=== PATIENT | female | born 1960 | race African-American/Black ===

== ENCOUNTER 2019-09-05 10:31 | Inpatient (IN) | payer BC ==
[2019-09-05] VITALS (11 sets, daily range): BP systolic 89–124; BP diastolic 46–70
[~2019-09-05] VITALS: Ht 157.5 cm; Wt 90.3 kg
--- NOTE | 2019-09-05 11:14 | PHYS DOC ---
Past Medical History Date and Time of Reassessment Date: Sep 05, 2019 Time: 13:00 Fluid Challenge Is the fluid challenge complet: No IBW Target Volume Used: Yes BMI > 30: Yes Vital Signs Vital Signs: Vital Signs Date Time Temp Pulse Resp B/P (MAP) Pulse Ox O2 Delivery O2 Flow Rate FiO2 09/05/19 12:52 108 18 100/67 (78) 98 Nasal Cannula 2.0 09/05/19 11:24 97.8 97.8 Temperature Source: Oral Respirations Respiratory Effort: Normal Respiratory Pattern: Normal Cardiovascular Pulse Rhythm: Irregular Heart: No JVD Lung Sounds Breath Sounds: Clear Capillary Refil Capillary Refill: Rt Hand < 3 seconds Peripheral Pulse Pulse Location: Monitor Pulse Strength: Weak (1+) Pulse Assessment Method: NIBP Critical Care Time Critical care time was 60 minutes exclusive of procedures. Adult General Chief Complaint Chief Complaint: RECTAL BLEED HPI HPI 59-year-old female presents to the emergency department with complaints of weakness, bright red blood per rectum. Patient states she has a history of reflux as well as anemia. She states over the last 10 days she's had bleeding off and on persistent over the last 3-4 days with increasing weakness. She does describe shortness of breath. She denies any nausea, vomiting diarrhea, chest pain, headache or visual change. She denies any dizziness. Review of Systems Review of Systems Constitutional: Denies fever or chills [] Respiratory: Denies cough or shortness of breath [] Cardiovascular: No additional information not addressed in HPI [] GI: Denies abdominal pain, nausea, vomiting, diarrhea, + BRBPR [] : Denies dysuria or hematuria [] Musculoskeletal: Denies back pain or joint pain [] Integument: Denies rash or skin lesions [] Neurologic: Denies headache, focal weakness or sensory changes [] All other systems were reviewed and found to be within normal limits, except as documented in this note. Current Medications Current Medications Current Medications Medications (Trade) Dose Ordered Sig/Florecita Start Time Stop Time Status Last Admin Dose Admin Adenosine (Adenocard) 6 mg STK-MED ONCE 09/05/19 12:33 09/05/19 12:33 DC Potassium Chloride/Water 100 ml @ 100 mls/hr Q1H 09/05/19 12:00 09/05/19 13:59 DC 09/05/19 14:55 100 MLS/HR Sodium Chloride 1,000 ml @ 1,500 mls/hr Q40M 09/05/19 12:50 09/05/19 13:49 DC 09/05/19 12:38 1,500 MLS/HR Allergies Allergies Allergies Coded Allergies Type Severity Reaction Last Updated Verified No Known Drug Allergies 09/05/19 No Physical Exam Physical Exam Constitutional: Well developed, well nourished, ill - appearing [] HENT: Normocephalic, atraumatic, bilateral external ears normal, oropharynx moist, no oral exudates, nose normal. [] Eyes: PERRLA, EOMI, conjunctiva normal, no discharge. [] Cardiovascular:Heart rate regular rhythm, no murmur [] Lungs & Thorax: Bilateral breath sounds clear to auscultation [] Abdomen: Bowel sounds normal, soft, no tenderness, no masses, no pulsatile masses. [] Skin: Warm, dry, no erythema, no rash. [] Back: No tenderness, no CVA tenderness. [] Extremities: No tenderness, no edema. [] Neurologic: Alert and oriented X 3, no focal deficits noted. [] Psychologic: Affect normal, judgement normal, mood normal. [] Current Patient Data Vital Signs Vital Signs Date Time Temp Pulse Resp B/P (MAP) Pulse Ox O2 Delivery O2 Flow Rate FiO2 09/05/19 12:52 108 18 100/67 (78) 98 Nasal Cannula 2.0 09/05/19 11:24 97.8 97.8 Lab Values Laboratory Tests Test 09/05/19 11:14 09/05/19 11:29 09/05/19 12:00 White Blood Count 29.3 x10^3/uL (4.0-11.0) H Red Blood Count 3.78 x10^6/uL (3.50-5.40) Hemoglobin 9.9 g/dL (12.0-15.5) L Hematocrit 32.5 % (36.0-47.0) L Mean Corpuscular Volume 86 fL (79-100) Mean Corpuscular Hemoglobin 26 pg (25-35) Mean Corpuscular Hemoglobin Concent 31 g/dL (31-37) Red Cell Distribution Width 16.5 % (11.5-14.5) H Platelet Count 539 x10^3/uL (140-400) H Neutrophils (%) (Auto) 84 % (31-73) H Lymphocytes (%) (Auto) 9 % (24-48) L Monocytes (%) (Auto) 6 % (0-9) Eosinophils (%) (Auto) 0 % (0-3) Basophils (%) (Auto) 0 % (0-3) Neutrophils # (Auto) 24.7 x10^3/uL (1.8-7.7) H Lymphocytes # (Auto) 2.7 x10^3/uL (1.0-4.8) Monocytes # (Auto) 1.8 x10^3/uL (0.0-1.1) H Eosinophils # (Auto) 0.1 x10^3/uL (0.0-0.7) Basophils # (Auto) 0.1 x10^3/uL (0.0-0.2) Segmented Neutrophils % 78 % (35-66) H Band Neutrophils % 3 % (0-9) Lymphocytes % 10 % (24-48) L Monocytes % 8 % (0-10) Eosinophils % 1 % (0-5) Toxic Granulation Present Platelet Estimate Increased (ADEQUATE) Large Platelets Present Giant Platelets Occ Anisocytosis Present Prothrombin Time 16.4 SEC (11.7-14.0) H Prothrombin Time INR 1.4 (0.8-1.1) H Sodium Level 139 mmol/L (136-145) Potassium Level 2.7 mmol/L (3.5-5.1) *L Chloride Level 100 mmol/L (98-107) Carbon Dioxide Level 14 mmol/L (21-32) L Anion Gap 25 (6-14) H Blood Urea Nitrogen 39 mg/dL (7-20) H Creatinine 4.0 mg/dL (0.6-1.0) H Estimated GFR (Cockcroft-Gault) 13.8 BUN/Creatinine Ratio 10 (6-20) Glucose Level 341 mg/dL (70-99) H Lactic Acid Level 13.1 mmol/L (0.4-2.0) *H Calcium Level 9.4 mg/dL (8.5-10.1) Magnesium Level 2.8 mg/dL (1.8-2.4) H Iron Level 55 ug/dL (50-170) Total Iron Binding Capacity 155 ug/dL (250-450) L Iron Saturation 35 % (15-34) H Total Bilirubin 0.3 mg/dL (0.2-1.0) Aspartate Amino Transferase (AST) 23 U/L (15-37) Alanine Aminotransferase (ALT) 36 U/L (14-59) Alkaline Phosphatase 194 U/L (46-116) H Total Protein 7.9 g/dL (6.4-8.2) Albumin 2.1 g/dL (3.4-5.0) L Albumin/Globulin Ratio 0.4 (1.0-1.7) L Vitamin B12 Level > 2000 pg/mL (247-911) H Thyroid Stimulating Hormone (TSH) 1.781 uIU/mL (0.358-3.74) Stool Occult Blood Positive (NEG) Procalcitonin 0.57 ng/mL (0.00-0.10) H Laboratory Tests 09/05/19 11:14 Laboratory Tests 09/05/19 11:14 EKG EKG EKG reviewed 1148, sinus tachycardia normal axis nonurgent EKG EKG reviewed 1231, SVT, heart rate 181, urgent EKG[] Radiology/Procedures Radiology/Procedures [address] [address] IMAGING REPORT Signed PATIENT: PATRICIA BEE ACCOUNT: [id number] : 1960 LOCATION: ER AGE: 59 SEX: F EXAM STATUS: REG ER ORD. PHYSICIAN: CAROL SENA MD REASON: svt PROCEDURE: CHEST AP ONLY Single portable chest radiograph without comparison for SVT. FINDINGS: Lungs are clear. Cardiomediastinum is grossly unremarkable. No significant soft tissue or osseous abnormality. Impression: 1. No acute cardiopulmonary abnormality. Electronically signed by: Hu Rodriguez MD (09/05/2019 2:03 PM) [facility] DICTATED and SIGNED BY: HU RODRIGUEZ MD DATE: 09/05/19 1403 [] [address] [id number] IMAGING REPORT Signed PATIENT: PATRICIA BEE ACCOUNT: [id number] : 1960 LOCATION: ER AGE: 59 SEX: F EXAM STATUS: REG ER ORD. PHYSICIAN: BRYCE ABEBE MD REASON: abdominal pain, brbpr PROCEDURE: CT ABDOMEN PELVIS WO CONTRAST CT ABDOMEN PELVIS WO CONTRAST Indication: Abdominal pain. Exposure: One or more of the following individualized dose reduction techniques were utilized for this examination: 1. Automated exposure control 2. Adjustment of the mA and/or kV according to patient size 3. Use of iterative reconstruction technique. Comparison: October 22, 2011 Technique: No intravenous contrast given. No oral contrast per request. Findings: Evaluation of solid viscera, bowel and vasculature is compromised by the noncontrast technique. Lung bases are clear. Liver is enlarged, measuring about 20 cm cephalocaudal. This has increased since prior study. Spleen unremarkable. Pancreas unremarkable. Small hypodense mass of the right adrenal gland measuring 13 mm diameter, is unchanged and most likely an adenoma. Multiple low-density lesions in both kidneys, more so on the right, are identified and have progressed in size and number since the previous exam. The measurable of these lesions all measure less than 20 Hounsfield units, and are most likely cysts, within the constraints of a noncontrast exam. 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 No evidence of hydronephrosis. Small density within the gallbladder compatible most likely with a small gallstone. Mild aortic calcification without evidence of aneurysm. Small mesenteric lymph nodes in the right lower quadrant, largest measures 7 mm in short axis. No pathologically enlarged lymph nodes are seen. Wall thickening of the distal esophagus, circumferential. Small hiatal hernia. No significant small bowel distention. No evidence of acute colitis. The appendix appears within normal limits. No evidence of pneumoperitoneum or significant ascites. Urinary bladder is incompletely distended. The uterus is enlarged with a lobulated morphology and internal calcifications, similar to the prior study. This may represent fibroid uterus. This appears similar to previous exam. Low-density lesion in the left adnexal area measures 13 Hounsfield units compatible with cystic nature, and measures 3 cm diameter. Prior study does not include sagittal reconstructions limiting evaluation of the spine. There is mild superior and inferior endplate compression of the L3 vertebral body compatible with mild compression fracture, not definitely seen on the previous exam. Degenerative spondylosis particularly at L4-L5 and L5-S1. No evidence of destructive bone lesion. IMPRESSION: 1. Development of a small 3 cm cystic lesion of the left adnexa. Recommend nonemergent pelvic ultrasound for further evaluation. 2. Hepatomegaly. 3. Stable right adrenal nodule, most likely an adenoma. 4. Multiple renal lesions, most likely cysts within the constraints of a noncontrast exam. These have increased in size and number since the prior study, and further outpatient examination with multiphase contrast-enhanced CT or MRI of the kidneys could be of benefit. 5. Mild endplate depression at L3, as can be seen with osteoporotic fracture. Probably not seen on the prior study although comparison is limited without sagittal reconstructions on that exam. 6. Mild distal esophageal wall thickening, could be of acute or chronic etiology. 7. Calcific density within the gallbladder, likely a gallstone. Electronically signed by: Vern Baldwin MD (09/05/2019 12:57 PM) [facility] DICTATED and SIGNED BY: VERN BALDWIN MD DATE: 09/05/19 1257 Course & Med Decision Making Course & Med Decision Making Pertinent Labs and Imaging studies reviewed. (See chart for details) []59-year-old female presents to the emergency department with complaints of weakness, bright red blood per rectum. Patient states she has a history of reflux as well as anemia. She states over the last 10 days she's had bleeding off and on persistent over the last 3-4 days with increasing weakness. She does describe shortness of breath. She denies any nausea, vomiting diarrhea, chest pain, headache or visual change. She denies any dizziness. Labs reviewed - patient with elevated lactic acid 13.1, creat 4.0, WBC 29.3 Sepsis protocol initiated, cultures obtained, abx initiated - see sepsis worksheet Discussed with patient regarding central line access and she declines Patient received IVF 1500ml based on ideal body weight During her evaluation patient with SVT - HR 180's, SBP 60-70's Initially patient converted on her own however relapsed with HR 170-180s - received Adenosine 6mg IV with improvement however again converted back to SVT - patient requiring total of 12mg adenosine (Please see nursing notes) Cardiology consult placed from ER - talked with DR Zimmerman, discussed use of amio vs not - recommended holding off and he will see patient in ICU Discussed admit with DR. SENA Discussed admit with patient and family at bedside Dragon Disclaimer Ruthon Disclaimer This electronic medical record was generated, in whole or in part, using a voice recognition dictation system. Critical Care Time Critical care time was 60 minutes exclusive of procedures. Date and Time of Reassessment Date: Sep 05, 2019 Time: 13:26 Fluid Challenge Is the fluid challenge complet: No IBW Target Volume Used: Yes BMI > 30: Yes Vital Signs Vital Signs: Vital Signs Date Time Temp Pulse Resp B/P (MAP) Pulse Ox O2 Delivery O2 Flow Rate FiO2 09/05/19 12:52 108 18 100/67 (78) 98 Nasal Cannula 2.0 09/05/19 11:24 97.8 97.8 Temperature Source: Oral Respirations Respiratory Effort: Normal Respiratory Pattern: Irregular Cardiovascular Pulse Rhythm: Irregular Heart: No murmurs noted Lung Sounds Breath Sounds: Clear Capillary Refil Capillary Refill: Rt Hand < 3 seconds Peripheral Pulse Pulse Location: Monitor Pulse Strength: Weak (1+) Pulse Assessment Method: NIBP Integumentary Skin: Warm Departure Departure Impression: Primary Impression: Septic shock Additional Impressions: SVT (supraventricular tachycardia) Rectal bleed BONITA (acute kidney injury) Disposition: 09 ADMITTED INPATIENT Admitting Physician: LAYLA Condition: GUARDED Referrals: UNKNOWN PCP NAME (PCP) Problem Qualifiers BRYCE ABEBE MD Sep 05, 2019 11:14
[2019-09-05] MEDS ORDERED: IV NORMAL SALINE 1000ML BAG 1,000 ML IV ONE (11:30)
[2019-09-05 11:41] LABS: BASO # 0.1 x10^3/uL (0.0-0.2); BASO % 0 % (0-3); EOS # 0.1 x10^3/uL (0.0-0.7); EOS % 0 % (0-3); HEMATOCRIT 32.5 % (36.0-47.0); HEMOGLOBIN 9.9 g/dL (12.0-15.5); LYMPH # 2.7 x10^3/uL (1.0-4.8); LYMPH % 9 % (24-48); MEAN CORPUSCULAR HEMOGLOBIN 26 pg (25-35); MEAN CORPUSCULAR HGB CONC 31 g/dL (31-37); MEAN CORPUSCULAR VOLUME 86 fL (79-100); MONO # 1.8 x10^3/uL (0.0-1.1); MONO % 6 % (0-9); NEUT # 24.7 x10^3/uL (1.8-7.7); NEUT % 84 % (31-73); PLATELET COUNT 539 x10^3/uL (140-400); RED BLOOD COUNT 3.78 x10^6/uL (3.50-5.40); RED CELL DISTRIBUTION WIDTH 16.5 % (11.5-14.5); WHITE BLOOD COUNT 29.3 x10^3/uL (4.0-11.0)
[2019-09-05 11:41] LABS: FECAL OB PT POSITIVE (NEG)
[2019-09-05 11:48] LABS: ALBUMIN 2.1 g/dL (3.4-5.0); ALBUMIN/GLOBULIN RATIO 0.4 (1.0-1.7); CALCIUM 9.4 mg/dL (8.5-10.1); GFR 13.8; TOTAL BILIRUBIN 0.3 mg/dL (0.2-1.0); TOTAL PROTEIN 7.9 g/dL (6.4-8.2)
[2019-09-05 11:52] LABS: POTASSIUM 2.7 mmol/L (3.5-5.1)
[2019-09-05 11:56] LABS: PROTHROMBIN TIME PATIENT 16.4 SEC (11.7-14.0)
[2019-09-05] MEDS ORDERED: ADENOSINE 6 MG/2 ML VIAL. IV ONE ×5 (12:20→13:29)
[2019-09-05] MEDS: IV NORMAL SALINE 1000ML BAG 1,000 ML IV SCH ×4 (12:38→19:46)
[2019-09-05] MEDS: POTASSIUM CHLORIDE 10MEQ 100 ML IV SCH ×4 (12:43→17:00)
[2019-09-05 12:47] LABS: % BANDS 3 % (0-9); % EOS 1 % (0-5); % LYMPHS 10 % (24-48); % MONOS 8 % (0-10); % SEGS 78 % (35-66)
[2019-09-05 12:48] LABS: PLT ESTIMATE INCREASED (ADEQUATE)
[2019-09-05 12:49] LABS: ANISOCYTOSIS PRESENT; TOXIC GRANULATION PRESENT
[2019-09-05] MEDS ORDERED: NOREPINEPHRIN 8MG/250ML PREMIX 250 ML IV PRN (13:00)
[2019-09-05] MEDS ORDERED: 0.9 % SODIUM CHLORIDE 10 ML DISP.SYRIN. IV PRN (13:00)
[2019-09-05] MEDS ORDERED: VANCOMYCIN PER PHARMACY MC ONE (13:00)
[2019-09-05] MEDS ORDERED: PIPERACILLIN/TAZOBACTAM 4.5 GM in IV NORMAL SALINE 100ML 100 ML IV ONE (13:00)
--- NOTE | 2019-09-05 13:00 | RAD ---
CT ABDOMEN PELVIS WO CONTRAST Indication: Abdominal pain. Exposure: One or more of the following individualized dose reduction techniques were utilized for this examination: 1. Automated exposure control 2. Adjustment of the mA and/or kV according to patient size 3. Use of iterative reconstruction technique. Comparison: October 22, 2011 Technique: No intravenous contrast given. No oral contrast per request. Findings: Evaluation of solid viscera, bowel and vasculature is compromised by the noncontrast technique. Lung bases are clear. Liver is enlarged, measuring about 20 cm cephalocaudal. This has increased since prior study. Spleen unremarkable. Pancreas unremarkable. Small hypodense mass of the right adrenal gland measuring 13 mm diameter, is unchanged and most likely an adenoma. Multiple low-density lesions in both kidneys, more so on the right, are identified and have progressed in size and number since the previous exam. The measurable of these lesions all measure less than 20 Hounsfield units, and are most likely cysts, within the constraints of a noncontrast exam. 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 No evidence of hydronephrosis. Small density within the gallbladder compatible most likely with a small gallstone. Mild aortic calcification without evidence of aneurysm. Small mesenteric lymph nodes in the right lower quadrant, largest measures 7 mm in short axis. No pathologically enlarged lymph nodes are seen. Wall thickening of the distal esophagus, circumferential. Small hiatal hernia. No significant small bowel distention. No evidence of acute colitis. The appendix appears within normal limits. No evidence of pneumoperitoneum or significant ascites. Urinary bladder is incompletely distended. The uterus is enlarged with a lobulated morphology and internal calcifications, similar to the prior study. This may represent fibroid uterus. This appears similar to previous exam. Low-density lesion in the left adnexal area measures 13 Hounsfield units compatible with cystic nature, and measures 3 cm diameter. Prior study does not include sagittal reconstructions limiting evaluation of the spine. There is mild superior and inferior endplate compression of the L3 vertebral body compatible with mild compression fracture, not definitely seen on the previous exam. Degenerative spondylosis particularly at L4-L5 and L5-S1. No evidence of destructive bone lesion. IMPRESSION: 1. Development of a small 3 cm cystic lesion of the left adnexa. Recommend nonemergent pelvic ultrasound for further evaluation. 2. Hepatomegaly. 3. Stable right adrenal nodule, most likely an adenoma. 4. Multiple renal lesions, most likely cysts within the constraints of a noncontrast exam. These have increased in size and number since the prior study, and further outpatient examination with multiphase contrast-enhanced CT or MRI of the kidneys could be of benefit. 5. Mild endplate depression at L3, as can be seen with osteoporotic fracture. Probably not seen on the prior study although comparison is limited without sagittal reconstructions on that exam. 6. Mild distal esophageal wall thickening, could be of acute or chronic etiology. 7. Calcific density within the gallbladder, likely a gallstone. Electronically signed by: Vern Baldwin MD (09/05/2019 12:57 PM) [facility]
[2019-09-05] MEDS ORDERED: PIPERACILLIN/TAZOBACTAM 2.25 GM in IV NORMAL SALINE 50ML 50 ML IV ONE (13:15)
[2019-09-05] MEDS ORDERED: VANCOMYCIN 1.5 GM in IV NORMAL SALINE 500ML BAG 500 ML IV ONE (13:15)
[2019-09-05] MEDS ORDERED: AMIODARONE 900 MG in IV DEXTROSE 5% 500 ML IV PRN (13:30)
[2019-09-05] MEDS ORDERED: ACETAMINOPHEN/CODEINE 300/30MG TABLET. PO PRN (13:30)
[2019-09-05] MEDS ORDERED: ONDANSETRON PF 4 MG/2 ML VIAL. IVP PRN (13:30)
--- NOTE | 2019-09-05 13:35 | PDOC1 ---
History and Physical Date of Admission Date of Admission DATE: 09/05/19 TIME: :22 Identification/Chief Complaint Chief Complaint BRBPR few days Source Source: Caregiver, Chart review, Patient History of Present Illness History of Present Illness Very pleasant 59 AA female, takes only 2 meds at home, losartan 50 po qdaily and ferrous sulfate, BRBPR few days, mild, with BM and when she wipes, NOt on OAC< asa or nsaids, Similar episode yrs ago with EGD and c scope unrevealing, BUt new today is lactate 13.1, no source with SVT 170s, no sxs, RESolved initially after IVF, then came back, then resolved with adenosine 6 mgs then came back and now for second dose adenosine, K 2.7, creat 4.,0 - news to her. AGAP elevated 25, INR 1,4., SBP 70s- thru 80s. WIll admit to icu, with renal , cards and stabilize arrhythmia first, She does not appear in distress during the whole SVT episodes, denies CP CT : 1. Development of a small 3 cm cystic lesion of the left adnexa. Recommend nonemergent pelvic ultrasound for further evaluation. 2. Hepatomegaly. 3. Stable right adrenal nodule, most likely an adenoma. 4. Multiple renal lesions, most likely cysts within the constraints of a noncontrast exam. These have increased in size and number since the prior study, and further outpatient examination with multiphase contrast-enhanced CT or MRI of the kidneys could be of benefit. 5. Mild endplate depression at L3, as can be seen with osteoporotic fracture. Probably not seen on the prior study although comparison is limited without sagittal reconstructions on that exam. 6. Mild distal esophageal wall thickening, could be of acute or chronic etiology. 7. Calcific density within the gallbladder, likely a gallstone. Past Medical History Cardiovascular: HTN Heme/Onc: Anemia NOS, Iron deficiency Anemia Past Surgical History Past Surgical History: No pertinent history Family History Family History: Hypertension Social History Smoke: No ALCOHOL: none Drugs: None Current Problem List Problem List Problems Medical Problems: (1) Rectal bleed Status: Acute (2) Septic shock Status: Acute Current Medications Current Medications Current Medications Sodium Chloride 1,000 ml @ 1,000 mls/hr 1X ONCE IV Last administered on 09/05/19at 11:30; Start 09/05/19 at 11:30; Stop 09/05/19 at 12:29; Status DC Potassium Chloride/Water 100 ml @ 100 mls/hr Q1H IV Last administered on 09/05/19at 12:43; Start 09/05/19 at 12:00; Stop 09/05/19 at 13:59 Adenosine (Adenocard) 6 mg STK-MED ONCE IV ; Start 09/05/19 at 12:20; Stop 09/05/19 at 12:21; Status DC Adenosine (Adenocard) 6 mg STK-MED ONCE IV ; Start 09/05/19 at 12:33; Stop 09/05/19 at 12:33; Status DC Sodium Chloride (Normal Saline Flush) 10 ml QSHIFT PRN IV AFTER MEDS AND BLOOD DRAWS; Start 09/05/19 at 13:00 Sodium Chloride 1,000 ml @ 1,500 mls/hr Q40M IV Last administered on 09/05/19at 12:38; Start 09/05/19 at 12:50; Stop 09/05/19 at 13:49 Piperacillin Sod/ Tazobactam Sod 4.5 gm/Sodium Chloride 100 ml @ 200 mls/hr 1X ONCE IV ; Start 09/05/19 at 13:00; Stop 09/05/19 at 13:07; Status DC Vancomycin HCl (Vanco Per Pharmacy) 1 each 1X ONCE MC ; Start 09/05/19 at 13:00; Stop 09/05/19 at 13:08; Status DC Norepinephrine Bitartrate 250 ml @ 0 mls/hr CONT PRN IV PER PROTOCOL; Start 09/05/19 at 13:00 Adenosine (Adenocard) 6 mg 1X ONCE IV Last administered on 09/05/19at 12:37; Start 09/05/19 at 13:15; Stop 09/05/19 at 13:16; Status DC Piperacillin Sod/ Tazobactam Sod 2.25 gm/Sodium Chloride 50 ml @ 100 mls/hr 1X ONCE IV ; Start 09/05/19 at 13:15; Stop 09/05/19 at 13:44 Vancomycin HCl 1.5 gm/Sodium Chloride 500 ml @ 250 mls/hr 1X ONCE IV ; Start 09/05/19 at 13:15; Stop 09/05/19 at 15:14 Allergies Allergies: Coded Allergies: No Known Drug Allergies (Unverified , 09/05/19) ROS Review of System as per HPI, all else 14 pt reviewed with her is neg Physical Exam General: Alert, Oriented X3, Cooperative, No acute distress HEENT: Atraumatic, PERRLA, EOMI Lungs: Clear to auscultation, Normal air movement Heart: S1S2, no thrills, no rubs, no gallops, no murmurs, other (svt) Abdomen: Normal bowel sounds, Soft, No tenderness, No hepatosplenomegaly, No masses PELVIC: Nml ext genitalia Extremities: No clubbing, No cyanosis, No edema, Normal pulses, No tenderness/swelling Skin: No rashes, No breakdown, No significant lesion Neuro: Normal gait, Normal speech, Strength at 5/5 X4 ext, Normal tone, Sensation intact, Cranial nerves 3-12 NL, Reflexes 2+ Psych/Mental Status: Mental status NL, Mood NL Vitals Vitals Vital Signs Date Time Temp Pulse Resp B/P (MAP) Pulse Ox O2 Delivery O2 Flow Rate FiO2 09/05/19 12:06 91/55 (67) 09/05/19 11:24 97.8 118 24 100 Room Air 97.8 Labs Labs Laboratory Tests Test 09/05/19 11:14 09/05/19 11:29 White Blood Count 29.3 x10^3/uL (4.0-11.0) Red Blood Count 3.78 x10^6/uL (3.50-5.40) Hemoglobin 9.9 g/dL (12.0-15.5) Hematocrit 32.5 % (36.0-47.0) Mean Corpuscular Volume 86 fL (79-100) Mean Corpuscular Hemoglobin 26 pg (25-35) Mean Corpuscular Hemoglobin Concent 31 g/dL (31-37) Red Cell Distribution Width 16.5 % (11.5-14.5) Platelet Count 539 x10^3/uL (140-400) Neutrophils (%) (Auto) 84 % (31-73) Lymphocytes (%) (Auto) 9 % (24-48) Monocytes (%) (Auto) 6 % (0-9) Eosinophils (%) (Auto) 0 % (0-3) Basophils (%) (Auto) 0 % (0-3) Neutrophils # (Auto) 24.7 x10^3/uL (1.8-7.7) Lymphocytes # (Auto) 2.7 x10^3/uL (1.0-4.8) Monocytes # (Auto) 1.8 x10^3/uL (0.0-1.1) Eosinophils # (Auto) 0.1 x10^3/uL (0.0-0.7) Basophils # (Auto) 0.1 x10^3/uL (0.0-0.2) Segmented Neutrophils % 78 % (35-66) Band Neutrophils % 3 % (0-9) Lymphocytes % 10 % (24-48) Monocytes % 8 % (0-10) Eosinophils % 1 % (0-5) Toxic Granulation Present Platelet Estimate Increased (ADEQUATE) Large Platelets Present Giant Platelets Occ Anisocytosis Present Prothrombin Time 16.4 SEC (11.7-14.0) Prothromb Time International Ratio 1.4 (0.8-1.1) Sodium Level 139 mmol/L (136-145) Potassium Level 2.7 mmol/L (3.5-5.1) Chloride Level 100 mmol/L (98-107) Carbon Dioxide Level 14 mmol/L (21-32) Anion Gap 25 (6-14) Blood Urea Nitrogen 39 mg/dL (7-20) Creatinine 4.0 mg/dL (0.6-1.0) Estimated GFR (Cockcroft-Gault) 13.8 BUN/Creatinine Ratio 10 (6-20) Glucose Level 341 mg/dL (70-99) Lactic Acid Level 13.1 mmol/L (0.4-2.0) Calcium Level 9.4 mg/dL (8.5-10.1) Magnesium Level 2.8 mg/dL (1.8-2.4) Total Bilirubin 0.3 mg/dL (0.2-1.0) Aspartate Amino Transf (AST/SGOT) 23 U/L (15-37) Alanine Aminotransferase (ALT/SGPT) 36 U/L (14-59) Alkaline Phosphatase 194 U/L (46-116) Total Protein 7.9 g/dL (6.4-8.2) Albumin 2.1 g/dL (3.4-5.0) Albumin/Globulin Ratio 0.4 (1.0-1.7) Stool Occult Blood Positive (NEG) Laboratory Tests Test 09/05/19 11:14 09/05/19 11:29 White Blood Count 29.3 x10^3/uL (4.0-11.0) Red Blood Count 3.78 x10^6/uL (3.50-5.40) Hemoglobin 9.9 g/dL (12.0-15.5) Hematocrit 32.5 % (36.0-47.0) Mean Corpuscular Volume 86 fL (79-100) Mean Corpuscular Hemoglobin 26 pg (25-35) Mean Corpuscular Hemoglobin Concent 31 g/dL (31-37) Red Cell Distribution Width 16.5 % (11.5-14.5) Platelet Count 539 x10^3/uL (140-400) Neutrophils (%) (Auto) 84 % (31-73) Lymphocytes (%) (Auto) 9 % (24-48) Monocytes (%) (Auto) 6 % (0-9) Eosinophils (%) (Auto) 0 % (0-3) Basophils (%) (Auto) 0 % (0-3) Neutrophils # (Auto) 24.7 x10^3/uL (1.8-7.7) Lymphocytes # (Auto) 2.7 x10^3/uL (1.0-4.8) Monocytes # (Auto) 1.8 x10^3/uL (0.0-1.1) Eosinophils # (Auto) 0.1 x10^3/uL (0.0-0.7) Basophils # (Auto) 0.1 x10^3/uL (0.0-0.2) Segmented Neutrophils % 78 % (35-66) Band Neutrophils % 3 % (0-9) Lymphocytes % 10 % (24-48) Monocytes % 8 % (0-10) Eosinophils % 1 % (0-5) Toxic Granulation Present Platelet Estimate Increased (ADEQUATE) Large Platelets Present Giant Platelets Occ Anisocytosis Present Prothrombin Time 16.4 SEC (11.7-14.0) Prothromb Time International Ratio 1.4 (0.8-1.1) Sodium Level 139 mmol/L (136-145) Potassium Level 2.7 mmol/L (3.5-5.1) Chloride Level 100 mmol/L (98-107) Carbon Dioxide Level 14 mmol/L (21-32) Anion Gap 25 (6-14) Blood Urea Nitrogen 39 mg/dL (7-20) Creatinine 4.0 mg/dL (0.6-1.0) Estimated GFR (Cockcroft-Gault) 13.8 BUN/Creatinine Ratio 10 (6-20) Glucose Level 341 mg/dL (70-99) Lactic Acid Level 13.1 mmol/L (0.4-2.0) Calcium Level 9.4 mg/dL (8.5-10.1) Magnesium Level 2.8 mg/dL (1.8-2.4) Total Bilirubin 0.3 mg/dL (0.2-1.0) Aspartate Amino Transf (AST/SGOT) 23 U/L (15-37) Alanine Aminotransferase (ALT/SGPT) 36 U/L (14-59) Alkaline Phosphatase 194 U/L (46-116) Total Protein 7.9 g/dL (6.4-8.2) Albumin 2.1 g/dL (3.4-5.0) Albumin/Globulin Ratio 0.4 (1.0-1.7) Stool Occult Blood Positive (NEG) VTE Prophylaxis Ordered VTE Prophylaxis Devices: Contraindicated VTE Pharmacological Prophylaxi: Contraindicated Assessment/Plan Assessment/Plan NEw SVT with hypotension BRBPR - FOBT positive HYpokalemia, critical - check mag, replace BOINTA -creat 4.0- VMN, likely sec to GI losses - IVF, renal consult AGAp acidosis, contraction alkalosis - AGAP 25 with high bicarb SIRS - no source - elev lactate 13.,1 Septic shock (hypotensive) LEukocytosis - WBC 23 - kovacs cx, ID Incidental kidney cysts - per CT Old Thoracic fx - she denies knwoledge and back pain Incidental adrenal adenoma PLAn: ICU bed, rate control AMio gtt levophed stand by NS IVF for AGAP Check mag, tsh, calcium Replace k orally EMpiric abx - ID consult., sepsis avoid nephrotoxins COnsult ID, renal and cards HOld losartan (creat 4) MAy resume ferrous sulfate COnsult GI re BRBPR and positive - recheck lactate etc REcheck K later after replacement FUll code Emiliano GRIDER MD and cc 34 CAROL SENA MD Sep 05, 2019 13:35
[2019-09-05] MEDS ORDERED: diphenhydrAMINE HCL 25 MG CAPSULE PO PRN (13:45)
[2019-09-05] MEDS ORDERED: HYDROcodone/APAP 5/325MG 1 TAB TABLET PO PRN (14:00)
--- NOTE | 2019-09-05 14:04 | EKG ---
[facility] [address] [place] [address] Test Date: 2019-09-05 Test Time: 11:33:42 Pat Name: PATRICIA BEE Department: Room: Gender: F [employer]: : 1960 Requested By: BRYCE ABEBE Order Number: [id number] Reading MD: Nick Gallegos MD Measurements Intervals [place] Rate: 116 P: 171 NC: 156 QRS: 41 QRSD: 80 T: 34 QT: 350 QTc: 492 Interpretive Statements SINUS TACHYCARDIA VENTRICULAR PREMATURE COMPLEX(ES) Electronically Signed On 09-13-2019 8:10:17 CDT by Nick Gallegos MD
--- NOTE | 2019-09-05 14:06 | RAD ---
Single portable chest radiograph without comparison for SVT. FINDINGS: Lungs are clear. Cardiomediastinum is grossly unremarkable. No significant soft tissue or osseous abnormality. Impression: 1. No acute cardiopulmonary abnormality. Electronically signed by: Hu Zavala MD (09/05/2019 2:03 PM) [facility]
--- NOTE | 2019-09-05 14:31 | PDOC2 ---
GI CONSULT Reason For Consult: BRBPR - Hemoccult positive HPI: HPI: 59 y/o female seen in ER. helps provide some history - she seems forgetful. Hypotension, SVT in ER s/p adenosine. Labs note WBC 29.1, Hgb 9.9, MCV 86, RDW 16.4, plt 539, INR 1.4, K 2.7, BUN 39, Cr 4, lactic acid 13.1, Alk phos 194, positive Hemoccult. CT A/P w/ distal esophageal wall thickening, small hiatal hernia, probable gallstone, and hepatomegaly. 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 GI-lopez, reports rectal bleeding w/ stool x 10 days - gradually worsening. Associated w/ periumbilical pain that comes in waves, decreased appetite, and possible 5 lb weight loss. Has chronic knee pain controlled w/ steroid injections. Has been unable to get out of bed for the past couple days and has worn Depends. H/o heartburn on Rolaids. No dysphagia, n/v, diarrhea, constipation, or melena. Thinks had EGD and colonoscopy here at [facility] a little over 5 years ago for similar symptoms - says she had "in infection in the intestines and colon," and was given antibiotics. Denies GB, liver, pancreas, or PUD history. Denies NSAIDs. H/o anemia related to fibroids - usually takes iron QD (but not for the last week). Says the fibroids went away, denies vaginal bleeding. PMH: PMH: HTN, uterine fibroids, GERD, SOBEIDA, chronic knee pain FH: Family History: Other (father - "jaundice") Social History: Smoke: No ALCOHOL: occassional Drugs: None ROS: GEN: Denies fevers, chills, sweats HEENT: Denies blurred vision, sore throat CV: Denies chest pain RESP: Denies shortness of air, cough GI: Per HPI : Denies hematuria, dysuria ENDO: +weight loss NEURO: Denies confusion, dizziness MSK: +knee pain SKIN: Denies jaundice, pruritus Vitals: Vitals: Vital Signs Date Time Temp Pulse Resp B/P (MAP) Pulse Ox O2 Delivery O2 Flow Rate FiO2 09/05/19 13:31 90 22 90/73 (79) 95 Nasal Cannula 2.0 09/05/19 11:24 97.8 97.8 Labs: Labs: Laboratory Tests Test 09/05/19 11:14 09/05/19 11:29 White Blood Count 29.3 x10^3/uL (4.0-11.0) Red Blood Count 3.78 x10^6/uL (3.50-5.40) Hemoglobin 9.9 g/dL (12.0-15.5) Hematocrit 32.5 % (36.0-47.0) Mean Corpuscular Volume 86 fL (79-100) Mean Corpuscular Hemoglobin 26 pg (25-35) Mean Corpuscular Hemoglobin Concent 31 g/dL (31-37) Red Cell Distribution Width 16.5 % (11.5-14.5) Platelet Count 539 x10^3/uL (140-400) Neutrophils (%) (Auto) 84 % (31-73) Lymphocytes (%) (Auto) 9 % (24-48) Monocytes (%) (Auto) 6 % (0-9) Eosinophils (%) (Auto) 0 % (0-3) Basophils (%) (Auto) 0 % (0-3) Neutrophils # (Auto) 24.7 x10^3/uL (1.8-7.7) Lymphocytes # (Auto) 2.7 x10^3/uL (1.0-4.8) Monocytes # (Auto) 1.8 x10^3/uL (0.0-1.1) Eosinophils # (Auto) 0.1 x10^3/uL (0.0-0.7) Basophils # (Auto) 0.1 x10^3/uL (0.0-0.2) Segmented Neutrophils % 78 % (35-66) Band Neutrophils % 3 % (0-9) Lymphocytes % 10 % (24-48) Monocytes % 8 % (0-10) Eosinophils % 1 % (0-5) Toxic Granulation Present Platelet Estimate Increased (ADEQUATE) Large Platelets Present Giant Platelets Occ Anisocytosis Present Prothrombin Time 16.4 SEC (11.7-14.0) Prothromb Time International Ratio 1.4 (0.8-1.1) Sodium Level 139 mmol/L (136-145) Potassium Level 2.7 mmol/L (3.5-5.1) Chloride Level 100 mmol/L (98-107) Carbon Dioxide Level 14 mmol/L (21-32) Anion Gap 25 (6-14) Blood Urea Nitrogen 39 mg/dL (7-20) Creatinine 4.0 mg/dL (0.6-1.0) Estimated GFR (Cockcroft-Gault) 13.8 BUN/Creatinine Ratio 10 (6-20) Glucose Level 341 mg/dL (70-99) Lactic Acid Level 13.1 mmol/L (0.4-2.0) Calcium Level 9.4 mg/dL (8.5-10.1) Magnesium Level 2.8 mg/dL (1.8-2.4) Total Bilirubin 0.3 mg/dL (0.2-1.0) Aspartate Amino Transf (AST/SGOT) 23 U/L (15-37) Alanine Aminotransferase (ALT/SGPT) 36 U/L (14-59) Alkaline Phosphatase 194 U/L (46-116) Total Protein 7.9 g/dL (6.4-8.2) Albumin 2.1 g/dL (3.4-5.0) Albumin/Globulin Ratio 0.4 (1.0-1.7) Stool Occult Blood Positive (NEG) Allergies: Coded Allergies: No Known Drug Allergies (Unverified , 09/05/19) Medications: Current Medications Medications (Trade) Dose Ordered Sig/Florecita Route PRN Reason Start Time Stop Time Status Last Admin Dose Admin Sodium Chloride 1,000 ml @ 1,000 mls/hr 1X ONCE IV 09/05/19 11:30 09/05/19 12:29 DC 09/05/19 11:30 Potassium Chloride/Water 100 ml @ 100 mls/hr Q1H IV 09/05/19 12:00 09/05/19 13:59 DC 09/05/19 12:43 Sodium Chloride 1,000 ml @ 1,500 mls/hr Q40M IV 09/05/19 12:50 09/05/19 13:49 DC 09/05/19 12:38 Adenosine (Adenocard) 6 mg 1X ONCE IV 09/05/19 13:15 09/05/19 13:16 DC 09/05/19 12:37 Piperacillin Sod/ Tazobactam Sod 2.25 gm/Sodium Chloride 50 ml @ 100 mls/hr 1X ONCE IV 09/05/19 13:15 09/05/19 13:44 DC 09/05/19 13:29 Adenosine (Adenocard) 6 mg 1X ONCE IV 09/05/19 13:19 09/05/19 13:49 DC 09/05/19 13:19 Adenosine (Adenocard) 12 mg 1X ONCE IV 09/05/19 13:29 09/05/19 13:49 DC 09/05/19 13:29 Imaging: Imaging: CXR Impression: 1. No acute cardiopulmonary abnormality. CT A/P w/o contrast Lung bases are clear. Liver is enlarged, measuring about 20 cm cephalocaudal. This has increased since prior study. Spleen unremarkable. Pancreas unremarkable. Small hypodense mass of the right adrenal gland measuring 13 mm diameter, is unchanged and most likely an adenoma. Multiple low-density lesions in both kidneys, more so on the right, are identified and have progressed in size and number since the previous exam. The measurable of these lesions all measure less than 20 Hounsfield units, and are most likely cysts, within the constraints of a noncontrast exam. 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 No evidence of hydronephrosis. Small density within the gallbladder compatible most likely with a small gallstone. Mild aortic calcification without evidence of aneurysm. Small mesenteric lymph nodes in the right lower quadrant, largest measures 7 mm in short axis. No pathologically enlarged lymph nodes are seen. Wall thickening of the distal esophagus, circumferential. Small hiatal hernia. No significant small bowel distention. No evidence of acute colitis. The appendix appears within normal limits. No evidence of pneumoperitoneum or significant ascites. Urinary bladder is incompletely distended. The uterus is enlarged with a lobulated morphology and internal calcifications, similar to the prior study. This may represent fibroid uterus. This appears similar to previous exam. Low-density lesion in the left adnexal area measures 13 Hounsfield units compatible with cystic nature, and measures 3 cm diameter. Prior study does not include sagittal reconstructions limiting evaluation of the spine. There is mild superior and inferior endplate compression of the L3 vertebral body compatible with mild compression fracture, not definitely seen on the previous exam. Degenerative spondylosis particularly at L4-L5 and L5-S1. No evidence of destructive bone lesion. IMPRESSION: 1. Development of a small 3 cm cystic lesion of the left adnexa. Recommend nonemergent pelvic ultrasound for further evaluation. 2. Hepatomegaly. 3. Stable right adrenal nodule, most likely an adenoma. 4. Multiple renal lesions, most likely cysts within the constraints of a noncontrast exam. These have increased in size and number since the prior study, and further outpatient examination with multiphase contrast-enhanced CT or MRI of the kidneys could be of benefit. 5. Mild endplate depression at L3, as can be seen with osteoporotic fracture. Probably not seen on the prior study although comparison is limited without sagittal reconstructions on that exam. 6. Mild distal esophageal wall thickening, could be of acute or chronic etiology. 7. Calcific density within the gallbladder, likely a gallstone. PE: GEN: NAD HEENT: Atraumatic, PERRL LUNGS: NC 2L HEART: tachycardic ABD: quiet BS, soft, not particularly tender currently EXTREMITY: No edema SKIN: No rashes, no jaundice NEURO/PSYCH: A & O 3 A/P: A/P: Rectal bleeding, abd pain, decreased appetite Hypotension, SVT, leukocytosis, lactic acidosis, hypokalemia, BONITA, hyperglycemia Heartburn, distal esophageal wall thickening on CT - had an EGD >5 years ago CRC screen - reports normal colonoscopy >5 years ago Hepatomegaly Probable gallstone Chronic knee pain H/o SOBEIDA and uterine fibroids - unclear baseline Hgb, usually takes PO iron at home -- Cardiology, ID, and renal consults pending. Agree w/ NPO, PPI (change to IV for now). Observe for bleeding, monitor Hgb, check anemia parameters. Other per Dr. Goddard. ERIKA CARDENAS Sep 05, 2019 14:31
--- NOTE | 2019-09-05 14:36 | PDOC2 ---
CARDIAC CONSULT DATE OF CONSULT Date of Consult DATE: 09/05/19 TIME: 14:26 REASON FOR CONSULT Reason for Consult: Recurrent SVT REFERRING PHYSICIAN Referring Physician: Elsa SOURCE Source: Chart review, Patient HISTORY OF PRESENT ILLNESS HISTORY OF PRESENT ILLNESS This is a pleasant 59 yo female admitted for complains of rectal bleed. She has been having diffuse abd tenderness, Her abd pain is now absent. She has not been drinking well mostly 8 oz avg in the last 7-10 days, no appetite. Her BM is mixed with bright red blood. She also had another episode while in ED. Upon admission she was noted with sepsis, severe hypokalemia, BONITA with severe dehydration and had SVT which was corrected by adenosine. No fever or chills, but has been feeling weak and today she felt a little SOA. She did have the same issue 10 yrs ago and end up with colonoscopy and EGD but was noted any bleed source. No hx of arrhythmias, CAD, VTE or any bleeding or clotting disorders. PAST MEDICAL HISTORY Cardiovascular: HTN Pulmonary: No pertinent hx CENTRAL NERVOUS SYSTEM: Other (No pertinent history) GI: GERD, GI bleed Heme/Onc: Anemia NOS Musculoskeletal: low back pain, Osteoarthritis Rheumatologic: No pertinent hx Infectious disease: No pertinent hx ENT: No pertinent hx Endocrine: Other (uterine fibroids and ectopic ) PAST SURGICAL HISTORY Past Surgical History: Tubal Ligation FAMILY HISTORY Family History: Heart Disease (brother) SOCIAL HISTORY Smoke: No ALCOHOL: none Drugs: None Lives: with Family CURRENT MEDICATIONS CURRENT MEDICATIONS Current Medications Medications (Trade) Dose Ordered Sig/Florecita Route PRN Reason Start Time Stop Time Status Last Admin Dose Admin Sodium Chloride 1,000 ml @ 1,000 mls/hr 1X ONCE IV 09/05/19 11:30 09/05/19 12:29 DC 09/05/19 11:30 Potassium Chloride/Water 100 ml @ 100 mls/hr Q1H IV 09/05/19 12:00 09/05/19 13:59 DC 09/05/19 12:43 Sodium Chloride 1,000 ml @ 1,500 mls/hr Q40M IV 09/05/19 12:50 09/05/19 13:49 DC 09/05/19 12:38 Adenosine (Adenocard) 6 mg 1X ONCE IV 09/05/19 13:15 09/05/19 13:16 DC 09/05/19 12:37 Piperacillin Sod/ Tazobactam Sod 2.25 gm/Sodium Chloride 50 ml @ 100 mls/hr 1X ONCE IV 09/05/19 13:15 09/05/19 13:44 DC 09/05/19 13:29 Adenosine (Adenocard) 6 mg 1X ONCE IV 09/05/19 13:19 09/05/19 13:49 DC 09/05/19 13:19 Adenosine (Adenocard) 12 mg 1X ONCE IV 09/05/19 13:29 09/05/19 13:49 DC 09/05/19 13:29 ALLERGIES ALLERGIES: Coded Allergies: No Known Drug Allergies (Unverified , 09/05/19) ROS Review of System 14 point ROS evaluated with pertinent positives noted per HPI PHYSICAL EXAM General: Alert, Oriented X3, Cooperative, No acute distress HEENT: Atraumatic, Mucous membr. moist/pink Lungs: Clear to auscultation, Normal air movement Heart: Regular rate (SR/ST), Normal S1, Normal S2, No murmurs Abdomen: Soft, No tenderness Extremities: No cyanosis, No edema Skin: No breakdown, No significant lesion, Other (pale) Neuro: Normal speech, Sensation intact Psych/Mental Status: Mental status NL, Mood NL MUSCULOSKELETAL: Osteoarthritic changes both hands VITALS/I&O VITALS/I&O: Vital Signs Date Time Temp Pulse Resp B/P (MAP) Pulse Ox O2 Delivery O2 Flow Rate FiO2 09/05/19 13:31 90 22 90/73 (79) 95 Nasal Cannula 2.0 09/05/19 11:24 97.8 97.8 LABS Lab: Laboratory Tests Test 09/05/19 11:14 09/05/19 11:29 White Blood Count 29.3 x10^3/uL (4.0-11.0) H Red Blood Count 3.78 x10^6/uL (3.50-5.40) Hemoglobin 9.9 g/dL (12.0-15.5) L Hematocrit 32.5 % (36.0-47.0) L Mean Corpuscular Volume 86 fL (79-100) Mean Corpuscular Hemoglobin 26 pg (25-35) Mean Corpuscular Hemoglobin Concent 31 g/dL (31-37) Red Cell Distribution Width 16.5 % (11.5-14.5) H Platelet Count 539 x10^3/uL (140-400) H Neutrophils (%) (Auto) 84 % (31-73) H Lymphocytes (%) (Auto) 9 % (24-48) L Monocytes (%) (Auto) 6 % (0-9) Eosinophils (%) (Auto) 0 % (0-3) Basophils (%) (Auto) 0 % (0-3) Neutrophils # (Auto) 24.7 x10^3/uL (1.8-7.7) H Lymphocytes # (Auto) 2.7 x10^3/uL (1.0-4.8) Monocytes # (Auto) 1.8 x10^3/uL (0.0-1.1) H Eosinophils # (Auto) 0.1 x10^3/uL (0.0-0.7) Basophils # (Auto) 0.1 x10^3/uL (0.0-0.2) Segmented Neutrophils % 78 % (35-66) H Band Neutrophils % 3 % (0-9) Lymphocytes % 10 % (24-48) L Monocytes % 8 % (0-10) Eosinophils % 1 % (0-5) Toxic Granulation Present Platelet Estimate Increased (ADEQUATE) Large Platelets Present Giant Platelets Occ Anisocytosis Present Prothrombin Time 16.4 SEC (11.7-14.0) H Prothrombin Time INR 1.4 (0.8-1.1) H Sodium Level 139 mmol/L (136-145) Potassium Level 2.7 mmol/L (3.5-5.1) *L Chloride Level 100 mmol/L (98-107) Carbon Dioxide Level 14 mmol/L (21-32) L Anion Gap 25 (6-14) H Blood Urea Nitrogen 39 mg/dL (7-20) H Creatinine 4.0 mg/dL (0.6-1.0) H Estimated GFR (Cockcroft-Gault) 13.8 BUN/Creatinine Ratio 10 (6-20) Glucose Level 341 mg/dL (70-99) H Lactic Acid Level 13.1 mmol/L (0.4-2.0) *H Calcium Level 9.4 mg/dL (8.5-10.1) Magnesium Level 2.8 mg/dL (1.8-2.4) H Total Bilirubin 0.3 mg/dL (0.2-1.0) Aspartate Amino Transferase (AST) 23 U/L (15-37) Alanine Aminotransferase (ALT) 36 U/L (14-59) Alkaline Phosphatase 194 U/L (46-116) H Total Protein 7.9 g/dL (6.4-8.2) Albumin 2.1 g/dL (3.4-5.0) L Albumin/Globulin Ratio 0.4 (1.0-1.7) L Thyroid Stimulating Hormone (TSH) 1.781 uIU/mL (0.358-3.74) Stool Occult Blood Positive (NEG) Laboratory Tests 09/05/19 11:14 Laboratory Tests 09/05/19 11:14 ASSESSMENT/PLAN ASSESSMENT/PLAN 1. Sepsis with shock: unknown source 2. Hematochezia with abd pain/anorexia and rectal bleed: Hgb 9.9 3. PSVT in the setting of hypokalemia and BONITA and sepsis Presently SR/ST. 4. BONITA: likely on CKD. Cr 4.0. notable for renal cyst per CT. Suspect ATN with significant dehydration. 5. Esophagitis: per CT 6. L3 compression fracture 7. Mild coagulopathy Recommendations 1. Received adenosine. GI w/u on going. trend H/H 2. IV hydrate. Stop home losartan. Replace K. 3. TTE and TSH. Repeat BMP and check hemogram now 4. Received adenosine x3 in ED. BB PRN. 5. Supportive care. PEARL DOMINGUEZ APRN Sep 05, 2019 14:36
[2019-09-05 14:55] LABS: BILIRUBIN,URINE NEGATIVE (NEG); CLARITY,URINE CLOUDY; COLOR,URINE YELLOW; NITRITE,URINE NEGATIVE (NEG); PH,URINE 5.5; PROTEIN,URINE 100 mg/dL (NEG-TRACE); UROBILINOGEN,URINE 0.2 mg/dL (0.2 mg/dL)
--- NOTE | 2019-09-05 14:59 | EKG ---
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
--- NOTE | 2019-09-05 14:59 | EKG ---
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
--- NOTE | 2019-09-05 14:59 | EKG ---
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
--- NOTE | 2019-09-05 14:59 | EKG ---
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
[2019-09-05 15:05] LABS: AMORPHOUS SEDIMENT,UR PRESENT /HPF; HYALINE CASTS, URINE MODERATE /HPF
[2019-09-05 15:07] LABS: RBC,URINE OCC /HPF (0-2)
[2019-09-05 15:08] LABS: BACTERIA,URINE FEW /HPF (0-FEW); SQUAMOUS EPITHELIAL CELL,UR FEW /LPF
[2019-09-05 15:10] LABS: GRANULAR CASTS,URINE FEW /HPF
[2019-09-05] MEDS ORDERED: POTASSIUM CHLORIDE 20 MEQ TABLET.ER. PO ONE (15:45)
[2019-09-05 15:50] LABS: CALCIUM 8.5 mg/dL (8.5-10.1); CREATININE 3.2 mg/dL (0.6-1.0); GFR 17.8
[2019-09-05 15:57] LABS: POTASSIUM 2.9 mmol/L (3.5-5.1)
[2019-09-05] MEDS ORDERED: METOPROLOL TARTRATE 5 MG/5 ML VIAL. IVP PRN (16:15)
[2019-09-05] MEDS ORDERED: LOSA1TAB19 PO (16:45)
[2019-09-05] MEDS ORDERED: PANTOPRAZOLE IV PUSH 40 MG VIAL. IVP ONE (16:45)
[2019-09-05] MEDS ORDERED: IRON1TAB2 PO (16:45)
[2019-09-05] MEDS ORDERED: CALCIUM CARBONATE 500 MG TAB.CHEW ONE (17:13)
--- NOTE | 2019-09-05 17:48 | NUR ---
Non administered Vanco and Fluids. Administered in ED.
[2019-09-05 19:14] LABS: HEMATOCRIT 24.8 % (36.0-47.0); HEMOGLOBIN 7.7 g/dL (12.0-15.5); RED BLOOD COUNT 2.98 x10^6/uL (3.50-5.40); RED CELL DISTRIBUTION WIDTH 15.6 % (11.5-14.5); WHITE BLOOD COUNT 29.8 x10^3/uL (4.0-11.0)
[2019-09-05] MEDS: PIPERACILLIN/TAZOBACTAM 2.25 GM in IV NORMAL SALINE 50ML 50 ML IV SCH (19:49)
[2019-09-06] VITALS (31 sets, daily range): BP systolic 91–143; BP diastolic 48–82
[2019-09-06] MEDS: PIPERACILLIN/TAZOBACTAM 2.25 GM in IV NORMAL SALINE 50ML 50 ML IV SCH ×4 (00:27→17:54)
[2019-09-06] MEDS: MORPHINE SULFATE 2 MG/ML VIAL. IV PRN ×3 (02:16→21:16)
[2019-09-06 05:19] LABS: BASO % 0 % (0-3); EOS % 0 % (0-3); LYMPH # 1.4 x10^3/uL (1.0-4.8); LYMPH % 6 % (24-48); MEAN CORPUSCULAR HEMOGLOBIN 27 pg (25-35); MEAN CORPUSCULAR HGB CONC 32 g/dL (31-37); MEAN CORPUSCULAR VOLUME 83 fL (79-100); MONO # 1.5 x10^3/uL (0.0-1.1); MONO % 6 % (0-9); NEUT # 22.2 x10^3/uL (1.8-7.7); NEUT % 88 % (31-73); PLATELET COUNT 281 x10^3/uL (140-400); RED BLOOD COUNT 2.49 x10^6/uL (3.50-5.40); RED CELL DISTRIBUTION WIDTH 15.6 % (11.5-14.5); WHITE BLOOD COUNT 25.3 x10^3/uL (4.0-11.0)
[2019-09-06 05:23] LABS: CALCIUM 7.8 mg/dL (8.5-10.1); CREATININE 2.3 mg/dL (0.6-1.0); GFR 26.1; MAGNESIUM 2.2 mg/dL (1.8-2.4); POTASSIUM 3.5 mmol/L (3.5-5.1)
[2019-09-06 05:36] LABS: HEMATOCRIT 20.6 % (36.0-47.0); HEMOGLOBIN 6.6 g/dL (12.0-15.5)
--- NOTE | 2019-09-06 05:46 | NUR ---
Received call with critical Hgb of 6.[address] Gomez paged at 0540. Received call back at 0543 with orders to transfuse 1 unit PRBC. Order entered into system. Educated pt on critical lab value and needed blood transfusion, pt agreed. Pt has had one loose, bloody stool on this shift. Will pass on and continue to monitor. Pt is currently resting with eyes closed and call light within reach.
[2019-09-06] MEDS: IV NORMAL SALINE 1000ML BAG 1,000 ML IV SCH ×2 (07:14→17:54)
[2019-09-06] MEDS ORDERED: PANTOPRAZOLE 40 MG TABLET.DR. PO SCH (07:30)
[2019-09-06] MEDS: PANTOPRAZOLE IV PUSH 40 MG VIAL. IVP SCH (07:30)
[2019-09-06] MEDS ORDERED: PANTOPRAZOLE IV PUSH 40 MG VIAL. IVP ONE (07:30)
[2019-09-06] MEDS: FERROUS SULFATE 325 MG TABLET. PO SCH (08:00)
--- NOTE | 2019-09-06 08:59 | PDOC ---
Infectious Disease Note Vital Signs: Vital Signs Vital Signs Date Time Temp Pulse Resp B/P (MAP) Pulse Ox O2 Delivery O2 Flow Rate FiO2 09/06/19 08:00 Room Air 09/06/19 08:00 96 22 115/69 (84) 98 09/06/19 07:47 98.7 98.7 09/05/19 14:57 2.0 Medications: Inpatient Meds: Current Medications Medications (Trade) Dose Ordered Sig/Florecita Start Time Stop Time Status Last Admin Dose Admin Acetaminophen/ Codeine Phosphate (Tylenol #3) 1 tab PRN Q6HRS PRN 09/05/19 13:30 Acetaminophen/ Hydrocodone Bitart (Lortab 5/325) 1 tab PRN Q4HRS PRN 09/05/19 14:00 Adenosine (Adenocard) 12 mg 1X ONCE 09/05/19 13:29 09/05/19 13:49 DC 09/05/19 13:29 12 MG Amiodarone HCl 900 mg/Dextrose 518 ml @ 0 mls/hr CONT PRN 09/05/19 13:30 Calcium Carbonate/ Glycine (Tums) 500 mg STK-MED ONCE 09/05/19 17:13 09/05/19 17:13 DC Diphenhydramine HCl (Benadryl) 25 mg PRN QHS PRN 09/05/19 13:45 Ferrous Sulfate (Feosol) 325 mg [id number] 09/06/19 08:00 Metoprolol Tartrate (Lopressor Vial) 5 mg PRN Q5MIN PRN 09/05/19 16:15 Morphine Sulfate (Morphine Sulfate) 1 mg PRN Q2HR PRN 09/05/19 13:45 09/06/19 05:32 1 MG Norepinephrine Bitartrate 250 ml @ 0 mls/hr CONT PRN 09/05/19 13:00 Ondansetron HCl (Zofran) 4 mg PRN Q6HRS PRN 09/05/19 13:30 Pantoprazole Sodium (PROTONIX VIAL for IV PUSH) 40 mg 1X ONCE 09/05/19 16:45 09/05/19 16:51 DC 09/05/19 17:00 40 MG Pantoprazole Sodium (Protonix) 40 mg DAILYAC 09/06/19 07:30 09/05/19 14:33 DC Piperacillin Sod/ Tazobactam Sod 2.25 gm/Sodium Chloride 50 ml @ 100 mls/hr Q6HRS 09/05/19 19:00 09/06/19 05:32 100 MLS/HR Piperacillin Sod/ Tazobactam Sod 4.5 gm/Sodium Chloride 100 ml @ 200 mls/hr 1X ONCE 09/05/19 13:00 09/05/19 13:07 DC Potassium Chloride/Water 100 ml @ 100 mls/hr Q1H 09/05/19 16:00 09/05/19 17:59 DC 09/05/19 17:00 100 MLS/HR Potassium Chloride (Klor-Con) 20 meq 1X ONCE 09/05/19 15:45 09/05/19 15:46 DC 09/05/19 17:01 20 MEQ Sodium Chloride 1,000 ml @ 100 mls/hr Q10H 09/05/19 13:30 09/06/19 07:14 100 MLS/HR Sodium Chloride (Normal Saline Flush) 10 ml QSHIFT PRN 09/05/19 13:00 Vancomycin HCl (Vanco Per Pharmacy) 1 each 1X ONCE 09/05/19 13:00 09/05/19 13:08 DC Vancomycin HCl 1.5 gm/Sodium Chloride 500 ml @ 250 mls/hr 1X ONCE 09/05/19 13:15 09/05/19 15:14 DC 09/05/19 14:55 250 MLS/HR Labs: Lab Laboratory Tests Test 09/05/19 11:14 09/05/19 11:29 09/05/19 12:00 09/05/19 14:25 White Blood Count 29.3 x10^3/uL (4.0-11.0) Red Blood Count 3.78 x10^6/uL (3.50-5.40) Hemoglobin 9.9 g/dL (12.0-15.5) Hematocrit 32.5 % (36.0-47.0) Mean Corpuscular Volume 86 fL (79-100) Mean Corpuscular Hemoglobin 26 pg (25-35) Mean Corpuscular Hemoglobin Concent 31 g/dL (31-37) Red Cell Distribution Width 16.5 % (11.5-14.5) Platelet Count 539 x10^3/uL (140-400) Neutrophils (%) (Auto) 84 % (31-73) Lymphocytes (%) (Auto) 9 % (24-48) Monocytes (%) (Auto) 6 % (0-9) Eosinophils (%) (Auto) 0 % (0-3) Basophils (%) (Auto) 0 % (0-3) Neutrophils # (Auto) 24.7 x10^3/uL (1.8-7.7) Lymphocytes # (Auto) 2.7 x10^3/uL (1.0-4.8) Monocytes # (Auto) 1.8 x10^3/uL (0.0-1.1) Eosinophils # (Auto) 0.1 x10^3/uL (0.0-0.7) Basophils # (Auto) 0.1 x10^3/uL (0.0-0.2) Segmented Neutrophils % 78 % (35-66) Band Neutrophils % 3 % (0-9) Lymphocytes % 10 % (24-48) Monocytes % 8 % (0-10) Eosinophils % 1 % (0-5) Toxic Granulation Present Platelet Estimate Increased (ADEQUATE) Large Platelets Present Giant Platelets Occ Anisocytosis Present Prothrombin Time 16.4 SEC (11.7-14.0) Prothromb Time International Ratio 1.4 (0.8-1.1) Sodium Level 139 mmol/L (136-145) 147 mmol/L (136-145) Potassium Level 2.7 mmol/L (3.5-5.1) 2.9 mmol/L (3.5-5.1) Chloride Level 100 mmol/L (98-107) 111 mmol/L (98-107) Carbon Dioxide Level 14 mmol/L (21-32) 20 mmol/L (21-32) Anion Gap 25 (6-14) 16 (6-14) Blood Urea Nitrogen 39 mg/dL (7-20) 38 mg/dL (7-20) Creatinine 4.0 mg/dL (0.6-1.0) 3.2 mg/dL (0.6-1.0) Estimated GFR (Cockcroft-Gault) 13.8 17.8 BUN/Creatinine Ratio 10 (6-20) Glucose Level 341 mg/dL (70-99) 105 mg/dL (70-99) Lactic Acid Level 13.1 mmol/L (0.4-2.0) 4.2 mmol/L (0.4-2.0) Calcium Level 9.4 mg/dL (8.5-10.1) 8.5 mg/dL (8.5-10.1) Magnesium Level 2.8 mg/dL (1.8-2.4) Iron Level 55 ug/dL (50-170) Total Iron Binding Capacity 155 ug/dL (250-450) Iron Saturation 35 % (15-34) Total Bilirubin 0.3 mg/dL (0.2-1.0) Aspartate Amino Transf (AST/SGOT) 23 U/L (15-37) Alanine Aminotransferase (ALT/SGPT) 36 U/L (14-59) Alkaline Phosphatase 194 U/L (46-116) Total Protein 7.9 g/dL (6.4-8.2) Albumin 2.1 g/dL (3.4-5.0) Albumin/Globulin Ratio 0.4 (1.0-1.7) Vitamin B12 Level > 2000 pg/mL (247-911) Thyroid Stimulating Hormone (TSH) 1.781 uIU/mL (0.358-3.74) Stool Occult Blood Positive (NEG) Procalcitonin 0.57 ng/mL (0.00-0.10) Test 09/05/19 14:50 09/05/19 19:00 09/06/19 04:35 Urine Collection Type U cath Urine Color Yellow Urine Clarity Cloudy Urine pH 5.5 Urine Specific [place] 1.015 Urine Protein 100 mg/dL (NEG-TRACE) Urine Glucose (UA) Negative mg/dL (NEG) Urine Ketones (Stick) Negative mg/dL (NEG) Urine Blood Moderate (NEG) Urine Nitrite Negative (NEG) Urine Bilirubin Negative (NEG) Urine Urobilinogen Dipstick 0.2 mg/dL (0.2 mg/dL) Urine Leukocyte Esterase Negative (NEG) Urine RBC Occ /HPF (0-2) Urine WBC 1-4 /HPF (0-4) Urine Squamous Epithelial Cells Few /LPF Urine Renal Epithelial Cells Occ /LPF Urine Amorphous Sediment Present /HPF Urine Bacteria Few /HPF (0-FEW) Urine Hyaline Casts Moderate /HPF Urine Granular Casts Few /HPF Urine Mucus Mod /LPF White Blood Count 29.8 x10^3/uL (4.0-11.0) 25.3 x10^3/uL (4.0-11.0) Red Blood Count 2.98 x10^6/uL (3.50-5.40) 2.49 x10^6/uL (3.50-5.40) Hemoglobin 7.7 g/dL (12.0-15.5) 6.6 g/dL (12.0-15.5) Hematocrit 24.8 % (36.0-47.0) 20.6 % (36.0-47.0) Mean Corpuscular Volume 83 fL (79-100) 83 fL (79-100) Mean Corpuscular Hemoglobin 26 pg (25-35) 27 pg (25-35) Mean Corpuscular Hemoglobin Concent 31 g/dL (31-37) 32 g/dL (31-37) Red Cell Distribution Width 15.6 % (11.5-14.5) 15.6 % (11.5-14.5) Platelet Count 350 x10^3/uL (140-400) 281 x10^3/uL (140-400) Potassium Level 3.4 mmol/L (3.5-5.1) 3.5 mmol/L (3.5-5.1) Neutrophils (%) (Auto) 88 % (31-73) Lymphocytes (%) (Auto) 6 % (24-48) Monocytes (%) (Auto) 6 % (0-9) Eosinophils (%) (Auto) 0 % (0-3) Basophils (%) (Auto) 0 % (0-3) Neutrophils # (Auto) 22.2 x10^3/uL (1.8-7.7) Lymphocytes # (Auto) 1.4 x10^3/uL (1.0-4.8) Monocytes # (Auto) 1.5 x10^3/uL (0.0-1.1) Eosinophils # (Auto) 0.0 x10^3/uL (0.0-0.7) Basophils # (Auto) 0.0 x10^3/uL (0.0-0.2) Sodium Level 147 mmol/L (136-145) Chloride Level 116 mmol/L (98-107) Carbon Dioxide Level 20 mmol/L (21-32) Anion Gap 11 (6-14) Blood Urea Nitrogen 35 mg/dL (7-20) Creatinine 2.3 mg/dL (0.6-1.0) Estimated GFR (Cockcroft-Gault) 26.1 Glucose Level 94 mg/dL (70-99) Calcium Level 7.8 mg/dL (8.5-10.1) Magnesium Level 2.2 mg/dL (1.8-2.4) Objective: Assessment: pt seen and examined IMP: SIRS BRBPR Leucocytosis and lactic acidosis source GI Anemia Plan: Plan of Care Cont zosyn renal dosing awaiting GI W/U cont supportive care Thank you [id number] ABBY URIAS MD Sep 06, 2019 08:59
--- NOTE | 2019-09-06 09:12 | PDOC ---
Subjective: Subjective: Feeling okay. No abd pain but has a "feeling" before stooling. Objective: Objective: Nurse says bloody stools overnight, not sure what color. Getting transfused, vitals okay. Vital Signs: Vital Signs Date Time Temp Pulse Resp B/P (MAP) Pulse Ox O2 Delivery O2 Flow Rate FiO2 09/06/19 08:00 Room Air 09/06/19 08:00 96 22 115/69 (84) 98 09/06/19 07:47 98.7 98.7 09/05/19 14:57 2.0 Labs: Laboratory Tests Test 09/05/19 11:14 09/05/19 11:29 09/05/19 12:00 09/05/19 14:25 White Blood Count 29.3 x10^3/uL Red Blood Count 3.78 x10^6/uL Hemoglobin 9.9 g/dL Hematocrit 32.5 % Mean Corpuscular Volume 86 fL Mean Corpuscular Hemoglobin 26 pg Mean Corpuscular Hemoglobin Concent 31 g/dL Red Cell Distribution Width 16.5 % Platelet Count 539 x10^3/uL Neutrophils (%) (Auto) 84 % Lymphocytes (%) (Auto) 9 % Monocytes (%) (Auto) 6 % Eosinophils (%) (Auto) 0 % Basophils (%) (Auto) 0 % Neutrophils # (Auto) 24.7 x10^3/uL Lymphocytes # (Auto) 2.7 x10^3/uL Monocytes # (Auto) 1.8 x10^3/uL Eosinophils # (Auto) 0.1 x10^3/uL Basophils # (Auto) 0.1 x10^3/uL Segmented Neutrophils % 78 % Band Neutrophils % 3 % Lymphocytes % 10 % Monocytes % 8 % Eosinophils % 1 % Toxic Granulation Present Platelet Estimate Increased Large Platelets Present Giant Platelets Occ Anisocytosis Present Prothrombin Time 16.4 SEC Prothromb Time International Ratio 1.4 Sodium Level 139 mmol/L 147 mmol/L Potassium Level 2.7 mmol/L 2.9 mmol/L Chloride Level 100 mmol/L 111 mmol/L Carbon Dioxide Level 14 mmol/L 20 mmol/L Anion Gap 25 16 Blood Urea Nitrogen 39 mg/dL 38 mg/dL Creatinine 4.0 mg/dL 3.2 mg/dL Estimated GFR (Cockcroft-Gault) 13.8 17.8 BUN/Creatinine Ratio 10 Glucose Level 341 mg/dL 105 mg/dL Lactic Acid Level 13.1 mmol/L 4.2 mmol/L Calcium Level 9.4 mg/dL 8.5 mg/dL Magnesium Level 2.8 mg/dL Iron Level 55 ug/dL Total Iron Binding Capacity 155 ug/dL Iron Saturation 35 % Total Bilirubin 0.3 mg/dL Aspartate Amino Transf (AST/SGOT) 23 U/L Alanine Aminotransferase (ALT/SGPT) 36 U/L Alkaline Phosphatase 194 U/L Total Protein 7.9 g/dL Albumin 2.1 g/dL Albumin/Globulin Ratio 0.4 Vitamin B12 Level > 2000 pg/mL Thyroid Stimulating Hormone (TSH) 1.781 uIU/mL Stool Occult Blood Positive Procalcitonin 0.57 ng/mL Test 09/05/19 14:50 09/05/19 19:00 09/06/19 04:35 Urine Collection Type U cath Urine Color Yellow Urine Clarity Cloudy Urine pH 5.5 Urine Specific [place] 1.015 Urine Protein 100 mg/dL Urine Glucose (UA) Negative mg/dL Urine Ketones (Stick) Negative mg/dL Urine Blood Moderate Urine Nitrite Negative Urine Bilirubin Negative Urine Urobilinogen Dipstick 0.2 mg/dL Urine Leukocyte Esterase Negative Urine RBC Occ /HPF Urine WBC 1-4 /HPF Urine Squamous Epithelial Cells Few /LPF Urine Renal Epithelial Cells Occ /LPF Urine Amorphous Sediment Present /HPF Urine Bacteria Few /HPF Urine Hyaline Casts Moderate /HPF Urine Granular Casts Few /HPF Urine Mucus Mod /LPF White Blood Count 29.8 x10^3/uL 25.3 x10^3/uL Red Blood Count 2.98 x10^6/uL 2.49 x10^6/uL Hemoglobin 7.7 g/dL 6.6 g/dL Hematocrit 24.8 % 20.6 % Mean Corpuscular Volume 83 fL 83 fL Mean Corpuscular Hemoglobin 26 pg 27 pg Mean Corpuscular Hemoglobin Concent 31 g/dL 32 g/dL Red Cell Distribution Width 15.6 % 15.6 % Platelet Count 350 x10^3/uL 281 x10^3/uL Potassium Level 3.4 mmol/L 3.5 mmol/L Neutrophils (%) (Auto) 88 % Lymphocytes (%) (Auto) 6 % Monocytes (%) (Auto) 6 % Eosinophils (%) (Auto) 0 % Basophils (%) (Auto) 0 % Neutrophils # (Auto) 22.2 x10^3/uL Lymphocytes # (Auto) 1.4 x10^3/uL Monocytes # (Auto) 1.5 x10^3/uL Eosinophils # (Auto) 0.0 x10^3/uL Basophils # (Auto) 0.0 x10^3/uL Sodium Level 147 mmol/L Chloride Level 116 mmol/L Carbon Dioxide Level 20 mmol/L Anion Gap 11 Blood Urea Nitrogen 35 mg/dL Creatinine 2.3 mg/dL Estimated GFR (Cockcroft-Gault) 26.1 Glucose Level 94 mg/dL Calcium Level 7.8 mg/dL Magnesium Level 2.2 mg/dL PE: GEN: NAD LUNGS: CTAB HEART: irregular ABD: NABS, S/ND/NT NEURO/PSYCH: A & O 3 A/P: Hematochezia, anemia SIRS, BONITA -- Agree w/ transfusion, continue PPI and NPO for now, will review w/ Dr. Goddard. ERIKA CARDENAS Sep 06, 2019 09:12
--- NOTE | 2019-09-06 09:18 | PDOC2 ---
JAYCEEGERONIMO L TISSUE COORDINATOR 09/06/19 0918: CONSULT Date of Consult Date of Consult DATE: 09/06/19 TIME: 09:12 Reason for Consult Reason for Consult: gi bleed Referring Physician Referring Physician: Dr Goddard Identification/Chief Complaint Chief Complaint rectal bleeding Source Source: Chart review, Patient History of Present Illness Reason for Visit: rectal bleeding x 10days, increasing and increased weakness present. To ER SVT--treated with adenosine Overnight 1 bloody stool No significant abdominal pain at this time, while at home intermittent periumbical cramping pain, no nausea or emesis Past Medical History Cardiovascular: HTN Pulmonary: No pertinent hx CENTRAL NERVOUS SYSTEM: Other (No pertinent history) GI: GERD, GI bleed Heme/Onc: Anemia NOS Musculoskeletal: low back pain, Osteoarthritis Rheumatologic: No pertinent hx Infectious disease: No pertinent hx ENT: No pertinent hx Endocrine: Other (uterine fibroids and ectopic ) Past Surgical History Past Surgical History: Tubal Ligation Family History Family History: Heart Disease (brother) Social History No ALCOHOL: none Drugs: None Lives: with Family Current Problem List Problem List Problems Medical Problems: (1) BONITA (acute kidney injury) Status: Acute (2) Rectal bleed Status: Acute (3) Septic shock Status: Acute Current Medications Current Medications Current Medications Sodium Chloride 1,000 ml @ 1,000 mls/hr 1X ONCE IV Last administered on 09/05/19at 11:30; Start 09/05/19 at 11:30; Stop 09/05/19 at 12:29; Status DC Potassium Chloride/Water 100 ml @ 100 mls/hr Q1H IV Last administered on 09/05/19at 14:55; Start 09/05/19 at 12:00; Stop 09/05/19 at 13:59; Status DC Adenosine (Adenocard) 6 mg STK-MED ONCE IV ; Start 09/05/19 at 12:20; Stop 09/05/19 at 12:21; Status DC Adenosine (Adenocard) 6 mg STK-MED ONCE IV ; Start 09/05/19 at 12:33; Stop 09/05/19 at 12:33; Status DC Sodium Chloride (Normal Saline Flush) 10 ml QSHIFT PRN IV AFTER MEDS AND BLOOD DRAWS; Start 09/05/19 at 13:00 Sodium Chloride 1,000 ml @ 1,500 mls/hr Q40M IV Last administered on 09/05/19at 12:38; Start 09/05/19 at 12:50; Stop 09/05/19 at 13:49; Status DC Piperacillin Sod/ Tazobactam Sod 4.5 gm/Sodium Chloride 100 ml @ 200 mls/hr 1X ONCE IV ; Start 09/05/19 at 13:00; Stop 09/05/19 at 13:07; Status DC Vancomycin HCl (Vanco Per Pharmacy) 1 each 1X ONCE MC ; Start 09/05/19 at 13:00; Stop 09/05/19 at 13:08; Status DC Norepinephrine Bitartrate 250 ml @ 0 mls/hr CONT PRN IV PER PROTOCOL; Start 09/05/19 at 13:00 Adenosine (Adenocard) 6 mg 1X ONCE IV Last administered on 09/05/19at 12:37; Start 09/05/19 at 13:15; Stop 09/05/19 at 13:16; Status DC Piperacillin Sod/ Tazobactam Sod 2.25 gm/Sodium Chloride 50 ml @ 100 mls/hr 1X ONCE IV Last administered on 09/05/19at 13:29; Start 09/05/19 at 13:15; Stop 09/05/19 at 13:44; Status DC Vancomycin HCl 1.5 gm/Sodium Chloride 500 ml @ 250 mls/hr 1X ONCE IV Last administered on 09/05/19at 14:55; Start 09/05/19 at 13:15; Stop 09/05/19 at 15:14; Status DC Amiodarone HCl 900 mg/Dextrose 518 ml @ 0 mls/hr CONT PRN IV SEE I/O RECORD; Start 09/05/19 at 13:30 Sodium Chloride 1,000 ml @ 100 mls/hr Q10H IV Last administered on 09/06/19at 07:14; Start 09/05/19 at 13:30 Acetaminophen/ Codeine Phosphate (Tylenol #3) 1 tab PRN Q6HRS PRN PO PAIN; Start 09/05/19 at 13:30 Ondansetron HCl (Zofran) 4 mg PRN Q6HRS PRN IVP NAUSEA/VOMITING; Start 09/05/19 at 13:30 Ferrous Sulfate (Feosol) 325 mg DAILYWBKFT PO ; Start 09/06/19 at 08:00 Diphenhydramine HCl (Benadryl) 25 mg PRN QHS PRN PO INSOMNIA; Start 09/05/19 at 13:45 Pantoprazole Sodium (Protonix) 40 mg DAILYAC PO ; Start 09/06/19 at 07:30; Stop 09/05/19 at 14:33; Status DC Morphine Sulfate (Morphine Sulfate) 1 mg PRN Q2HR PRN IV PAIN Last administered on 09/06/19at 05:32; Start 09/05/19 at 13:45 Adenosine (Adenocard) 6 mg 1X ONCE IV Last administered on 09/05/19at 13:19; Start 09/05/19 at 13:19; Stop 09/05/19 at 13:49; Status DC Adenosine (Adenocard) 12 mg 1X ONCE IV Last administered on 09/05/19at 13:29; Start 09/05/19 at 13:29; Stop 09/05/19 at 13:49; Status DC Acetaminophen/ Hydrocodone Bitart (Lortab 5/325) 1 tab PRN Q4HRS PRN PO PAIN; Start 09/05/19 at 14:00 Pantoprazole Sodium (PROTONIX VIAL for IV PUSH) 40 mg DAILY ONCE IVP Last administered on 09/06/19at 08:52; Start 09/06/19 at 07:30; Stop 09/06/19 at 07:31; Status DC Potassium Chloride (Klor-Con) 20 meq 1X ONCE PO Last administered on 09/05/19at 17:01; Start 09/05/19 at 15:45; Stop 09/05/19 at 15:46; Status DC Potassium Chloride/Water 100 ml @ 100 mls/hr Q1H IV Last administered on 09/05/19at 17:00; Start 09/05/19 at 16:00; Stop 09/05/19 at 17:59; Status DC Metoprolol Tartrate (Lopressor Vial) 5 mg PRN Q5MIN PRN IVP TACHYCARDIA; Start 09/05/19 at 16:15 Pantoprazole Sodium (PROTONIX VIAL for IV PUSH) 40 mg DAILYAC IVP ; Start 09/06/19 at 07:30 Pantoprazole Sodium (PROTONIX VIAL for IV PUSH) 40 mg 1X ONCE IVP Last administered on 09/05/19at 17:00; Start 09/05/19 at 16:45; Stop 09/05/19 at 16:51; Status DC Calcium Carbonate/ Glycine (Tums) 500 mg STK-MED ONCE .ROUTE ; Start 09/05/19 at 17:13; Stop 09/05/19 at 17:13; Status DC Piperacillin Sod/ Tazobactam Sod 2.25 gm/Sodium Chloride 50 ml @ 100 mls/hr Q6HRS IV Last administered on 09/06/19at 05:32; Start 09/05/19 at 19:00 Active Scripts Active Reported Ferralet 90 Dual-Iron Tablet (Iron, Carb & Gluc/Fa/B12/C/Dss) 1 Each Tablet 1 Tab PO DAILY Losartan-Hctz 50-12.5 Mg Tab (Losartan/Hydrochlorothiazide) 1 Each Tablet 1 Tab PO DAILY Allergies Allergies: Coded Allergies: No Known Drug Allergies (Unverified , 09/05/19) ROS General: YES: Fatigue, Appetite (loss); No: Chills PSYCHOLOGICAL ROS: No: Anxiety, Depression Eyes: No Blurry vision HEENT: No: Heacaches, Sore Throat Hematological and Lymphatic: YES: Bleeding Problems; No: Blood Clots Respiratory: No: Cough, Shortness of breath Cardiovascular: No Chest Pain, No Palpitations Gastrointestinal: Yes Other (see hpi) Genitourinary: No Dysuria Musculoskeletal: Yes Joint Pain (knee); No Muscle Pain Neurological: No Impaired Coord/balance, No Numbness/Tingling Skin: No Pruritus, No Rash Physical Exam General: Alert, Oriented X3, Cooperative, No acute distress HEENT: PERRLA, Mucous membr. moist/pink Lungs: Clear to auscultation, Normal air movement Heart: Regular rate, Normal S1, Normal S2, No murmurs Abdomen: Soft, No tenderness Extremities: No clubbing, No cyanosis Skin: No rashes, No breakdown Neuro: Normal speech, Sensation intact Psych/Mental Status: Mental status NL, Mood NL Vitals VITALS Vital Signs Date Time Temp Pulse Resp B/P (MAP) Pulse Ox O2 Delivery O2 Flow Rate FiO2 09/06/19 08:00 Room Air 09/06/19 08:00 96 22 115/69 (84) 98 09/06/19 07:47 98.7 98.7 09/05/19 14:57 2.0 Labs Labs Laboratory Tests Test 09/05/19 11:14 09/05/19 11:29 09/05/19 12:00 09/05/19 14:25 White Blood Count 29.3 x10^3/uL (4.0-11.0) Red Blood Count 3.78 x10^6/uL (3.50-5.40) Hemoglobin 9.9 g/dL (12.0-15.5) Hematocrit 32.5 % (36.0-47.0) Mean Corpuscular Volume 86 fL (79-100) Mean Corpuscular Hemoglobin 26 pg (25-35) Mean Corpuscular Hemoglobin Concent 31 g/dL (31-37) Red Cell Distribution Width 16.5 % (11.5-14.5) Platelet Count 539 x10^3/uL (140-400) Neutrophils (%) (Auto) 84 % (31-73) Lymphocytes (%) (Auto) 9 % (24-48) Monocytes (%) (Auto) 6 % (0-9) Eosinophils (%) (Auto) 0 % (0-3) Basophils (%) (Auto) 0 % (0-3) Neutrophils # (Auto) 24.7 x10^3/uL (1.8-7.7) Lymphocytes # (Auto) 2.7 x10^3/uL (1.0-4.8) Monocytes # (Auto) 1.8 x10^3/uL (0.0-1.1) Eosinophils # (Auto) 0.1 x10^3/uL (0.0-0.7) Basophils # (Auto) 0.1 x10^3/uL (0.0-0.2) Segmented Neutrophils % 78 % (35-66) Band Neutrophils % 3 % (0-9) Lymphocytes % 10 % (24-48) Monocytes % 8 % (0-10) Eosinophils % 1 % (0-5) Toxic Granulation Present Platelet Estimate Increased (ADEQUATE) Large Platelets Present Giant Platelets Occ Anisocytosis Present Prothrombin Time 16.4 SEC (11.7-14.0) Prothromb Time International Ratio 1.4 (0.8-1.1) Sodium Level 139 mmol/L (136-145) 147 mmol/L (136-145) Potassium Level 2.7 mmol/L (3.5-5.1) 2.9 mmol/L (3.5-5.1) Chloride Level 100 mmol/L (98-107) 111 mmol/L (98-107) Carbon Dioxide Level 14 mmol/L (21-32) 20 mmol/L (21-32) Anion Gap 25 (6-14) 16 (6-14) Blood Urea Nitrogen 39 mg/dL (7-20) 38 mg/dL (7-20) Creatinine 4.0 mg/dL (0.6-1.0) 3.2 mg/dL (0.6-1.0) Estimated GFR (Cockcroft-Gault) 13.8 17.8 BUN/Creatinine Ratio 10 (6-20) Glucose Level 341 mg/dL (70-99) 105 mg/dL (70-99) Lactic Acid Level 13.1 mmol/L (0.4-2.0) 4.2 mmol/L (0.4-2.0) Calcium Level 9.4 mg/dL (8.5-10.1) 8.5 mg/dL (8.5-10.1) Magnesium Level 2.8 mg/dL (1.8-2.4) Iron Level 55 ug/dL (50-170) Total Iron Binding Capacity 155 ug/dL (250-450) Iron Saturation 35 % (15-34) Total Bilirubin 0.3 mg/dL (0.2-1.0) Aspartate Amino Transf (AST/SGOT) 23 U/L (15-37) Alanine Aminotransferase (ALT/SGPT) 36 U/L (14-59) Alkaline Phosphatase 194 U/L (46-116) Total Protein 7.9 g/dL (6.4-8.2) Albumin 2.1 g/dL (3.4-5.0) Albumin/Globulin Ratio 0.4 (1.0-1.7) Vitamin B12 Level > 2000 pg/mL (247-911) Thyroid Stimulating Hormone (TSH) 1.781 uIU/mL (0.358-3.74) Stool Occult Blood Positive (NEG) Procalcitonin 0.57 ng/mL (0.00-0.10) Test 09/05/19 14:50 09/05/19 19:00 09/06/19 04:35 Urine Collection Type U cath Urine Color Yellow Urine Clarity Cloudy Urine pH 5.5 Urine Specific [place] 1.015 Urine Protein 100 mg/dL (NEG-TRACE) Urine Glucose (UA) Negative mg/dL (NEG) Urine Ketones (Stick) Negative mg/dL (NEG) Urine Blood Moderate (NEG) Urine Nitrite Negative (NEG) Urine Bilirubin Negative (NEG) Urine Urobilinogen Dipstick 0.2 mg/dL (0.2 mg/dL) Urine Leukocyte Esterase Negative (NEG) Urine RBC Occ /HPF (0-2) Urine WBC 1-4 /HPF (0-4) Urine Squamous Epithelial Cells Few /LPF Urine Renal Epithelial Cells Occ /LPF Urine Amorphous Sediment Present /HPF Urine Bacteria Few /HPF (0-FEW) Urine Hyaline Casts Moderate /HPF Urine Granular Casts Few /HPF Urine Mucus Mod /LPF White Blood Count 29.8 x10^3/uL (4.0-11.0) 25.3 x10^3/uL (4.0-11.0) Red Blood Count 2.98 x10^6/uL (3.50-5.40) 2.49 x10^6/uL (3.50-5.40) Hemoglobin 7.7 g/dL (12.0-15.5) 6.6 g/dL (12.0-15.5) Hematocrit 24.8 % (36.0-47.0) 20.6 % (36.0-47.0) Mean Corpuscular Volume 83 fL (79-100) 83 fL (79-100) Mean Corpuscular Hemoglobin 26 pg (25-35) 27 pg (25-35) Mean Corpuscular Hemoglobin Concent 31 g/dL (31-37) 32 g/dL (31-37) Red Cell Distribution Width 15.6 % (11.5-14.5) 15.6 % (11.5-14.5) Platelet Count 350 x10^3/uL (140-400) 281 x10^3/uL (140-400) Potassium Level 3.4 mmol/L (3.5-5.1) 3.5 mmol/L (3.5-5.1) Neutrophils (%) (Auto) 88 % (31-73) Lymphocytes (%) (Auto) 6 % (24-48) Monocytes (%) (Auto) 6 % (0-9) Eosinophils (%) (Auto) 0 % (0-3) Basophils (%) (Auto) 0 % (0-3) Neutrophils # (Auto) 22.2 x10^3/uL (1.8-7.7) Lymphocytes # (Auto) 1.4 x10^3/uL (1.0-4.8) Monocytes # (Auto) 1.5 x10^3/uL (0.0-1.1) Eosinophils # (Auto) 0.0 x10^3/uL (0.0-0.7) Basophils # (Auto) 0.0 x10^3/uL (0.0-0.2) Sodium Level 147 mmol/L (136-145) Chloride Level 116 mmol/L (98-107) Carbon Dioxide Level 20 mmol/L (21-32) Anion Gap 11 (6-14) Blood Urea Nitrogen 35 mg/dL (7-20) Creatinine 2.3 mg/dL (0.6-1.0) Estimated GFR (Cockcroft-Gault) 26.1 Glucose Level 94 mg/dL (70-99) Calcium Level 7.8 mg/dL (8.5-10.1) Magnesium Level 2.2 mg/dL (1.8-2.4) Laboratory Tests Test 09/05/19 11:14 09/05/19 11:29 09/05/19 12:00 09/05/19 14:25 White Blood Count 29.3 x10^3/uL (4.0-11.0) Red Blood Count 3.78 x10^6/uL (3.50-5.40) Hemoglobin 9.9 g/dL (12.0-15.5) Hematocrit 32.5 % (36.0-47.0) Mean Corpuscular Volume 86 fL (79-100) Mean Corpuscular Hemoglobin 26 pg (25-35) Mean Corpuscular Hemoglobin Concent 31 g/dL (31-37) Red Cell Distribution Width 16.5 % (11.5-14.5) Platelet Count 539 x10^3/uL (140-400) Neutrophils (%) (Auto) 84 % (31-73) Lymphocytes (%) (Auto) 9 % (24-48) Monocytes (%) (Auto) 6 % (0-9) Eosinophils (%) (Auto) 0 % (0-3) Basophils (%) (Auto) 0 % (0-3) Neutrophils # (Auto) 24.7 x10^3/uL (1.8-7.7) Lymphocytes # (Auto) 2.7 x10^3/uL (1.0-4.8) Monocytes # (Auto) 1.8 x10^3/uL (0.0-1.1) Eosinophils # (Auto) 0.1 x10^3/uL (0.0-0.7) Basophils # (Auto) 0.1 x10^3/uL (0.0-0.2) Segmented Neutrophils % 78 % (35-66) Band Neutrophils % 3 % (0-9) Lymphocytes % 10 % (24-48) Monocytes % 8 % (0-10) Eosinophils % 1 % (0-5) Toxic Granulation Present Platelet Estimate Increased (ADEQUATE) Large Platelets Present Giant Platelets Occ Anisocytosis Present Prothrombin Time 16.4 SEC (11.7-14.0) Prothromb Time International Ratio 1.4 (0.8-1.1) Sodium Level 139 mmol/L (136-145) 147 mmol/L (136-145) Potassium Level 2.7 mmol/L (3.5-5.1) 2.9 mmol/L (3.5-5.1) Chloride Level 100 mmol/L (98-107) 111 mmol/L (98-107) Carbon Dioxide Level 14 mmol/L (21-32) 20 mmol/L (21-32) Anion Gap 25 (6-14) 16 (6-14) Blood Urea Nitrogen 39 mg/dL (7-20) 38 mg/dL (7-20) Creatinine 4.0 mg/dL (0.6-1.0) 3.2 mg/dL (0.6-1.0) Estimated GFR (Cockcroft-Gault) 13.8 17.8 BUN/Creatinine Ratio 10 (6-20) Glucose Level 341 mg/dL (70-99) 105 mg/dL (70-99) Lactic Acid Level 13.1 mmol/L (0.4-2.0) 4.2 mmol/L (0.4-2.0) Calcium Level 9.4 mg/dL (8.5-10.1) 8.5 mg/dL (8.5-10.1) Magnesium Level 2.8 mg/dL (1.8-2.4) Iron Level 55 ug/dL (50-170) Total Iron Binding Capacity 155 ug/dL (250-450) Iron Saturation 35 % (15-34) Total Bilirubin 0.3 mg/dL (0.2-1.0) Aspartate Amino Transf (AST/SGOT) 23 U/L (15-37) Alanine Aminotransferase (ALT/SGPT) 36 U/L (14-59) Alkaline Phosphatase 194 U/L (46-116) Total Protein 7.9 g/dL (6.4-8.2) Albumin 2.1 g/dL (3.4-5.0) Albumin/Globulin Ratio 0.4 (1.0-1.7) Vitamin B12 Level > 2000 pg/mL (247-911) Thyroid Stimulating Hormone (TSH) 1.781 uIU/mL (0.358-3.74) Stool Occult Blood Positive (NEG) Procalcitonin 0.57 ng/mL (0.00-0.10) Test 09/05/19 14:50 09/05/19 19:00 09/06/19 04:35 Urine Collection Type U cath Urine Color Yellow Urine Clarity Cloudy Urine pH 5.5 Urine Specific [place] 1.015 Urine Protein 100 mg/dL (NEG-TRACE) Urine Glucose (UA) Negative mg/dL (NEG) Urine Ketones (Stick) Negative mg/dL (NEG) Urine Blood Moderate (NEG) Urine Nitrite Negative (NEG) Urine Bilirubin Negative (NEG) Urine Urobilinogen Dipstick 0.2 mg/dL (0.2 mg/dL) Urine Leukocyte Esterase Negative (NEG) Urine RBC Occ /HPF (0-2) Urine WBC 1-4 /HPF (0-4) Urine Squamous Epithelial Cells Few /LPF Urine Renal Epithelial Cells Occ /LPF Urine Amorphous Sediment Present /HPF Urine Bacteria Few /HPF (0-FEW) Urine Hyaline Casts Moderate /HPF Urine Granular Casts Few /HPF Urine Mucus Mod /LPF White Blood Count 29.8 x10^3/uL (4.0-11.0) 25.3 x10^3/uL (4.0-11.0) Red Blood Count 2.98 x10^6/uL (3.50-5.40) 2.49 x10^6/uL (3.50-5.40) Hemoglobin 7.7 g/dL (12.0-15.5) 6.6 g/dL (12.0-15.5) Hematocrit 24.8 % (36.0-47.0) 20.6 % (36.0-47.0) Mean Corpuscular Volume 83 fL (79-100) 83 fL (79-100) Mean Corpuscular Hemoglobin 26 pg (25-35) 27 pg (25-35) Mean Corpuscular Hemoglobin Concent 31 g/dL (31-37) 32 g/dL (31-37) Red Cell Distribution Width 15.6 % (11.5-14.5) 15.6 % (11.5-14.5) Platelet Count 350 x10^3/uL (140-400) 281 x10^3/uL (140-400) Potassium Level 3.4 mmol/L (3.5-5.1) 3.5 mmol/L (3.5-5.1) Neutrophils (%) (Auto) 88 % (31-73) Lymphocytes (%) (Auto) 6 % (24-48) Monocytes (%) (Auto) 6 % (0-9) Eosinophils (%) (Auto) 0 % (0-3) Basophils (%) (Auto) 0 % (0-3) Neutrophils # (Auto) 22.2 x10^3/uL (1.8-7.7) Lymphocytes # (Auto) 1.4 x10^3/uL (1.0-4.8) Monocytes # (Auto) 1.5 x10^3/uL (0.0-1.1) Eosinophils # (Auto) 0.0 x10^3/uL (0.0-0.7) Basophils # (Auto) 0.0 x10^3/uL (0.0-0.2) Sodium Level 147 mmol/L (136-145) Chloride Level 116 mmol/L (98-107) Carbon Dioxide Level 20 mmol/L (21-32) Anion Gap 11 (6-14) Blood Urea Nitrogen 35 mg/dL (7-20) Creatinine 2.3 mg/dL (0.6-1.0) Estimated GFR (Cockcroft-Gault) 26.1 Glucose Level 94 mg/dL (70-99) Calcium Level 7.8 mg/dL (8.5-10.1) Magnesium Level 2.2 mg/dL (1.8-2.4) Assessment/Plan Assessment/Plan rectal bleeding on admission, lactic acidosis, concern for ischemic colitis, d/w GI--? stool studies, scope--will defer to GI no current surgical indications medical management FRANCES ALVA MD 09/06/19 0958: CONSULT Assessment/Plan Assessment/Plan Pt seen and examined, D/w pt and pt's supportive spouse Agree with Ms. Curran's note Pt without c/o this AM abd soft, ND, NTTP agree with w/u per GI, no current surgical plans will ask ID to comment, given history Thanks for consult! GERONIMO CURRAN APRN Sep 06, 2019 09:18 FRANCES ALVA MD Sep 06, 2019 09:58
--- NOTE | 2019-09-06 09:43 | PDOC ---
PROGRESS NOTES History of Present Illness History of Present Illness VTE Prophylaxis Ordered VTE Prophylaxis Devices: Contraindicated VTE Pharmacological Prophylaxi: Contraindicated Assessment/Plan Assessment/Plan NEw SVT with hypotension hematochezia Mild distal esophageal wall thickening, could be of acute or chronic etiology. HYpokalemia, critical - replace BONITA -creat 4.0- ///acute tubular necrosis cr down to 2.[address] , No evidence of hydronephrosis. renal consult AGAp acidosis, contraction alkalosis - AGAP 25 with high bicarb SIRS - no source - elev lactate 13.,1 Septic shock (hypotensive) LEukocytosis - WBC 23 - kovacs cx, ID Incidental kidney cysts - per CT Old Thoracic fx - she denies knowledge and back pain adrenal adenoma Leucocytosis and lactic acidosis source GI PLAN: ICU bed, AMio gtt levophed prn bp control NS IVF for AGAP follow mag, tsh, calcium Replace k orally EMpiric abx - ID consult., cont zosyn avoid nephrotoxins COnsult ID, renal and cards HOld losartan (creat 4) resume ferrous sulfate gi following, CONSIDER egd, colonoscopy nephrology consult transfuse prn follow lytes FUll code cc 38 Vitals Vitals Vital Signs Date Time Temp Pulse Resp B/P (MAP) Pulse Ox O2 Delivery O2 Flow Rate FiO2 09/06/19 08:00 Room Air 09/06/19 08:00 96 22 115/69 (84) 98 09/06/19 07:47 98.7 98.7 09/05/19 14:57 2.0 Physical Exam General: Alert, Oriented X3, Cooperative, No acute distress Heart: Regular rate, Normal S1, Normal S2, No murmurs Lungs: Clear Abdomen: Normal bowel sounds, Soft, No tenderness Extremities: No clubbing, No cyanosis, No edema Skin: No rashes, No breakdown Labs LABS STATUS: REG ERORD. PHYSICIAN: CAROL SENA MD REASON: svt PROCEDURE: CHEST AP ONLY Single portable chest radiograph without comparison for SVT. FINDINGS: Lungs are clear. Cardiomediastinum is grossly unremarkable. No significant soft tissue or osseous abnormality. Impression: 1. No acute cardiopulmonary abnormality. Electronically signed by: Hu Rodriguez MD (09/05/2019 2:03 PM) [facility] DICTATED and SIGNED BY: HU RODRIGUEZ MD DATE: 09/05/19 1403 Lung bases are clear. Liver is enlarged, measuring about 20 cm cephalocaudal. This has increased since prior study. Spleen unremarkable. Pancreas unremarkable. Small hypodense mass of the right adrenal gland measuring 13 mm diameter, is unchanged and most likely an adenoma. Multiple low-density lesions in both kidneys, more so on the right, are identified and have progressed in size and number since the previous exam. The measurable of these lesions all measure less than 20 Hounsfield units, and are most likely cysts, within the constraints of a noncontrast exam. 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 No evidence of hydronephrosis. Small density within the gallbladder compatible most likely with a small gallstone. Mild aortic calcification without evidence of aneurysm. Small mesenteric lymph nodes in the right lower quadrant, largest measures 7 mm in short axis. No pathologically enlarged lymph nodes are seen. Wall thickening of the distal esophagus, circumferential. Small hiatal hernia. No significant small bowel distention. No evidence of acute colitis. The appendix appears within normal limits. No evidence of pneumoperitoneum or significant ascites. Urinary bladder is incompletely distended. The uterus is enlarged with a lobulated morphology and internal calcifications, similar to the prior study. This may represent fibroid uterus. This appears similar to previous exam. Low-density lesion in the left adnexal area measures 13 Hounsfield units compatible with cystic nature, and measures 3 cm diameter. Prior study does not include sagittal reconstructions limiting evaluation of the spine. There is mild superior and inferior endplate compression of the L3 vertebral body compatible with mild compression fracture, not definitely seen on the previous exam. Degenerative spondylosis particularly at L4-L5 and L5-S1. No evidence of destructive bone lesion. IMPRESSION: 1. Development of a small 3 cm cystic lesion of the left adnexa. Recommend nonemergent pelvic ultrasound for further evaluation. 2. Hepatomegaly. 3. Stable right adrenal nodule, most likely an adenoma. 4. Multiple renal lesions, most likely cysts within the constraints of a noncontrast exam. These have increased in size and number since the prior study, and further outpatient examination with multiphase contrast-enhanced CT or MRI of the kidneys could be of benefit. 5. Mild endplate depression at L3, as can be seen with osteoporotic fracture. Probably not seen on the prior study although comparison is limited without sagittal reconstructions on that exam. 6. Mild distal esophageal wall thickening, could be of acute or chronic etiology. 7. Calcific density within the gallbladder, likely a gallstone. Electronically signed by: Vern Baldwin MD (09/05/2019 12:57 PM) [facility] DICTATED and SIGNED BY: VERN BALDWIN MD DATE: 09/05/19 1257 Laboratory Tests Test 09/05/19 11:14 09/05/19 11:29 09/05/19 12:00 09/05/19 14:25 White Blood Count 29.3 x10^3/uL (4.0-11.0) Red Blood Count 3.78 x10^6/uL (3.50-5.40) Hemoglobin 9.9 g/dL (12.0-15.5) Hematocrit 32.5 % (36.0-47.0) Mean Corpuscular Volume 86 fL (79-100) Mean Corpuscular Hemoglobin 26 pg (25-35) Mean Corpuscular Hemoglobin Concent 31 g/dL (31-37) Red Cell Distribution Width 16.5 % (11.5-14.5) Platelet Count 539 x10^3/uL (140-400) Neutrophils (%) (Auto) 84 % (31-73) Lymphocytes (%) (Auto) 9 % (24-48) Monocytes (%) (Auto) 6 % (0-9) Eosinophils (%) (Auto) 0 % (0-3) Basophils (%) (Auto) 0 % (0-3) Neutrophils # (Auto) 24.7 x10^3/uL (1.8-7.7) Lymphocytes # (Auto) 2.7 x10^3/uL (1.0-4.8) Monocytes # (Auto) 1.8 x10^3/uL (0.0-1.1) Eosinophils # (Auto) 0.1 x10^3/uL (0.0-0.7) Basophils # (Auto) 0.1 x10^3/uL (0.0-0.2) Segmented Neutrophils % 78 % (35-66) Band Neutrophils % 3 % (0-9) Lymphocytes % 10 % (24-48) Monocytes % 8 % (0-10) Eosinophils % 1 % (0-5) Toxic Granulation Present Platelet Estimate Increased (ADEQUATE) Large Platelets Present Giant Platelets Occ Anisocytosis Present Prothrombin Time 16.4 SEC (11.7-14.0) Prothromb Time International Ratio 1.4 (0.8-1.1) Sodium Level 139 mmol/L (136-145) 147 mmol/L (136-145) Potassium Level 2.7 mmol/L (3.5-5.1) 2.9 mmol/L (3.5-5.1) Chloride Level 100 mmol/L (98-107) 111 mmol/L (98-107) Carbon Dioxide Level 14 mmol/L (21-32) 20 mmol/L (21-32) Anion Gap 25 (6-14) 16 (6-14) Blood Urea Nitrogen 39 mg/dL (7-20) 38 mg/dL (7-20) Creatinine 4.0 mg/dL (0.6-1.0) 3.2 mg/dL (0.6-1.0) Estimated GFR (Cockcroft-Gault) 13.8 17.8 BUN/Creatinine Ratio 10 (6-20) Glucose Level 341 mg/dL (70-99) 105 mg/dL (70-99) Lactic Acid Level 13.1 mmol/L (0.4-2.0) 4.2 mmol/L (0.4-2.0) Calcium Level 9.4 mg/dL (8.5-10.1) 8.5 mg/dL (8.5-10.1) Magnesium Level 2.8 mg/dL (1.8-2.4) Iron Level 55 ug/dL (50-170) Total Iron Binding Capacity 155 ug/dL (250-450) Iron Saturation 35 % (15-34) Total Bilirubin 0.3 mg/dL (0.2-1.0) Aspartate Amino Transf (AST/SGOT) 23 U/L (15-37) Alanine Aminotransferase (ALT/SGPT) 36 U/L (14-59) Alkaline Phosphatase 194 U/L (46-116) Total Protein 7.9 g/dL (6.4-8.2) Albumin 2.1 g/dL (3.4-5.0) Albumin/Globulin Ratio 0.4 (1.0-1.7) Vitamin B12 Level > 2000 pg/mL (247-911) Thyroid Stimulating Hormone (TSH) 1.781 uIU/mL (0.358-3.74) Stool Occult Blood Positive (NEG) Procalcitonin 0.57 ng/mL (0.00-0.10) Test 09/05/19 14:50 09/05/19 19:00 09/06/19 04:35 Urine Collection Type U cath Urine Color Yellow Urine Clarity Cloudy Urine pH 5.5 Urine Specific Baker 1.015 Urine Protein 100 mg/dL (NEG-TRACE) Urine Glucose (UA) Negative mg/dL (NEG) Urine Ketones (Stick) Negative mg/dL (NEG) Urine Blood Moderate (NEG) Urine Nitrite Negative (NEG) Urine Bilirubin Negative (NEG) Urine Urobilinogen Dipstick 0.2 mg/dL (0.2 mg/dL) Urine Leukocyte Esterase Negative (NEG) Urine RBC Occ /HPF (0-2) Urine WBC 1-4 /HPF (0-4) Urine Squamous Epithelial Cells Few /LPF Urine Renal Epithelial Cells Occ /LPF Urine Amorphous Sediment Present /HPF Urine Bacteria Few /HPF (0-FEW) Urine Hyaline Casts Moderate /HPF Urine Granular Casts Few /HPF Urine Mucus Mod /LPF White Blood Count 29.8 x10^3/uL (4.0-11.0) 25.3 x10^3/uL (4.0-11.0) Red Blood Count 2.98 x10^6/uL (3.50-5.40) 2.49 x10^6/uL (3.50-5.40) Hemoglobin 7.7 g/dL (12.0-15.5) 6.6 g/dL (12.0-15.5) Hematocrit 24.8 % (36.0-47.0) 20.6 % (36.0-47.0) Mean Corpuscular Volume 83 fL (79-100) 83 fL (79-100) Mean Corpuscular Hemoglobin 26 pg (25-35) 27 pg (25-35) Mean Corpuscular Hemoglobin Concent 31 g/dL (31-37) 32 g/dL (31-37) Red Cell Distribution Width 15.6 % (11.5-14.5) 15.6 % (11.5-14.5) Platelet Count 350 x10^3/uL (140-400) 281 x10^3/uL (140-400) Potassium Level 3.4 mmol/L (3.5-5.1) 3.5 mmol/L (3.5-5.1) Neutrophils (%) (Auto) 88 % (31-73) Lymphocytes (%) (Auto) 6 % (24-48) Monocytes (%) (Auto) 6 % (0-9) Eosinophils (%) (Auto) 0 % (0-3) Basophils (%) (Auto) 0 % (0-3) Neutrophils # (Auto) 22.2 x10^3/uL (1.8-7.7) Lymphocytes # (Auto) 1.4 x10^3/uL (1.0-4.8) Monocytes # (Auto) 1.5 x10^3/uL (0.0-1.1) Eosinophils # (Auto) 0.0 x10^3/uL (0.0-0.7) Basophils # (Auto) 0.0 x10^3/uL (0.0-0.2) Sodium Level 147 mmol/L (136-145) Chloride Level 116 mmol/L (98-107) Carbon Dioxide Level 20 mmol/L (21-32) Anion Gap 11 (6-14) Blood Urea Nitrogen 35 mg/dL (7-20) Creatinine 2.3 mg/dL (0.6-1.0) Estimated GFR (Cockcroft-Gault) 26.1 Glucose Level 94 mg/dL (70-99) Calcium Level 7.8 mg/dL (8.5-10.1) Magnesium Level 2.2 mg/dL (1.8-2.4) Assessment and Plan Assessmemt and Plan Problems Medical Problems: (1) BONITA (acute kidney injury) Status: Acute (2) Rectal bleed Status: Acute (3) Septic shock Status: Acute Comment Review of Relevant I have reviewed the following items diane (where applicable) has been applied. Labs Laboratory Tests Test 09/05/19 11:14 09/05/19 11:29 09/05/19 12:00 09/05/19 14:25 White Blood Count 29.3 x10^3/uL (4.0-11.0) Red Blood Count 3.78 x10^6/uL (3.50-5.40) Hemoglobin 9.9 g/dL (12.0-15.5) Hematocrit 32.5 % (36.0-47.0) Mean Corpuscular Volume 86 fL (79-100) Mean Corpuscular Hemoglobin 26 pg (25-35) Mean Corpuscular Hemoglobin Concent 31 g/dL (31-37) Red Cell Distribution Width 16.5 % (11.5-14.5) Platelet Count 539 x10^3/uL (140-400) Neutrophils (%) (Auto) 84 % (31-73) Lymphocytes (%) (Auto) 9 % (24-48) Monocytes (%) (Auto) 6 % (0-9) Eosinophils (%) (Auto) 0 % (0-3) Basophils (%) (Auto) 0 % (0-3) Neutrophils # (Auto) 24.7 x10^3/uL (1.8-7.7) Lymphocytes # (Auto) 2.7 x10^3/uL (1.0-4.8) Monocytes # (Auto) 1.8 x10^3/uL (0.0-1.1) Eosinophils # (Auto) 0.1 x10^3/uL (0.0-0.7) Basophils # (Auto) 0.1 x10^3/uL (0.0-0.2) Segmented Neutrophils % 78 % (35-66) Band Neutrophils % 3 % (0-9) Lymphocytes % 10 % (24-48) Monocytes % 8 % (0-10) Eosinophils % 1 % (0-5) Toxic Granulation Present Platelet Estimate Increased (ADEQUATE) Large Platelets Present Giant Platelets Occ Anisocytosis Present Prothrombin Time 16.4 SEC (11.7-14.0) Prothromb Time International Ratio 1.4 (0.8-1.1) Sodium Level 139 mmol/L (136-145) 147 mmol/L (136-145) Potassium Level 2.7 mmol/L (3.5-5.1) 2.9 mmol/L (3.5-5.1) Chloride Level 100 mmol/L (98-107) 111 mmol/L (98-107) Carbon Dioxide Level 14 mmol/L (21-32) 20 mmol/L (21-32) Anion Gap 25 (6-14) 16 (6-14) Blood Urea Nitrogen 39 mg/dL (7-20) 38 mg/dL (7-20) Creatinine 4.0 mg/dL (0.6-1.0) 3.2 mg/dL (0.6-1.0) Estimated GFR (Cockcroft-Gault) 13.8 17.8 BUN/Creatinine Ratio 10 (6-20) Glucose Level 341 mg/dL (70-99) 105 mg/dL (70-99) Lactic Acid Level 13.1 mmol/L (0.4-2.0) 4.2 mmol/L (0.4-2.0) Calcium Level 9.4 mg/dL (8.5-10.1) 8.5 mg/dL (8.5-10.1) Magnesium Level 2.8 mg/dL (1.8-2.4) Iron Level 55 ug/dL (50-170) Total Iron Binding Capacity 155 ug/dL (250-450) Iron Saturation 35 % (15-34) Total Bilirubin 0.3 mg/dL (0.2-1.0) Aspartate Amino Transf (AST/SGOT) 23 U/L (15-37) Alanine Aminotransferase (ALT/SGPT) 36 U/L (14-59) Alkaline Phosphatase 194 U/L (46-116) Total Protein 7.9 g/dL (6.4-8.2) Albumin 2.1 g/dL (3.4-5.0) Albumin/Globulin Ratio 0.4 (1.0-1.7) Vitamin B12 Level > 2000 pg/mL (247-911) Thyroid Stimulating Hormone (TSH) 1.781 uIU/mL (0.358-3.74) Stool Occult Blood Positive (NEG) Procalcitonin 0.57 ng/mL (0.00-0.10) Test 09/05/19 14:50 09/05/19 19:00 09/06/19 04:35 Urine Collection Type U cath Urine Color Yellow Urine Clarity Cloudy Urine pH 5.5 Urine Specific Baker 1.015 Urine Protein 100 mg/dL (NEG-TRACE) Urine Glucose (UA) Negative mg/dL (NEG) Urine Ketones (Stick) Negative mg/dL (NEG) Urine Blood Moderate (NEG) Urine Nitrite Negative (NEG) Urine Bilirubin Negative (NEG) Urine Urobilinogen Dipstick 0.2 mg/dL (0.2 mg/dL) Urine Leukocyte Esterase Negative (NEG) Urine RBC Occ /HPF (0-2) Urine WBC 1-4 /HPF (0-4) Urine Squamous Epithelial Cells Few /LPF Urine Renal Epithelial Cells Occ /LPF Urine Amorphous Sediment Present /HPF Urine Bacteria Few /HPF (0-FEW) Urine Hyaline Casts Moderate /HPF Urine Granular Casts Few /HPF Urine Mucus Mod /LPF White Blood Count 29.8 x10^3/uL (4.0-11.0) 25.3 x10^3/uL (4.0-11.0) Red Blood Count 2.98 x10^6/uL (3.50-5.40) 2.49 x10^6/uL (3.50-5.40) Hemoglobin 7.7 g/dL (12.0-15.5) 6.6 g/dL (12.0-15.5) Hematocrit 24.8 % (36.0-47.0) 20.6 % (36.0-47.0) Mean Corpuscular Volume 83 fL (79-100) 83 fL (79-100) Mean Corpuscular Hemoglobin 26 pg (25-35) 27 pg (25-35) Mean Corpuscular Hemoglobin Concent 31 g/dL (31-37) 32 g/dL (31-37) Red Cell Distribution Width 15.6 % (11.5-14.5) 15.6 % (11.5-14.5) Platelet Count 350 x10^3/uL (140-400) 281 x10^3/uL (140-400) Potassium Level 3.4 mmol/L (3.5-5.1) 3.5 mmol/L (3.5-5.1) Neutrophils (%) (Auto) 88 % (31-73) Lymphocytes (%) (Auto) 6 % (24-48) Monocytes (%) (Auto) 6 % (0-9) Eosinophils (%) (Auto) 0 % (0-3) Basophils (%) (Auto) 0 % (0-3) Neutrophils # (Auto) 22.2 x10^3/uL (1.8-7.7) Lymphocytes # (Auto) 1.4 x10^3/uL (1.0-4.8) Monocytes # (Auto) 1.5 x10^3/uL (0.0-1.1) Eosinophils # (Auto) 0.0 x10^3/uL (0.0-0.7) Basophils # (Auto) 0.0 x10^3/uL (0.0-0.2) Sodium Level 147 mmol/L (136-145) Chloride Level 116 mmol/L (98-107) Carbon Dioxide Level 20 mmol/L (21-32) Anion Gap 11 (6-14) Blood Urea Nitrogen 35 mg/dL (7-20) Creatinine 2.3 mg/dL (0.6-1.0) Estimated GFR (Cockcroft-Gault) 26.1 Glucose Level 94 mg/dL (70-99) Calcium Level 7.8 mg/dL (8.5-10.1) Magnesium Level 2.2 mg/dL (1.8-2.4) Laboratory Tests Test 09/05/19 11:14 09/05/19 11:29 09/05/19 12:00 09/05/19 14:25 White Blood Count 29.3 x10^3/uL (4.0-11.0) Red Blood Count 3.78 x10^6/uL (3.50-5.40) Hemoglobin 9.9 g/dL (12.0-15.5) Hematocrit 32.5 % (36.0-47.0) Mean Corpuscular Volume 86 fL (79-100) Mean Corpuscular Hemoglobin 26 pg (25-35) Mean Corpuscular Hemoglobin Concent 31 g/dL (31-37) Red Cell Distribution Width 16.5 % (11.5-14.5) Platelet Count 539 x10^3/uL (140-400) Neutrophils (%) (Auto) 84 % (31-73) Lymphocytes (%) (Auto) 9 % (24-48) Monocytes (%) (Auto) 6 % (0-9) Eosinophils (%) (Auto) 0 % (0-3) Basophils (%) (Auto) 0 % (0-3) Neutrophils # (Auto) 24.7 x10^3/uL (1.8-7.7) Lymphocytes # (Auto) 2.7 x10^3/uL (1.0-4.8) Monocytes # (Auto) 1.8 x10^3/uL (0.0-1.1) Eosinophils # (Auto) 0.1 x10^3/uL (0.0-0.7) Basophils # (Auto) 0.1 x10^3/uL (0.0-0.2) Segmented Neutrophils % 78 % (35-66) Band Neutrophils % 3 % (0-9) Lymphocytes % 10 % (24-48) Monocytes % 8 % (0-10) Eosinophils % 1 % (0-5) Toxic Granulation Present Platelet Estimate Increased (ADEQUATE) Large Platelets Present Giant Platelets Occ Anisocytosis Present Prothrombin Time 16.4 SEC (11.7-14.0) Prothromb Time International Ratio 1.4 (0.8-1.1) Sodium Level 139 mmol/L (136-145) 147 mmol/L (136-145) Potassium Level 2.7 mmol/L (3.5-5.1) 2.9 mmol/L (3.5-5.1) Chloride Level 100 mmol/L (98-107) 111 mmol/L (98-107) Carbon Dioxide Level 14 mmol/L (21-32) 20 mmol/L (21-32) Anion Gap 25 (6-14) 16 (6-14) Blood Urea Nitrogen 39 mg/dL (7-20) 38 mg/dL (7-20) Creatinine 4.0 mg/dL (0.6-1.0) 3.2 mg/dL (0.6-1.0) Estimated GFR (Cockcroft-Gault) 13.8 17.8 BUN/Creatinine Ratio 10 (6-20) Glucose Level 341 mg/dL (70-99) 105 mg/dL (70-99) Lactic Acid Level 13.1 mmol/L (0.4-2.0) 4.2 mmol/L (0.4-2.0) Calcium Level 9.4 mg/dL (8.5-10.1) 8.5 mg/dL (8.5-10.1) Magnesium Level 2.8 mg/dL (1.8-2.4) Iron Level 55 ug/dL (50-170) Total Iron Binding Capacity 155 ug/dL (250-450) Iron Saturation 35 % (15-34) Total Bilirubin 0.3 mg/dL (0.2-1.0) Aspartate Amino Transf (AST/SGOT) 23 U/L (15-37) Alanine Aminotransferase (ALT/SGPT) 36 U/L (14-59) Alkaline Phosphatase 194 U/L (46-116) Total Protein 7.9 g/dL (6.4-8.2) Albumin 2.1 g/dL (3.4-5.0) Albumin/Globulin Ratio 0.4 (1.0-1.7) Vitamin B12 Level > 2000 pg/mL (247-911) Thyroid Stimulating Hormone (TSH) 1.781 uIU/mL (0.358-3.74) Stool Occult Blood Positive (NEG) Procalcitonin 0.57 ng/mL (0.00-0.10) Test 09/05/19 14:50 09/05/19 19:00 09/06/19 04:35 Urine Collection Type U cath Urine Color Yellow Urine Clarity Cloudy Urine pH 5.5 Urine Specific Baker 1.015 Urine Protein 100 mg/dL (NEG-TRACE) Urine Glucose (UA) Negative mg/dL (NEG) Urine Ketones (Stick) Negative mg/dL (NEG) Urine Blood Moderate (NEG) Urine Nitrite Negative (NEG) Urine Bilirubin Negative (NEG) Urine Urobilinogen Dipstick 0.2 mg/dL (0.2 mg/dL) Urine Leukocyte Esterase Negative (NEG) Urine RBC Occ /HPF (0-2) Urine WBC 1-4 /HPF (0-4) Urine Squamous Epithelial Cells Few /LPF Urine Renal Epithelial Cells Occ /LPF Urine Amorphous Sediment Present /HPF Urine Bacteria Few /HPF (0-FEW) Urine Hyaline Casts Moderate /HPF Urine Granular Casts Few /HPF Urine Mucus Mod /LPF White Blood Count 29.8 x10^3/uL (4.0-11.0) 25.3 x10^3/uL (4.0-11.0) Red Blood Count 2.98 x10^6/uL (3.50-5.40) 2.49 x10^6/uL (3.50-5.40) Hemoglobin 7.7 g/dL (12.0-15.5) 6.6 g/dL (12.0-15.5) Hematocrit 24.8 % (36.0-47.0) 20.6 % (36.0-47.0) Mean Corpuscular Volume 83 fL (79-100) 83 fL (79-100) Mean Corpuscular Hemoglobin 26 pg (25-35) 27 pg (25-35) Mean Corpuscular Hemoglobin Concent 31 g/dL (31-37) 32 g/dL (31-37) Red Cell Distribution Width 15.6 % (11.5-14.5) 15.6 % (11.5-14.5) Platelet Count 350 x10^3/uL (140-400) 281 x10^3/uL (140-400) Potassium Level 3.4 mmol/L (3.5-5.1) 3.5 mmol/L (3.5-5.1) Neutrophils (%) (Auto) 88 % (31-73) Lymphocytes (%) (Auto) 6 % (24-48) Monocytes (%) (Auto) 6 % (0-9) Eosinophils (%) (Auto) 0 % (0-3) Basophils (%) (Auto) 0 % (0-3) Neutrophils # (Auto) 22.2 x10^3/uL (1.8-7.7) Lymphocytes # (Auto) 1.4 x10^3/uL (1.0-4.8) Monocytes # (Auto) 1.5 x10^3/uL (0.0-1.1) Eosinophils # (Auto) 0.0 x10^3/uL (0.0-0.7) Basophils # (Auto) 0.0 x10^3/uL (0.0-0.2) Sodium Level 147 mmol/L (136-145) Chloride Level 116 mmol/L (98-107) Carbon Dioxide Level 20 mmol/L (21-32) Anion Gap 11 (6-14) Blood Urea Nitrogen 35 mg/dL (7-20) Creatinine 2.3 mg/dL (0.6-1.0) Estimated GFR (Cockcroft-Gault) 26.1 Glucose Level 94 mg/dL (70-99) Calcium Level 7.8 mg/dL (8.5-10.1) Magnesium Level 2.2 mg/dL (1.8-2.4) Medications Current Medications Sodium Chloride 1,000 ml @ 1,000 mls/hr 1X ONCE IV Last administered on 09/05/19at 11:30; Start 09/05/19 at 11:30; Stop 09/05/19 at 12:29; Status DC Potassium Chloride/Water 100 ml @ 100 mls/hr Q1H IV Last administered on 09/05/19at 14:55; Start 09/05/19 at 12:00; Stop 09/05/19 at 13:59; Status DC Adenosine (Adenocard) 6 mg STK-MED ONCE IV ; Start 09/05/19 at 12:20; Stop 09/05/19 at 12:21; Status DC Adenosine (Adenocard) 6 mg STK-MED ONCE IV ; Start 09/05/19 at 12:33; Stop 09/05/19 at 12:33; Status DC Sodium Chloride (Normal Saline Flush) 10 ml QSHIFT PRN IV AFTER MEDS AND BLOOD DRAWS; Start 09/05/19 at 13:00 Sodium Chloride 1,000 ml @ 1,500 mls/hr Q40M IV Last administered on 09/05/19at 12:38; Start 09/05/19 at 12:50; Stop 09/05/19 at 13:49; Status DC Piperacillin Sod/ Tazobactam Sod 4.5 gm/Sodium Chloride 100 ml @ 200 mls/hr 1X ONCE IV ; Start 09/05/19 at 13:00; Stop 09/05/19 at 13:07; Status DC Vancomycin HCl (Vanco Per Pharmacy) 1 each 1X ONCE MC ; Start 09/05/19 at 13:00; Stop 09/05/19 at 13:08; Status DC Norepinephrine Bitartrate 250 ml @ 0 mls/hr CONT PRN IV PER PROTOCOL; Start 09/05/19 at 13:00 Adenosine (Adenocard) 6 mg 1X ONCE IV Last administered on 09/05/19at 12:37; Start 09/05/19 at 13:15; Stop 09/05/19 at 13:16; Status DC Piperacillin Sod/ Tazobactam Sod 2.25 gm/Sodium Chloride 50 ml @ 100 mls/hr 1X ONCE IV Last administered on 09/05/19at 13:29; Start 09/05/19 at 13:15; Stop 09/05/19 at 13:44; Status DC Vancomycin HCl 1.5 gm/Sodium Chloride 500 ml @ 250 mls/hr 1X ONCE IV Last administered on 09/05/19at 14:55; Start 09/05/19 at 13:15; Stop 09/05/19 at 15:14; Status DC Amiodarone HCl 900 mg/Dextrose 518 ml @ 0 mls/hr CONT PRN IV SEE I/O RECORD; Start 09/05/19 at 13:30 Sodium Chloride 1,000 ml @ 100 mls/hr Q10H IV Last administered on 09/06/19at 07:14; Start 09/05/19 at 13:30 Acetaminophen/ Codeine Phosphate (Tylenol #3) 1 tab PRN Q6HRS PRN PO PAIN; Start 09/05/19 at 13:30 Ondansetron HCl (Zofran) 4 mg PRN Q6HRS PRN IVP NAUSEA/VOMITING; Start 09/05/19 at 13:30 Ferrous Sulfate (Feosol) 325 mg DAILYWBKFT PO ; Start 09/06/19 at 08:00 Diphenhydramine HCl (Benadryl) 25 mg PRN QHS PRN PO INSOMNIA; Start 09/05/19 at 13:45 Pantoprazole Sodium (Protonix) 40 mg DAILYAC PO ; Start 09/06/19 at 07:30; Stop 09/05/19 at 14:33; Status DC Morphine Sulfate (Morphine Sulfate) 1 mg PRN Q2HR PRN IV PAIN Last administered on 09/06/19at 05:32; Start 09/05/19 at 13:45 Adenosine (Adenocard) 6 mg 1X ONCE IV Last administered on 09/05/19at 13:19; Start 09/05/19 at 13:19; Stop 09/05/19 at 13:49; Status DC Adenosine (Adenocard) 12 mg 1X ONCE IV Last administered on 09/05/19at 13:29; Start 09/05/19 at 13:29; Stop 09/05/19 at 13:49; Status DC Acetaminophen/ Hydrocodone Bitart (Lortab 5/325) 1 tab PRN Q4HRS PRN PO PAIN; Start 09/05/19 at 14:00 Pantoprazole Sodium (PROTONIX VIAL for IV PUSH) 40 mg DAILY ONCE IVP Last administered on 09/06/19at 08:52; Start 09/06/19 at 07:30; Stop 09/06/19 at 07:31; Status DC Potassium Chloride (Klor-Con) 20 meq 1X ONCE PO Last administered on 09/05/19at 17:01; Start 09/05/19 at 15:45; Stop 09/05/19 at 15:46; Status DC Potassium Chloride/Water 100 ml @ 100 mls/hr Q1H IV Last administered on at 17:00; Start 09/05/19 at 16:00; Stop 09/05/19 at 17:59; Status DC Metoprolol Tartrate (Lopressor Vial) 5 mg PRN Q5MIN PRN IVP TACHYCARDIA; Start 09/05/19 at 16:15 Pantoprazole Sodium (PROTONIX VIAL for IV PUSH) 40 mg DAILYAC IVP ; Start 09/06 at 07:30 Pantoprazole Sodium (PROTONIX VIAL for IV PUSH) 40 mg 1X ONCE IVP Last administered on 09/05/19at 17:00; Start 09/05/19 at 16:45; Stop 09/05/19 at 16:51; Status DC Calcium Carbonate/ Glycine (Tums) 500 mg STK-MED ONCE .ROUTE ; Start 09/05/19 at 17:13; Stop 09/05/19 at 17:13; Status DC Piperacillin Sod/ Tazobactam Sod 2.25 gm/Sodium Chloride 50 ml @ 100 mls/hr Q6HRS IV Last administered on 09/06/19at 05:32; Start 09/05/19 at 19:00 Active Scripts Active Reported Ferralet 90 Dual-Iron Tablet (Iron, Carb & Gluc/Fa/B12/C/Dss) 1 Each Tablet 1 Tab PO DAILY Losartan-Hctz 50-12.5 Mg Tab (Losartan/Hydrochlorothiazide) 1 Each Tablet 1 Tab PO DAILY Vitals/I & O Vital Sign - Last 24 Hours 09/05/19 09/05/19 09/05/19 09/05/19 11:24 12:06 12:36 12:42 Temp 97.8 97.8 Pulse 118 112 104 Resp 24 20 18 B/P (MAP) 78/40 (53) 91/55 (67) 99/61 (74) 98/51 (67) Pulse Ox 100 100 91 O2 Delivery Room Air Nasal Cannula Nasal Cannula O2 Flow Rate 2.0 2.0 09/05/19 09/05/19 09/05/19 09/05/19 12:52 13:02 13:18 13:31 Pulse 108 108 84 90 Resp 18 19 22 22 B/P (MAP) 100/67 (78) 100/71 (81) 84/48 (60) 90/73 (79) Pulse Ox 98 95 94 95 O2 Delivery Nasal Cannula Nasal Cannula Nasal Cannula Nasal Cannula O2 Flow Rate 2.0 2.0 2.0 2.0 09/05/19 09/05/19 09/05/19 09/05/19 14:06 14:57 15:30 15:45 Pulse 112 108 112 108 Resp 16 19 14 B/P (MAP) 139/74 (95) 103/59 (74) 114/64 (81) 96/63 (74) Pulse Ox 95 100 99 98 O2 Delivery Nasal Cannula Nasal Cannula Room Air Room Air O2 Flow Rate 2.0 2.0 09/05/19 09/05/19 09/05/19 09/05/19 15:59 16:00 16:30 17:00 Pulse 108 110 106 Resp 22 B/P (MAP) 111/69 (83) 119/70 (86) 124/62 (82) Pulse Ox 98 100 99 O2 Delivery Room Air Room Air Room Air Room Air 09/05/19 09/05/19 09/05/19 09/05/19 18:00 19:00 20:00 20:00 Temp 98.6 98.6 Pulse 108 106 106 Resp B/P (MAP) 89/46 (60) 119/61 (80) 111/51 (71) Pulse Ox 99 100 99 O2 Delivery Room Air Room Air Room Air Room Air 09/05/19 09/05/19 09/05/19 09/05/19 21:00 22:00 23:00 23:59 Pulse 112 110 111 Resp B/P (MAP) 95/50 (65) 102/47 (65) 92/52 (65) Pulse Ox 100 99 99 O2 Delivery Room Air Room Air Room Air Room Air 09/06/19 09/06/19 09/06/19 09/06/19 00:01 01:00 02:00 02:16 Temp 98.4 98.4 Pulse 116 106 107 Resp 24 B/P (MAP) 96/48 (64) 96/52 (67) 111/58 (75) Pulse Ox 99 99 99 99 O2 Delivery Room Air Room Air Room Air Room Air 09/06/19 09/06/19 09/06/19 09/06/19 02:46 03:00 04:00 04:00 Temp 99.6 99.6 Pulse 105 99 Resp 16 B/P (MAP) 102/59 (73) 91/52 (65) Pulse Ox 99 99 99 O2 Delivery Room Air Room Air Room Air Room Air 09/06/19 09/06/19 09/06/19 09/06/19 05:00 05:32 06:00 06:02 Pulse 98 102 Resp 21 B/P (MAP) 116/60 (78) 116/69 (85) Pulse Ox 98 98 98 99 O2 Delivery Room Air Room Air Room Air Room Air 09/06/19 09/06/19 09/06/19 09/06/19 07:25 07:25 07:47 08:00 Temp 98.7 98.7 98.7 98.7 98.7 98.7 Pulse 101 101 102 96 Resp 18 18 22 B/P (MAP) 116/64 (81) 116/64 115/69 115/69 (84) Pulse Ox 100 98 O2 Delivery Room Air Room Air 09/06/19 08:00 O2 Delivery Room Air Intake and Output 09/05/19 09/05/19 09/06/19 15:00 23:00 07:00 Intake Total 2150 ml 1006 ml Output Total 335 ml 255 ml Balance 2150 ml -335 ml 751 ml KATY MERCEDES MD Sep 06, 2019 09:43
--- NOTE | 2019-09-06 10:19 | CARD ---
MR#: [id number] Date of Study: 09/06/2019 Ordering Physician: PEARL DOMINGUEZ, Referring Physician: PEARL DOMINGUEZ Tech: Opal Cuevas RDCS APPROVED REPORT EXAM: Two-dimensional and M-mode echocardiogram with Doppler and color Doppler. Other Information Quality : AverageHR: 95bpm Rhythm : NSR INDICATION Arrhythmia 2D DIMENSIONS RVDd3.4 (2.9-3.5cm)Left Atrium(2D)2.7 (1.6-4.0cm) IVSd1.2 (0.7-1.1cm)Aortic Root(2D)3.2 (2.0-3.7cm) LVDd3.6 (3.9-5.9cm)LVOT Diameter2.0 (1.8-2.4cm) PWd1.0 (0.7-1.1cm)LVDs2.3 (2.5-4.0cm) FS (%) 35.4 %SV35.8 ml LVEF(%)65.8 (>50%) M-Mode DIMENSIONS Left Atrium(MM)2.95 (2.5-4.0cm)Aortic Root3.01 (2.2-3.7cm) Aortic Valve AoV Peak Michael.160.2cm/sAoV VTI25.2cm AO Peak GR.10.3mmHgLVOT VTI 17.05cm AO Mean GR.5mmHgAVA (VTI)2.40cm2 Mitral Valve MV E Rbxhmkhg70.3cm/sMV DECEL BLVL430yd MV A Feqpoamz68.5cm/sE/A Ratio0.8 MV A Qdbggnkh14bh TDI Lateral E' P. V12.61cm/sE/Lateral E'5.8 Tricuspid Valve TR P. Ukuwmaap376kz/sRAP ALZFIRRZ7fvOh TR Peak Gr.38bkPoYGBR63flQn LEFT VENTRICLE The left ventricle is normal size. Proximal septal thickening is noted. The left ventricular systolic function is normal and the ejection fraction is within normal range. The Ejection Fraction is 60-65% . There is normal LV segmental wall motion. Transmitral Doppler flow pattern is Grade I-abnormal rela xation pattern. RIGHT VENTRICLE The right ventricle is normal size. There is normal right ventricular wall thickness. The right ventr icular systolic function is normal. ATRIA The left atrium size is normal. The right atrium size is normal. The interatrial septum is intact wit h no evidence for an atrial septal defect or patent foramen ovale as noted on 2-D or Doppler imaging. AORTIC VALVE The aortic valve is mildly thickened but opens well. The aortic valve is trileaflet. Doppler and [place] r Flow revealed no significant aortic regurgitation. There is no significant aortic valvular stenosis . MITRAL VALVE The mitral valve is normal in structure and function. There is no evidence of mitral valve prolapse. There is no mitral valve stenosis. Doppler and Color Flow revealed no mitral valve regurgitation note d. TRICUSPID VALVE The tricuspid valve is normal in structure and function. Doppler and Color Flow revealed mild tricusp id regurgitation. The PA pressure was estimated at 45 mmHg. There is no tricuspid valve prolapse or v egetation. There is no tricuspid valve stenosis. PULMONIC VALVE The pulmonic valve is not well visualized. GREAT VESSELS The aortic root is normal in size. The ascending aorta is normal in size. The IVC is normal in size a nd collapses >50% with inspiration. PERICARDIAL EFFUSION There is no evidence of significant pericardial effusion. Critical Notification Critical Value: No <Conclusion> The left ventricular systolic function is normal and the ejection fraction is within normal range. Th e Ejection Fraction is 60-65%. There is normal LV segmental wall motion. Doppler and Color Flow revealed mild tricuspid regurgitation. The PA pressure was estimated at 45 mmH g. Signed by : Nick Gallegos, Electronically Approved : 09/06/2019 10:19:07
--- NOTE | 2019-09-06 10:53 | NUR ---
SS following up with discharge planning. SS reviewed pt chart. Pt is from home with spouse and is currently on room air. Pt screened by PT and no therapy needs indicated at this time. SS will continue to follow for discharge planning.
--- NOTE | 2019-09-06 11:23 | PDOC2 ---
CONSULT Date of Consult Date of Consult DATE: 09/06/19 TIME: 10:50 Reason for Consult Reason for Consult: ? Creat 4 ? new" Identification/Chief Complaint Chief Complaint Currently c/o Bilat knee swelling - chronic Source Source: Chart review History of Present Illness Reason for Visit: Pt is a 59 AA female admitted with c/o BRBPR 10 days with BM , she reports it has been significant amount .Denies taking OAC or asa or nsaids, She reports similar episode yrs ago with EGD and c scope unrevealing, She denies any N/V. No CP or SOB. Denies any urinary complains. She reports poor PO intake. She states she has Bilat Knee pain and swelling and was supposed to get Cortisone shots, doesn't takes any analgesics PMHx only significant for HTN and has been on Losartan 50 mg qd no other antihypertensives She states few years ago she had abnormal kidney function but it resolved and has been normal per her PCP In ER - found to be in SVT 170s, asymptomatic. It resolved initially after IVF, but was back in SVT and received adenosine x 2 doses . She was hypotensive as well Labs at presentation- lactate 13.1, K 2.7, creat 4.,0 . Past Medical History Cardiovascular: HTN Pulmonary: No pertinent hx CENTRAL NERVOUS SYSTEM: Other (No pertinent history) GI: GERD, GI bleed Heme/Onc: Anemia NOS Musculoskeletal: low back pain, Osteoarthritis Rheumatologic: No pertinent hx Infectious disease: No pertinent hx ENT: No pertinent hx Endocrine: Other (uterine fibroids and ectopic ) Past Surgical History Past Surgical History: Tubal Ligation Family History Family History: Heart Disease (brother) Social History No ALCOHOL: none Drugs: None Lives: with Family Current Problem List Problem List Problems Medical Problems: (1) BONITA (acute kidney injury) Status: Acute (2) Rectal bleed Status: Acute (3) Septic shock Status: Acute Current Medications Current Medications Current Medications Sodium Chloride 1,000 ml @ 1,000 mls/hr 1X ONCE IV Last administered on 09/05/19at 11:30; Start 09/05/19 at 11:30; Stop 09/05/19 at 12:29; Status DC Potassium Chloride/Water 100 ml @ 100 mls/hr Q1H IV Last administered on 09/05/19at 14:55; Start 09/05/19 at 12:00; Stop 09/05/19 at 13:59; Status DC Adenosine (Adenocard) 6 mg STK-MED ONCE IV ; Start 09/05/19 at 12:20; Stop 09/05/19 at 12:21; Status DC Adenosine (Adenocard) 6 mg STK-MED ONCE IV ; Start 09/05/19 at 12:33; Stop 09/05/19 at 12:33; Status DC Sodium Chloride (Normal Saline Flush) 10 ml QSHIFT PRN IV AFTER MEDS AND BLOOD DRAWS; Start 09/05/19 at 13:00 Sodium Chloride 1,000 ml @ 1,500 mls/hr Q40M IV Last administered on 09/05/19at 12:38; Start 09/05/19 at 12:50; Stop 09/05/19 at 13:49; Status DC Piperacillin Sod/ Tazobactam Sod 4.5 gm/Sodium Chloride 100 ml @ 200 mls/hr 1X ONCE IV ; Start 09/05/19 at 13:00; Stop 09/05/19 at 13:07; Status DC Vancomycin HCl (Vanco Per Pharmacy) 1 each 1X ONCE MC ; Start 09/05/19 at 13:00; Stop 09/05/19 at 13:08; Status DC Norepinephrine Bitartrate 250 ml @ 0 mls/hr CONT PRN IV PER PROTOCOL; Start 09/05/19 at 13:00 Adenosine (Adenocard) 6 mg 1X ONCE IV Last administered on 09/05/19at 12:37; Start 09/05/19 at 13:15; Stop 09/05/19 at 13:16; Status DC Piperacillin Sod/ Tazobactam Sod 2.25 gm/Sodium Chloride 50 ml @ 100 mls/hr 1X ONCE IV Last administered on 09/05/19at 13:29; Start 09/05/19 at 13:15; Stop 09/05/19 at 13:44; Status DC Vancomycin HCl 1.5 gm/Sodium Chloride 500 ml @ 250 mls/hr 1X ONCE IV Last administered on 09/05/19at 14:55; Start 09/05/19 at 13:15; Stop 09/05/19 at 15:14; Status DC Amiodarone HCl 900 mg/Dextrose 518 ml @ 0 mls/hr CONT PRN IV SEE I/O RECORD; Start 09/05/19 at 13:30 Sodium Chloride 1,000 ml @ 100 mls/hr Q10H IV Last administered on 09/06/19at 07:14; Start 09/05/19 at 13:30 Acetaminophen/ Codeine Phosphate (Tylenol #3) 1 tab PRN Q6HRS PRN PO PAIN; Start 09/05/19 at 13:30 Ondansetron HCl (Zofran) 4 mg PRN Q6HRS PRN IVP NAUSEA/VOMITING; Start 09/05/19 at 13:30 Ferrous Sulfate (Feosol) 325 mg DAILYWBKFT PO ; Start 09/06/19 at 08:00 Diphenhydramine HCl (Benadryl) 25 mg PRN QHS PRN PO INSOMNIA; Start 09/05/19 at 13:45 Pantoprazole Sodium (Protonix) 40 mg DAILYAC PO ; Start 09/06/19 at 07:30; Stop 09/05/19 at 14:33; Status DC Morphine Sulfate (Morphine Sulfate) 1 mg PRN Q2HR PRN IV PAIN Last administered on 09/06/19at 05:32; Start 09/05/19 at 13:45 Adenosine (Adenocard) 6 mg 1X ONCE IV Last administered on 09/05/19at 13:19; Start 09/05/19 at 13:19; Stop 09/05/19 at 13:49; Status DC Adenosine (Adenocard) 12 mg 1X ONCE IV Last administered on 09/05/19at 13:29; Start 09/05/19 at 13:29; Stop 09/05/19 at 13:49; Status DC Acetaminophen/ Hydrocodone Bitart (Lortab 5/325) 1 tab PRN Q4HRS PRN PO PAIN; Start 09/05/19 at 14:00 Pantoprazole Sodium (PROTONIX VIAL for IV PUSH) 40 mg DAILY ONCE IVP Last administered on 09/06/19at 08:52; Start 09/06/19 at 07:30; Stop 09/06/19 at 07:31; Status DC Potassium Chloride (Klor-Con) 20 meq 1X ONCE PO Last administered on 09/05/19at 17:01; Start 09/05/19 at 15:45; Stop 09/05/19 at 15:46; Status DC Potassium Chloride/Water 100 ml @ 100 mls/hr Q1H IV Last administered on 09/05/19at 17:00; Start 09/05/19 at 16:00; Stop 09/05/19 at 17:59; Status DC Metoprolol Tartrate (Lopressor Vial) 5 mg PRN Q5MIN PRN IVP TACHYCARDIA; Start 09/05/19 at 16:15 Pantoprazole Sodium (PROTONIX VIAL for IV PUSH) 40 mg DAILYAC IVP ; Start 09/06/19 at 07:30 Pantoprazole Sodium (PROTONIX VIAL for IV PUSH) 40 mg 1X ONCE IVP Last administered on 09/05/19at 17:00; Start 09/05/19 at 16:45; Stop 09/05/19 at 16:51; Status DC Calcium Carbonate/ Glycine (Tums) 500 mg STK-MED ONCE .ROUTE ; Start 09/05/19 at 17:13; Stop 09/05/19 at 17:13; Status DC Piperacillin Sod/ Tazobactam Sod 2.25 gm/Sodium Chloride 50 ml @ 100 mls/hr Q6HRS IV Last administered on 09/06/19at 05:32; Start 09/05/19 at 19:00 Active Scripts Active Reported Ferralet 90 Dual-Iron Tablet (Iron, Carb & Gluc/Fa/B12/C/Dss) 1 Each Tablet 1 Tab PO DAILY Losartan-Hctz 50-12.5 Mg Tab (Losartan/Hydrochlorothiazide) 1 Each Tablet 1 Tab PO DAILY Allergies Allergies: Coded Allergies: No Known Drug Allergies (Unverified , 09/05/19) ROS Review of System Per HPI, rest negative Physical Exam Physical Exam General: No acute distress HEENT: Mucous membr. moist/pink Neck supple Lungs: Clear to auscultation, non labored Heart: Normal S1, Normal S2, No murmurs Abdomen: Soft, No tenderness Extremities: No cyanosis, No edema Skin: No breakdown , no rash Neuro: AXOx 3, Grossly normal Psych/Mental Status: Mental status NL, Mood NL - Dominguez +, No CVA or SP tenderness Vital Signs Vital Signs Date Time Temp Pulse Resp B/P (MAP) Pulse Ox O2 Delivery O2 Flow Rate FiO2 09/06/19 10:00 101 20 105/54 (71) 100 Room Air 09/06/19 07:47 98.7 98.7 09/05/19 14:57 2.0 Assessment & Plan BONITA- Non Oliguric- ATN/Hyptonsive/Arrythmia / GI bleed UA granular casts , No micr hematuria, no UTI Improving renal function with IVF E-Lytes , acid base stable Supportive care, avoif nephrotoxins, Monitor Renal cysts - Ct report Multiple renal lesions,these have increased in size and number since the prior study, and further outpatient examination with multiphase contrast-enhanced CT or MRI of the kidneys could be of benefit. HTN- Only on Loasartan 50 mg PO QD at home Hypotension at presentation, improving Rectal bleeding, abd pain, normal colonoscopy >5 years ago GI following Anemia , acute - 2/2 above Leukocytosis and lactic acidosis- ID SVT- cardiology consulted s/p Adenosine in ER Hypokalemia - replace Hypernatermia- mild, monitor Distal esophageal wall thickening on CT - had an EGD >5 years ago Probable gallstone Adrenal Nodule on CT- stable per report Discussed with pt and at bedside Labs Labs Laboratory Tests Test 09/05/19 11:14 09/05/19 11:29 09/05/19 12:00 09/05/19 14:25 White Blood Count 29.3 x10^3/uL (4.0-11.0) Red Blood Count 3.78 x10^6/uL (3.50-5.40) Hemoglobin 9.9 g/dL (12.0-15.5) Hematocrit 32.5 % (36.0-47.0) Mean Corpuscular Volume 86 fL (79-100) Mean Corpuscular Hemoglobin 26 pg (25-35) Mean Corpuscular Hemoglobin Concent 31 g/dL (31-37) Red Cell Distribution Width 16.5 % (11.5-14.5) Platelet Count 539 x10^3/uL (140-400) Neutrophils (%) (Auto) 84 % (31-73) Lymphocytes (%) (Auto) 9 % (24-48) Monocytes (%) (Auto) 6 % (0-9) Eosinophils (%) (Auto) 0 % (0-3) Basophils (%) (Auto) 0 % (0-3) Neutrophils # (Auto) 24.7 x10^3/uL (1.8-7.7) Lymphocytes # (Auto) 2.7 x10^3/uL (1.0-4.8) Monocytes # (Auto) 1.8 x10^3/uL (0.0-1.1) Eosinophils # (Auto) 0.1 x10^3/uL (0.0-0.7) Basophils # (Auto) 0.1 x10^3/uL (0.0-0.2) Segmented Neutrophils % 78 % (35-66) Band Neutrophils % 3 % (0-9) Lymphocytes % 10 % (24-48) Monocytes % 8 % (0-10) Eosinophils % 1 % (0-5) Toxic Granulation Present Platelet Estimate Increased (ADEQUATE) Large Platelets Present Giant Platelets Occ Anisocytosis Present Prothrombin Time 16.4 SEC (11.7-14.0) Prothromb Time International Ratio 1.4 (0.8-1.1) Sodium Level 139 mmol/L (136-145) 147 mmol/L (136-145) Potassium Level 2.7 mmol/L (3.5-5.1) 2.9 mmol/L (3.5-5.1) Chloride Level 100 mmol/L (98-107) 111 mmol/L (98-107) Carbon Dioxide Level 14 mmol/L (21-32) 20 mmol/L (21-32) Anion Gap 25 (6-14) 16 (6-14) Blood Urea Nitrogen 39 mg/dL (7-20) 38 mg/dL (7-20) Creatinine 4.0 mg/dL (0.6-1.0) 3.2 mg/dL (0.6-1.0) Estimated GFR (Cockcroft-Gault) 13.8 17.8 BUN/Creatinine Ratio 10 (6-20) Glucose Level 341 mg/dL (70-99) 105 mg/dL (70-99) Lactic Acid Level 13.1 mmol/L (0.4-2.0) 4.2 mmol/L (0.4-2.0) Calcium Level 9.4 mg/dL (8.5-10.1) 8.5 mg/dL (8.5-10.1) Magnesium Level 2.8 mg/dL (1.8-2.4) Iron Level 55 ug/dL (50-170) Total Iron Binding Capacity 155 ug/dL (250-450) Iron Saturation 35 % (15-34) Total Bilirubin 0.3 mg/dL (0.2-1.0) Aspartate Amino Transf (AST/SGOT) 23 U/L (15-37) Alanine Aminotransferase (ALT/SGPT) 36 U/L (14-59) Alkaline Phosphatase 194 U/L (46-116) Total Protein 7.9 g/dL (6.4-8.2) Albumin 2.1 g/dL (3.4-5.0) Albumin/Globulin Ratio 0.4 (1.0-1.7) Vitamin B12 Level > 2000 pg/mL (247-911) Thyroid Stimulating Hormone (TSH) 1.781 uIU/mL (0.358-3.74) Stool Occult Blood Positive (NEG) Procalcitonin 0.57 ng/mL (0.00-0.10) Test 09/05/19 14:50 09/05/19 19:00 09/06/19 04:35 Urine Collection Type U cath Urine Color Yellow Urine Clarity Cloudy Urine pH 5.5 Urine Specific [place] 1.015 Urine Protein 100 mg/dL (NEG-TRACE) Urine Glucose (UA) Negative mg/dL (NEG) Urine Ketones (Stick) Negative mg/dL (NEG) Urine Blood Moderate (NEG) Urine Nitrite Negative (NEG) Urine Bilirubin Negative (NEG) Urine Urobilinogen Dipstick 0.2 mg/dL (0.2 mg/dL) Urine Leukocyte Esterase Negative (NEG) Urine RBC Occ /HPF (0-2) Urine WBC 1-4 /HPF (0-4) Urine Squamous Epithelial Cells Few /LPF Urine Renal Epithelial Cells Occ /LPF Urine Amorphous Sediment Present /HPF Urine Bacteria Few /HPF (0-FEW) Urine Hyaline Casts Moderate /HPF Urine Granular Casts Few /HPF Urine Mucus Mod /LPF White Blood Count 29.8 x10^3/uL (4.0-11.0) 25.3 x10^3/uL (4.0-11.0) Red Blood Count 2.98 x10^6/uL (3.50-5.40) 2.49 x10^6/uL (3.50-5.40) Hemoglobin 7.7 g/dL (12.0-15.5) 6.6 g/dL (12.0-15.5) Hematocrit 24.8 % (36.0-47.0) 20.6 % (36.0-47.0) Mean Corpuscular Volume 83 fL (79-100) 83 fL (79-100) Mean Corpuscular Hemoglobin 26 pg (25-35) 27 pg (25-35) Mean Corpuscular Hemoglobin Concent 31 g/dL (31-37) 32 g/dL (31-37) Red Cell Distribution Width 15.6 % (11.5-14.5) 15.6 % (11.5-14.5) Platelet Count 350 x10^3/uL (140-400) 281 x10^3/uL (140-400) Potassium Level 3.4 mmol/L (3.5-5.1) 3.5 mmol/L (3.5-5.1) Neutrophils (%) (Auto) 88 % (31-73) Lymphocytes (%) (Auto) 6 % (24-48) Monocytes (%) (Auto) 6 % (0-9) Eosinophils (%) (Auto) 0 % (0-3) Basophils (%) (Auto) 0 % (0-3) Neutrophils # (Auto) 22.2 x10^3/uL (1.8-7.7) Lymphocytes # (Auto) 1.4 x10^3/uL (1.0-4.8) Monocytes # (Auto) 1.5 x10^3/uL (0.0-1.1) Eosinophils # (Auto) 0.0 x10^3/uL (0.0-0.7) Basophils # (Auto) 0.0 x10^3/uL (0.0-0.2) Sodium Level 147 mmol/L (136-145) Chloride Level 116 mmol/L (98-107) Carbon Dioxide Level 20 mmol/L (21-32) Anion Gap 11 (6-14) Blood Urea Nitrogen 35 mg/dL (7-20) Creatinine 2.3 mg/dL (0.6-1.0) Estimated GFR (Cockcroft-Gault) 26.1 Glucose Level 94 mg/dL (70-99) Calcium Level 7.8 mg/dL (8.5-10.1) Magnesium Level 2.2 mg/dL (1.8-2.4) Laboratory Tests Test 09/05/19 11:14 09/05/19 11:29 09/05/19 12:00 09/05/19 14:25 White Blood Count 29.3 x10^3/uL (4.0-11.0) Red Blood Count 3.78 x10^6/uL (3.50-5.40) Hemoglobin 9.9 g/dL (12.0-15.5) Hematocrit 32.5 % (36.0-47.0) Mean Corpuscular Volume 86 fL (79-100) Mean Corpuscular Hemoglobin 26 pg (25-35) Mean Corpuscular Hemoglobin Concent 31 g/dL (31-37) Red Cell Distribution Width 16.5 % (11.5-14.5) Platelet Count 539 x10^3/uL (140-400) Neutrophils (%) (Auto) 84 % (31-73) Lymphocytes (%) (Auto) 9 % (24-48) Monocytes (%) (Auto) 6 % (0-9) Eosinophils (%) (Auto) 0 % (0-3) Basophils (%) (Auto) 0 % (0-3) Neutrophils # (Auto) 24.7 x10^3/uL (1.8-7.7) Lymphocytes # (Auto) 2.7 x10^3/uL (1.0-4.8) Monocytes # (Auto) 1.8 x10^3/uL (0.0-1.1) Eosinophils # (Auto) 0.1 x10^3/uL (0.0-0.7) Basophils # (Auto) 0.1 x10^3/uL (0.0-0.2) Segmented Neutrophils % 78 % (35-66) Band Neutrophils % 3 % (0-9) Lymphocytes % 10 % (24-48) Monocytes % 8 % (0-10) Eosinophils % 1 % (0-5) Toxic Granulation Present Platelet Estimate Increased (ADEQUATE) Large Platelets Present Giant Platelets Occ Anisocytosis Present Prothrombin Time 16.4 SEC (11.7-14.0) Prothromb Time International Ratio 1.4 (0.8-1.1) Sodium Level 139 mmol/L (136-145) 147 mmol/L (136-145) Potassium Level 2.7 mmol/L (3.5-5.1) 2.9 mmol/L (3.5-5.1) Chloride Level 100 mmol/L (98-107) 111 mmol/L (98-107) Carbon Dioxide Level 14 mmol/L (21-32) 20 mmol/L (21-32) Anion Gap 25 (6-14) 16 (6-14) Blood Urea Nitrogen 39 mg/dL (7-20) 38 mg/dL (7-20) Creatinine 4.0 mg/dL (0.6-1.0) 3.2 mg/dL (0.6-1.0) Estimated GFR (Cockcroft-Gault) 13.8 17.8 BUN/Creatinine Ratio 10 (6-20) Glucose Level 341 mg/dL (70-99) 105 mg/dL (70-99) Lactic Acid Level 13.1 mmol/L (0.4-2.0) 4.2 mmol/L (0.4-2.0) Calcium Level 9.4 mg/dL (8.5-10.1) 8.5 mg/dL (8.5-10.1) Magnesium Level 2.8 mg/dL (1.8-2.4) Iron Level 55 ug/dL (50-170) Total Iron Binding Capacity 155 ug/dL (250-450) Iron Saturation 35 % (15-34) Total Bilirubin 0.3 mg/dL (0.2-1.0) Aspartate Amino Transf (AST/SGOT) 23 U/L (15-37) Alanine Aminotransferase (ALT/SGPT) 36 U/L (14-59) Alkaline Phosphatase 194 U/L (46-116) Total Protein 7.9 g/dL (6.4-8.2) Albumin 2.1 g/dL (3.4-5.0) Albumin/Globulin Ratio 0.4 (1.0-1.7) Vitamin B12 Level > 2000 pg/mL (247-911) Thyroid Stimulating Hormone (TSH) 1.781 uIU/mL (0.358-3.74) Stool Occult Blood Positive (NEG) Procalcitonin 0.57 ng/mL (0.00-0.10) Test 09/05/19 14:50 09/05/19 19:00 09/06/19 04:35 Urine Collection Type U cath Urine Color Yellow Urine Clarity Cloudy Urine pH 5.5 Urine Specific [place] 1.015 Urine Protein 100 mg/dL (NEG-TRACE) Urine Glucose (UA) Negative mg/dL (NEG) Urine Ketones (Stick) Negative mg/dL (NEG) Urine Blood Moderate (NEG) Urine Nitrite Negative (NEG) Urine Bilirubin Negative (NEG) Urine Urobilinogen Dipstick 0.2 mg/dL (0.2 mg/dL) Urine Leukocyte Esterase Negative (NEG) Urine RBC Occ /HPF (0-2) Urine WBC 1-4 /HPF (0-4) Urine Squamous Epithelial Cells Few /LPF Urine Renal Epithelial Cells Occ /LPF Urine Amorphous Sediment Present /HPF Urine Bacteria Few /HPF (0-FEW) Urine Hyaline Casts Moderate /HPF Urine Granular Casts Few /HPF Urine Mucus Mod /LPF White Blood Count 29.8 x10^3/uL (4.0-11.0) 25.3 x10^3/uL (4.0-11.0) Red Blood Count 2.98 x10^6/uL (3.50-5.40) 2.49 x10^6/uL (3.50-5.40) Hemoglobin 7.7 g/dL (12.0-15.5) 6.6 g/dL (12.0-15.5) Hematocrit 24.8 % (36.0-47.0) 20.6 % (36.0-47.0) Mean Corpuscular Volume 83 fL (79-100) 83 fL (79-100) Mean Corpuscular Hemoglobin 26 pg (25-35) 27 pg (25-35) Mean Corpuscular Hemoglobin Concent 31 g/dL (31-37) 32 g/dL (31-37) Red Cell Distribution Width 15.6 % (11.5-14.5) 15.6 % (11.5-14.5) Platelet Count 350 x10^3/uL (140-400) 281 x10^3/uL (140-400) Potassium Level 3.4 mmol/L (3.5-5.1) 3.5 mmol/L (3.5-5.1) Neutrophils (%) (Auto) 88 % (31-73) Lymphocytes (%) (Auto) 6 % (24-48) Monocytes (%) (Auto) 6 % (0-9) Eosinophils (%) (Auto) 0 % (0-3) Basophils (%) (Auto) 0 % (0-3) Neutrophils # (Auto) 22.2 x10^3/uL (1.8-7.7) Lymphocytes # (Auto) 1.4 x10^3/uL (1.0-4.8) Monocytes # (Auto) 1.5 x10^3/uL (0.0-1.1) Eosinophils # (Auto) 0.0 x10^3/uL (0.0-0.7) Basophils # (Auto) 0.0 x10^3/uL (0.0-0.2) Sodium Level 147 mmol/L (136-145) Chloride Level 116 mmol/L (98-107) Carbon Dioxide Level 20 mmol/L (21-32) Anion Gap 11 (6-14) Blood Urea Nitrogen 35 mg/dL (7-20) Creatinine 2.3 mg/dL (0.6-1.0) Estimated GFR (Cockcroft-Gault) 26.1 Glucose Level 94 mg/dL (70-99) Calcium Level 7.8 mg/dL (8.5-10.1) Magnesium Level 2.2 mg/dL (1.8-2.4) Review All relevant outside records, renal labs, imaging studies, telemetry/EKG's were reviewed. Images Images Ct abdomen -- 1. Development of a small 3 cm cystic lesion of the left adnexa. Recommend nonemergent pelvic ultrasound for further evaluation. 2. Hepatomegaly. 3. Stable right adrenal nodule, most likely an adenoma. 4. Multiple renal lesions, most likely cysts within the constraints of a noncontrast exam. These have increased in size and number since the prior study, and further outpatient examination with multiphase contrast-enhanced CT or MRI of the kidneys could be of benefit. 5. Mild endplate depression at L3, as can be seen with osteoporotic fracture. Probably not seen on the prior study although comparison is limited without sagittal reconstructions on that exam. 6. Mild distal esophageal wall thickening, could be of acute or chronic etiology. 7. Calcific density within the gallbladder, likely a gallstone. CxR-- Impression: 1. No acute cardiopulmonary abnormality. ALISON CARDENAS MD Sep 06, 2019 11:22
--- NOTE | 2019-09-06 11:43 | PDOC ---
CARDIO Progress Notes Date and Time Date of Service 09/06/19 Time of Evaluation 1110 Subjective Subjective: No Chest Pain, No shortness of breath, No Palpitations Vitals Vitals Vital Signs Date Time Temp Pulse Resp B/P (MAP) Pulse Ox O2 Delivery O2 Flow Rate FiO2 09/06/19 11:21 98.4 104 18 107/69 98.4 09/06/19 11:00 100 Room Air 09/05/19 14:57 2.0 Weight Weight [ ] Input and Output Intake and Output Intake and Output 09/06/19 07:00 Intake Total 3156 ml Output Total 590 ml Balance 2566 ml Intake IV Total 3156 ml Output Urine Total 590 ml Laboratory Labs Laboratory Tests Test 09/05/19 12:00 09/05/19 14:25 09/05/19 14:50 09/05/19 19:00 Procalcitonin 0.57 ng/mL (0.00-0.10) Sodium Level 147 mmol/L (136-145) Potassium Level 2.9 mmol/L (3.5-5.1) 3.4 mmol/L (3.5-5.1) Chloride Level 111 mmol/L (98-107) Carbon Dioxide Level 20 mmol/L (21-32) Anion Gap 16 (6-14) Blood Urea Nitrogen 38 mg/dL (7-20) Creatinine 3.2 mg/dL (0.6-1.0) Estimated GFR (Cockcroft-Gault) 17.8 Glucose Level 105 mg/dL (70-99) Lactic Acid Level 4.2 mmol/L (0.4-2.0) Calcium Level 8.5 mg/dL (8.5-10.1) Urine Collection Type U cath Urine Color Yellow Urine Clarity Cloudy Urine pH 5.5 Urine Specific [place] 1.015 Urine Protein 100 mg/dL (NEG-TRACE) Urine Glucose (UA) Negative mg/dL (NEG) Urine Ketones (Stick) Negative mg/dL (NEG) Urine Blood Moderate (NEG) Urine Nitrite Negative (NEG) Urine Bilirubin Negative (NEG) Urine Urobilinogen Dipstick 0.2 mg/dL (0.2 mg/dL) Urine Leukocyte Esterase Negative (NEG) Urine RBC Occ /HPF (0-2) Urine WBC 1-4 /HPF (0-4) Urine Squamous Epithelial Cells Few /LPF Urine Renal Epithelial Cells Occ /LPF Urine Amorphous Sediment Present /HPF Urine Bacteria Few /HPF (0-FEW) Urine Hyaline Casts Moderate /HPF Urine Granular Casts Few /HPF Urine Mucus Mod /LPF White Blood Count 29.8 x10^3/uL (4.0-11.0) Red Blood Count 2.98 x10^6/uL (3.50-5.40) Hemoglobin 7.7 g/dL (12.0-15.5) Hematocrit 24.8 % (36.0-47.0) Mean Corpuscular Volume 83 fL (79-100) Mean Corpuscular Hemoglobin 26 pg (25-35) Mean Corpuscular Hemoglobin Concent 31 g/dL (31-37) Red Cell Distribution Width 15.6 % (11.5-14.5) Platelet Count 350 x10^3/uL (140-400) Test 09/06/19 04:35 White Blood Count 25.3 x10^3/uL (4.0-11.0) Red Blood Count 2.49 x10^6/uL (3.50-5.40) Hemoglobin 6.6 g/dL (12.0-15.5) Hematocrit 20.6 % (36.0-47.0) Mean Corpuscular Volume 83 fL (79-100) Mean Corpuscular Hemoglobin 27 pg (25-35) Mean Corpuscular Hemoglobin Concent 32 g/dL (31-37) Red Cell Distribution Width 15.6 % (11.5-14.5) Platelet Count 281 x10^3/uL (140-400) Neutrophils (%) (Auto) 88 % (31-73) Lymphocytes (%) (Auto) 6 % (24-48) Monocytes (%) (Auto) 6 % (0-9) Eosinophils (%) (Auto) 0 % (0-3) Basophils (%) (Auto) 0 % (0-3) Neutrophils # (Auto) 22.2 x10^3/uL (1.8-7.7) Lymphocytes # (Auto) 1.4 x10^3/uL (1.0-4.8) Monocytes # (Auto) 1.5 x10^3/uL (0.0-1.1) Eosinophils # (Auto) 0.0 x10^3/uL (0.0-0.7) Basophils # (Auto) 0.0 x10^3/uL (0.0-0.2) Sodium Level 147 mmol/L (136-145) Potassium Level 3.5 mmol/L (3.5-5.1) Chloride Level 116 mmol/L (98-107) Carbon Dioxide Level 20 mmol/L (21-32) Anion Gap 11 (6-14) Blood Urea Nitrogen 35 mg/dL (7-20) Creatinine 2.3 mg/dL (0.6-1.0) Estimated GFR (Cockcroft-Gault) 26.1 Glucose Level 94 mg/dL (70-99) Calcium Level 7.8 mg/dL (8.5-10.1) Magnesium Level 2.2 mg/dL (1.8-2.4) Physical Exam HEENT: Neck Supple W Full Motion Chest: Symmetric LUNGS: Clear to Auscultation Heart: S1S2, RRR (SR/ST), no murmurs Abdomen: Soft N/T Extremities: No Edema Neurology: alert, oriented, follow commands Assessment Assessment 1. Sepsis with shock 2. Hematochezia with abd pain/anorexia and rectal bleed: Hgb drop to 6.6. S/p 1 unit PRBCs 3. PSVT in the setting of hypokalemia, BONITA, and sepsis. Maintaining SR/ST- no further SVT. Echo showed preserved LV systolic function. 4. BONITA, hypokalemia. improving. Mg WNL 5. L3 compression fracture Recommendations Metoprolol IV PRN for sustained tachycardia Transfuse as warranted Supportive care OMAYRA AVENDAÑO APRN Sep 06, 2019 11:43
[2019-09-06] MEDS ORDERED: PHYTONADIONE 10 MG/ML ORAL SOLUTION. PO ONE (12:00)
--- NOTE | 2019-09-06 15:33 | NUR ---
Patient had small loose bm with no visual signs of blood
[2019-09-06 16:23] LABS: HEMATOCRIT 25.4 % (36.0-47.0); RED CELL DISTRIBUTION WIDTH 15.7 % (11.5-14.5); WHITE BLOOD COUNT 24.4 x10^3/uL (4.0-11.0)
[2019-09-07] VITALS (18 sets, daily range): BP systolic 124–164; BP diastolic 56–93
[2019-09-07] MEDS: PIPERACILLIN/TAZOBACTAM 2.25 GM in IV NORMAL SALINE 50ML 50 ML IV SCH ×4 (00:06→20:02)
--- NOTE | 2019-09-07 03:56 | CONS ---
DATE OF CONSULTATION: 09/06/2019 REFERRING PHYSICIAN: Malgorzata Gomez MD REASONS FOR CONSULTATION: Lactic acidosis and leukocytosis. HISTORY OF PRESENT ILLNESS: This is a 59-year-old female, presented to the emergency room on 09/05/2019 with complaints of weakness and bright red blood per rectum, which was going off and on for the last 10 days but worsened with increasing weakness over the last 3-4 days. She denies any history of fever, chills, nausea, vomiting, or diarrhea. She has history of upset stomach. She had EGD done about 3 years ago and had a colonoscopy done 10 years ago. The patient denies taking any nonsteroidals. She does have knee pain from osteoarthritis and is awaiting steroid injection, which she gets off and on. The patient is on iron supplements, denies any history of trauma. She was found to have leukocytosis, lactic acidosis, acute kidney injury with hyperkalemia, and metabolic acidosis. Her hemoglobin dropped to 6.6 this morning. She is receiving blood transfusion. She was started on empiric Zosyn and received a dose of vancomycin for sepsis. Infectious Disease consult has been requested for antibiotic management. The patient also had supraventricular tachycardia, which resolved with intravenous fluids but then required adenosine x2. The patient was admitted to Intensive Care Unit. CT of the abdomen showed development of a small 3-cm cystic lesion of the left adnexa, hepatomegaly, multiple renal lesions most likely cysts, which have increased in size and number from previous study, mild endplate decompression at L3 with osteoporotic fracture, mild distal esophageal thickening, could be acute or chronic, and calcific density within the gallbladder, likely gallstone. PAST MEDICAL HISTORY: Iron-deficiency anemia and hypertension. PAST SURGICAL HISTORY: None. FAMILY HISTORY: Hypertension. SOCIAL HISTORY: No smoking, EtOH, or illicit drug use; , lives with . CURRENT MEDICATIONS: Zosyn, one-time dose of vancomycin, and adenosine. Other medications are reviewed in medication list. ALLERGIES: No known drug allergies. REVIEW OF SYSTEMS: Negative except for above in HPI. PHYSICAL EXAMINATION: VITAL SIGNS: Temperature 98.7, pulse 102, respiratory rate 22, blood pressure 115/69, and oxygen saturation 98% on room air. GENERAL: Alert, oriented x3 female, lying in bed comfortably, in no acute distress, receiving blood transfusion. HEENT: Normocephalic, atraumatic; anicteric; no thrush; oral mucosa moist. NECK: Supple, no JVD. LUNGS: Clear bilaterally. No wheezing. HEART: S1, S2. No gallops or murmurs. ABDOMEN: Soft, nontender, nondistended; no rebound, no guarding. EXTREMITIES: No edema, no cyanosis. DERMATOLOGIC: Warm, dry, no generalized rash. NEUROLOGIC: Alert and oriented x3, grossly nonfocal. PSYCHIATRIC: Cooperative, appropriate mood and affect. MUSCULOSKELETAL: Changes suggestive of degenerative joint disease; no joint effusion, no redness, no decrease in range of motion grossly. LABORATORY DATA: WBC 25.3, hemoglobin 6.6, hematocrit 20.6, platelets 281; sodium 147, potassium 3.5, chloride 116, bicarbonate 20, BUN 35, creatinine 2.3, lactate 4.2, calcium 7.8. Stool occult blood positive. UA shows 1-4 wbcs; leukocyte esterase negative. IMAGING: CT of the abdomen and pelvis shows development of a small 3-cm cystic lesion of the left adnexa, hepatomegaly, multiple renal lesions, likely cystic, mild endplate decompression at L3 osteoporotic fracture, mild distal esophageal wall thickening, could be acute or chronic etiology, and calcific density within the gallbladder, likely gallstone. IMPRESSION: 1. Systemic inflammatory response syndrome, source likely gastrointestinal bleed. 2. Leukocytosis and lactic acidosis.Source likely GI Bleed 3. Bright red blood per rectum; fecal occult blood positive; awaiting endoscopy. 4. Acute kidney injury. 5. Hypokalemia. 6. Metabolic acidosis. 7. Acute kidney injury with kidney cyst. 8. Anemia. RECOMMENDATIONS: 1. Continue Zosyn. 2. Status post one dose of vancomycin.Avoid Vanc 3. GI team following. 4. Follow up cultures and lab. 5. Continue supportive care. Discussed with at bedside. Discussed with RN. Thank you, Dr. Gomez, for consulting Infectious Disease to participate in this patient's care. If you have any questions, do not hesitate to contact me. ABBY URIAS MD DR: GENO/rita JOB#: [id number] / [id number] MAYELA
[2019-09-07] MEDS: MORPHINE SULFATE 2 MG/ML VIAL. IV PRN ×3 (04:12→14:11)
[2019-09-07] MEDS: IV NORMAL SALINE 1000ML BAG 1,000 ML IV SCH (04:13)
[2019-09-07 05:32] LABS: BASO # 0.1 x10^3/uL (0.0-0.2); BASO % 0 % (0-3); EOS # 0.1 x10^3/uL (0.0-0.7); EOS % 0 % (0-3); HEMATOCRIT 22.6 % (36.0-47.0); HEMOGLOBIN 7.1 g/dL (12.0-15.5); LYMPH # 1.1 x10^3/uL (1.0-4.8); LYMPH % 5 % (24-48); MEAN CORPUSCULAR HEMOGLOBIN 27 pg (25-35); MEAN CORPUSCULAR HGB CONC 31 g/dL (31-37); MEAN CORPUSCULAR VOLUME 85 fL (79-100); MONO # 1.3 x10^3/uL (0.0-1.1); MONO % 6 % (0-9); NEUT # 19.2 x10^3/uL (1.8-7.7); NEUT % 89 % (31-73); PLATELET COUNT 304 x10^3/uL (140-400); RED BLOOD COUNT 2.68 x10^6/uL (3.50-5.40); RED CELL DISTRIBUTION WIDTH 15.9 % (11.5-14.5); WHITE BLOOD COUNT 21.6 x10^3/uL (4.0-11.0)
[2019-09-07 05:49] LABS: ALBUMIN 1.7 g/dL (3.4-5.0); ALBUMIN/GLOBULIN RATIO 0.4 (1.0-1.7); CALCIUM 8.3 mg/dL (8.5-10.1); CREATININE 1.8 mg/dL (0.6-1.0); GFR 34.6; POTASSIUM 3.5 mmol/L (3.5-5.1); TOTAL BILIRUBIN 0.4 mg/dL (0.2-1.0); TOTAL PROTEIN 6.1 g/dL (6.4-8.2)
--- NOTE | 2019-09-07 07:18 | PDOC ---
PROGRESS NOTES History of Present Illness History of Present Illness VTE Prophylaxis Ordered VTE Prophylaxis Devices: Contraindicated VTE Pharmacological Prophylaxi: Contraindicated Assessment/Plan Assessment/Plan NEw SVT with hypotension hematochezia Mild distal esophageal wall thickening, could be of acute or chronic etiology. HYpokalemia, critical - replace BONITA -creat 4.0- ///acute tubular necrosis cr down to 1.[address] , No evidence of hydronephrosis. ?ischemic colitis renal consult AGAp acidosis, contraction alkalosis - AGAP 25 with high bicarb SIRS - no source - elev lactate 13.,1 Septic shock (hypotensive) LEukocytosis - WBC 23 - kovacs cx, ID Incidental kidney cysts - per CT Old Thoracic fx - she denies knowledge and back pain adrenal adenoma Leucocytosis and lactic acidosis source GI severe protein-caloric malnutrition PLAN: ICU bed, AMio gtt levophed prn bp control NS IVF for AGAP follow mag, tsh, calcium Replace k orally EMpiric abx - ID consult., cont zosyn avoid nephrotoxins COnsult ID, renal and cards HOld losartan (creat 4) resume ferrous sulfate gi following, TRY CLEAR LIQUIDS CONSIDER egd, colonoscopy nephrology FOLLOWING transfuse prn follow lytes FUll code cc 35 MIN Vitals Vitals Vital Signs Date Time Temp Pulse Resp B/P (MAP) Pulse Ox O2 Delivery O2 Flow Rate FiO2 09/07/19 06:00 115 26 142/69 (93) 95 Room Air 09/07/19 04:00 99.5 99.5 Physical Exam General: Alert, Oriented X3, Cooperative, No acute distress Heart: Regular rate, Normal S1, Normal S2, No murmurs Lungs: Clear Abdomen: Normal bowel sounds, Soft, No tenderness Extremities: No clubbing, No cyanosis, No edema Skin: No rashes, No breakdown Labs LABS Laboratory Tests Test 09/06/19 15:35 09/07/19 05:10 White Blood Count 24.4 x10^3/uL (4.0-11.0) 21.6 x10^3/uL (4.0-11.0) Red Blood Count 3.00 x10^6/uL (3.50-5.40) 2.68 x10^6/uL (3.50-5.40) Hemoglobin 8.0 g/dL (12.0-15.5) 7.1 g/dL (12.0-15.5) Hematocrit 25.4 % (36.0-47.0) 22.6 % (36.0-47.0) Mean Corpuscular Volume 84 fL (79-100) 85 fL (79-100) Mean Corpuscular Hemoglobin 27 pg (25-35) 27 pg (25-35) Mean Corpuscular Hemoglobin Concent 32 g/dL (31-37) 31 g/dL (31-37) Red Cell Distribution Width 15.7 % (11.5-14.5) 15.9 % (11.5-14.5) Platelet Count 321 x10^3/uL (140-400) 304 x10^3/uL (140-400) Neutrophils (%) (Auto) 89 % (31-73) Lymphocytes (%) (Auto) 5 % (24-48) Monocytes (%) (Auto) 6 % (0-9) Eosinophils (%) (Auto) 0 % (0-3) Basophils (%) (Auto) 0 % (0-3) Neutrophils # (Auto) 19.2 x10^3/uL (1.8-7.7) Lymphocytes # (Auto) 1.1 x10^3/uL (1.0-4.8) Monocytes # (Auto) 1.3 x10^3/uL (0.0-1.1) Eosinophils # (Auto) 0.1 x10^3/uL (0.0-0.7) Basophils # (Auto) 0.1 x10^3/uL (0.0-0.2) Sodium Level 153 mmol/L (136-145) Potassium Level 3.5 mmol/L (3.5-5.1) Chloride Level 121 mmol/L (98-107) Carbon Dioxide Level 19 mmol/L (21-32) Anion Gap 13 (6-14) Blood Urea Nitrogen 28 mg/dL (7-20) Creatinine 1.8 mg/dL (0.6-1.0) Estimated GFR (Cockcroft-Gault) 34.6 BUN/Creatinine Ratio 16 (6-20) Glucose Level 71 mg/dL (70-99) Calcium Level 8.3 mg/dL (8.5-10.1) Total Bilirubin 0.4 mg/dL (0.2-1.0) Aspartate Amino Transf (AST/SGOT) 15 U/L (15-37) Alanine Aminotransferase (ALT/SGPT) 26 U/L (14-59) Alkaline Phosphatase 135 U/L (46-116) Total Protein 6.1 g/dL (6.4-8.2) Albumin 1.7 g/dL (3.4-5.0) Albumin/Globulin Ratio 0.4 (1.0-1.7) Assessment and Plan Assessmemt and Plan Problems Medical Problems: (1) BONITA (acute kidney injury) Status: Acute (2) Rectal bleed Status: Acute (3) Septic shock Status: Acute Comment Review of Relevant I have reviewed the following items diane (where applicable) has been applied. Labs Laboratory Tests Test 09/05/19 11:14 09/05/19 11:29 09/05/19 12:00 09/05/19 14:25 White Blood Count 29.3 x10^3/uL (4.0-11.0) Red Blood Count 3.78 x10^6/uL (3.50-5.40) Hemoglobin 9.9 g/dL (12.0-15.5) Hematocrit 32.5 % (36.0-47.0) Mean Corpuscular Volume 86 fL (79-100) Mean Corpuscular Hemoglobin 26 pg (25-35) Mean Corpuscular Hemoglobin Concent 31 g/dL (31-37) Red Cell Distribution Width 16.5 % (11.5-14.5) Platelet Count 539 x10^3/uL (140-400) Neutrophils (%) (Auto) 84 % (31-73) Lymphocytes (%) (Auto) 9 % (24-48) Monocytes (%) (Auto) 6 % (0-9) Eosinophils (%) (Auto) 0 % (0-3) Basophils (%) (Auto) 0 % (0-3) Neutrophils # (Auto) 24.7 x10^3/uL (1.8-7.7) Lymphocytes # (Auto) 2.7 x10^3/uL (1.0-4.8) Monocytes # (Auto) 1.8 x10^3/uL (0.0-1.1) Eosinophils # (Auto) 0.1 x10^3/uL (0.0-0.7) Basophils # (Auto) 0.1 x10^3/uL (0.0-0.2) Segmented Neutrophils % 78 % (35-66) Band Neutrophils % 3 % (0-9) Lymphocytes % 10 % (24-48) Monocytes % 8 % (0-10) Eosinophils % 1 % (0-5) Toxic Granulation Present Platelet Estimate Increased (ADEQUATE) Large Platelets Present Giant Platelets Occ Anisocytosis Present Prothrombin Time 16.4 SEC (11.7-14.0) Prothromb Time International Ratio 1.4 (0.8-1.1) Sodium Level 139 mmol/L (136-145) 147 mmol/L (136-145) Potassium Level 2.7 mmol/L (3.5-5.1) 2.9 mmol/L (3.5-5.1) Chloride Level 100 mmol/L (98-107) 111 mmol/L (98-107) Carbon Dioxide Level 14 mmol/L (21-32) 20 mmol/L (21-32) Anion Gap 25 (6-14) 16 (6-14) Blood Urea Nitrogen 39 mg/dL (7-20) 38 mg/dL (7-20) Creatinine 4.0 mg/dL (0.6-1.0) 3.2 mg/dL (0.6-1.0) Estimated GFR (Cockcroft-Gault) 13.8 17.8 BUN/Creatinine Ratio 10 (6-20) Glucose Level 341 mg/dL (70-99) 105 mg/dL (70-99) Lactic Acid Level 13.1 mmol/L (0.4-2.0) 4.2 mmol/L (0.4-2.0) Calcium Level 9.4 mg/dL (8.5-10.1) 8.5 mg/dL (8.5-10.1) Magnesium Level 2.8 mg/dL (1.8-2.4) Iron Level 55 ug/dL (50-170) Total Iron Binding Capacity 155 ug/dL (250-450) Iron Saturation 35 % (15-34) Total Bilirubin 0.3 mg/dL (0.2-1.0) Aspartate Amino Transf (AST/SGOT) 23 U/L (15-37) Alanine Aminotransferase (ALT/SGPT) 36 U/L (14-59) Alkaline Phosphatase 194 U/L (46-116) Total Protein 7.9 g/dL (6.4-8.2) Albumin 2.1 g/dL (3.4-5.0) Albumin/Globulin Ratio 0.4 (1.0-1.7) Vitamin B12 Level > 2000 pg/mL (247-911) Thyroid Stimulating Hormone (TSH) 1.781 uIU/mL (0.358-3.74) Stool Occult Blood Positive (NEG) Procalcitonin 0.57 ng/mL (0.00-0.10) Test 09/05/19 14:50 09/05/19 19:00 09/06/19 04:35 09/06/19 15:35 Urine Collection Type U cath Urine Color Yellow Urine Clarity Cloudy Urine pH 5.5 Urine Specific Carey 1.015 Urine Protein 100 mg/dL (NEG-TRACE) Urine Glucose (UA) Negative mg/dL (NEG) Urine Ketones (Stick) Negative mg/dL (NEG) Urine Blood Moderate (NEG) Urine Nitrite Negative (NEG) Urine Bilirubin Negative (NEG) Urine Urobilinogen Dipstick 0.2 mg/dL (0.2 mg/dL) Urine Leukocyte Esterase Negative (NEG) Urine RBC Occ /HPF (0-2) Urine WBC 1-4 /HPF (0-4) Urine Squamous Epithelial Cells Few /LPF Urine Renal Epithelial Cells Occ /LPF Urine Amorphous Sediment Present /HPF Urine Bacteria Few /HPF (0-FEW) Urine Hyaline Casts Moderate /HPF Urine Granular Casts Few /HPF Urine Mucus Mod /LPF White Blood Count 29.8 x10^3/uL (4.0-11.0) 25.3 x10^3/uL (4.0-11.0) 24.4 x10^3/uL (4.0-11.0) Red Blood Count 2.98 x10^6/uL (3.50-5.40) 2.49 x10^6/uL (3.50-5.40) 3.00 x10^6/uL (3.50-5.40) Hemoglobin 7.7 g/dL (12.0-15.5) 6.6 g/dL (12.0-15.5) 8.0 g/dL (12.0-15.5) Hematocrit 24.8 % (36.0-47.0) 20.6 % (36.0-47.0) 25.4 % (36.0-47.0) Mean Corpuscular Volume 83 fL (79-100) 83 fL (79-100) 84 fL (79-100) Mean Corpuscular Hemoglobin 26 pg (25-35) 27 pg (25-35) 27 pg (25-35) Mean Corpuscular Hemoglobin Concent 31 g/dL (31-37) 32 g/dL (31-37) 32 g/dL (31-37) Red Cell Distribution Width 15.6 % (11.5-14.5) 15.6 % (11.5-14.5) 15.7 % (11.5-14.5) Platelet Count 350 x10^3/uL (140-400) 281 x10^3/uL (140-400) 321 x10^3/uL (140-400) Potassium Level 3.4 mmol/L (3.5-5.1) 3.5 mmol/L (3.5-5.1) Neutrophils (%) (Auto) 88 % (31-73) Lymphocytes (%) (Auto) 6 % (24-48) Monocytes (%) (Auto) 6 % (0-9) Eosinophils (%) (Auto) 0 % (0-3) Basophils (%) (Auto) 0 % (0-3) Neutrophils # (Auto) 22.2 x10^3/uL (1.8-7.7) Lymphocytes # (Auto) 1.4 x10^3/uL (1.0-4.8) Monocytes # (Auto) 1.5 x10^3/uL (0.0-1.1) Eosinophils # (Auto) 0.0 x10^3/uL (0.0-0.7) Basophils # (Auto) 0.0 x10^3/uL (0.0-0.2) Sodium Level 147 mmol/L (136-145) Chloride Level 116 mmol/L (98-107) Carbon Dioxide Level 20 mmol/L (21-32) Anion Gap 11 (6-14) Blood Urea Nitrogen 35 mg/dL (7-20) Creatinine 2.3 mg/dL (0.6-1.0) Estimated GFR (Cockcroft-Gault) 26.1 Glucose Level 94 mg/dL (70-99) Calcium Level 7.8 mg/dL (8.5-10.1) Magnesium Level 2.2 mg/dL (1.8-2.4) Creatine Kinase 100 U/L (26-192) Test 09/07/19 05:10 White Blood Count 21.6 x10^3/uL (4.0-11.0) Red Blood Count 2.68 x10^6/uL (3.50-5.40) Hemoglobin 7.1 g/dL (12.0-15.5) Hematocrit 22.6 % (36.0-47.0) Mean Corpuscular Volume 85 fL (79-100) Mean Corpuscular Hemoglobin 27 pg (25-35) Mean Corpuscular Hemoglobin Concent 31 g/dL (31-37) Red Cell Distribution Width 15.9 % (11.5-14.5) Platelet Count 304 x10^3/uL (140-400) Neutrophils (%) (Auto) 89 % (31-73) Lymphocytes (%) (Auto) 5 % (24-48) Monocytes (%) (Auto) 6 % (0-9) Eosinophils (%) (Auto) 0 % (0-3) Basophils (%) (Auto) 0 % (0-3) Neutrophils # (Auto) 19.2 x10^3/uL (1.8-7.7) Lymphocytes # (Auto) 1.1 x10^3/uL (1.0-4.8) Monocytes # (Auto) 1.3 x10^3/uL (0.0-1.1) Eosinophils # (Auto) 0.1 x10^3/uL (0.0-0.7) Basophils # (Auto) 0.1 x10^3/uL (0.0-0.2) Sodium Level 153 mmol/L (136-145) Potassium Level 3.5 mmol/L (3.5-5.1) Chloride Level 121 mmol/L (98-107) Carbon Dioxide Level 19 mmol/L (21-32) Anion Gap 13 (6-14) Blood Urea Nitrogen 28 mg/dL (7-20) Creatinine 1.8 mg/dL (0.6-1.0) Estimated GFR (Cockcroft-Gault) 34.6 BUN/Creatinine Ratio 16 (6-20) Glucose Level 71 mg/dL (70-99) Calcium Level 8.3 mg/dL (8.5-10.1) Total Bilirubin 0.4 mg/dL (0.2-1.0) Aspartate Amino Transf (AST/SGOT) 15 U/L (15-37) Alanine Aminotransferase (ALT/SGPT) 26 U/L (14-59) Alkaline Phosphatase 135 U/L (46-116) Total Protein 6.1 g/dL (6.4-8.2) Albumin 1.7 g/dL (3.4-5.0) Albumin/Globulin Ratio 0.4 (1.0-1.7) Laboratory Tests Test 09/06/19 15:35 09/07/19 05:10 White Blood Count 24.4 x10^3/uL (4.0-11.0) 21.6 x10^3/uL (4.0-11.0) Red Blood Count 3.00 x10^6/uL (3.50-5.40) 2.68 x10^6/uL (3.50-5.40) Hemoglobin 8.0 g/dL (12.0-15.5) 7.1 g/dL (12.0-15.5) Hematocrit 25.4 % (36.0-47.0) 22.6 % (36.0-47.0) Mean Corpuscular Volume 84 fL (79-100) 85 fL (79-100) Mean Corpuscular Hemoglobin 27 pg (25-35) 27 pg (25-35) Mean Corpuscular Hemoglobin Concent 32 g/dL (31-37) 31 g/dL (31-37) Red Cell Distribution Width 15.7 % (11.5-14.5) 15.9 % (11.5-14.5) Platelet Count 321 x10^3/uL (140-400) 304 x10^3/uL (140-400) Neutrophils (%) (Auto) 89 % (31-73) Lymphocytes (%) (Auto) 5 % (24-48) Monocytes (%) (Auto) 6 % (0-9) Eosinophils (%) (Auto) 0 % (0-3) Basophils (%) (Auto) 0 % (0-3) Neutrophils # (Auto) 19.2 x10^3/uL (1.8-7.7) Lymphocytes # (Auto) 1.1 x10^3/uL (1.0-4.8) Monocytes # (Auto) 1.3 x10^3/uL (0.0-1.1) Eosinophils # (Auto) 0.1 x10^3/uL (0.0-0.7) Basophils # (Auto) 0.1 x10^3/uL (0.0-0.2) Sodium Level 153 mmol/L (136-145) Potassium Level 3.5 mmol/L (3.5-5.1) Chloride Level 121 mmol/L (98-107) Carbon Dioxide Level 19 mmol/L (21-32) Anion Gap 13 (6-14) Blood Urea Nitrogen 28 mg/dL (7-20) Creatinine 1.8 mg/dL (0.6-1.0) Estimated GFR (Cockcroft-Gault) 34.6 BUN/Creatinine Ratio 16 (6-20) Glucose Level 71 mg/dL (70-99) Calcium Level 8.3 mg/dL (8.5-10.1) Total Bilirubin 0.4 mg/dL (0.2-1.0) Aspartate Amino Transf (AST/SGOT) 15 U/L (15-37) Alanine Aminotransferase (ALT/SGPT) 26 U/L (14-59) Alkaline Phosphatase 135 U/L (46-116) Total Protein 6.1 g/dL (6.4-8.2) Albumin 1.7 g/dL (3.4-5.0) Albumin/Globulin Ratio 0.4 (1.0-1.7) Microbiology 09/05/19 Blood Culture - Preliminary, Resulted NO GROWTH AFTER 1 DAY Medications Current Medications Sodium Chloride 1,000 ml @ 1,000 mls/hr 1X ONCE IV Last administered on 09/05/19at 11:30; Start 09/05/19 at 11:30; Stop 09/05/19 at 12:29; Status DC Potassium Chloride/Water 100 ml @ 100 mls/hr Q1H IV Last administered on 09/05/19at 14:55; Start 09/05/19 at 12:00; Stop 09/05/19 at 13:59; Status DC Adenosine (Adenocard) 6 mg STK-MED ONCE IV ; Start 09/05/19 at 12:20; Stop 09/05/19 at 12:21; Status DC Adenosine (Adenocard) 6 mg STK-MED ONCE IV ; Start 09/05/19 at 12:33; Stop 09/05/19 at 12:33; Status DC Sodium Chloride (Normal Saline Flush) 10 ml QSHIFT PRN IV AFTER MEDS AND BLOOD DRAWS; Start 09/05/19 at 13:00 Sodium Chloride 1,000 ml @ 1,500 mls/hr Q40M IV Last administered on 09/05/19at 12:38; Start 09/05/19 at 12:50; Stop 09/05/19 at 13:49; Status DC Piperacillin Sod/ Tazobactam Sod 4.5 gm/Sodium Chloride 100 ml @ 200 mls/hr 1X ONCE IV ; Start 09/05/19 at 13:00; Stop 09/05/19 at 13:07; Status DC Vancomycin HCl (Vanco Per Pharmacy) 1 each 1X ONCE MC ; Start 09/05/19 at 13:00; Stop 09/05/19 at 13:08; Status DC Norepinephrine Bitartrate 250 ml @ 0 mls/hr CONT PRN IV PER PROTOCOL; Start 09/05/19 at 13:00 Adenosine (Adenocard) 6 mg 1X ONCE IV Last administered on 09/05/19at 12:37; Start 09/05/19 at 13:15; Stop 09/05/19 at 13:16; Status DC Piperacillin Sod/ Tazobactam Sod 2.25 gm/Sodium Chloride 50 ml @ 100 mls/hr 1X ONCE IV Last administered on 09/05/19at 13:29; Start 09/05/19 at 13:15; Stop 09/05/19 at 13:44; Status DC Vancomycin HCl 1.5 gm/Sodium Chloride 500 ml @ 250 mls/hr 1X ONCE IV Last administered on 09/05/19at 14:55; Start 09/05/19 at 13:15; Stop 09/05/19 at 15:14; Status DC Amiodarone HCl 900 mg/Dextrose 518 ml @ 0 mls/hr CONT PRN IV SEE I/O RECORD; Start 09/05/19 at 13:30 Sodium Chloride 1,000 ml @ 100 mls/hr Q10H IV Last administered on 09/07/19at 04:13; Start 09/05/19 at 13:30 Acetaminophen/ Codeine Phosphate (Tylenol #3) 1 tab PRN Q6HRS PRN PO PAIN; Start 09/05/19 at 13:30 Ondansetron HCl (Zofran) 4 mg PRN Q6HRS PRN IVP NAUSEA/VOMITING; Start 09/05/19 at 13:30 Ferrous Sulfate (Feosol) 325 mg DAILYWBKFT PO ; Start 09/06/19 at 08:00 Diphenhydramine HCl (Benadryl) 25 mg PRN QHS PRN PO INSOMNIA; Start 09/05/19 at 13:45 Pantoprazole Sodium (Protonix) 40 mg DAILYAC PO ; Start 09/06/19 at 07:30; Stop 09/05/19 at 14:33; Status DC Morphine Sulfate (Morphine Sulfate) 1 mg PRN Q2HR PRN IV PAIN Last administered on 09/07/19at 04:12; Start 09/05/19 at 13:45 Adenosine (Adenocard) 6 mg 1X ONCE IV Last administered on 09/05/19at 13:19; Start 09/05/19 at 13:19; Stop 09/05/19 at 13:49; Status DC Adenosine (Adenocard) 12 mg 1X ONCE IV Last administered on 09/05/19at 13:29; Start 09/05/19 at 13:29; Stop 09/05/19 at 13:49; Status DC Acetaminophen/ Hydrocodone Bitart (Lortab 5/325) 1 tab PRN Q4HRS PRN PO PAIN; Start 09/05/19 at 14:00 Pantoprazole Sodium (PROTONIX VIAL for IV PUSH) 40 mg DAILY ONCE IVP Last admi nistered on 09/06/19at 08:52; Start 09/06/19 at 07:30; Stop 09/06/19 at 07:31; Status DC Potassium Chloride (Klor-Con) 20 meq 1X ONCE PO Last administered on 09/05/19at 17:01; Start 09/05/19 at 15:45; Stop 09/05/19 at 15:46; Status DC Potassium Chloride/Water 100 ml @ 100 mls/hr Q1H IV Last administered on 09/05/19at 17:00; Start 09/05/19 at 16:00; Stop 09/05/19 at 17:59; Status DC Metoprolol Tartrate (Lopressor Vial) 5 mg PRN Q5MIN PRN IVP TACHYCARDIA; Start 09/05/19 at 16:15 Pantoprazole Sodium (PROTONIX VIAL for IV PUSH) 40 mg DAILYAC IVP ; Start 09/06/19 at 07:30 Pantoprazole Sodium (PROTONIX VIAL for IV PUSH) 40 mg 1X ONCE IVP Last administered on 09/05/19at 17:00; Start 09/05/19 at 16:45; Stop 09/05/19 at 16:51; Status DC Calcium Carbonate/ Glycine (Tums) 500 mg STK-MED ONCE .ROUTE ; Start 09/05/19 at 17:13; Stop 09/05/19 at 17:13; Status DC Piperacillin Sod/ Tazobactam Sod 2.25 gm/Sodium Chloride 50 ml @ 100 mls/hr Q6HRS IV Last administered on 09/07/19at 05:07; Start 09/05/19 at 19:00 Phytonadione (Mephyton Oral Soln) 5 mg 1X ONCE PO Last administered on 09/06/19at 12:02; Start 09/06/19 at 12:00; Stop 09/06/19 at 12:01; Status DC Active Scripts Active Reported Ferralet 90 Dual-Iron Tablet (Iron, Carb & Gluc/Fa/B12/C/Dss) 1 Each Tablet 1 Tab PO DAILY Losartan-Hctz 50-12.5 Mg Tab (Losartan/Hydrochlorothiazide) 1 Each Tablet 1 Tab PO DAILY Vitals/I & O Vital Sign - Last 24 Hours 09/06/19 09/06/19 09/06/19 09/06/19 07:25 07:25 07:47 08:00 Temp 98.7 98.7 98.7 98.7 98.7 98.7 Pulse 101 101 102 96 Resp 18 22 B/P (MAP) 116/64 (81) 116/64 115/69 115/69 (84) Pulse Ox 100 98 O2 Delivery Room Air Room Air 09/06/19 09/06/19 09/06/19 09/06/19 08:00 08:47 09:00 09:47 Pulse 93 93 94 Resp 18 18 20 B/P (MAP) 115/60 115/60 (78) 101/53 Pulse Ox 100 O2 Delivery Room Air Room Air 09/06/19 09/06/19 09/06/19 09/06/19 10:00 10:47 11:00 11:21 Temp 98.4 98.4 Pulse 101 103 100 104 Resp 20 20 20 18 B/P (MAP) 105/54 (71) 107/69 101/53 (69) 107/69 Pulse Ox 100 100 O2 Delivery Room Air Room Air 09/06/19 09/06/19 09/06/19 09/06/19 11:59 11:59 12:32 13:00 Temp 98.4 98.6 98.4 98.4 98.6 98.4 Pulse 100 106 109 Resp 16 20 20 B/P (MAP) 121/63 (82) 118/74 122/69 (86) Pulse Ox 100 97 O2 Delivery Room Air Room Air Room Air 09/06/19 09/06/19 09/06/19 09/06/19 14:00 15:00 16:00 16:00 Temp 98.6 98.6 Pulse 100 119 94 Resp 14 17 18 B/P (MAP) 134/78 (96) 125/71 (89) 124/69 (87) Pulse Ox 100 99 100 O2 Delivery Room Air Room Air Room Air Room Air 09/06/19 09/06/19 09/06/19 09/06/19 17:00 18:00 19:00 20:00 Temp 99.0 99.0 Pulse 103 114 88 98 Resp 24 20 20 24 B/P (MAP) 123/63 (83) 135/82 (99) 135/68 (90) 134/70 (91) Pulse Ox 100 100 98 99 O2 Delivery Room Air Room Air Room Air Room Air 09/06/19 09/06/19 09/06/19 09/06/19 20:00 21:00 21:16 21:50 Pulse 100 Resp 18 19 B/P (MAP) 133/67 (89) Pulse Ox 99 99 98 O2 Delivery Room Air Room Air Room Air Room Air 09/06/19 09/06/19 09/07/19 09/07/19 22:00 23:00 00:00 00:00 Temp 98.7 98.7 Pulse 88 86 82 Resp 20 17 17 B/P (MAP) 143/73 (96) 123/70 (87) 133/69 (90) Pulse Ox 98 98 99 O2 Delivery Room Air Room Air Room Air Room Air 09/07/19 09/07/19 09/07/19 09/07/19 01:00 02:00 03:00 04:00 Temp 99.5 99.5 Pulse 81 91 80 83 Resp 18 20 17 18 B/P (MAP) 131/83 (99) 148/77 (100) 142/72 (95) 137/75 (95) Pulse Ox 99 99 99 99 O2 Delivery Room Air Room Air Room Air Room Air 09/07/19 09/07/19 09/07/19 09/07/19 04:00 04:12 05:00 05:06 Pulse 89 Resp 18 23 18 B/P (MAP) 126/66 (86) Pulse Ox 97 99 O2 Delivery Room Air Room Air Room Air Room Air 09/07/19 06:00 Pulse 115 Resp 26 B/P (MAP) 142/69 (93) Pulse Ox 95 O2 Delivery Room Air Intake and Output 09/06/19 09/06/19 09/07/19 15:00 23:00 07:00 Intake Total 350 ml 1600 ml Output Total 415 ml 395 ml 485 ml Balance -65 ml 1205 ml -485 ml KATY MERCEEDS MD Sep 07, 2019 07:18
--- NOTE | 2019-09-07 07:36 | PDOC ---
Infectious Disease Note Subjective: Subjective pt without complaints no more BRBPR no f/c/n/v/d/abdo pain/gu symptoms has pain in both knees chronic awaiting "steroid inj" ROS: ROS Negative otherwise. Vital Signs: Vital Signs Vital Signs Date Time Temp Pulse Resp B/P (MAP) Pulse Ox O2 Delivery O2 Flow Rate FiO2 09/07/19 06:00 115 26 142/69 (93) 95 Room Air 09/07/19 04:00 99.5 99.5 Physical Exam: PHYSICAL EXAM GENERAL: Alert, oriented x3 female, lying in bed comfortably, in no acute distress, receiving blood transfusion. HEENT: Normocephalic, atraumatic; anicteric; no thrush; oral mucosa moist. NECK: Supple, no JVD. LUNGS: Clear bilaterally. No wheezing. HEART: S1, S2. No gallops or murmurs. ABDOMEN: Soft, nontender, nondistended; no rebound, no guarding. EXTREMITIES: No edema, no cyanosis. DERMATOLOGIC: Warm, dry, no generalized rash. NEUROLOGIC: Alert and oriented x3, grossly nonfocal. PSYCHIATRIC: Cooperative, appropriate mood and affect. Medications: Inpatient Meds: Current Medications Medications (Trade) Dose Ordered Sig/Florecita Start Time Stop Time Status Last Admin Dose Admin Acetaminophen/ Codeine Phosphate (Tylenol #3) 1 tab PRN Q6HRS PRN 09/05/19 13:30 Acetaminophen/ Hydrocodone Bitart (Lortab 5/325) 1 tab PRN Q4HRS PRN 09/05/19 14:00 Adenosine (Adenocard) 12 mg 1X ONCE 09/05/19 13:29 09/05/19 13:49 DC 09/05/19 13:29 12 MG Amiodarone HCl 900 mg/Dextrose 518 ml @ 0 mls/hr CONT PRN 09/05/19 13:30 Calcium Carbonate/ Glycine (Tums) 500 mg STK-MED ONCE 09/05/19 17:13 09/05/19 17:13 DC Diphenhydramine HCl (Benadryl) 25 mg PRN QHS PRN 09/05/19 13:45 Ferrous Sulfate (Feosol) 325 mg DAILYWBKFT 09/06/19 08:00 Metoprolol Tartrate (Lopressor Vial) 5 mg PRN Q5MIN PRN 09/05/19 16:15 Morphine Sulfate (Morphine Sulfate) 1 mg PRN Q2HR PRN 09/05/19 13:45 09/07/19 04:12 1 MG Norepinephrine Bitartrate 250 ml @ 0 mls/hr CONT PRN 09/05/19 13:00 Ondansetron HCl (Zofran) 4 mg PRN Q6HRS PRN 09/05/19 13:30 Pantoprazole Sodium (PROTONIX VIAL for IV PUSH) 40 mg 1X ONCE 09/05/19 16:45 09/05/19 16:51 DC 09/05/19 17:00 40 MG Pantoprazole Sodium (Protonix) 40 mg DAILYAC 09/06/19 07:30 09/05/19 14:33 DC Phytonadione (Mephyton Oral Soln) 5 mg 1X ONCE 09/06/19 12:00 09/06/19 12:01 DC 09/06/19 12:02 5 MG Piperacillin Sod/ Tazobactam Sod 2.25 gm/Sodium Chloride 50 ml @ 100 mls/hr Q6HRS 09/05/19 19:00 09/07/19 05:07 100 MLS/HR Piperacillin Sod/ Tazobactam Sod 4.5 gm/Sodium Chloride 100 ml @ 200 mls/hr 1X ONCE 09/05/19 13:00 09/05/19 13:07 DC Potassium Chloride/Water 100 ml @ 100 mls/hr Q1H 09/05/19 16:00 09/05/19 17:59 DC 09/05/19 17:00 100 MLS/HR Potassium Chloride (Klor-Con) 20 meq 1X ONCE 09/05/19 15:45 09/05/19 15:46 DC 09/05/19 17:01 20 MEQ Sodium Chloride 1,000 ml @ 100 mls/hr Q10H 09/05/19 13:30 09/07/19 04:13 100 MLS/HR Sodium Chloride (Normal Saline Flush) 10 ml QSHIFT PRN 09/05/19 13:00 Vancomycin HCl (Vanco Per Pharmacy) 1 each 1X ONCE 09/05/19 13:00 09/05/19 13:08 DC Vancomycin HCl 1.5 gm/Sodium Chloride 500 ml @ 250 mls/hr 1X ONCE 09/05/19 13:15 09/05/19 15:14 DC 09/05/19 14:55 250 MLS/HR Labs: Lab Laboratory Tests Test 09/06/19 15:35 09/07/19 05:10 White Blood Count 24.4 x10^3/uL (4.0-11.0) 21.6 x10^3/uL (4.0-11.0) Red Blood Count 3.00 x10^6/uL (3.50-5.40) 2.68 x10^6/uL (3.50-5.40) Hemoglobin 8.0 g/dL (12.0-15.5) 7.1 g/dL (12.0-15.5) Hematocrit 25.4 % (36.0-47.0) 22.6 % (36.0-47.0) Mean Corpuscular Volume 84 fL (79-100) 85 fL (79-100) Mean Corpuscular Hemoglobin 27 pg (25-35) 27 pg (25-35) Mean Corpuscular Hemoglobin Concent 32 g/dL (31-37) 31 g/dL (31-37) Red Cell Distribution Width 15.7 % (11.5-14.5) 15.9 % (11.5-14.5) Platelet Count 321 x10^3/uL (140-400) 304 x10^3/uL (140-400) Neutrophils (%) (Auto) 89 % (31-73) Lymphocytes (%) (Auto) 5 % (24-48) Monocytes (%) (Auto) 6 % (0-9) Eosinophils (%) (Auto) 0 % (0-3) Basophils (%) (Auto) 0 % (0-3) Neutrophils # (Auto) 19.2 x10^3/uL (1.8-7.7) Lymphocytes # (Auto) 1.1 x10^3/uL (1.0-4.8) Monocytes # (Auto) 1.3 x10^3/uL (0.0-1.1) Eosinophils # (Auto) 0.1 x10^3/uL (0.0-0.7) Basophils # (Auto) 0.1 x10^3/uL (0.0-0.2) Sodium Level 153 mmol/L (136-145) Potassium Level 3.5 mmol/L (3.5-5.1) Chloride Level 121 mmol/L (98-107) Carbon Dioxide Level 19 mmol/L (21-32) Anion Gap 13 (6-14) Blood Urea Nitrogen 28 mg/dL (7-20) Creatinine 1.8 mg/dL (0.6-1.0) Estimated GFR (Cockcroft-Gault) 34.6 BUN/Creatinine Ratio 16 (6-20) Glucose Level 71 mg/dL (70-99) Calcium Level 8.3 mg/dL (8.5-10.1) Total Bilirubin 0.4 mg/dL (0.2-1.0) Aspartate Amino Transf (AST/SGOT) 15 U/L (15-37) Alanine Aminotransferase (ALT/SGPT) 26 U/L (14-59) Alkaline Phosphatase 135 U/L (46-116) Total Protein 6.1 g/dL (6.4-8.2) Albumin 1.7 g/dL (3.4-5.0) Albumin/Globulin Ratio 0.4 (1.0-1.7) Objective: Assessment: SIRS BRBPR likely ischemic colitis Leucocytosis and lactic acidosis source GI Anemia Bilateral knee pain ,djd Plan: Plan of Care Cont zosyn renal dosing for now cont supportive care awaiting Colonoscopy later d/w rn d/w ABBY Bailey MD Sep 07, 2019 07:35
[2019-09-07] MEDS: PANTOPRAZOLE IV PUSH 40 MG VIAL. IVP SCH (07:58)
[2019-09-07] MEDS: FERROUS SULFATE 325 MG TABLET. PO SCH (07:58)
--- NOTE | 2019-09-07 09:24 | PDOC ---
SUBJECTIVE ROS states feeling good just wants food and Cortisone shots for the knees OBJECTIVE Vital Signs Vital Signs Date Time Temp Pulse Resp B/P (MAP) Pulse Ox O2 Delivery O2 Flow Rate FiO2 09/07/19 06:00 115 26 142/69 (93) 95 Room Air 09/07/19 04:00 99.5 99.5 I & 0 Intake and Output 09/07/19 07:00 Intake Total 1950 ml Output Total 1295 ml Balance 655 ml Intake IV Total 1250 ml Blood Product 300 ml Blood Product IV Normal Saline Flush 400 ml Output Urine Total 1295 ml # Bowel Movements 2 PHYSICAL EXAM Physical Exam General: No acute distress HEENT: Mucous membr. moist/pink Neck supple Lungs: Clear to auscultation, non labored Heart: Normal S1, Normal S2, No murmurs Abdomen: Soft, No tenderness Extremities: No cyanosis, No edema Skin: No breakdown , no rash Neuro: AXOx 3, Grossly normal Psych/Mental Status: Mental status NL, Mood NL - Dominguez +, No CVA or SP tenderness DIAGNOSIS/ASSESSMENT Assessment & Plan BONITA- Non Oliguric- ATN/Hyptonsive/Arrythmia / GI bleed UA granular casts , No micr hematuria, no UTI Improving renal function with IVF Supportive care, avoid nephrotoxins, Monitor HyperNatremia- switch to IV D5w Dw special certificate dictator cysts - Ct report Multiple renal lesions,these have increased in size and number since the prior study, and further outpatient examination with multiphase contrast-enhanced CT or MRI of the kidneys could be of benefit. HTN- Only on Loasartan 50 mg PO QD at home Hypotension at presentation, improving Rectal bleeding, abd pain, normal colonoscopy >5 years ago GI following Anemia , acute - 2/2 above Leukocytosis and lactic acidosis- ID SVT- cardiology consulted s/p Adenosine in ER Hypokalemia - replace Distal esophageal wall thickening on CT - had an EGD >5 years ago Probable gallstone Adrenal Nodule on CT- stable per report Discussed with pt and at bedside COMMENT/RELEVANT DATA Meds Current Medications Medications (Trade) Dose Ordered Sig/Florecita Start Time Stop Time Status Last Admin Dose Admin Acetaminophen/ Codeine Phosphate (Tylenol #3) 1 tab PRN Q6HRS PRN 09/05/19 13:30 Acetaminophen/ Hydrocodone Bitart (Lortab 5/325) 1 tab PRN Q4HRS PRN 09/05/19 14:00 Adenosine (Adenocard) 12 mg 1X ONCE 09/05/19 13:29 09/05/19 13:49 DC 09/05/19 13:29 12 MG Amiodarone HCl 900 mg/Dextrose 518 ml @ 0 mls/hr CONT PRN 09/05/19 13:30 Calcium Carbonate/ Glycine (Tums) 500 mg STK-MED ONCE 09/05/19 17:13 09/05/19 17:13 DC Diphenhydramine HCl (Benadryl) 25 mg PRN QHS PRN 09/05/19 13:45 Ferrous Sulfate (Feosol) 325 mg [id number] 09/06/19 08:00 09/07/19 07:58 325 MG Metoprolol Tartrate (Lopressor Vial) 5 mg PRN Q5MIN PRN 09/05/19 16:15 Morphine Sulfate (Morphine Sulfate) 1 mg PRN Q2HR PRN 09/05/19 13:45 09/07/19 04:12 1 MG Norepinephrine Bitartrate 250 ml @ 0 mls/hr CONT PRN 09/05/19 13:00 Ondansetron HCl (Zofran) 4 mg PRN Q6HRS PRN 09/05/19 13:30 Pantoprazole Sodium (PROTONIX VIAL for IV PUSH) 40 mg 1X ONCE 09/05/19 16:45 09/05/19 16:51 DC 09/05/19 17:00 40 MG Pantoprazole Sodium (Protonix) 40 mg DAILYAC 09/06/19 07:30 09/05/19 14:33 DC Phytonadione (Mephyton Oral Soln) 5 mg 1X ONCE 09/06/19 12:00 09/06/19 12:01 DC 09/06/19 12:02 5 MG Piperacillin Sod/ Tazobactam Sod 2.25 gm/Sodium Chloride 50 ml @ 100 mls/hr Q6HRS 09/05/19 19:00 09/07/19 05:07 100 MLS/HR Piperacillin Sod/ Tazobactam Sod 4.5 gm/Sodium Chloride 100 ml @ 200 mls/hr 1X ONCE 09/05/19 13:00 09/05/19 13:07 DC Potassium Chloride/Water 100 ml @ 100 mls/hr Q1H 09/05/19 16:00 09/05/19 17:59 DC 09/05/19 17:00 100 MLS/HR Potassium Chloride (Klor-Con) 20 meq 1X ONCE 09/05/19 15:45 09/05/19 15:46 DC 09/05/19 17:01 20 MEQ Sodium Chloride 1,000 ml @ 100 mls/hr Q10H 09/05/19 13:30 09/07/19 04:13 100 MLS/HR Sodium Chloride (Normal Saline Flush) 10 ml QSHIFT PRN 09/05/19 13:00 Vancomycin HCl (Vanco Per Pharmacy) 1 each 1X ONCE 09/05/19 13:00 09/05/19 13:08 DC Vancomycin HCl 1.5 gm/Sodium Chloride 500 ml @ 250 mls/hr 1X ONCE 09/05/19 13:15 09/05/19 15:14 DC 09/05/19 14:55 250 MLS/HR Lab Laboratory Tests Test 09/06/19 15:35 09/07/19 05:10 White Blood Count 24.4 x10^3/uL (4.0-11.0) 21.6 x10^3/uL (4.0-11.0) Red Blood Count 3.00 x10^6/uL (3.50-5.40) 2.68 x10^6/uL (3.50-5.40) Hemoglobin 8.0 g/dL (12.0-15.5) 7.1 g/dL (12.0-15.5) Hematocrit 25.4 % (36.0-47.0) 22.6 % (36.0-47.0) Mean Corpuscular Volume 84 fL (79-100) 85 fL (79-100) Mean Corpuscular Hemoglobin 27 pg (25-35) 27 pg (25-35) Mean Corpuscular Hemoglobin Concent 32 g/dL (31-37) 31 g/dL (31-37) Red Cell Distribution Width 15.7 % (11.5-14.5) 15.9 % (11.5-14.5) Platelet Count 321 x10^3/uL (140-400) 304 x10^3/uL (140-400) Neutrophils (%) (Auto) 89 % (31-73) Lymphocytes (%) (Auto) 5 % (24-48) Monocytes (%) (Auto) 6 % (0-9) Eosinophils (%) (Auto) 0 % (0-3) Basophils (%) (Auto) 0 % (0-3) Neutrophils # (Auto) 19.2 x10^3/uL (1.8-7.7) Lymphocytes # (Auto) 1.1 x10^3/uL (1.0-4.8) Monocytes # (Auto) 1.3 x10^3/uL (0.0-1.1) Eosinophils # (Auto) 0.1 x10^3/uL (0.0-0.7) Basophils # (Auto) 0.1 x10^3/uL (0.0-0.2) Sodium Level 153 mmol/L (136-145) Potassium Level 3.5 mmol/L (3.5-5.1) Chloride Level 121 mmol/L (98-107) Carbon Dioxide Level 19 mmol/L (21-32) Anion Gap 13 (6-14) Blood Urea Nitrogen 28 mg/dL (7-20) Creatinine 1.8 mg/dL (0.6-1.0) Estimated GFR (Cockcroft-Gault) 34.6 BUN/Creatinine Ratio 16 (6-20) Glucose Level 71 mg/dL (70-99) Calcium Level 8.3 mg/dL (8.5-10.1) Total Bilirubin 0.4 mg/dL (0.2-1.0) Aspartate Amino Transf (AST/SGOT) 15 U/L (15-37) Alanine Aminotransferase (ALT/SGPT) 26 U/L (14-59) Alkaline Phosphatase 135 U/L (46-116) Total Protein 6.1 g/dL (6.4-8.2) Albumin 1.7 g/dL (3.4-5.0) Albumin/Globulin Ratio 0.4 (1.0-1.7) Results All relevant outside records, renal labs, imaging studies, telemetry/EKG's were reviewed. ALISON CARDENAS MD Sep 07, 2019 09:24
[2019-09-07] MEDS: IV DEXTROSE 5% 1,000 ML IV SCH ×2 (11:37→20:01)
--- NOTE | 2019-09-07 11:53 | PDOC ---
Subjective: Subjective: No bleeding, feels hungry. Chronic leg pain. Objective: Vital Signs: Vital Signs Date Time Temp Pulse Resp B/P (MAP) Pulse Ox O2 Delivery O2 Flow Rate FiO2 09/07/19 10:00 86 20 150/80 (103) 99 Room Air 09/07/19 08:00 98.6 98.6 Labs: Laboratory Tests Test 09/06/19 15:35 09/07/19 05:10 White Blood Count 24.4 x10^3/uL 21.6 x10^3/uL Red Blood Count 3.00 x10^6/uL 2.68 x10^6/uL Hemoglobin 8.0 g/dL 7.1 g/dL Hematocrit 25.4 % 22.6 % Mean Corpuscular Volume 84 fL 85 fL Mean Corpuscular Hemoglobin 27 pg 27 pg Mean Corpuscular Hemoglobin Concent 32 g/dL 31 g/dL Red Cell Distribution Width 15.7 % 15.9 % Platelet Count 321 x10^3/uL 304 x10^3/uL Neutrophils (%) (Auto) 89 % Lymphocytes (%) (Auto) 5 % Monocytes (%) (Auto) 6 % Eosinophils (%) (Auto) 0 % Basophils (%) (Auto) 0 % Neutrophils # (Auto) 19.2 x10^3/uL Lymphocytes # (Auto) 1.1 x10^3/uL Monocytes # (Auto) 1.3 x10^3/uL Eosinophils # (Auto) 0.1 x10^3/uL Basophils # (Auto) 0.1 x10^3/uL Sodium Level 153 mmol/L Potassium Level 3.5 mmol/L Chloride Level 121 mmol/L Carbon Dioxide Level 19 mmol/L Anion Gap 13 Blood Urea Nitrogen 28 mg/dL Creatinine 1.8 mg/dL Estimated GFR (Cockcroft-Gault) 34.6 BUN/Creatinine Ratio 16 Glucose Level 71 mg/dL Calcium Level 8.3 mg/dL Total Bilirubin 0.4 mg/dL Aspartate Amino Transf (AST/SGOT) 15 U/L Alanine Aminotransferase (ALT/SGPT) 26 U/L Alkaline Phosphatase 135 U/L Total Protein 6.1 g/dL Albumin 1.7 g/dL Albumin/Globulin Ratio 0.4 BLOOD CULTURE Preliminary NO GROWTH AFTER 1 DAY PE: GEN: NAD LUNGS: CTAB HEART: RR ABD: S/ND/NT NEURO/PSYCH: A & O 3 A/P: Hematochezia, abd pain - ?ischemic colitis Anemia - Hgb 7.1 s/p transfusion 1 unit pRBCs 09/06 Leukocytosis, lactic acidosis, BONITA - improved -- No bleeding in >24 hours. Try clears, monitor Hgb. ERIKA CARDENAS Sep 07, 2019 11:53
--- NOTE | 2019-09-07 12:02 | PDOC ---
GERONIMO CHAMPION LOGGING TRACTOR OPERATOR SWAMP 09/07/19 1202: SURGICAL PROGRESS NOTE Subjective only complaint is knee pain no blood in stool Vital Signs Vital Signs Date Time Temp Pulse Resp B/P (MAP) Pulse Ox O2 Delivery O2 Flow Rate FiO2 09/07/19 10:00 86 20 150/80 (103) 99 Room Air 09/07/19 08:00 98.6 98.6 I&O Intake and Output 09/07/19 06:59 Intake Total 1950 ml Output Total 1295 ml Balance 655 ml Intake IV Total 1250 ml Blood Product 300 ml Blood Product IV Normal Saline Flush 400 ml Output Urine Total 1295 ml # Bowel Movements 2 General: Alert, Oriented X3, Cooperative, No acute distress Abdomen: Soft, No tenderness Labs Laboratory Tests Test 09/05/19 14:25 09/05/19 14:50 09/05/19 19:00 09/06/19 04:35 Sodium Level 147 mmol/L (136-145) 147 mmol/L (136-145) Potassium Level 2.9 mmol/L (3.5-5.1) 3.4 mmol/L (3.5-5.1) 3.5 mmol/L (3.5-5.1) Chloride Level 111 mmol/L (98-107) 116 mmol/L (98-107) Carbon Dioxide Level 20 mmol/L (21-32) 20 mmol/L (21-32) Anion Gap 16 (6-14) 11 (6-14) Blood Urea Nitrogen 38 mg/dL (7-20) 35 mg/dL (7-20) Creatinine 3.2 mg/dL (0.6-1.0) 2.3 mg/dL (0.6-1.0) Estimated GFR (Cockcroft-Gault) 17.8 26.1 Glucose Level 105 mg/dL (70-99) 94 mg/dL (70-99) Lactic Acid Level 4.2 mmol/L (0.4-2.0) Calcium Level 8.5 mg/dL (8.5-10.1) 7.8 mg/dL (8.5-10.1) Urine Collection Type U cath Urine Color Yellow Urine Clarity Cloudy Urine pH 5.5 Urine Specific [place] 1.015 Urine Protein 100 mg/dL (NEG-TRACE) Urine Glucose (UA) Negative mg/dL (NEG) Urine Ketones (Stick) Negative mg/dL (NEG) Urine Blood Moderate (NEG) Urine Nitrite Negative (NEG) Urine Bilirubin Negative (NEG) Urine Urobilinogen Dipstick 0.2 mg/dL (0.2 mg/dL) Urine Leukocyte Esterase Negative (NEG) Urine RBC Occ /HPF (0-2) Urine WBC 1-4 /HPF (0-4) Urine Squamous Epithelial Cells Few /LPF Urine Renal Epithelial Cells Occ /LPF Urine Amorphous Sediment Present /HPF Urine Bacteria Few /HPF (0-FEW) Urine Hyaline Casts Moderate /HPF Urine Granular Casts Few /HPF Urine Mucus Mod /LPF White Blood Count 29.8 x10^3/uL (4.0-11.0) 25.3 x10^3/uL (4.0-11.0) Red Blood Count 2.98 x10^6/uL (3.50-5.40) 2.49 x10^6/uL (3.50-5.40) Hemoglobin 7.7 g/dL (12.0-15.5) 6.6 g/dL (12.0-15.5) Hematocrit 24.8 % (36.0-47.0) 20.6 % (36.0-47.0) Mean Corpuscular Volume 83 fL (79-100) 83 fL (79-100) Mean Corpuscular Hemoglobin 26 pg (25-35) 27 pg (25-35) Mean Corpuscular Hemoglobin Concent 31 g/dL (31-37) 32 g/dL (31-37) Red Cell Distribution Width 15.6 % (11.5-14.5) 15.6 % (11.5-14.5) Platelet Count 350 x10^3/uL (140-400) 281 x10^3/uL (140-400) Neutrophils (%) (Auto) 88 % (31-73) Lymphocytes (%) (Auto) 6 % (24-48) Monocytes (%) (Auto) 6 % (0-9) Eosinophils (%) (Auto) 0 % (0-3) Basophils (%) (Auto) 0 % (0-3) Neutrophils # (Auto) 22.2 x10^3/uL (1.8-7.7) Lymphocytes # (Auto) 1.4 x10^3/uL (1.0-4.8) Monocytes # (Auto) 1.5 x10^3/uL (0.0-1.1) Eosinophils # (Auto) 0.0 x10^3/uL (0.0-0.7) Basophils # (Auto) 0.0 x10^3/uL (0.0-0.2) Magnesium Level 2.2 mg/dL (1.8-2.4) Creatine Kinase 100 U/L (26-192) Test 09/06/19 15:35 09/07/19 05:10 White Blood Count 24.4 x10^3/uL (4.0-11.0) 21.6 x10^3/uL (4.0-11.0) Red Blood Count 3.00 x10^6/uL (3.50-5.40) 2.68 x10^6/uL (3.50-5.40) Hemoglobin 8.0 g/dL (12.0-15.5) 7.1 g/dL (12.0-15.5) Hematocrit 25.4 % (36.0-47.0) 22.6 % (36.0-47.0) Mean Corpuscular Volume 84 fL (79-100) 85 fL (79-100) Mean Corpuscular Hemoglobin 27 pg (25-35) 27 pg (25-35) Mean Corpuscular Hemoglobin Concent 32 g/dL (31-37) 31 g/dL (31-37) Red Cell Distribution Width 15.7 % (11.5-14.5) 15.9 % (11.5-14.5) Platelet Count 321 x10^3/uL (140-400) 304 x10^3/uL (140-400) Neutrophils (%) (Auto) 89 % (31-73) Lymphocytes (%) (Auto) 5 % (24-48) Monocytes (%) (Auto) 6 % (0-9) Eosinophils (%) (Auto) 0 % (0-3) Basophils (%) (Auto) 0 % (0-3) Neutrophils # (Auto) 19.2 x10^3/uL (1.8-7.7) Lymphocytes # (Auto) 1.1 x10^3/uL (1.0-4.8) Monocytes # (Auto) 1.3 x10^3/uL (0.0-1.1) Eosinophils # (Auto) 0.1 x10^3/uL (0.0-0.7) Basophils # (Auto) 0.1 x10^3/uL (0.0-0.2) Sodium Level 153 mmol/L (136-145) Potassium Level 3.5 mmol/L (3.5-5.1) Chloride Level 121 mmol/L (98-107) Carbon Dioxide Level 19 mmol/L (21-32) Anion Gap 13 (6-14) Blood Urea Nitrogen 28 mg/dL (7-20) Creatinine 1.8 mg/dL (0.6-1.0) Estimated GFR (Cockcroft-Gault) 34.6 BUN/Creatinine Ratio 16 (6-20) Glucose Level 71 mg/dL (70-99) Calcium Level 8.3 mg/dL (8.5-10.1) Total Bilirubin 0.4 mg/dL (0.2-1.0) Aspartate Amino Transf (AST/SGOT) 15 U/L (15-37) Alanine Aminotransferase (ALT/SGPT) 26 U/L (14-59) Alkaline Phosphatase 135 U/L (46-116) Total Protein 6.1 g/dL (6.4-8.2) Albumin 1.7 g/dL (3.4-5.0) Albumin/Globulin Ratio 0.4 (1.0-1.7) Laboratory Tests Test 09/06/19 15:35 09/07/19 05:10 White Blood Count 24.4 x10^3/uL (4.0-11.0) 21.6 x10^3/uL (4.0-11.0) Red Blood Count 3.00 x10^6/uL (3.50-5.40) 2.68 x10^6/uL (3.50-5.40) Hemoglobin 8.0 g/dL (12.0-15.5) 7.1 g/dL (12.0-15.5) Hematocrit 25.4 % (36.0-47.0) 22.6 % (36.0-47.0) Mean Corpuscular Volume 84 fL (79-100) 85 fL (79-100) Mean Corpuscular Hemoglobin 27 pg (25-35) 27 pg (25-35) Mean Corpuscular Hemoglobin Concent 32 g/dL (31-37) 31 g/dL (31-37) Red Cell Distribution Width 15.7 % (11.5-14.5) 15.9 % (11.5-14.5) Platelet Count 321 x10^3/uL (140-400) 304 x10^3/uL (140-400) Neutrophils (%) (Auto) 89 % (31-73) Lymphocytes (%) (Auto) 5 % (24-48) Monocytes (%) (Auto) 6 % (0-9) Eosinophils (%) (Auto) 0 % (0-3) Basophils (%) (Auto) 0 % (0-3) Neutrophils # (Auto) 19.2 x10^3/uL (1.8-7.7) Lymphocytes # (Auto) 1.1 x10^3/uL (1.0-4.8) Monocytes # (Auto) 1.3 x10^3/uL (0.0-1.1) Eosinophils # (Auto) 0.1 x10^3/uL (0.0-0.7) Basophils # (Auto) 0.1 x10^3/uL (0.0-0.2) Sodium Level 153 mmol/L (136-145) Potassium Level 3.5 mmol/L (3.5-5.1) Chloride Level 121 mmol/L (98-107) Carbon Dioxide Level 19 mmol/L (21-32) Anion Gap 13 (6-14) Blood Urea Nitrogen 28 mg/dL (7-20) Creatinine 1.8 mg/dL (0.6-1.0) Estimated GFR (Cockcroft-Gault) 34.6 BUN/Creatinine Ratio 16 (6-20) Glucose Level 71 mg/dL (70-99) Calcium Level 8.3 mg/dL (8.5-10.1) Total Bilirubin 0.4 mg/dL (0.2-1.0) Aspartate Amino Transf (AST/SGOT) 15 U/L (15-37) Alanine Aminotransferase (ALT/SGPT) 26 U/L (14-59) Alkaline Phosphatase 135 U/L (46-116) Total Protein 6.1 g/dL (6.4-8.2) Albumin 1.7 g/dL (3.4-5.0) Albumin/Globulin Ratio 0.4 (1.0-1.7) Problem List Problems Medical Problems: (1) BONITA (acute kidney injury) Status: Acute (2) Rectal bleed Status: Acute (3) Septic shock Status: Acute Assessment/Plan supportive measures FRANCES ALVA MD 09/07/19 1428: SURGICAL PROGRESS NOTE Assessment/Plan Pt seen and examined. Agree with Ms. Champion's note Pt radha diet and denies abd pain abd soft, NTTP cont supportive care, no surgical plans. GERONIMO CHAMPION APRN Sep 07, 2019 12:02 FRANCES ALVA MD Sep 07, 2019 14:28
[2019-09-07] MEDS ORDERED: methylPREDNISolone ACETATE 40 MG/ML VIAL. IM ONE ×2 (15:30)
[2019-09-07] MEDS ORDERED: BUPIVACAINE MPF 0.25% 10 ML VIAL. ONE (15:30)
[2019-09-07] MEDS ORDERED: BUPIVACAINE MPF 0.25% 10 ML VIAL. IJ ONE (15:30)
[2019-09-07] MEDS ORDERED: methylPREDNISolone ACETATE 40 MG/ML VIAL. ONE (15:30)
--- NOTE | 2019-09-07 16:01 | PDOC4 ---
PROCEDURE Procedure At her request,after getting informed consent,I have injected painful right knee joint under aseptic skin technique with alcohol skin prep,using 2 ml of 0.25% bupivacaine solution mixed with 1 ml of methylprednisone 40 mg/1 ml solution and she tolerated the procedure satisfactorily without any side effects. Post injection,she moved right knee joint with less pain and not protecting as much,but refused to get up with roller walker today. ALVAREZ NAVARRO MD Sep 07, 2019 16:01
[2019-09-08] MEDS: PIPERACILLIN/TAZOBACTAM 2.25 GM in IV NORMAL SALINE 50ML 50 ML IV SCH ×3 (00:04→13:30)
--- NOTE | 2019-09-08 01:05 | CONS ---
DATE OF CONSULTATION: 09/07/2019 ATTENDING PHYSICIAN: Malgorzata Gomez MD REASON FOR CONSULTATION: The patient was seen at the request of Dr. Livingston for an injection to her painful knee joints. 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 Annel Chacko. Dr. Jansen is giving her injection to her knees, last time in April. The patient was admitted on 09/05/2019 with bright red blood per stool a few days. She also admits increasing pain in her knees, especially right knee with associated swelling interfering with her mobility, has to use a walker to walk for the last week, before that she used to use a cane or nothing at all. She lives with her and takes care of her 81-year-old father who had some dementia problems. She had 2 steps to enter the house plus basement. She does not need to go to basement. She was admitted with serum lactate of 13.1, supraventricular tachycardia in 170s. The patient had CT scan of the abdomen, which revealed 3 cm cystic lesion in the left adnexa, also hepatomegaly, stable right adrenal nodule, most likely an adenoma, multiple renal lesions, most likely cysts within the constraint noncontrast examination, increased size and number since the prior study, mild endplate depression of L3 as can be seen with osteoporotic compression fracture, probably not seen on the prior study, although comparison is limited without sagittal reconstruction on that examination. Mild distal esophageal wall thickening could be acute or chronic etiology, calcific density within the gallbladder, likely gallstones. The patient with known hypertension, anemia, iron deficiency. Family history of hypertension. She is not known allergic to any medication. The patient uses diclofenac cream to her knees. She does not do that much exercises. She does not have any brace for her knees. She denies any back pain. She denies any tingling, numbness sensation in the extremities. The patient admits that she is feeling better and had a bowel movement without any blood. The patient still had elevated white cell count, but it was down from 29,000 to 21,000, now she is anemic, hemoglobin 7.1. Her creatinine came down from 3.0 to 1.8 today. The patient admits continued pain in her knees and wants injections at least to one knee. PHYSICAL EXAMINATION: Today revealed a middle-aged female. She is alert, oriented to time, place, person and circumstance and follows commands appropriately, moves all 4 extremities voluntarily except she is protecting her right knee. She had pain on range of motion of her knee joint with mild knee joint effusion and crepitus on range of motion of her knee joints. Deep tendon reflexes are 1-2+ and symmetrical and she had equal perception of touch and pinprick sensation bilaterally. I have not tested her transfers or ambulation skills at this time. She had an indwelling Dominguez catheter in place. She had diffuse tenderness to palpation at both knees, more so over medial knee joint line. ASSESSMENT: A middle-aged female with painful degenerative joints of both knees, also with recent hospitalization for treatment of acute kidney injury, rectal bleeding, septic shock. RECOMMENDATION: I spoke to Dr. Coral Guidry who is following from Infectious Disease point and she agreed to proceed with injecting her knees as she thinks it is systemic inflammatory response syndrome, source likely gastrointestinal bleeding, leukocytosis and lactic acidosis, source likely GI bleed, so at patient request, I have injected her knee joint under aseptic skin technique using Marcaine and Depo-Medrol solution 2 mL of 0.25% Marcaine solution mixed with 40 mg per 1 mL of Depo-Medrol solution, 1 mL to each knee joint and she tolerated the procedure satisfactorily without any side effects to get her up as tolerated. Dr. Livingston, I appreciate asking me to participate in the care of this interesting patient. I will be glad to see her for followup with you on as-needed basis. ALVAREZ NAVARRO MD DR: MISBAH/rita JOB#: [id number] / [id number]
[2019-09-08 03:30] VITALS: BP 154/93
[2019-09-08 04:40] LABS: BASO % 0 % (0-3); EOS % 0 % (0-3); HEMATOCRIT 22.6 % (36.0-47.0); HEMOGLOBIN 7.3 g/dL (12.0-15.5); LYMPH # 0.8 x10^3/uL (1.0-4.8); LYMPH % 4 % (24-48); MEAN CORPUSCULAR HEMOGLOBIN 27 pg (25-35); MEAN CORPUSCULAR HGB CONC 32 g/dL (31-37); MEAN CORPUSCULAR VOLUME 83 fL (79-100); MONO # 0.5 x10^3/uL (0.0-1.1); MONO % 2 % (0-9); NEUT # 19.7 x10^3/uL (1.8-7.7); NEUT % 94 % (31-73); PLATELET COUNT 319 x10^3/uL (140-400); RED BLOOD COUNT 2.72 x10^6/uL (3.50-5.40)
[2019-09-08 04:59] LABS: ALBUMIN 1.7 g/dL (3.4-5.0); CALCIUM 8.5 mg/dL (8.5-10.1); CREATININE 1.6 mg/dL (0.6-1.0); GFR 39.7; PHOSPHORUS 2.6 mg/dL (2.6-4.7); POTASSIUM 3.6 mmol/L (3.5-5.1)
--- NOTE | 2019-09-08 05:29 | NUR ---
patient had a large bowel movements with multiple large blood clots with large amounts of blood. MD notified. will continue to monitor
[2019-09-08 06:18] LABS: HEMATOCRIT 22.6 % (36.0-47.0); HEMOGLOBIN 7.3 g/dL (12.0-15.5)
[2019-09-08 07:00] VITALS: BP 115/64
[2019-09-08] MEDS ORDERED: HEPARIN for NUC MED 500 UNIT/5 ML DISP.SYRIN. IV ONE (07:00)
[2019-09-08] MEDS: PANTOPRAZOLE 40 MG TABLET.DR. PO SCH (07:30)
[2019-09-08] MEDS: FERROUS SULFATE 325 MG TABLET. PO SCH (08:00)
--- NOTE | 2019-09-08 09:30 | PDOC ---
GERONIMO CHAMPION LENDING MANAGER 09/08/19 0930: SURGICAL PROGRESS NOTE Subjective off unit for nuc med scan--per note bloody stool this AM Vital Signs Vital Signs Date Time Temp Pulse Resp B/P (MAP) Pulse Ox O2 Delivery O2 Flow Rate FiO2 09/08/19 07:00 98.2 71 16 115/64 (81) 99 Room Air 98.2 I&O Intake and Output 09/08/19 06:59 Intake Total 600 ml Output Total 1580 ml Balance -980 ml Intake Oral 600 ml Output Urine Total 1580 ml # Voids 1 # Bowel Movements 3 Labs Laboratory Tests Test 09/06/19 15:35 09/07/19 05:10 09/08/19 04:05 09/08/19 06:03 White Blood Count 24.4 x10^3/uL (4.0-11.0) 21.6 x10^3/uL (4.0-11.0) 21.0 x10^3/uL (4.0-11.0) Red Blood Count 3.00 x10^6/uL (3.50-5.40) 2.68 x10^6/uL (3.50-5.40) 2.72 x10^6/uL (3.50-5.40) Hemoglobin 8.0 g/dL (12.0-15.5) 7.1 g/dL (12.0-15.5) 7.3 g/dL (12.0-15.5) 7.3 g/dL (12.0-15.5) Hematocrit 25.4 % (36.0-47.0) 22.6 % (36.0-47.0) 22.6 % (36.0-47.0) 22.6 % (36.0-47.0) Mean Corpuscular Volume 84 fL (79-100) 85 fL (79-100) 83 fL (79-100) Mean Corpuscular Hemoglobin 27 pg (25-35) 27 pg (25-35) 27 pg (25-35) Mean Corpuscular Hemoglobin Concent 32 g/dL (31-37) 31 g/dL (31-37) 32 g/dL (31-37) Red Cell Distribution Width 15.7 % (11.5-14.5) 15.9 % (11.5-14.5) 16.0 % (11.5-14.5) Platelet Count 321 x10^3/uL (140-400) 304 x10^3/uL (140-400) 319 x10^3/uL (140-400) Neutrophils (%) (Auto) 89 % (31-73) 94 % (31-73) Lymphocytes (%) (Auto) 5 % (24-48) 4 % (24-48) Monocytes (%) (Auto) 6 % (0-9) 2 % (0-9) Eosinophils (%) (Auto) 0 % (0-3) 0 % (0-3) Basophils (%) (Auto) 0 % (0-3) 0 % (0-3) Neutrophils # (Auto) 19.2 x10^3/uL (1.8-7.7) 19.7 x10^3/uL (1.8-7.7) Lymphocytes # (Auto) 1.1 x10^3/uL (1.0-4.8) 0.8 x10^3/uL (1.0-4.8) Monocytes # (Auto) 1.3 x10^3/uL (0.0-1.1) 0.5 x10^3/uL (0.0-1.1) Eosinophils # (Auto) 0.1 x10^3/uL (0.0-0.7) 0.0 x10^3/uL (0.0-0.7) Basophils # (Auto) 0.1 x10^3/uL (0.0-0.2) 0.0 x10^3/uL (0.0-0.2) Sodium Level 153 mmol/L (136-145) 149 mmol/L (136-145) Potassium Level 3.5 mmol/L (3.5-5.1) 3.6 mmol/L (3.5-5.1) Chloride Level 121 mmol/L (98-107) 117 mmol/L (98-107) Carbon Dioxide Level 19 mmol/L (21-32) 20 mmol/L (21-32) Anion Gap 13 (6-14) 12 (6-14) Blood Urea Nitrogen 28 mg/dL (7-20) 20 mg/dL (7-20) Creatinine 1.8 mg/dL (0.6-1.0) 1.6 mg/dL (0.6-1.0) Estimated GFR (Cockcroft-Gault) 34.6 39.7 BUN/Creatinine Ratio 16 (6-20) Glucose Level 71 mg/dL (70-99) 169 mg/dL (70-99) Calcium Level 8.3 mg/dL (8.5-10.1) 8.5 mg/dL (8.5-10.1) Total Bilirubin 0.4 mg/dL (0.2-1.0) Aspartate Amino Transf (AST/SGOT) 15 U/L (15-37) Alanine Aminotransferase (ALT/SGPT) 26 U/L (14-59) Alkaline Phosphatase 135 U/L (46-116) Total Protein 6.1 g/dL (6.4-8.2) Albumin 1.7 g/dL (3.4-5.0) 1.7 g/dL (3.4-5.0) Albumin/Globulin Ratio 0.4 (1.0-1.7) Phosphorus Level 2.6 mg/dL (2.6-4.7) Laboratory Tests Test 09/08/19 04:05 09/08/19 06:03 White Blood Count 21.0 x10^3/uL (4.0-11.0) Red Blood Count 2.72 x10^6/uL (3.50-5.40) Hemoglobin 7.3 g/dL (12.0-15.5) 7.3 g/dL (12.0-15.5) Hematocrit 22.6 % (36.0-47.0) 22.6 % (36.0-47.0) Mean Corpuscular Volume 83 fL (79-100) Mean Corpuscular Hemoglobin 27 pg (25-35) Mean Corpuscular Hemoglobin Concent 32 g/dL (31-37) Red Cell Distribution Width 16.0 % (11.5-14.5) Platelet Count 319 x10^3/uL (140-400) Neutrophils (%) (Auto) 94 % (31-73) Lymphocytes (%) (Auto) 4 % (24-48) Monocytes (%) (Auto) 2 % (0-9) Eosinophils (%) (Auto) 0 % (0-3) Basophils (%) (Auto) 0 % (0-3) Neutrophils # (Auto) 19.7 x10^3/uL (1.8-7.7) Lymphocytes # (Auto) 0.8 x10^3/uL (1.0-4.8) Monocytes # (Auto) 0.5 x10^3/uL (0.0-1.1) Eosinophils # (Auto) 0.0 x10^3/uL (0.0-0.7) Basophils # (Auto) 0.0 x10^3/uL (0.0-0.2) Sodium Level 149 mmol/L (136-145) Potassium Level 3.6 mmol/L (3.5-5.1) Chloride Level 117 mmol/L (98-107) Carbon Dioxide Level 20 mmol/L (21-32) Anion Gap 12 (6-14) Blood Urea Nitrogen 20 mg/dL (7-20) Creatinine 1.6 mg/dL (0.6-1.0) Estimated GFR (Cockcroft-Gault) 39.7 Glucose Level 169 mg/dL (70-99) Calcium Level 8.5 mg/dL (8.5-10.1) Phosphorus Level 2.6 mg/dL (2.6-4.7) Albumin 1.7 g/dL (3.4-5.0) Problem List Problems Medical Problems: (1) BONITA (acute kidney injury) Status: Acute (2) Rectal bleed Status: Acute (3) Septic shock Status: Acute FRANCES ALVA MD 09/08/19 1420: SURGICAL PROGRESS NOTE Assessment/Plan Pt seen and examined. Agree with Courtney Champion's note Pt denies complaint except some rectal bleeding. abd soft, ND, NTTP agree with plans per GI for possible CTA and scope no surgical plans currently. GERONIMO CHAMPION APRN Sep 08, 2019 09:30 FRANCES ALVA MD Sep 08, 2019 14:20
--- NOTE | 2019-09-08 10:05 | PDOC ---
[employer] PROGRESS NOTE Chief Complaint Chief Complaint New SVT with hypotension hematochezia Hypokalemia BONITA -creat 4.0- ///acute tubular necrosis ischemic colitis AGAP acidosis, contraction alkalosis SIRS Septic shock (hypotensive) Leukocytosis Incidental kidney cysts Old Thoracic fx adrenal adenoma Leucocytosis and lactic acidosis source GI severe protein-caloric malnutrition History of Present Illness History of Present Illness 09/08/2019 Pt was seen and examined. Reports 2 bloody BMs this morning. Reports she had her right knee injected, and will have the left one injected later today or tomorrow. Reports relief of R Knee pain after injection. Reports anxiety and was asking for some Valium on interview. 09/07/2018 VTE Prophylaxis Ordered VTE Prophylaxis Devices: Contraindicated VTE Pharmacological Prophylaxi: Contraindicated Assessment/Plan Assessment/Plan NEw SVT with hypotension hematochezia Mild distal esophageal wall thickening, could be of acute or chronic etiology. HYpokalemia, critical - replace BONITA -creat 4.0- ///acute tubular necrosis cr down to 1.[address] , No evidence of hydronephrosis. ?ischemic colitis renal consult AGAp acidosis, contraction alkalosis - AGAP 25 with high bicarb SIRS - no source - elev lactate 13.,1 Septic shock (hypotensive) LEukocytosis - WBC 23 - kovacs cx, ID Incidental kidney cysts - per CT Old Thoracic fx - she denies knowledge and back pain adrenal adenoma Leucocytosis and lactic acidosis source GI severe protein-caloric malnutrition PLAN: ICU bed, AMio gtt levophed prn bp control NS IVF for AGAP follow mag, tsh, calcium Replace k orally EMpiric abx - ID consult., cont zosyn avoid nephrotoxins COnsult ID, renal and cards HOld losartan (creat 4) resume ferrous sulfate gi following, TRY CLEAR LIQUIDS CONSIDER egd, colonoscopy nephrology FOLLOWING transfuse prn follow lytes FUll code cc 35 MIN Vitals/I&O Vitals/I&O: Vital Signs Date Time Temp Pulse Resp B/P (MAP) Pulse Ox O2 Delivery O2 Flow Rate FiO2 09/08/19 07:00 98.2 71 16 115/64 (81) 99 Room Air 98.2 I & O 09/07/19 09/07/19 09/08/19 15:00 23:00 07:00 Intake Total 600 ml Output Total 390 ml 1150 ml Balance 210 ml -1150 ml Physical Exam Physical Exam: GENERAL: Alert, oriented x3 female, lying in bed comfortably, in no acute distress, receiving blood transfusion. HEENT: Normocephalic, atraumatic; anicteric; no thrush; oral mucosa moist. NECK: Supple, no JVD. LUNGS: Clear bilaterally. No wheezing. HEART: S1, S2. No gallops or murmurs. ABDOMEN: Soft, nontender, nondistended; no rebound, no guarding. EXTREMITIES: No edema, no cyanosis. DERMATOLOGIC: Warm, dry, no generalized rash. NEUROLOGIC: Alert and oriented x3, grossly nonfocal. PSYCHIATRIC: Cooperative, appropriate mood and affect. General: Alert, Oriented X3, Cooperative, No acute distress Heart: Regular rate, Normal S1, Normal S2, No murmurs Lungs: Clear Abdomen: Soft, No tenderness Extremities: No clubbing, No cyanosis, No edema, Other (Right knee with clean and intact bandaging.) Skin: No rashes, No breakdown Labs Labs: Laboratory Tests Test 09/08/19 04:05 09/08/19 06:03 White Blood Count 21.0 x10^3/uL (4.0-11.0) Red Blood Count 2.72 x10^6/uL (3.50-5.40) Hemoglobin 7.3 g/dL (12.0-15.5) 7.3 g/dL (12.0-15.5) Hematocrit 22.6 % (36.0-47.0) 22.6 % (36.0-47.0) Mean Corpuscular Volume 83 fL (79-100) Mean Corpuscular Hemoglobin 27 pg (25-35) Mean Corpuscular Hemoglobin Concent 32 g/dL (31-37) Red Cell Distribution Width 16.0 % (11.5-14.5) Platelet Count 319 x10^3/uL (140-400) Neutrophils (%) (Auto) 94 % (31-73) Lymphocytes (%) (Auto) 4 % (24-48) Monocytes (%) (Auto) 2 % (0-9) Eosinophils (%) (Auto) 0 % (0-3) Basophils (%) (Auto) 0 % (0-3) Neutrophils # (Auto) 19.7 x10^3/uL (1.8-7.7) Lymphocytes # (Auto) 0.8 x10^3/uL (1.0-4.8) Monocytes # (Auto) 0.5 x10^3/uL (0.0-1.1) Eosinophils # (Auto) 0.0 x10^3/uL (0.0-0.7) Basophils # (Auto) 0.0 x10^3/uL (0.0-0.2) Sodium Level 149 mmol/L (136-145) Potassium Level 3.6 mmol/L (3.5-5.1) Chloride Level 117 mmol/L (98-107) Carbon Dioxide Level 20 mmol/L (21-32) Anion Gap 12 (6-14) Blood Urea Nitrogen 20 mg/dL (7-20) Creatinine 1.6 mg/dL (0.6-1.0) Estimated GFR (Cockcroft-Gault) 39.7 Glucose Level 169 mg/dL (70-99) Calcium Level 8.5 mg/dL (8.5-10.1) Phosphorus Level 2.6 mg/dL (2.6-4.7) Albumin 1.7 g/dL (3.4-5.0) Review of Systems Review of Systems: Denies CP. Denies SOB. Denies Nausea. Admits hematochezia. Admits loose BMs. Assessment and Plan Assessmemt and Plan Problems Medical Problems: (1) BONITA (acute kidney injury) Status: Acute (2) Rectal bleed Status: Acute (3) Septic shock Status: Acute New SVT with hypotension hematochezia Hypokalemia BONITA -creat 4.0- ///acute tubular necrosis ischemic colitis AGAP acidosis, contraction alkalosis SIRS Septic shock (hypotensive) Leukocytosis Incidental kidney cysts Old Thoracic fx adrenal adenoma Leucocytosis and lactic acidosis source GI severe protein-caloric malnutrition Plan: 1) Await results from tagged RBC scan. 2) Await further recommendations from GI, ID, and nephrology. 3) Continue clear diet, advised patient to eat as tolerated. 4) Continue Zosyn per ID 5) Continue to monitor for bloody BMs, advised to type an cross patient for 2 units of blood to be administered if needed 6) Started patient on Valium 5mg q 8 H prn anxiety 7) Full code 8) DVT prophylaxis 9) PT/OT Comment Review of Relevant I have reviewed the following items diane (where applicable) has been applied. Medications: Current Medications Medications (Trade) Dose Ordered Sig/Florecita Route PRN Reason Start Time Stop Time Status Last Admin Dose Admin Dextrose 1,000 ml @ 75 mls/hr [id number] IV 09/07/19 11:30 09/07/19 20:01 LÁZARO CALLE III DO Sep 08, 2019 10:05
--- NOTE | 2019-09-08 10:11 | RAD ---
EXAM: Gastrointestinal bleeding study. HISTORY: Hematochezia. COMPARISON: None. FINDINGS: 29 mCi of UltraTag red blood cells were administered intravenously. Scintigraphic images of the abdomen/pelvis were obtained before 60 minutes. Activity collects within the midline lower pelvis. This appears to be inferior to the bladder which appears later during the imaging.. No evidence of hemorrhage is seen more proximally. IMPRESSION: 1. Activity within the midline lower pelvis appears to be separate from the bladder. Correlate for rectal source of bleeding. Electronically signed by: Dionisio Wyatt MD (09/08/2019 10:08 AM) [facility]
[2019-09-08] MEDS ORDERED: diazePAM 5 MG TABLET PO PRN (10:15)
--- NOTE | 2019-09-08 10:25 | PDOC ---
Infectious Disease Note Subjective: Subjective pt without complaints no more BRBPR no f/c/n/v/d/abdo pain/gu symptoms has pain in both knees chronic awaiting "steroid inj ROS: ROS Negative otherwise. Vital Signs: Vital Signs Vital Signs Date Time Temp Pulse Resp B/P (MAP) Pulse Ox O2 Delivery O2 Flow Rate FiO2 09/08/19 07:00 98.2 71 16 115/64 (81) 99 Room Air 98.2 Physical Exam: PHYSICAL EXAM GENERAL: Alert, oriented x3 female, lying in bed comfortably, in no acute distress, receiving blood transfusion. HEENT: Normocephalic, atraumatic; anicteric; no thrush; oral mucosa moist. NECK: Supple, no JVD. LUNGS: Clear bilaterally. No wheezing. HEART: S1, S2. No gallops or murmurs. ABDOMEN: Soft, nontender, nondistended; no rebound, no guarding. EXTREMITIES: No edema, no cyanosis. DERMATOLOGIC: Warm, dry, no generalized rash. NEUROLOGIC: Alert and oriented x3, grossly nonfocal. PSYCHIATRIC: Cooperative, appropriate mood and affect. Medications: Inpatient Meds: Current Medications Medications (Trade) Dose Ordered Sig/Florecita Start Time Stop Time Status Last Admin Dose Admin Acetaminophen/ Codeine Phosphate (Tylenol #3) 1 tab PRN Q6HRS PRN 09/05/19 13:30 Acetaminophen/ Hydrocodone Bitart (Lortab 5/325) 1 tab PRN Q4HRS PRN 09/05/19 14:00 Adenosine (Adenocard) 12 mg 1X ONCE 09/05/19 13:29 09/05/19 13:49 DC 09/05/19 13:29 12 MG Amiodarone HCl 900 mg/Dextrose 518 ml @ 0 mls/hr CONT PRN 09/05/19 13:30 Bupivacaine HCl (Sensorcaine-Mpf 0.25%) 10 ml 1X ONCE 09/07/19 15:30 09/07/19 15:31 DC Calcium Carbonate/ Glycine (Tums) 500 mg STK-MED ONCE 09/05/19 17:13 09/05/19 17:13 DC Dextrose 1,000 ml @ 75 mls/hr [id number] 09/07/19 11:30 09/07/19 20:01 75 MLS/HR Diazepam (Valium) 5 mg PRN Q8HRS PRN 09/08/19 10:15 Diphenhydramine HCl (Benadryl) 25 mg PRN QHS PRN 09/05/19 13:45 Ferrous Sulfate (Feosol) 325 mg DAILYWBKFT 09/06/19 08:00 09/07/19 07:58 325 MG Heparin Sodium (Porcine) (HEPARIN for NUC MED) 100 unit 1X ONCE 09/08/19 07:00 09/08/19 07:01 DC Methylprednisolone Acetate (DEPO-Medrol 40MG VIAL) 40 mg 1X ONCE 09/07/19 15:30 09/07/19 15:31 DC Metoprolol Tartrate (Lopressor Vial) 5 mg PRN Q5MIN PRN 09/05/19 16:15 Morphine Sulfate (Morphine Sulfate) 1 mg PRN Q2HR PRN 09/05/19 13:45 09/07/19 14:11 1 MG Norepinephrine Bitartrate 250 ml @ 0 mls/hr CONT PRN 09/05/19 13:00 Ondansetron HCl (Zofran) 4 mg PRN Q6HRS PRN 09/05/19 13:30 Pantoprazole Sodium (PROTONIX VIAL for IV PUSH) 40 mg 1X ONCE 09/05/19 16:45 09/05/19 16:51 DC 09/05/19 17:00 40 MG Pantoprazole Sodium (Protonix) 40 mg DAILYAC 09/08/19 07:30 Phytonadione (Mephyton Oral Soln) 5 mg 1X ONCE 09/06/19 12:00 09/06/19 12:01 DC 09/06/19 12:02 5 MG Piperacillin Sod/ Tazobactam Sod 2.25 gm/Sodium Chloride 50 ml @ 100 mls/hr Q6HRS 09/05/19 19:00 09/08/19 06:08 100 MLS/HR Piperacillin Sod/ Tazobactam Sod 4.5 gm/Sodium Chloride 100 ml @ 200 mls/hr 1X ONCE 09/05/19 13:00 09/05/19 13:07 DC Potassium Chloride/Water 100 ml @ 100 mls/hr Q1H 09/05/19 16:00 09/05/19 17:59 DC 09/05/19 17:00 100 MLS/HR Potassium Chloride (Klor-Con) 20 meq 1X ONCE 09/05/19 15:45 09/05/19 15:46 DC 09/05/19 17:01 20 MEQ Sodium Chloride 1,000 ml @ 100 mls/hr Q10H 09/05/19 13:30 09/07/19 11:22 DC 09/07/19 04:13 100 MLS/HR Sodium Chloride (Normal Saline Flush) 10 ml QSHIFT PRN 09/05/19 13:00 Vancomycin HCl (Vanco Per Pharmacy) 1 each 1X ONCE 09/05/19 13:00 09/05/19 13:08 DC Vancomycin HCl 1.5 gm/Sodium Chloride 500 ml @ 250 mls/hr 1X ONCE 09/05/19 13:15 09/05/19 15:14 DC 09/05/19 14:55 250 MLS/HR Labs: Lab Laboratory Tests Test 09/08/19 04:05 09/08/19 06:03 White Blood Count 21.0 x10^3/uL (4.0-11.0) Red Blood Count 2.72 x10^6/uL (3.50-5.40) Hemoglobin 7.3 g/dL (12.0-15.5) 7.3 g/dL (12.0-15.5) Hematocrit 22.6 % (36.0-47.0) 22.6 % (36.0-47.0) Mean Corpuscular Volume 83 fL (79-100) Mean Corpuscular Hemoglobin 27 pg (25-35) Mean Corpuscular Hemoglobin Concent 32 g/dL (31-37) Red Cell Distribution Width 16.0 % (11.5-14.5) Platelet Count 319 x10^3/uL (140-400) Neutrophils (%) (Auto) 94 % (31-73) Lymphocytes (%) (Auto) 4 % (24-48) Monocytes (%) (Auto) 2 % (0-9) Eosinophils (%) (Auto) 0 % (0-3) Basophils (%) (Auto) 0 % (0-3) Neutrophils # (Auto) 19.7 x10^3/uL (1.8-7.7) Lymphocytes # (Auto) 0.8 x10^3/uL (1.0-4.8) Monocytes # (Auto) 0.5 x10^3/uL (0.0-1.1) Eosinophils # (Auto) 0.0 x10^3/uL (0.0-0.7) Basophils # (Auto) 0.0 x10^3/uL (0.0-0.2) Sodium Level 149 mmol/L (136-145) Potassium Level 3.6 mmol/L (3.5-5.1) Chloride Level 117 mmol/L (98-107) Carbon Dioxide Level 20 mmol/L (21-32) Anion Gap 12 (6-14) Blood Urea Nitrogen 20 mg/dL (7-20) Creatinine 1.6 mg/dL (0.6-1.0) Estimated GFR (Cockcroft-Gault) 39.7 Glucose Level 169 mg/dL (70-99) Calcium Level 8.5 mg/dL (8.5-10.1) Phosphorus Level 2.6 mg/dL (2.6-4.7) Albumin 1.7 g/dL (3.4-5.0) Objective: Assessment: SIRS BRBPR likely ischemic colitis Leucocytosis and lactic acidosis source GI Anemia Bilateral knee pain ,djd Plan: Plan of Care Cont zosyn renal dosing for now cont supportive care awaiting Colonoscopy later d/w rn d/w ABBY Bailey MD Sep 08, 2019 10:25
--- NOTE | 2019-09-08 10:30 | NUR ---
SS following up with discharge planning. Pt transferred from ICU to 669. Pt is from home with spouse and is currently on room air. PT screened pt in ICU and stated that no therapy needs were indicated. SS will continue to follow for discharge planning.
--- NOTE | 2019-09-08 10:38 | PDOC ---
Subjective: Subjective: Red blood mixed with stool overnight. No abd pain. Wants something stronger than Valium. Objective: Objective: Dr. Beavers called - was told prelim report of bleed scan was neg, curious about the plan. Vital Signs: Vital Signs Date Time Temp Pulse Resp B/P (MAP) Pulse Ox O2 Delivery O2 Flow Rate FiO2 09/08/19 07:00 98.2 71 16 115/64 (81) 99 Room Air 98.2 Labs: Laboratory Tests Test 09/08/19 04:05 09/08/19 06:03 White Blood Count 21.0 x10^3/uL Red Blood Count 2.72 x10^6/uL Hemoglobin 7.3 g/dL 7.3 g/dL Hematocrit 22.6 % 22.6 % Mean Corpuscular Volume 83 fL Mean Corpuscular Hemoglobin 27 pg Mean Corpuscular Hemoglobin Concent 32 g/dL Red Cell Distribution Width 16.0 % Platelet Count 319 x10^3/uL Neutrophils (%) (Auto) 94 % Lymphocytes (%) (Auto) 4 % Monocytes (%) (Auto) 2 % Eosinophils (%) (Auto) 0 % Basophils (%) (Auto) 0 % Neutrophils # (Auto) 19.7 x10^3/uL Lymphocytes # (Auto) 0.8 x10^3/uL Monocytes # (Auto) 0.5 x10^3/uL Eosinophils # (Auto) 0.0 x10^3/uL Basophils # (Auto) 0.0 x10^3/uL Sodium Level 149 mmol/L Potassium Level 3.6 mmol/L Chloride Level 117 mmol/L Carbon Dioxide Level 20 mmol/L Anion Gap 12 Blood Urea Nitrogen 20 mg/dL Creatinine 1.6 mg/dL Estimated GFR (Cockcroft-Gault) 39.7 Glucose Level 169 mg/dL Calcium Level 8.5 mg/dL Phosphorus Level 2.6 mg/dL Albumin 1.7 g/dL BLOOD CULTURE Preliminary NO GROWTH AFTER 2 DAYS Imaging: Bleed Scan IMPRESSION: 1. Activity within the midline lower pelvis appears to be separate from the bladder. Correlate for rectal source of bleeding. PE: GEN: NAD, smiling LUNGS: CTAB HEART: RRR ABD: S/ND/NT NEURO/PSYCH: A & O 3 A/P: Hematochezia, abd pain - ?ischemic colitis - Anemia - Hgb stable 7.3 x 2 today BONITA - improved -- Bleeding scan resulted after I saw - NPO, consider CTA - need to check w/ nep hrology and IR first - d/w nurse who will contact. Consider flex sig/colonoscopy later on - can't do now because was given clears. Update 1:54 p.m. - nurse says nephrology recommends against CTA and pt doesn't want to pursue. No bleeding. IR not contacted. ERIKA CARDENAS Sep 08, 2019 10:38
--- NOTE | 2019-09-08 10:55 | PDOC ---
Infectious Disease Note Subjective: Subjective Pt has intermitent blood in rectrum no f/c/n/v/d/abdo pain/gu symptoms Rt knee pain better after steroid inj ROS: ROS Negative otherwise. Vital Signs: Vital Signs Vital Signs Date Time Temp Pulse Resp B/P (MAP) Pulse Ox O2 Delivery O2 Flow Rate FiO2 09/08/19 07:00 98.2 71 16 115/64 (81) 99 Room Air 98.2 Physical Exam: PHYSICAL EXAM GENERAL: Alert, oriented x3 female, lying in bed comfortably, in no acute distress, receiving blood transfusion. HEENT: Normocephalic, atraumatic; anicteric; no thrush; oral mucosa moist. NECK: Supple, no JVD. LUNGS: Clear bilaterally. No wheezing. HEART: S1, S2. No gallops or murmurs. ABDOMEN: Soft, nontender, nondistended; no rebound, no guarding. EXTREMITIES: No edema, no cyanosis. DERMATOLOGIC: Warm, dry, no generalized rash. NEUROLOGIC: Alert and oriented x3, grossly nonfocal. PSYCHIATRIC: Cooperative, appropriate mood and affect. Medications: Inpatient Meds: Current Medications Medications (Trade) Dose Ordered Sig/Florecita Start Time Stop Time Status Last Admin Dose Admin Acetaminophen/ Codeine Phosphate (Tylenol #3) 1 tab PRN Q6HRS PRN 09/05/19 13:30 Acetaminophen/ Hydrocodone Bitart (Lortab 5/325) 1 tab PRN Q4HRS PRN 09/05/19 14:00 Adenosine (Adenocard) 12 mg 1X ONCE 09/05/19 13:29 09/05/19 13:49 DC 09/05/19 13:29 12 MG Amiodarone HCl 900 mg/Dextrose 518 ml @ 0 mls/hr CONT PRN 09/05/19 13:30 Bupivacaine HCl (Sensorcaine-Mpf 0.25%) 10 ml 1X ONCE 09/07/19 15:30 09/07/19 15:31 DC Calcium Carbonate/ Glycine (Tums) 500 mg STK-MED ONCE 09/05/19 17:13 09/05/19 17:13 DC Dextrose 1,000 ml @ 75 mls/hr [id number] 09/07/19 11:30 09/07/19 20:01 75 MLS/HR Diazepam (Valium) 5 mg PRN Q8HRS PRN 09/08/19 10:15 Diphenhydramine HCl (Benadryl) 25 mg PRN QHS PRN 09/05/19 13:45 Ferrous Sulfate (Feosol) 325 mg DAILYWBKFT 09/06/19 08:00 09/07/19 07:58 325 MG Heparin Sodium (Porcine) (HEPARIN for NUC MED) 100 unit 1X ONCE 09/08/19 07:00 09/08/19 07:01 DC Methylprednisolone Acetate (DEPO-Medrol 40MG VIAL) 40 mg 1X ONCE 09/07/19 15:30 09/07/19 15:31 DC Metoprolol Tartrate (Lopressor Vial) 5 mg PRN Q5MIN PRN 09/05/19 16:15 Morphine Sulfate (Morphine Sulfate) 1 mg PRN Q2HR PRN 09/05/19 13:45 09/07/19 14:11 1 MG Norepinephrine Bitartrate 250 ml @ 0 mls/hr CONT PRN 09/05/19 13:00 Ondansetron HCl (Zofran) 4 mg PRN Q6HRS PRN 09/05/19 13:30 Pantoprazole Sodium (PROTONIX VIAL for IV PUSH) 40 mg 1X ONCE 09/05/19 16:45 09/05/19 16:51 DC 09/05/19 17:00 40 MG Pantoprazole Sodium (Protonix) 40 mg DAILYAC 09/08/19 07:30 Phytonadione (Mephyton Oral Soln) 5 mg 1X ONCE 09/06/19 12:00 09/06/19 12:01 DC 09/06/19 12:02 5 MG Piperacillin Sod/ Tazobactam Sod 2.25 gm/Sodium Chloride 50 ml @ 100 mls/hr Q6HRS 09/05/19 19:00 09/08/19 06:08 100 MLS/HR Piperacillin Sod/ Tazobactam Sod 4.5 gm/Sodium Chloride 100 ml @ 200 mls/hr 1X ONCE 09/05/19 13:00 09/05/19 13:07 DC Potassium Chloride/Water 100 ml @ 100 mls/hr Q1H 09/05/19 16:00 09/05/19 17:59 DC 09/05/19 17:00 100 MLS/HR Potassium Chloride (Klor-Con) 20 meq 1X ONCE 09/05/19 15:45 09/05/19 15:46 DC 09/05/19 17:01 20 MEQ Sodium Chloride 1,000 ml @ 100 mls/hr Q10H 09/05/19 13:30 09/07/19 11:22 DC 09/07/19 04:13 100 MLS/HR Sodium Chloride (Normal Saline Flush) 10 ml QSHIFT PRN 09/05/19 13:00 Vancomycin HCl (Vanco Per Pharmacy) 1 each 1X ONCE 09/05/19 13:00 09/05/19 13:08 DC Vancomycin HCl 1.5 gm/Sodium Chloride 500 ml @ 250 mls/hr 1X ONCE 09/05/19 13:15 09/05/19 15:14 DC 09/05/19 14:55 250 MLS/HR Labs: Lab Laboratory Tests Test 09/08/19 04:05 09/08/19 06:03 White Blood Count 21.0 x10^3/uL (4.0-11.0) Red Blood Count 2.72 x10^6/uL (3.50-5.40) Hemoglobin 7.3 g/dL (12.0-15.5) 7.3 g/dL (12.0-15.5) Hematocrit 22.6 % (36.0-47.0) 22.6 % (36.0-47.0) Mean Corpuscular Volume 83 fL (79-100) Mean Corpuscular Hemoglobin 27 pg (25-35) Mean Corpuscular Hemoglobin Concent 32 g/dL (31-37) Red Cell Distribution Width 16.0 % (11.5-14.5) Platelet Count 319 x10^3/uL (140-400) Neutrophils (%) (Auto) 94 % (31-73) Lymphocytes (%) (Auto) 4 % (24-48) Monocytes (%) (Auto) 2 % (0-9) Eosinophils (%) (Auto) 0 % (0-3) Basophils (%) (Auto) 0 % (0-3) Neutrophils # (Auto) 19.7 x10^3/uL (1.8-7.7) Lymphocytes # (Auto) 0.8 x10^3/uL (1.0-4.8) Monocytes # (Auto) 0.5 x10^3/uL (0.0-1.1) Eosinophils # (Auto) 0.0 x10^3/uL (0.0-0.7) Basophils # (Auto) 0.0 x10^3/uL (0.0-0.2) Sodium Level 149 mmol/L (136-145) Potassium Level 3.6 mmol/L (3.5-5.1) Chloride Level 117 mmol/L (98-107) Carbon Dioxide Level 20 mmol/L (21-32) Anion Gap 12 (6-14) Blood Urea Nitrogen 20 mg/dL (7-20) Creatinine 1.6 mg/dL (0.6-1.0) Estimated GFR (Cockcroft-Gault) 39.7 Glucose Level 169 mg/dL (70-99) Calcium Level 8.5 mg/dL (8.5-10.1) Phosphorus Level 2.6 mg/dL (2.6-4.7) Albumin 1.7 g/dL (3.4-5.0) Objective: Assessment: SIRS BRBPR Nuclear scan report positive Leucocytosis and lactic acidosis source GI Anemia Bilateral knee pain ,djd,s/p RT Knee steroid inj Plan: Plan of Care Dc Zosyn and observe cont supportive care npo d/w ABBY Tanner MD Sep 08, 2019 10:55
[2019-09-08 11:00] VITALS: BP 145/80
--- NOTE | 2019-09-08 12:17 | PDOC ---
SUBJECTIVE ROS Stable, no new complaints OBJECTIVE Vital Signs Vital Signs Date Time Temp Pulse Resp B/P (MAP) Pulse Ox O2 Delivery O2 Flow Rate FiO2 09/08/19 07:00 98.2 71 16 115/64 (81) 99 Room Air 98.2 I & 0 Intake and Output 09/08/19 07:00 Intake Total 600 ml Output Total 1540 ml Balance -940 ml Intake Oral 600 ml Output Urine Total 1540 ml # Voids 1 # Bowel Movements 3 PHYSICAL EXAM Physical Exam General: No acute distress HEENT: Mucous membr. moist/pink Neck supple Lungs: Clear to auscultation, non labored Heart: Normal S1, Normal S2, No murmurs Abdomen: Soft, No tenderness Extremities: No cyanosis, No edema Skin: No breakdown , no rash Neuro: AXOx 3, Grossly normal Psych/Mental Status: Mental status NL, Mood NL - Dominguez +, No CVA or SP tenderness DIAGNOSIS/ASSESSMENT Assessment & Plan BONITA- Non Oliguric- ATN/Hyptonsive/Arrythmia / GI bleed UA granular casts , No micr hematuria, no UTI Improving renal function with IVF Supportive care, avoid nephrotoxins, Monitor HyperNatremia- switched to IV D5w, Na improving May need to be switched back to NS- if goes for CTA Rectal bleeding, abd pain, GI recommends CTA-dw pt and risk of HIRAM as currently resolving BONITA , Pt would like to wait if high risk Urgency of procedure should be determined by Benefit and risk - deferred to GI HIRAM prophylaxis with IVF ( switch to NS - 1ml/kg/12 hrs ), lowest dose of contrast , Monitor Na and renal function Renal cysts - Ct report Multiple renal lesions,these have increased in size and number since the prior study, and further outpatient examination with multiphase contrast-enhanced CT or MRI of the kidneys could be of benefit. HTN- Only on Loasartan 50 mg PO QD at home Hypotension at presentation, improving Anemia , acute - 2/2 above Leukocytosis and lactic acidosis- ID SVT- cardiology consulted s/p Adenosine in ER Hypokalemia - replace Distal esophageal wall thickening on CT - had an EGD >5 years ago Probable gallstone Adrenal Nodule on CT- stable per report Discussed with pt and at bedside COMMENT/RELEVANT DATA Meds Current Medications Medications (Trade) Dose Ordered Sig/Florecita Start Time Stop Time Status Last Admin Dose Admin Acetaminophen/ Codeine Phosphate (Tylenol #3) 1 tab PRN Q6HRS PRN 09/05/19 13:30 Acetaminophen/ Hydrocodone Bitart (Lortab 5/325) 1 tab PRN Q4HRS PRN 09/05/19 14:00 Adenosine (Adenocard) 12 mg 1X ONCE 09/05/19 13:29 09/05/19 13:49 DC 09/05/19 13:29 12 MG Amiodarone HCl 900 mg/Dextrose 518 ml @ 0 mls/hr CONT PRN 09/05/19 13:30 Bupivacaine HCl (Sensorcaine-Mpf 0.25%) 10 ml 1X ONCE 09/07/19 15:30 09/07/19 15:31 DC Calcium Carbonate/ Glycine (Tums) 500 mg STK-MED ONCE 09/05/19 17:13 09/05/19 17:13 DC Dextrose 1,000 ml @ 75 mls/hr [id number] 09/07/19 11:30 09/07/19 20:01 75 MLS/HR Diazepam (Valium) 5 mg PRN Q8HRS PRN 09/08/19 10:15 Diphenhydramine HCl (Benadryl) 25 mg PRN QHS PRN 09/05/19 13:45 Ferrous Sulfate (Feosol) 325 mg DAILYWBKFT 09/06/19 08:00 09/07/19 07:58 325 MG Heparin Sodium (Porcine) (HEPARIN for NUC MED) 100 unit 1X ONCE 09/08/19 07:00 09/08/19 07:01 DC Methylprednisolone Acetate (DEPO-Medrol 40MG VIAL) 40 mg 1X ONCE 09/07/19 15:30 09/07/19 15:31 DC Metoprolol Tartrate (Lopressor Vial) 5 mg PRN Q5MIN PRN 09/05/19 16:15 Morphine Sulfate (Morphine Sulfate) 1 mg PRN Q2HR PRN 09/05/19 13:45 09/07/19 14:11 1 MG Norepinephrine Bitartrate 250 ml @ 0 mls/hr CONT PRN 09/05/19 13:00 Ondansetron HCl (Zofran) 4 mg PRN Q6HRS PRN 09/05/19 13:30 Pantoprazole Sodium (PROTONIX VIAL for IV PUSH) 40 mg 1X ONCE 09/05/19 16:45 09/05/19 16:51 DC 09/05/19 17:00 40 MG Pantoprazole Sodium (Protonix) 40 mg DAILYAC 09/08/19 07:30 Phytonadione (Mephyton Oral Soln) 5 mg 1X ONCE 09/06/19 12:00 09/06/19 12:01 DC 09/06/19 12:02 5 MG Piperacillin Sod/ Tazobactam Sod 2.25 gm/Sodium Chloride 50 ml @ 100 mls/hr Q6HRS 09/05/19 19:00 09/08/19 06:08 100 MLS/HR Piperacillin Sod/ Tazobactam Sod 4.5 gm/Sodium Chloride 100 ml @ 200 mls/hr 1X ONCE 09/05/19 13:00 09/05/19 13:07 DC Potassium Chloride/Water 100 ml @ 100 mls/hr Q1H 09/05/19 16:00 09/05/19 17:59 DC 09/05/19 17:00 100 MLS/HR Potassium Chloride (Klor-Con) 20 meq 1X ONCE 09/05/19 15:45 09/05/19 15:46 DC 09/05/19 17:01 20 MEQ Sodium Chloride 1,000 ml @ 100 mls/hr Q10H 09/05/19 13:30 09/07/19 11:22 DC 09/07/19 04:13 100 MLS/HR Sodium Chloride (Normal Saline Flush) 10 ml QSHIFT PRN 09/05/19 13:00 Vancomycin HCl (Vanco Per Pharmacy) 1 each 1X ONCE 09/05/19 13:00 09/05/19 13:08 DC Vancomycin HCl 1.5 gm/Sodium Chloride 500 ml @ 250 mls/hr 1X ONCE 09/05/19 13:15 09/05/19 15:14 DC 09/05/19 14:55 250 MLS/HR Lab Laboratory Tests Test 09/08/19 04:05 09/08/19 06:03 White Blood Count 21.0 x10^3/uL (4.0-11.0) Red Blood Count 2.72 x10^6/uL (3.50-5.40) Hemoglobin 7.3 g/dL (12.0-15.5) 7.3 g/dL (12.0-15.5) Hematocrit 22.6 % (36.0-47.0) 22.6 % (36.0-47.0) Mean Corpuscular Volume 83 fL (79-100) Mean Corpuscular Hemoglobin 27 pg (25-35) Mean Corpuscular Hemoglobin Concent 32 g/dL (31-37) Red Cell Distribution Width 16.0 % (11.5-14.5) Platelet Count 319 x10^3/uL (140-400) Neutrophils (%) (Auto) 94 % (31-73) Lymphocytes (%) (Auto) 4 % (24-48) Monocytes (%) (Auto) 2 % (0-9) Eosinophils (%) (Auto) 0 % (0-3) Basophils (%) (Auto) 0 % (0-3) Neutrophils # (Auto) 19.7 x10^3/uL (1.8-7.7) Lymphocytes # (Auto) 0.8 x10^3/uL (1.0-4.8) Monocytes # (Auto) 0.5 x10^3/uL (0.0-1.1) Eosinophils # (Auto) 0.0 x10^3/uL (0.0-0.7) Basophils # (Auto) 0.0 x10^3/uL (0.0-0.2) Sodium Level 149 mmol/L (136-145) Potassium Level 3.6 mmol/L (3.5-5.1) Chloride Level 117 mmol/L (98-107) Carbon Dioxide Level 20 mmol/L (21-32) Anion Gap 12 (6-14) Blood Urea Nitrogen 20 mg/dL (7-20) Creatinine 1.6 mg/dL (0.6-1.0) Estimated GFR (Cockcroft-Gault) 39.7 Glucose Level 169 mg/dL (70-99) Calcium Level 8.5 mg/dL (8.5-10.1) Phosphorus Level 2.6 mg/dL (2.6-4.7) Albumin 1.7 g/dL (3.4-5.0) Results All relevant outside records, renal labs, imaging studies, telemetry/EKG's were reviewed. Other GI bleed scan-- 1. Activity within the midline lower pelvis appears to be separate from the bladder. Correlate for rectal source of bleeding. ALISON CARDENAS MD Sep 08, 2019 12:17
[2019-09-08] MEDS ORDERED: BUPIVACAINE MPF 0.25% 10 ML VIAL. IJ ONE (13:15)
[2019-09-08] MEDS ORDERED: methylPREDNISolone ACETATE 40 MG/ML VIAL. IM ONE (13:15)
[2019-09-08] MEDS ORDERED: BUPIVACAINE MPF 0.25% 10 ML VIAL. ONE (13:30)
[2019-09-08] MEDS ORDERED: methylPREDNISolone ACETATE 40 MG/ML VIAL. ONE (13:30)
--- NOTE | 2019-09-08 14:49 | PDOC ---
PROGRESS NOTES Subjective Subjective She feels better with right knee after injection and wants left knee joint injected. Objective Objective Vital Signs Date Time Temp Pulse Resp B/P (MAP) Pulse Ox O2 Delivery O2 Flow Rate FiO2 09/08/19 11:00 98.0 79 18 145/80 (101) 98 Room Air 98.0 09/08/19 08:00 2.0 Intake and Output 09/08/19 07:00 Intake Total 600 ml Output Total 1540 ml Balance -940 ml Intake Oral 600 ml Output Urine Total 1540 ml # Voids 1 # Bowel Movements 3 Physical Exam Physical Exam She is alert,comfortable and more relaxed and even smiling this afternoon and she had crepitus on ROM of her knees and she is not interested to get up today to walk. Assessment Assessment Problems Medical Problems: (1) BONITA (acute kidney injury) Status: Acute (2) Rectal bleed Status: Acute (3) Septic shock Status: Acute Plan Plan of Care At her request,I have injected her left knee joint under aseptic skin technique with alcohol skin prep using 1 ml of methylprednisone 40 mg/ 1 ml. solution mixed with 2 ml of 0.25% bupivacaine solution and she tolerated the procedure satisfactorily without any side effects. Comment Review of Relevant I have reviewed the following items diane (where applicable) has been applied. Labs Laboratory Tests Test 09/06/19 15:35 09/07/19 05:10 09/08/19 04:05 09/08/19 06:03 White Blood Count 24.4 x10^3/uL (4.0-11.0) 21.6 x10^3/uL (4.0-11.0) 21.0 x10^3/uL (4.0-11.0) Red Blood Count 3.00 x10^6/uL (3.50-5.40) 2.68 x10^6/uL (3.50-5.40) 2.72 x10^6/uL (3.50-5.40) Hemoglobin 8.0 g/dL (12.0-15.5) 7.1 g/dL (12.0-15.5) 7.3 g/dL (12.0-15.5) 7.3 g/dL (12.0-15.5) Hematocrit 25.4 % (36.0-47.0) 22.6 % (36.0-47.0) 22.6 % (36.0-47.0) 22.6 % (36.0-47.0) Mean Corpuscular Volume 84 fL (79-100) 85 fL (79-100) 83 fL (79-100) Mean Corpuscular Hemoglobin 27 pg (25-35) 27 pg (25-35) 27 pg (25-35) Mean Corpuscular Hemoglobin Concent 32 g/dL (31-37) 31 g/dL (31-37) 32 g/dL (31-37) Red Cell Distribution Width 15.7 % (11.5-14.5) 15.9 % (11.5-14.5) 16.0 % (11.5-14.5) Platelet Count 321 x10^3/uL (140-400) 304 x10^3/uL (140-400) 319 x10^3/uL (140-400) Neutrophils (%) (Auto) 89 % (31-73) 94 % (31-73) Lymphocytes (%) (Auto) 5 % (24-48) 4 % (24-48) Monocytes (%) (Auto) 6 % (0-9) 2 % (0-9) Eosinophils (%) (Auto) 0 % (0-3) 0 % (0-3) Basophils (%) (Auto) 0 % (0-3) 0 % (0-3) Neutrophils # (Auto) 19.2 x10^3/uL (1.8-7.7) 19.7 x10^3/uL (1.8-7.7) Lymphocytes # (Auto) 1.1 x10^3/uL (1.0-4.8) 0.8 x10^3/uL (1.0-4.8) Monocytes # (Auto) 1.3 x10^3/uL (0.0-1.1) 0.5 x10^3/uL (0.0-1.1) Eosinophils # (Auto) 0.1 x10^3/uL (0.0-0.7) 0.0 x10^3/uL (0.0-0.7) Basophils # (Auto) 0.1 x10^3/uL (0.0-0.2) 0.0 x10^3/uL (0.0-0.2) Sodium Level 153 mmol/L (136-145) 149 mmol/L (136-145) Potassium Level 3.5 mmol/L (3.5-5.1) 3.6 mmol/L (3.5-5.1) Chloride Level 121 mmol/L (98-107) 117 mmol/L (98-107) Carbon Dioxide Level 19 mmol/L (21-32) 20 mmol/L (21-32) Anion Gap 13 (6-14) 12 (6-14) Blood Urea Nitrogen 28 mg/dL (7-20) 20 mg/dL (7-20) Creatinine 1.8 mg/dL (0.6-1.0) 1.6 mg/dL (0.6-1.0) Estimated GFR (Cockcroft-Gault) 34.6 39.7 BUN/Creatinine Ratio 16 (6-20) Glucose Level 71 mg/dL (70-99) 169 mg/dL (70-99) Calcium Level 8.3 mg/dL (8.5-10.1) 8.5 mg/dL (8.5-10.1) Total Bilirubin 0.4 mg/dL (0.2-1.0) Aspartate Amino Transf (AST/SGOT) 15 U/L (15-37) Alanine Aminotransferase (ALT/SGPT) 26 U/L (14-59) Alkaline Phosphatase 135 U/L (46-116) Total Protein 6.1 g/dL (6.4-8.2) Albumin 1.7 g/dL (3.4-5.0) 1.7 g/dL (3.4-5.0) Albumin/Globulin Ratio 0.4 (1.0-1.7) Phosphorus Level 2.6 mg/dL (2.6-4.7) Laboratory Tests Test 09/08/19 04:05 09/08/19 06:03 White Blood Count 21.0 x10^3/uL (4.0-11.0) Red Blood Count 2.72 x10^6/uL (3.50-5.40) Hemoglobin 7.3 g/dL (12.0-15.5) 7.3 g/dL (12.0-15.5) Hematocrit 22.6 % (36.0-47.0) 22.6 % (36.0-47.0) Mean Corpuscular Volume 83 fL (79-100) Mean Corpuscular Hemoglobin 27 pg (25-35) Mean Corpuscular Hemoglobin Concent 32 g/dL (31-37) Red Cell Distribution Width 16.0 % (11.5-14.5) Platelet Count 319 x10^3/uL (140-400) Neutrophils (%) (Auto) 94 % (31-73) Lymphocytes (%) (Auto) 4 % (24-48) Monocytes (%) (Auto) 2 % (0-9) Eosinophils (%) (Auto) 0 % (0-3) Basophils (%) (Auto) 0 % (0-3) Neutrophils # (Auto) 19.7 x10^3/uL (1.8-7.7) Lymphocytes # (Auto) 0.8 x10^3/uL (1.0-4.8) Monocytes # (Auto) 0.5 x10^3/uL (0.0-1.1) Eosinophils # (Auto) 0.0 x10^3/uL (0.0-0.7) Basophils # (Auto) 0.0 x10^3/uL (0.0-0.2) Sodium Level 149 mmol/L (136-145) Potassium Level 3.6 mmol/L (3.5-5.1) Chloride Level 117 mmol/L (98-107) Carbon Dioxide Level 20 mmol/L (21-32) Anion Gap 12 (6-14) Blood Urea Nitrogen 20 mg/dL (7-20) Creatinine 1.6 mg/dL (0.6-1.0) Estimated GFR (Cockcroft-Gault) 39.7 Glucose Level 169 mg/dL (70-99) Calcium Level 8.5 mg/dL (8.5-10.1) Phosphorus Level 2.6 mg/dL (2.6-4.7) Albumin 1.7 g/dL (3.4-5.0) Microbiology 09/05/19 Blood Culture - Preliminary, Resulted NO GROWTH AFTER 3 DAYS Medications Current Medications Sodium Chloride 1,000 ml @ 1,000 mls/hr 1X ONCE IV Last administered on 09/05/19at 11:30; Start 09/05/19 at 11:30; Stop 09/05/19 at 12:29; Status DC Potassium Chloride/Water 100 ml @ 100 mls/hr Q1H IV Last administered on 09/05/19at 14:55; Start 09/05/19 at 12:00; Stop 09/05/19 at 13:59; Status DC Adenosine (Adenocard) 6 mg STK-MED ONCE IV ; Start 09/05/19 at 12:20; Stop 09/05/19 at 12:21; Status DC Adenosine (Adenocard) 6 mg STK-MED ONCE IV ; Start 09/05/19 at 12:33; Stop 09/05/19 at 12:33; Status DC Sodium Chloride (Normal Saline Flush) 10 ml QSHIFT PRN IV AFTER MEDS AND BLOOD DRAWS; Start 09/05/19 at 13:00 Sodium Chloride 1,000 ml @ 1,500 mls/hr Q40M IV Last administered on 09/05/19at 12:38; Start 09/05/19 at 12:50; Stop 09/05/19 at 13:49; Status DC Piperacillin Sod/ Tazobactam Sod 4.5 gm/Sodium Chloride 100 ml @ 200 mls/hr 1X ONCE IV ; Start 09/05/19 at 13:00; Stop 09/05/19 at 13:07; Status DC Vancomycin HCl (Vanco Per Pharmacy) 1 each 1X ONCE MC ; Start 09/05/19 at 13:00; Stop 09/05/19 at 13:08; Status DC Norepinephrine Bitartrate 250 ml @ 0 mls/hr CONT PRN IV PER PROTOCOL; Start 09/05/19 at 13:00; Stop 09/08/19 at 13:36; Status DC Adenosine (Adenocard) 6 mg 1X ONCE IV Last administered on 09/05/19at 12:37; Start 09/05/19 at 13:15; Stop 09/05/19 at 13:16; Status DC Piperacillin Sod/ Tazobactam Sod 2.25 gm/Sodium Chloride 50 ml @ 100 mls/hr 1X ONCE IV Last administered on 09/05/19at 13:29; Start 09/05/19 at 13:15; Stop 09/05/19 at 13:44; Status DC Vancomycin HCl 1.5 gm/Sodium Chloride 500 ml @ 250 mls/hr 1X ONCE IV Last administered on 09/05/19at 14:55; Start 09/05/19 at 13:15; Stop 09/05/19 at 15:14; Status DC Amiodarone HCl 900 mg/Dextrose 518 ml @ 0 mls/hr CONT PRN IV SEE I/O RECORD; Start 09/05/19 at 13:30 Sodium Chloride 1,000 ml @ 100 mls/hr Q10H IV Last administered on 09/07/19at 04:13; Start 09/05/19 at 13:30; Stop 09/07/19 at 11:22; Status DC Acetaminophen/ Codeine Phosphate (Tylenol #3) 1 tab PRN Q6HRS PRN PO PAIN MILD TO MOD; Start 09/05/19 at 13:30 Ondansetron HCl (Zofran) 4 mg PRN Q6HRS PRN IVP NAUSEA/VOMITING; Start 09/05/19 at 13:30 Ferrous Sulfate (Feosol) 325 mg DAILYWBKFT PO Last administered on 09/07/19at 07:58; Start 09/06/19 at 08:00 Diphenhydramine HCl (Benadryl) 25 mg PRN QHS PRN PO INSOMNIA; Start 09/05/19 at 13:45 Pantoprazole Sodium (Protonix) 40 mg DAILYAC PO ; Start 09/06/19 at 07:30; Stop 09/05/19 at 14:33; Status DC Morphine Sulfate (Morphine Sulfate) 1 mg PRN Q2HR PRN IV PAIN Last administered on 09/07/19at 14:11; Start 09/05/19 at 13:45 Adenosine (Adenocard) 6 mg 1X ONCE IV Last administered on 09/05/19at 13:19; Start 09/05/19 at 13:19; Stop 09/05/19 at 13:49; Status DC Adenosine (Adenocard) 12 mg 1X ONCE IV Last administered on 09/05/19at 13:29; Start 09/05/19 at 13:29; Stop 09/05/19 at 13:49; Status DC Acetaminophen/ Hydrocodone Bitart (Lortab 5/325) 1 tab PRN Q4HRS PRN PO PAIN SEVERE; Start 09/05/19 at 14:00 Pantoprazole Sodium (PROTONIX VIAL for IV PUSH) 40 mg DAILY ONCE IVP Last administered on 09/06/19at 08:52; Start 09/06/19 at 07:30; Stop 09/06/19 at 07:31; Status DC Potassium Chloride (Klor-Con) 20 meq 1X ONCE PO Last administered on 09/05/19at 17:01; Start 09/05/19 at 15:45; Stop 09/05/19 at 15:46; Status DC Potassium Chloride/Water 100 ml @ 100 mls/hr Q1H IV Last administered on 09/05/19at 17:00; Start 09/05/19 at 16:00; Stop 09/05/19 at 17:59; Status DC Metoprolol Tartrate (Lopressor Vial) 5 mg PRN Q5MIN PRN IVP TACHYCARDIA; Start 09/05/19 at 16:15 Pantoprazole Sodium (PROTONIX VIAL for IV PUSH) 40 mg DAILYAC IVP Last administered on 09/07/19at 07:58; Start 09/06/19 at 07:30; Stop 09/07/19 at 11:54; Status DC Pantoprazole Sodium (PROTONIX VIAL for IV PUSH) 40 mg 1X ONCE IVP Last admin istered on 09/05/19at 17:00; Start 09/05/19 at 16:45; Stop 09/05/19 at 16:51; Status DC Calcium Carbonate/ Glycine (Tums) 500 mg STK-MED ONCE .ROUTE ; Start 09/05/19 at 17:13; Stop 09/05/19 at 17:13; Status DC Piperacillin Sod/ Tazobactam Sod 2.25 gm/Sodium Chloride 50 ml @ 100 mls/hr Q6HRS IV Last administered on 09/08/19at 13:30; Start 09/05/19 at 19:00; Stop 09/08/19 at 13:44; Status DC Phytonadione (Mephyton Oral Soln) 5 mg 1X ONCE PO Last administered on 09/06/19at 12:02; Start 09/06/19 at 12:00; Stop 09/06/19 at 12:01; Status DC Dextrose 1,000 ml @ 75 mls/hr [id number] IV Last administered on 09/07/19at 20:01; Start 09/07/19 at 11:30 Pantoprazole Sodium (Protonix) 40 mg DAILYAC PO ; Start 09/08/19 at 07:30 Methylprednisolone Acetate (DEPO-Medrol 40MG VIAL) 40 mg 1X ONCE IM ; Start 09/07/19 at 15:30; Stop 09/07/19 at 15:31; Status DC Methylprednisolone Acetate (DEPO-Medrol 40MG VIAL) 40 mg 1X ONCE IM ; Start 09/07/19 at 15:30; Stop 09/07/19 at 15:31; Status DC Bupivacaine HCl (Sensorcaine-Mpf 0.25%) 10 ml 1X ONCE IJ ; Start 09/07/19 at 15:30; Stop 09/07/19 at 15:31; Status DC Heparin Sodium (Porcine) (HEPARIN for NUC MED) 100 unit 1X ONCE IV ; Start 09/08/19 at 07:00; Stop 09/08/19 at 07:01; Status DC Diazepam (Valium) 5 mg PRN Q8HRS PRN PO ANXIETY; Start 09/08/19 at 10:15 Methylprednisolone Acetate (DEPO-Medrol 40MG VIAL) 40 mg 1X ONCE IM ; Start 09/08/19 at 13:15; Stop 09/08/19 at 13:16; Status DC Bupivacaine HCl (Sensorcaine-Mpf 0.25%) 10 ml 1X ONCE IJ ; Start 09/08/19 at 13:15; Stop 09/08/19 at 13:16; Status DC Active Scripts Active Reported Ferralet 90 Dual-Iron Tablet (Iron, Carb & Gluc/Fa/B12/C/Dss) 1 Each Tablet 1 Tab PO DAILY Losartan-Hctz 50-12.5 Mg Tab (Losartan/Hydrochlorothiazide) 1 Each Tablet 1 Tab PO DAILY Vitals/I & O Vital Sign - Last 24 Hours 09/07/19 09/07/19 09/07/19 09/07/19 16:00 19:30 20:10 23:30 Temp 98.7 99.0 98.7 99.0 Pulse 74 85 80 Resp 22 16 16 B/P (MAP) 143/56 (85) 159/93 (115) 141/84 (103) Pulse Ox 98 99 98 O2 Delivery Room Air Room Air Room Air Room Air 09/08/19 09/08/19 09/08/19 09/08/19 03:30 07:00 08:00 11:00 Temp 98.2 98.2 98.0 98.2 98.2 98.0 Pulse 78 71 79 Resp 16 16 18 B/P (MAP) 154/93 (113) 115/64 (81) 145/80 (101) Pulse Ox 98 99 98 O2 Delivery Room Air Room Air Room Air Room Air O2 Flow Rate 2.0 Intake and Output 09/07/19 09/07/19 09/08/19 15:00 23:00 07:00 Intake Total 600 ml Output Total 390 ml 1150 ml Balance 210 ml -1150 ml ALVAREZ NAVARRO MD Sep 08, 2019 14:49
[2019-09-08 15:00] VITALS: BP 152/85
[2019-09-08 19:14] LABS: HEMATOCRIT 22.1 % (36.0-47.0); HEMOGLOBIN 7.1 g/dL (12.0-15.5)
[2019-09-08] MEDS: IV DEXTROSE 5% 1,000 ML IV SCH (19:25)
[2019-09-08 21:17] VITALS: BP 151/85
[2019-09-08 23:59] VITALS: BP 131/86
[2019-09-09] VITALS (13 sets, daily range): BP systolic 130–180; BP diastolic 73–108
--- NOTE | 2019-09-09 03:19 | NUR ---
Pt requesting bedpan - bloody stool noted with large clot.
[2019-09-09] MEDS: IV DEXTROSE 5% 1,000 ML IV SCH ×2 (03:30→10:32)
[2019-09-09] MEDS: PANTOPRAZOLE 40 MG TABLET.DR. PO SCH (07:30)
[2019-09-09] MEDS: FERROUS SULFATE 325 MG TABLET. PO SCH (08:00)
[2019-09-09 08:29] LABS: BASO % 0 % (0-3); EOS % 0 % (0-3); LYMPH # 1.6 x10^3/uL (1.0-4.8); LYMPH % 6 % (24-48); MEAN CORPUSCULAR HEMOGLOBIN 27 pg (25-35); MEAN CORPUSCULAR HGB CONC 32 g/dL (31-37); MEAN CORPUSCULAR VOLUME 83 fL (79-100); MONO # 0.7 x10^3/uL (0.0-1.1); MONO % 3 % (0-9); NEUT # 24.3 x10^3/uL (1.8-7.7); NEUT % 91 % (31-73); PLATELET COUNT 363 x10^3/uL (140-400); RED BLOOD COUNT 2.48 x10^6/uL (3.50-5.40); RED CELL DISTRIBUTION WIDTH 15.3 % (11.5-14.5); WHITE BLOOD COUNT 26.6 x10^3/uL (4.0-11.0)
[2019-09-09 08:42] LABS: HEMATOCRIT 20.6 % (36.0-47.0); HEMOGLOBIN 6.6 g/dL (12.0-15.5)
[2019-09-09 08:59] LABS: ALBUMIN 1.6 g/dL (3.4-5.0); ALBUMIN/GLOBULIN RATIO 0.4 (1.0-1.7); CALCIUM 8.1 mg/dL (8.5-10.1); CREATININE 1.3 mg/dL (0.6-1.0); GFR 50.4; POTASSIUM 3.4 mmol/L (3.5-5.1); TOTAL BILIRUBIN 0.2 mg/dL (0.2-1.0)
--- NOTE | 2019-09-09 10:37 | PDOC ---
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 Reports 2 bloody BMs this morning. Reports she had her right knee injected, and will have the left one injected later today or tomorrow. Reports relief of R Knee pain after injection. Reports anxiety and was asking for some Valium on interview. 09/07/2018 VTE Prophylaxis Ordered VTE Prophylaxis Devices: Contraindicated VTE Pharmacological Prophylaxi: Contraindicated Assessment/Plan Assessment/Plan NEw SVT with hypotension hematochezia Mild distal esophageal wall thickening, could be of acute or chronic etiology. HYpokalemia, critical - replace BONITA -creat 4.0- ///acute tubular necrosis cr down to 1.[address] , No evidence of hydronephrosis. ?ischemic colitis renal consult AGAp acidosis, contraction alkalosis - AGAP 25 with high bicarb SIRS - no source - elev lactate 13.,1 Septic shock (hypotensive) LEukocytosis - WBC 23 - kovacs cx, ID Incidental kidney cysts - per CT Old Thoracic fx - she denies knowledge and back pain adrenal adenoma Leucocytosis and lactic acidosis source GI severe protein-caloric malnutrition PLAN: ICU bed, AMio gtt levophed prn bp control NS IVF for AGAP follow mag, tsh, calcium Replace k orally EMpiric abx - ID consult., cont zosyn avoid nephrotoxins COnsult ID, renal and cards HOld losartan (creat 4) resume ferrous sulfate gi following, TRY CLEAR LIQUIDS CONSIDER egd, colonoscopy nephrology FOLLOWING transfuse prn follow lytes FUll code cc 35 MIN Vitals/I&O Vitals/I&O: Vital Signs Date Time Temp Pulse Resp B/P (MAP) Pulse Ox O2 Delivery O2 Flow Rate FiO2 09/09/19 08:00 98.2 76 20 162/78 (106) 98 Room Air 98.2 09/08/19 08:00 2.0 Physical Exam Physical Exam: GENERAL: Alert, oriented x3 female, lying in bed comfortably, in no acute distress, receiving blood transfusion. HEENT: Normocephalic, atraumatic; anicteric; no thrush; oral mucosa moist. NECK: Supple, no JVD. LUNGS: Clear bilaterally. No wheezing. HEART: S1, S2. No gallops or murmurs. ABDOMEN: Soft, nontender, nondistended; no rebound, no guarding. EXTREMITIES: No edema, no cyanosis. DERMATOLOGIC: Warm, dry, no generalized rash. NEUROLOGIC: Alert and oriented x3, grossly nonfocal. PSYCHIATRIC: Cooperative, appropriate mood and affect. General: Alert, Oriented X3, Cooperative, No acute distress Heart: Regular rate, Normal S1, Normal S2, No murmurs Lungs: Clear Abdomen: Soft, No tenderness Extremities: No clubbing, No cyanosis, No edema, Other (Right knee with clean and intact bandaging.) Skin: No rashes, No breakdown Labs Labs: Laboratory Tests Test 09/08/19 18:50 09/09/19 07:35 Hemoglobin 7.1 g/dL (12.0-15.5) 6.6 g/dL (12.0-15.5) Hematocrit 22.1 % (36.0-47.0) 20.6 % (36.0-47.0) Mean Corpuscular Hemoglobin Concent 32 g/dL (31-37) 32 g/dL (31-37) White Blood Count 26.6 x10^3/uL (4.0-11.0) Red Blood Count 2.48 x10^6/uL (3.50-5.40) Mean Corpuscular Volume 83 fL (79-100) Mean Corpuscular Hemoglobin 27 pg (25-35) Red Cell Distribution Width 15.3 % (11.5-14.5) Platelet Count 363 x10^3/uL (140-400) Neutrophils (%) (Auto) 91 % (31-73) Lymphocytes (%) (Auto) 6 % (24-48) Monocytes (%) (Auto) 3 % (0-9) Eosinophils (%) (Auto) 0 % (0-3) Basophils (%) (Auto) 0 % (0-3) Neutrophils # (Auto) 24.3 x10^3/uL (1.8-7.7) Lymphocytes # (Auto) 1.6 x10^3/uL (1.0-4.8) Monocytes # (Auto) 0.7 x10^3/uL (0.0-1.1) Eosinophils # (Auto) 0.0 x10^3/uL (0.0-0.7) Basophils # (Auto) 0.0 x10^3/uL (0.0-0.2) Sodium Level 145 mmol/L (136-145) Potassium Level 3.4 mmol/L (3.5-5.1) Chloride Level 114 mmol/L (98-107) Carbon Dioxide Level 22 mmol/L (21-32) Anion Gap 9 (6-14) Blood Urea Nitrogen 18 mg/dL (7-20) Creatinine 1.3 mg/dL (0.6-1.0) Estimated GFR (Cockcroft-Gault) 50.4 BUN/Creatinine Ratio 14 (6-20) Glucose Level 161 mg/dL (70-99) Calcium Level 8.1 mg/dL (8.5-10.1) Total Bilirubin 0.2 mg/dL (0.2-1.0) Aspartate Amino Transf (AST/SGOT) 17 U/L (15-37) Alanine Aminotransferase (ALT/SGPT) 21 U/L (14-59) Alkaline Phosphatase 137 U/L (46-116) Total Protein 6.0 g/dL (6.4-8.2) Albumin 1.6 g/dL (3.4-5.0) Albumin/Globulin Ratio 0.4 (1.0-1.7) Review of Systems Review of Systems: Complains of weakness Complains of pain Assessment and Plan Assessmemt and Plan Problems Medical Problems: (1) BONITA (acute kidney injury) Status: Acute (2) Rectal bleed Status: Acute (3) Septic shock Status: Acute New SVT with hypotension hematochezia Hypokalemia BONITA -creat 4.0- ///acute tubular necrosis ischemic colitis AGAP acidosis, contraction alkalosis SIRS Septic shock (hypotensive) Leukocytosis Incidental kidney cysts Old Thoracic fx adrenal adenoma Leucocytosis and lactic acidosis source GI severe protein-caloric malnutrition Plan: 1) trend hemoglobin 2) Await further recommendations from GI, ID, and nephrology. 3) Continue clear diet, advised patient to eat as tolerated. 4) Continue Zosyn per ID 5) Continue to monitor for bloody BMs, advised to type an cross patient for 2 units of blood to be administered if needed 6) adding Prozac 20 by mouth daily and will continue when necessary Valium for breakthrough anxiety 7) Full code 8) DVT prophylaxis 9) PT/OT Comment Review of Relevant I have reviewed the following items diane (where applicable) has been applied. LÁZARO CALLE III DO Sep 09, 2019 10:37
--- NOTE | 2019-09-09 10:49 | PDOC ---
PROGRESS NOTES Subjective Subjective She feels better with her knee joint pain and stiffness. She continues with rectal bleeding and anemia. Objective Objective Vital Signs Date Time Temp Pulse Resp B/P (MAP) Pulse Ox O2 Delivery O2 Flow Rate FiO2 09/09/19 10:43 98.6 68 18 165/81 98.6 09/09/19 08:00 98 Room Air 09/08/19 08:00 2.0 Intake and Output 09/09/19 07:00 # Bowel Movements 1 Physical Exam Physical Exam She is supine in bed and she is moving her knees without any discomfort but would like to wait until after endoscopy to try to get up. Assessment Assessment Problems Medical Problems: (1) BONITA (acute kidney injury) Status: Acute (2) Rectal bleed Status: Acute (3) Septic shock Status: Acute Plan Plan of Care To get her up when she feels comfortable to do. Comment Review of Relevant I have reviewed the following items diane (where applicable) has been applied. Labs Laboratory Tests Test 09/08/19 04:05 09/08/19 06:03 09/08/19 18:50 09/09/19 07:35 White Blood Count 21.0 x10^3/uL (4.0-11.0) 26.6 x10^3/uL (4.0-11.0) Red Blood Count 2.72 x10^6/uL (3.50-5.40) 2.48 x10^6/uL (3.50-5.40) Hemoglobin 7.3 g/dL (12.0-15.5) 7.3 g/dL (12.0-15.5) 7.1 g/dL (12.0-15.5) 6.6 g/dL (12.0-15.5) Hematocrit 22.6 % (36.0-47.0) 22.6 % (36.0-47.0) 22.1 % (36.0-47.0) 20.6 % (36.0-47.0) Mean Corpuscular Volume 83 fL (79-100) 83 fL (79-100) Mean Corpuscular Hemoglobin 27 pg (25-35) 27 pg (25-35) Mean Corpuscular Hemoglobin Concent 32 g/dL (31-37) 32 g/dL (31-37) 32 g/dL (31-37) Red Cell Distribution Width 16.0 % (11.5-14.5) 15.3 % (11.5-14.5) Platelet Count 319 x10^3/uL (140-400) 363 x10^3/uL (140-400) Neutrophils (%) (Auto) 94 % (31-73) 91 % (31-73) Lymphocytes (%) (Auto) 4 % (24-48) 6 % (24-48) Monocytes (%) (Auto) 2 % (0-9) 3 % (0-9) Eosinophils (%) (Auto) 0 % (0-3) 0 % (0-3) Basophils (%) (Auto) 0 % (0-3) 0 % (0-3) Neutrophils # (Auto) 19.7 x10^3/uL (1.8-7.7) 24.3 x10^3/uL (1.8-7.7) Lymphocytes # (Auto) 0.8 x10^3/uL (1.0-4.8) 1.6 x10^3/uL (1.0-4.8) Monocytes # (Auto) 0.5 x10^3/uL (0.0-1.1) 0.7 x10^3/uL (0.0-1.1) Eosinophils # (Auto) 0.0 x10^3/uL (0.0-0.7) 0.0 x10^3/uL (0.0-0.7) Basophils # (Auto) 0.0 x10^3/uL (0.0-0.2) 0.0 x10^3/uL (0.0-0.2) Sodium Level 149 mmol/L (136-145) 145 mmol/L (136-145) Potassium Level 3.6 mmol/L (3.5-5.1) 3.4 mmol/L (3.5-5.1) Chloride Level 117 mmol/L (98-107) 114 mmol/L (98-107) Carbon Dioxide Level 20 mmol/L (21-32) 22 mmol/L (21-32) Anion Gap 12 (6-14) 9 (6-14) Blood Urea Nitrogen 20 mg/dL (7-20) 18 mg/dL (7-20) Creatinine 1.6 mg/dL (0.6-1.0) 1.3 mg/dL (0.6-1.0) Estimated GFR (Cockcroft-Gault) 39.7 50.4 Glucose Level 169 mg/dL (70-99) 161 mg/dL (70-99) Calcium Level 8.5 mg/dL (8.5-10.1) 8.1 mg/dL (8.5-10.1) Phosphorus Level 2.6 mg/dL (2.6-4.7) Albumin 1.7 g/dL (3.4-5.0) 1.6 g/dL (3.4-5.0) BUN/Creatinine Ratio 14 (6-20) Total Bilirubin 0.2 mg/dL (0.2-1.0) Aspartate Amino Transf (AST/SGOT) 17 U/L (15-37) Alanine Aminotransferase (ALT/SGPT) 21 U/L (14-59) Alkaline Phosphatase 137 U/L (46-116) Total Protein 6.0 g/dL (6.4-8.2) Albumin/Globulin Ratio 0.4 (1.0-1.7) Laboratory Tests Test 09/08/19 18:50 09/09/19 07:35 Hemoglobin 7.1 g/dL (12.0-15.5) 6.6 g/dL (12.0-15.5) Hematocrit 22.1 % (36.0-47.0) 20.6 % (36.0-47.0) Mean Corpuscular Hemoglobin Concent 32 g/dL (31-37) 32 g/dL (31-37) White Blood Count 26.6 x10^3/uL (4.0-11.0) Red Blood Count 2.48 x10^6/uL (3.50-5.40) Mean Corpuscular Volume 83 fL (79-100) Mean Corpuscular Hemoglobin 27 pg (25-35) Red Cell Distribution Width 15.3 % (11.5-14.5) Platelet Count 363 x10^3/uL (140-400) Neutrophils (%) (Auto) 91 % (31-73) Lymphocytes (%) (Auto) 6 % (24-48) Monocytes (%) (Auto) 3 % (0-9) Eosinophils (%) (Auto) 0 % (0-3) Basophils (%) (Auto) 0 % (0-3) Neutrophils # (Auto) 24.3 x10^3/uL (1.8-7.7) Lymphocytes # (Auto) 1.6 x10^3/uL (1.0-4.8) Monocytes # (Auto) 0.7 x10^3/uL (0.0-1.1) Eosinophils # (Auto) 0.0 x10^3/uL (0.0-0.7) Basophils # (Auto) 0.0 x10^3/uL (0.0-0.2) Sodium Level 145 mmol/L (136-145) Potassium Level 3.4 mmol/L (3.5-5.1) Chloride Level 114 mmol/L (98-107) Carbon Dioxide Level 22 mmol/L (21-32) Anion Gap 9 (6-14) Blood Urea Nitrogen 18 mg/dL (7-20) Creatinine 1.3 mg/dL (0.6-1.0) Estimated GFR (Cockcroft-Gault) 50.4 BUN/Creatinine Ratio 14 (6-20) Glucose Level 161 mg/dL (70-99) Calcium Level 8.1 mg/dL (8.5-10.1) Total Bilirubin 0.2 mg/dL (0.2-1.0) Aspartate Amino Transf (AST/SGOT) 17 U/L (15-37) Alanine Aminotransferase (ALT/SGPT) 21 U/L (14-59) Alkaline Phosphatase 137 U/L (46-116) Total Protein 6.0 g/dL (6.4-8.2) Albumin 1.6 g/dL (3.4-5.0) Albumin/Globulin Ratio 0.4 (1.0-1.7) Microbiology 09/05/19 Blood Culture - Preliminary, Resulted NO GROWTH AFTER 3 DAYS Medications Current Medications Sodium Chloride 1,000 ml @ 1,000 mls/hr 1X ONCE IV Last administered on 09/05/19at 11:30; Start 09/05/19 at 11:30; Stop 09/05/19 at 12:29; Status DC Potassium Chloride/Water 100 ml @ 100 mls/hr Q1H IV Last administered on 09/05/19at 14:55; Start 09/05/19 at 12:00; Stop 09/05/19 at 13:59; Status DC Adenosine (Adenocard) 6 mg STK-MED ONCE IV ; Start 09/05/19 at 12:20; Stop 09/05/19 at 12:21; Status DC Adenosine (Adenocard) 6 mg STK-MED ONCE IV ; Start 09/05/19 at 12:33; Stop 09/05/19 at 12:33; Status DC Sodium Chloride (Normal Saline Flush) 10 ml QSHIFT PRN IV AFTER MEDS AND BLOOD DRAWS; Start 09/05/19 at 13:00 Sodium Chloride 1,000 ml @ 1,500 mls/hr Q40M IV Last administered on 09/05/19at 12:38; Start 09/05/19 at 12:50; Stop 09/05/19 at 13:49; Status DC Piperacillin Sod/ Tazobactam Sod 4.5 gm/Sodium Chloride 100 ml @ 200 mls/hr 1X ONCE IV ; Start 09/05/19 at 13:00; Stop 09/05/19 at 13:07; Status DC Vancomycin HCl (Vanco Per Pharmacy) 1 each 1X ONCE MC ; Start 09/05/19 at 13:00; Stop 09/05/19 at 13:08; Status DC Norepinephrine Bitartrate 250 ml @ 0 mls/hr CONT PRN IV PER PROTOCOL; Start 09/05/19 at 13:00; Stop 09/08/19 at 13:36; Status DC Adenosine (Adenocard) 6 mg 1X ONCE IV Last administered on 09/05/19at 12:37; Start 09/05/19 at 13:15; Stop 09/05/19 at 13:16; Status DC Piperacillin Sod/ Tazobactam Sod 2.25 gm/Sodium Chloride 50 ml @ 100 mls/hr 1X ONCE IV Last administered on 09/05/19at 13:29; Start 09/05/19 at 13:15; Stop 09/05/19 at 13:44; Status DC Vancomycin HCl 1.5 gm/Sodium Chloride 500 ml @ 250 mls/hr 1X ONCE IV Last administered on 09/05/19at 14:55; Start 09/05/19 at 13:15; Stop 09/05/19 at 15:14; Status DC Amiodarone HCl 900 mg/Dextrose 518 ml @ 0 mls/hr CONT PRN IV SEE I/O RECORD; Start 09/05/19 at 13:30 Sodium Chloride 1,000 ml @ 100 mls/hr Q10H IV Last administered on 09/07/19at 04:13; Start 09/05/19 at 13:30; Stop 09/07/19 at 11:22; Status DC Acetaminophen/ Codeine Phosphate (Tylenol #3) 1 tab PRN Q6HRS PRN PO PAIN MILD TO MOD; Start 09/05/19 at 13:30 Ondansetron HCl (Zofran) 4 mg PRN Q6HRS PRN IVP NAUSEA/VOMITING; Start 09/05/19 at 13:30 Ferrous Sulfate (Feosol) 325 mg DAILYWBKFT PO Last administered on 09/07/19at 07:58; Start 09/06/19 at 08:00 Diphenhydramine HCl (Benadryl) 25 mg PRN QHS PRN PO INSOMNIA; Start 09/05/19 at 13:45 Pantoprazole Sodium (Protonix) 40 mg DAILYAC PO ; Start 09/06/19 at 07:30; Stop 09/05/19 at 14:33; Status DC Morphine Sulfate (Morphine Sulfate) 1 mg PRN Q2HR PRN IV PAIN Last administered on 09/07/19at 14:11; Start 09/05/19 at 13:45 Adenosine (Adenocard) 6 mg 1X ONCE IV Last administered on 09/05/19at 13:19; Start 09/05/19 at 13:19; Stop 09/05/19 at 13:49; Status DC Adenosine (Adenocard) 12 mg 1X ONCE IV Last administered on 09/05/19at 13:29; Start 09/05/19 at 13:29; Stop 09/05/19 at 13:49; Status DC Acetaminophen/ Hydrocodone Bitart (Lortab 5/325) 1 tab PRN Q4HRS PRN PO PAIN SEVERE; Start 09/05/19 at 14:00 Pantoprazole Sodium (PROTONIX VIAL for IV PUSH) 40 mg DAILY ONCE IVP Last administered on 09/06/19at 08:52; Start 09/06/19 at 07:30; Stop 09/06/19 at 07:31; Status DC Potassium Chloride (Klor-Con) 20 meq 1X ONCE PO Last administered on 09/05/19at 17:01; Start 09/05/19 at 15:45; Stop 09/05/19 at 15:46; Status DC Potassium Chloride/Water 100 ml @ 100 mls/hr Q1H IV Last administered on 09/05/19at 17:00; Start 09/05/19 at 16:00; Stop 09/05/19 at 17:59; Status DC Metoprolol Tartrate (Lopressor Vial) 5 mg PRN Q5MIN PRN IVP TACHYCARDIA; Start 09/05/19 at 16:15 Pantoprazole Sodium (PROTONIX VIAL for IV PUSH) 40 mg DAILYAC IVP Last administered on 09/07/19at 07:58; Start 09/06/19 at 07:30; Stop 09/07/19 at 11:54; Status DC Pantoprazole Sodium (PROTONIX VIAL for IV PUSH) 40 mg 1X ONCE IVP Last administered on 09/05/19at 17:00; Start 09/05/19 at 16:45; Stop 09/05/19 at 16:51; Status DC Calcium Carbonate/ Glycine (Tums) 500 mg STK-MED ONCE .ROUTE ; Start 09/05/19 at 17:13; Stop 09/05/19 at 17:13; Status DC Piperacillin Sod/ Tazobactam Sod 2.25 gm/Sodium Chloride 50 ml @ 100 mls/hr Q6HRS IV Last administered on 09/08/19at 13:30; Start 09/05/19 at 19:00; Stop 09/08/19 at 13:44; Status DC Phytonadione (Mephyton Oral Soln) 5 mg 1X ONCE PO Last administered on 09/06/19at 12:02; Start 09/06/19 at 12:00; Stop 09/06/19 at 12:01; Status DC Dextrose 1,000 ml @ 75 mls/hr [id number] IV Last administered on 09/09/19at 10:32; Start 09/07/19 at 11:30 Pantoprazole Sodium (Protonix) 40 mg DAILYAC PO ; Start 09/08/19 at 07:30 Methylprednisolone Acetate (DEPO-Medrol 40MG VIAL) 40 mg 1X ONCE IM ; Start 1 at 15:30; Stop 09/07/19 at 15:31; Status DC Methylprednisolone Acetate (DEPO-Medrol 40MG VIAL) 40 mg 1X ONCE IM ; Start 09/07/19 at 15:30; Stop 09/07/19 at 15:31; Status DC Bupivacaine HCl (Sensorcaine-Mpf 0.25%) 10 ml 1X ONCE IJ ; Start 09/07/19 at 15:30; Stop 09/07/19 at 15:31; Status DC Heparin Sodium (Porcine) (HEPARIN for NUC MED) 100 unit 1X ONCE IV ; Start 09/08/19 at 07:00; Stop 09/08/19 at 07:01; Status DC Diazepam (Valium) 5 mg PRN Q8HRS PRN PO ANXIETY; Start 09/08/19 at 10:15 Methylprednisolone Acetate (DEPO-Medrol 40MG VIAL) 40 mg 1X ONCE IM ; Start 09/08/19 at 13:15; Stop 09/08/19 at 13:16; Status DC Bupivacaine HCl (Sensorcaine-Mpf 0.25%) 10 ml 1X ONCE IJ ; Start 09/08/19 at 13:15; Stop 09/08/19 at 13:16; Status DC Active Scripts Active Reported Ferralet 90 Dual-Iron Tablet (Iron, Carb & Gluc/Fa/B12/C/Dss) 1 Each Tablet 1 Tab PO DAILY Losartan-Hctz 50-12.5 Mg Tab (Losartan/Hydrochlorothiazide) 1 Each Tablet 1 Tab PO DAILY Vitals/I & O Vital Sign - Last 24 Hours 09/08/19 09/08/19 09/08/19 09/08/19 11:00 15:00 20:00 21:17 Temp 98.0 97.8 98.7 98.0 97.8 98.7 Pulse 79 77 69 Resp 18 16 18 B/P (MAP) 145/80 (101) 152/85 (107) 151/85 (107) Pulse Ox 98 99 99 O2 Delivery Room Air Room Air Room Air Room Air 09/08/19 09/09/19 09/09/19 09/09/19 23:59 04:00 08:00 08:00 Temp 98.6 98.6 98.2 98.6 98.6 98.2 Pulse 93 76 76 Resp 16 20 B/P (MAP) 131/86 (101) 137/73 (94) 162/78 (106) Pulse Ox 98 98 98 O2 Delivery Room Air Room Air Room Air Room Air 09/09/19 10:43 Temp 98.6 98.6 Pulse 68 Resp 18 B/P (MAP) 165/81 ALVAREZ NAVARRO MD Sep 09, 2019 10:49
--- NOTE | 2019-09-09 11:48 | PDOC ---
SURGICAL PROGRESS NOTE Subjective Pt without c/o, noted some green stool with some blood but less, denies pain Vital Signs Vital Signs Date Time Temp Pulse Resp B/P (MAP) Pulse Ox O2 Delivery O2 Flow Rate FiO2 09/09/19 11:43 98.6 62 16 167/81 98.6 09/09/19 11:00 100 Room Air 09/08/19 08:00 2.0 I&O Intake and Output 09/09/19 07:00 # Bowel Movements 1 General: Alert, Oriented X3, Cooperative, No acute distress Abdomen: Soft, No tenderness Labs Laboratory Tests Test 09/08/19 04:05 09/08/19 06:03 09/08/19 18:50 09/09/19 07:35 White Blood Count 21.0 x10^3/uL (4.0-11.0) 26.6 x10^3/uL (4.0-11.0) Red Blood Count 2.72 x10^6/uL (3.50-5.40) 2.48 x10^6/uL (3.50-5.40) Hemoglobin 7.3 g/dL (12.0-15.5) 7.3 g/dL (12.0-15.5) 7.1 g/dL (12.0-15.5) 6.6 g/dL (12.0-15.5) Hematocrit 22.6 % (36.0-47.0) 22.6 % (36.0-47.0) 22.1 % (36.0-47.0) 20.6 % (36.0-47.0) Mean Corpuscular Volume 83 fL (79-100) 83 fL (79-100) Mean Corpuscular Hemoglobin 27 pg (25-35) 27 pg (25-35) Mean Corpuscular Hemoglobin Concent 32 g/dL (31-37) 32 g/dL (31-37) 32 g/dL (31-37) Red Cell Distribution Width 16.0 % (11.5-14.5) 15.3 % (11.5-14.5) Platelet Count 319 x10^3/uL (140-400) 363 x10^3/uL (140-400) Neutrophils (%) (Auto) 94 % (31-73) 91 % (31-73) Lymphocytes (%) (Auto) 4 % (24-48) 6 % (24-48) Monocytes (%) (Auto) 2 % (0-9) 3 % (0-9) Eosinophils (%) (Auto) 0 % (0-3) 0 % (0-3) Basophils (%) (Auto) 0 % (0-3) 0 % (0-3) Neutrophils # (Auto) 19.7 x10^3/uL (1.8-7.7) 24.3 x10^3/uL (1.8-7.7) Lymphocytes # (Auto) 0.8 x10^3/uL (1.0-4.8) 1.6 x10^3/uL (1.0-4.8) Monocytes # (Auto) 0.5 x10^3/uL (0.0-1.1) 0.7 x10^3/uL (0.0-1.1) Eosinophils # (Auto) 0.0 x10^3/uL (0.0-0.7) 0.0 x10^3/uL (0.0-0.7) Basophils # (Auto) 0.0 x10^3/uL (0.0-0.2) 0.0 x10^3/uL (0.0-0.2) Sodium Level 149 mmol/L (136-145) 145 mmol/L (136-145) Potassium Level 3.6 mmol/L (3.5-5.1) 3.4 mmol/L (3.5-5.1) Chloride Level 117 mmol/L (98-107) 114 mmol/L (98-107) Carbon Dioxide Level 20 mmol/L (21-32) 22 mmol/L (21-32) Anion Gap 12 (6-14) 9 (6-14) Blood Urea Nitrogen 20 mg/dL (7-20) 18 mg/dL (7-20) Creatinine 1.6 mg/dL (0.6-1.0) 1.3 mg/dL (0.6-1.0) Estimated GFR (Cockcroft-Gault) 39.7 50.4 Glucose Level 169 mg/dL (70-99) 161 mg/dL (70-99) Calcium Level 8.5 mg/dL (8.5-10.1) 8.1 mg/dL (8.5-10.1) Phosphorus Level 2.6 mg/dL (2.6-4.7) Albumin 1.7 g/dL (3.4-5.0) 1.6 g/dL (3.4-5.0) BUN/Creatinine Ratio 14 (6-20) Total Bilirubin 0.2 mg/dL (0.2-1.0) Aspartate Amino Transf (AST/SGOT) 17 U/L (15-37) Alanine Aminotransferase (ALT/SGPT) 21 U/L (14-59) Alkaline Phosphatase 137 U/L (46-116) Total Protein 6.0 g/dL (6.4-8.2) Albumin/Globulin Ratio 0.4 (1.0-1.7) Laboratory Tests Test 09/08/19 18:50 09/09/19 07:35 Hemoglobin 7.1 g/dL (12.0-15.5) 6.6 g/dL (12.0-15.5) Hematocrit 22.1 % (36.0-47.0) 20.6 % (36.0-47.0) Mean Corpuscular Hemoglobin Concent 32 g/dL (31-37) 32 g/dL (31-37) White Blood Count 26.6 x10^3/uL (4.0-11.0) Red Blood Count 2.48 x10^6/uL (3.50-5.40) Mean Corpuscular Volume 83 fL (79-100) Mean Corpuscular Hemoglobin 27 pg (25-35) Red Cell Distribution Width 15.3 % (11.5-14.5) Platelet Count 363 x10^3/uL (140-400) Neutrophils (%) (Auto) 91 % (31-73) Lymphocytes (%) (Auto) 6 % (24-48) Monocytes (%) (Auto) 3 % (0-9) Eosinophils (%) (Auto) 0 % (0-3) Basophils (%) (Auto) 0 % (0-3) Neutrophils # (Auto) 24.3 x10^3/uL (1.8-7.7) Lymphocytes # (Auto) 1.6 x10^3/uL (1.0-4.8) Monocytes # (Auto) 0.7 x10^3/uL (0.0-1.1) Eosinophils # (Auto) 0.0 x10^3/uL (0.0-0.7) Basophils # (Auto) 0.0 x10^3/uL (0.0-0.2) Sodium Level 145 mmol/L (136-145) Potassium Level 3.4 mmol/L (3.5-5.1) Chloride Level 114 mmol/L (98-107) Carbon Dioxide Level 22 mmol/L (21-32) Anion Gap 9 (6-14) Blood Urea Nitrogen 18 mg/dL (7-20) Creatinine 1.3 mg/dL (0.6-1.0) Estimated GFR (Cockcroft-Gault) 50.4 BUN/Creatinine Ratio 14 (6-20) Glucose Level 161 mg/dL (70-99) Calcium Level 8.1 mg/dL (8.5-10.1) Total Bilirubin 0.2 mg/dL (0.2-1.0) Aspartate Amino Transf (AST/SGOT) 17 U/L (15-37) Alanine Aminotransferase (ALT/SGPT) 21 U/L (14-59) Alkaline Phosphatase 137 U/L (46-116) Total Protein 6.0 g/dL (6.4-8.2) Albumin 1.6 g/dL (3.4-5.0) Albumin/Globulin Ratio 0.4 (1.0-1.7) Problem List Problems Medical Problems: (1) BONITA (acute kidney injury) Status: Acute (2) Rectal bleed Status: Acute (3) Septic shock Status: Acute Assessment/Plan LGI bleeding cont support and w/u per GI no surgical plans currently FRANCES ALVA MD Sep 09, 2019 11:48
[2019-09-09] MEDS: FLUoxetine HCL 20 MG CAPSULE PO SCH (11:59)
--- NOTE | 2019-09-09 13:25 | PDOC ---
GI PROGRESS NOTES Date Date/Time DATE: 09/09/19 TIME: 13:21 Subjective Subjective Continuing to have a small amount of red blood in her stools. Bleeding scan yesterday initially was felt to be negative but in fact was positive in the lower pelvic region so a specific site could not be identified. In talking with her it's probably been over 10 years since her last colonoscopy. Denies any abdominal pain presently but does have some "griping" when she eats certain things and has been on primarily liquid diet the last week before her admission. CT scan did not reveal a lower GI source but did reveal esophagitis which she recalls having been told she had in the distant past. Does have some heartburn on occasion but denies dysphagia, nausea or vomiting. Objective Vitals Vital Signs Date Time Temp Pulse Resp B/P (MAP) Pulse Ox O2 Delivery O2 Flow Rate FiO2 09/09/19 12:43 98.1 74 16 163/84 98.1 09/09/19 11:43 98.6 62 16 167/81 98.6 09/09/19 11:00 98.6 68 18 165/81 (109) 100 Room Air 98.6 09/09/19 10:43 98.6 68 18 165/81 98.6 09/09/19 08:00 98.2 76 20 162/78 (106) 98 Room Air 98.2 09/09/19 08:00 Room Air 09/09/19 04:00 98.6 76 16 137/73 (94) 98 Room Air 98.6 09/08/19 23:59 98.6 93 131/86 (101) 98 Room Air 98.6 09/08/19 21:17 98.7 69 18 151/85 (107) 99 Room Air 98.7 09/08/19 20:00 Room Air 09/08/19 15:00 97.8 77 16 152/85 (107) 99 Room Air 97.8 Labs Labs Laboratory Tests Test 09/08/19 18:50 09/09/19 07:35 Hemoglobin 7.1 g/dL (12.0-15.5) 6.6 g/dL (12.0-15.5) Hematocrit 22.1 % (36.0-47.0) 20.6 % (36.0-47.0) Mean Corpuscular Hemoglobin Concent 32 g/dL (31-37) 32 g/dL (31-37) White Blood Count 26.6 x10^3/uL (4.0-11.0) Red Blood Count 2.48 x10^6/uL (3.50-5.40) Mean Corpuscular Volume 83 fL (79-100) Mean Corpuscular Hemoglobin 27 pg (25-35) Red Cell Distribution Width 15.3 % (11.5-14.5) Platelet Count 363 x10^3/uL (140-400) Neutrophils (%) (Auto) 91 % (31-73) Lymphocytes (%) (Auto) 6 % (24-48) Monocytes (%) (Auto) 3 % (0-9) Eosinophils (%) (Auto) 0 % (0-3) Basophils (%) (Auto) 0 % (0-3) Neutrophils # (Auto) 24.3 x10^3/uL (1.8-7.7) Lymphocytes # (Auto) 1.6 x10^3/uL (1.0-4.8) Monocytes # (Auto) 0.7 x10^3/uL (0.0-1.1) Eosinophils # (Auto) 0.0 x10^3/uL (0.0-0.7) Basophils # (Auto) 0.0 x10^3/uL (0.0-0.2) Sodium Level 145 mmol/L (136-145) Potassium Level 3.4 mmol/L (3.5-5.1) Chloride Level 114 mmol/L (98-107) Carbon Dioxide Level 22 mmol/L (21-32) Anion Gap 9 (6-14) Blood Urea Nitrogen 18 mg/dL (7-20) Creatinine 1.3 mg/dL (0.6-1.0) Estimated GFR (Cockcroft-Gault) 50.4 BUN/Creatinine Ratio 14 (6-20) Glucose Level 161 mg/dL (70-99) Calcium Level 8.1 mg/dL (8.5-10.1) Total Bilirubin 0.2 mg/dL (0.2-1.0) Aspartate Amino Transf (AST/SGOT) 17 U/L (15-37) Alanine Aminotransferase (ALT/SGPT) 21 U/L (14-59) Alkaline Phosphatase 137 U/L (46-116) Total Protein 6.0 g/dL (6.4-8.2) Albumin 1.6 g/dL (3.4-5.0) Albumin/Globulin Ratio 0.4 (1.0-1.7) Physical Exam Physical Exam Awake and alert Chest clear Regular rate and rhythm Rhythm and soft, obese, bowel sounds present, nontender no masses Assessment Assessment Rectal bleeding. Described as red blood mixed with her stool at a bleeding scan that was positive but not specific to the location. Bllod loss anemia- requiring transfusion Esophagitis on CT scan Plan Plan Discussed these issues with patient and spouse. She would like us to proceed with endoscopic evaluation. Bowel prep today and EGD and colonoscopy in the morning TORREY MAY MD Sep 09, 2019 13:25
[2019-09-09] MEDS ORDERED: BISACODYL 5 MG TABLET.DR. PO ONE (14:00)
[2019-09-09] MEDS ORDERED: amLODIPine BESYLATE 5 MG TABLET PO ONE (16:30)
[2019-09-09] MEDS ORDERED: POLYETHYLENE GLYCOL 3350 BTL 238 GM POWDER PO ONE (16:30)
[2019-09-09 19:48] LABS: HEMATOCRIT 30.8 % (36.0-47.0); HEMOGLOBIN 10.1 g/dL (12.0-15.5); RED BLOOD COUNT 3.67 x10^6/uL (3.50-5.40); RED CELL DISTRIBUTION WIDTH 14.5 % (11.5-14.5); WHITE BLOOD COUNT 33.2 x10^3/uL (4.0-11.0)
[2019-09-10 03:19] VITALS: BP 133/83
[2019-09-10] MEDS: IV DEXTROSE 5% 1,000 ML IV SCH ×2 (04:16→19:30)
[2019-09-10 04:41] LABS: BASO % 0 % (0-3); EOS % 0 % (0-3); HEMATOCRIT 24.6 % (36.0-47.0); HEMOGLOBIN 8.2 g/dL (12.0-15.5); LYMPH # 3.2 x10^3/uL (1.0-4.8); LYMPH % 10 % (24-48); MEAN CORPUSCULAR HEMOGLOBIN 28 pg (25-35); MEAN CORPUSCULAR HGB CONC 33 g/dL (31-37); MEAN CORPUSCULAR VOLUME 84 fL (79-100); MONO # 1.6 x10^3/uL (0.0-1.1); MONO % 5 % (0-9); NEUT # 27.7 x10^3/uL (1.8-7.7); NEUT % 85 % (31-73); PLATELET COUNT 393 x10^3/uL (140-400); RED BLOOD COUNT 2.93 x10^6/uL (3.50-5.40); RED CELL DISTRIBUTION WIDTH 14.7 % (11.5-14.5); WHITE BLOOD COUNT 32.5 x10^3/uL (4.0-11.0)
[2019-09-10 05:12] LABS: ALBUMIN 1.7 g/dL (3.4-5.0); ALBUMIN/GLOBULIN RATIO 0.4 (1.0-1.7); CALCIUM 8.1 mg/dL (8.5-10.1); CREATININE 1.3 mg/dL (0.6-1.0); GFR 50.4; POTASSIUM 3.1 mmol/L (3.5-5.1); TOTAL BILIRUBIN 0.2 mg/dL (0.2-1.0); TOTAL PROTEIN 5.7 g/dL (6.4-8.2)
[2019-09-10 07:00] VITALS: BP 139/86
[2019-09-10] MEDS: PANTOPRAZOLE 40 MG TABLET.DR. PO SCH (07:30)
[2019-09-10] MEDS: FERROUS SULFATE 325 MG TABLET. PO SCH (08:00)
[2019-09-10] MEDS ORDERED: IV RINGERS,LACTATED 1000ML 1,000 ML IV SCH (08:46)
[2019-09-10] MEDS: amLODIPine BESYLATE 10 MG TABLET PO SCH (09:00)
[2019-09-10] MEDS: FLUoxetine HCL 20 MG CAPSULE PO SCH (09:00)
[2019-09-10] MEDS ORDERED: PROPOFOL 20 ML IV ONE ×2 (09:57→10:25)
--- NOTE | 2019-09-10 10:25 | PDOC4 ---
PROCEDURE Procedure EGD with bx GI bleeding anesthesia with propofol Findings E- mild Schatki's ring no esophagitis 3 cm hiatal hernia G- erosive gastritis in antrum without bleeding or ulcer- Bx D- normal duodenum Plan- proceed with colonoscopy TORREY MAY MD Sep 10, 2019 10:25
--- NOTE | 2019-09-10 10:44 | PDOC4 ---
PROCEDURE Procedure Colonoscopy with bx Gi bleeding anesthesia with propofol Findings: Rectum normal Sigmoid- scattered ulcers Descending, transverse- numerous small and large ulcers, cratered, with normal intervening tissue- several ulcers with small vessels with recent bleeding Cecum and ascending- severe ulcerative colitis with deep ulcers and inflammation- IC valve inflammed - unable to intubate in spite of numerous attempts Very suggestive of Crohn's disease- but history and other symptoms make infection also possible Plan- continue abx check stools for infection and blood work for inflammation consider steroids while waiting for bx and blood work TORREY MAY MD Sep 10, 2019 10:44
--- NOTE | 2019-09-10 11:58 | PDOC ---
[employer] PROGRESS NOTE Chief Complaint Chief Complaint New SVT with hypotension hematochezia Hypokalemia BONITA -creat 4.0- ///acute tubular necrosis ischemic colitis AGAP acidosis, contraction alkalosis SIRS Septic shock (hypotensive) Leukocytosis Incidental kidney cysts Old Thoracic fx adrenal adenoma Leucocytosis and lactic acidosis source GI severe protein-caloric malnutrition History of Present Illness History of Present Illness 09/10/19 Pt seen and examined with present. Pt was alert and oriented after colonoscopy this a.m. Discussed with GI, who said colonoscopy was suggestive of Crohn's, or possibly infectious. Awaiting pathology. Hemoglobin up today (8.2 g/dL, 09/10/19 a.m.). Will continue to check. [id number] Patient seen and examined with her present Discussed with RN at length Tagged red blood cell scan was positive Hemoglobin is down into the sixes again We'll transfuse 2 units of packed red blood cells and await further surgical and GI input 09/08/2019 Pt was seen and examined. Reports 2 bloody BMs this morning. Reports she had her right knee injected, and will have the left one injected later today or tomorrow. Reports relief of R Knee pain after injection. Reports anxiety and was asking for some Valium on interview. 09/07/2018 VTE Prophylaxis Ordered VTE Prophylaxis Devices: Contraindicated VTE Pharmacological Prophylaxi: Contraindicated Assessment/Plan Assessment/Plan NEw SVT with hypotension hematochezia Mild distal esophageal wall thickening, could be of acute or chronic etiology. HYpokalemia, critical - replace BONITA -creat 4.0- ///acute tubular necrosis cr down to 1.[address] , No evidence of hydronephrosis. ?ischemic colitis renal consult AGAp acidosis, contraction alkalosis - AGAP 25 with high bicarb SIRS - no source - elev lactate 13.,1 Septic shock (hypotensive) LEukocytosis - WBC 23 - kovacs cx, ID Incidental kidney cysts - per CT Old Thoracic fx - she denies knowledge and back pain adrenal adenoma Leucocytosis and lactic acidosis source GI severe protein-caloric malnutrition PLAN: ICU bed, AMio gtt levophed prn bp control NS IVF for AGAP follow mag, tsh, calcium Replace k orally EMpiric abx - ID consult., cont zosyn avoid nephrotoxins COnsult ID, renal and cards HOld losartan (creat 4) resume ferrous sulfate gi following, TRY CLEAR LIQUIDS CONSIDER egd, colonoscopy nephrology FOLLOWING transfuse prn follow lytes FUll code cc 35 MIN Vitals/I&O Vitals/I&O: Vital Signs Date Time Temp Pulse Resp B/P (MAP) Pulse Ox O2 Delivery O2 Flow Rate FiO2 09/10/19 11:03 97.6 80 20 145/89 99 Room Air 97.6 09/10/19 10:38 2 I & O 09/09/19 09/09/19 09/10/19 15:00 23:00 07:00 Intake Total 1050 ml 350 ml Output Total 250 ml 0 ml Balance 800 ml 350 ml Physical Exam Physical Exam: GENERAL: Alert, oriented x3 female, lying in bed after colonoscopy, in no acute distress HEENT: Normocephalic, atraumatic; anicteric; oral mucosa moist. LUNGS: Clear bilaterally. No wheezing. HEART: S1, S2. No gallops or murmurs. ABDOMEN: no rebound, no guarding. EXTREMITIES: No edema, no cyanosis. DERMATOLOGIC: Warm, dry, no generalized rash. NEUROLOGIC: Alert and oriented x3 General: Alert, Oriented X3, Cooperative, No acute distress Heart: Regular rate, Normal S1, Normal S2, No murmurs Lungs: Clear Abdomen: Soft, No tenderness, Other (pt was seen just minutes post-colonoscopy) Extremities: No clubbing, No cyanosis, No edema, Other (Right knee with clean and intact bandaging.) Skin: No rashes, No breakdown Labs Labs: Laboratory Tests Test 09/09/19 19:45 09/10/19 04:00 White Blood Count 33.2 x10^3/uL (4.0-11.0) 32.5 x10^3/uL (4.0-11.0) Red Blood Count 3.67 x10^6/uL (3.50-5.40) 2.93 x10^6/uL (3.50-5.40) Hemoglobin 10.1 g/dL (12.0-15.5) 8.2 g/dL (12.0-15.5) Hematocrit 30.8 % (36.0-47.0) 24.6 % (36.0-47.0) Mean Corpuscular Volume 84 fL (79-100) 84 fL (79-100) Mean Corpuscular Hemoglobin 28 pg (25-35) 28 pg (25-35) Mean Corpuscular Hemoglobin Concent 33 g/dL (31-37) 33 g/dL (31-37) Red Cell Distribution Width 14.5 % (11.5-14.5) 14.7 % (11.5-14.5) Platelet Count 383 x10^3/uL (140-400) 393 x10^3/uL (140-400) Neutrophils (%) (Auto) 85 % (31-73) Lymphocytes (%) (Auto) 10 % (24-48) Monocytes (%) (Auto) 5 % (0-9) Eosinophils (%) (Auto) 0 % (0-3) Basophils (%) (Auto) 0 % (0-3) Neutrophils # (Auto) 27.7 x10^3/uL (1.8-7.7) Lymphocytes # (Auto) 3.2 x10^3/uL (1.0-4.8) Monocytes # (Auto) 1.6 x10^3/uL (0.0-1.1) Eosinophils # (Auto) 0.0 x10^3/uL (0.0-0.7) Basophils # (Auto) 0.0 x10^3/uL (0.0-0.2) Sodium Level 141 mmol/L (136-145) Potassium Level 3.1 mmol/L (3.5-5.1) Chloride Level 110 mmol/L (98-107) Carbon Dioxide Level 20 mmol/L (21-32) Anion Gap 11 (6-14) Blood Urea Nitrogen 18 mg/dL (7-20) Creatinine 1.3 mg/dL (0.6-1.0) Estimated GFR (Cockcroft-Gault) 50.4 BUN/Creatinine Ratio 14 (6-20) Glucose Level 215 mg/dL (70-99) Calcium Level 8.1 mg/dL (8.5-10.1) Total Bilirubin 0.2 mg/dL (0.2-1.0) Aspartate Amino Transf (AST/SGOT) 17 U/L (15-37) Alanine Aminotransferase (ALT/SGPT) 23 U/L (14-59) Alkaline Phosphatase 118 U/L (46-116) Total Protein 5.7 g/dL (6.4-8.2) Albumin 1.7 g/dL (3.4-5.0) Albumin/Globulin Ratio 0.4 (1.0-1.7) Review of Systems Review of Systems: No chest pain No shortness of breath Assessment and Plan Assessmemt and Plan Problems Medical Problems: (1) BONITA (acute kidney injury) Status: Acute (2) Rectal bleed Status: Acute (3) Septic shock Status: Acute Septic shock (hypotensive) hematochezia New SVT with hypotension Hypokalemia BONITA -creat 4.0- ///acute tubular necrosis ischemic colitis AGAP acidosis, contraction alkalosis SIRS Leukocytosis Incidental kidney cysts Old Thoracic fx adrenal adenoma Leucocytosis and lactic acidosis source GI severe protein-caloric malnutrition Plan: Had colonoscopy/EGD today - per GI, suggestive of Crohn's though possibly infectious Await pathology from colonoscopy biopsy(s), if applicable. Await further recommendations from GI, ID, and nephrology. Trend hemoglobin - was 8.2 g/dL, 09/10/19 a.m. Continue to monitor for bloody BMs Continue clear diet Continue Zosyn per ID Continue Prozac 20 by mouth daily, Valium for breakthrough anxiety Full code DVT prophylaxis PT/OT Comment Review of Relevant I have reviewed the following items diane (where applicable) has been applied. Medications: Current Medications Medications (Trade) Dose Ordered Sig/Florecita Route PRN Reason Start Time Stop Time Status Last Admin Dose Admin Polyethylene Glycol (miraLAX Powder BULK BOTTLE) 238 gm 1X ONCE PO 09/09/19 16:30 09/09/19 16:31 DC 09/09/19 16:11 Bisacodyl (Dulcolax Tab) 10 mg 1X ONCE PO 09/09/19 14:00 09/09/19 14:01 DC 09/09/19 13:55 Amlodipine Besylate (Norvasc) 10 mg 1X ONCE PO 09/09/19 16:30 09/09/19 16:31 DC 09/09/19 16:11 LÁZARO CALLE III DO Sep 10, 2019 11:58
[2019-09-10 12:00] VITALS: BP 145/86
--- NOTE | 2019-09-10 13:51 | PDOC ---
SURGICAL PROGRESS NOTE Subjective Pt sleeping after procedure, d/w pt's Vital Signs Vital Signs Date Time Temp Pulse Resp B/P (MAP) Pulse Ox O2 Delivery O2 Flow Rate FiO2 09/10/19 12:00 97.3 82 22 145/86 (105) 99 Room Air 97.3 09/10/19 10:38 2 I&O Intake and Output 09/10/19 07:00 Intake Total 1400 ml Output Total 250 ml Balance 1150 ml Intake Oral 0 ml Blood Product IV Normal Saline Flush 1400 ml Output Urine Total 250 ml Bladder Scan Volume Amount # Bowel Movements 3 General: No acute distress Labs Laboratory Tests Test 09/08/19 18:50 09/09/19 07:35 09/09/19 19:45 09/10/19 04:00 Hemoglobin 7.1 g/dL (12.0-15.5) 6.6 g/dL (12.0-15.5) 10.1 g/dL (12.0-15.5) 8.2 g/dL (12.0-15.5) Hematocrit 22.1 % (36.0-47.0) 20.6 % (36.0-47.0) 30.8 % (36.0-47.0) 24.6 % (36.0-47.0) Mean Corpuscular Hemoglobin Concent 32 g/dL (31-37) 32 g/dL (31-37) 33 g/dL (31-37) 33 g/dL (31-37) White Blood Count 26.6 x10^3/uL (4.0-11.0) 33.2 x10^3/uL (4.0-11.0) 32.5 x10^3/uL (4.0-11.0) Red Blood Count 2.48 x10^6/uL (3.50-5.40) 3.67 x10^6/uL (3.50-5.40) 2.93 x10^6/uL (3.50-5.40) Mean Corpuscular Volume 83 fL (79-100) 84 fL (79-100) 84 fL (79-100) Mean Corpuscular Hemoglobin 27 pg (25-35) 28 pg (25-35) 28 pg (25-35) Red Cell Distribution Width 15.3 % (11.5-14.5) 14.5 % (11.5-14.5) 14.7 % (11.5-14.5) Platelet Count 363 x10^3/uL (140-400) 383 x10^3/uL (140-400) 393 x10^3/uL (140-400) Neutrophils (%) (Auto) 91 % (31-73) 85 % (31-73) Lymphocytes (%) (Auto) 6 % (24-48) 10 % (24-48) Monocytes (%) (Auto) 3 % (0-9) 5 % (0-9) Eosinophils (%) (Auto) 0 % (0-3) 0 % (0-3) Basophils (%) (Auto) 0 % (0-3) 0 % (0-3) Neutrophils # (Auto) 24.3 x10^3/uL (1.8-7.7) 27.7 x10^3/uL (1.8-7.7) Lymphocytes # (Auto) 1.6 x10^3/uL (1.0-4.8) 3.2 x10^3/uL (1.0-4.8) Monocytes # (Auto) 0.7 x10^3/uL (0.0-1.1) 1.6 x10^3/uL (0.0-1.1) Eosinophils # (Auto) 0.0 x10^3/uL (0.0-0.7) 0.0 x10^3/uL (0.0-0.7) Basophils # (Auto) 0.0 x10^3/uL (0.0-0.2) 0.0 x10^3/uL (0.0-0.2) Sodium Level 145 mmol/L (136-145) 141 mmol/L (136-145) Potassium Level 3.4 mmol/L (3.5-5.1) 3.1 mmol/L (3.5-5.1) Chloride Level 114 mmol/L (98-107) 110 mmol/L (98-107) Carbon Dioxide Level 22 mmol/L (21-32) 20 mmol/L (21-32) Anion Gap 9 (6-14) 11 (6-14) Blood Urea Nitrogen 18 mg/dL (7-20) 18 mg/dL (7-20) Creatinine 1.3 mg/dL (0.6-1.0) 1.3 mg/dL (0.6-1.0) Estimated GFR (Cockcroft-Gault) 50.4 50.4 BUN/Creatinine Ratio 14 (6-20) 14 (6-20) Glucose Level 161 mg/dL (70-99) 215 mg/dL (70-99) Calcium Level 8.1 mg/dL (8.5-10.1) 8.1 mg/dL (8.5-10.1) Total Bilirubin 0.2 mg/dL (0.2-1.0) 0.2 mg/dL (0.2-1.0) Aspartate Amino Transf (AST/SGOT) 17 U/L (15-37) 17 U/L (15-37) Alanine Aminotransferase (ALT/SGPT) 21 U/L (14-59) 23 U/L (14-59) Alkaline Phosphatase 137 U/L (46-116) 118 U/L (46-116) Total Protein 6.0 g/dL (6.4-8.2) 5.7 g/dL (6.4-8.2) Albumin 1.6 g/dL (3.4-5.0) 1.7 g/dL (3.4-5.0) Albumin/Globulin Ratio 0.4 (1.0-1.7) 0.4 (1.0-1.7) Laboratory Tests Test 09/09/19 19:45 09/10/19 04:00 White Blood Count 33.2 x10^3/uL (4.0-11.0) 32.5 x10^3/uL (4.0-11.0) Red Blood Count 3.67 x10^6/uL (3.50-5.40) 2.93 x10^6/uL (3.50-5.40) Hemoglobin 10.1 g/dL (12.0-15.5) 8.2 g/dL (12.0-15.5) Hematocrit 30.8 % (36.0-47.0) 24.6 % (36.0-47.0) Mean Corpuscular Volume 84 fL (79-100) 84 fL (79-100) Mean Corpuscular Hemoglobin 28 pg (25-35) 28 pg (25-35) Mean Corpuscular Hemoglobin Concent 33 g/dL (31-37) 33 g/dL (31-37) Red Cell Distribution Width 14.5 % (11.5-14.5) 14.7 % (11.5-14.5) Platelet Count 383 x10^3/uL (140-400) 393 x10^3/uL (140-400) Neutrophils (%) (Auto) 85 % (31-73) Lymphocytes (%) (Auto) 10 % (24-48) Monocytes (%) (Auto) 5 % (0-9) Eosinophils (%) (Auto) 0 % (0-3) Basophils (%) (Auto) 0 % (0-3) Neutrophils # (Auto) 27.7 x10^3/uL (1.8-7.7) Lymphocytes # (Auto) 3.2 x10^3/uL (1.0-4.8) Monocytes # (Auto) 1.6 x10^3/uL (0.0-1.1) Eosinophils # (Auto) 0.0 x10^3/uL (0.0-0.7) Basophils # (Auto) 0.0 x10^3/uL (0.0-0.2) Sodium Level 141 mmol/L (136-145) Potassium Level 3.1 mmol/L (3.5-5.1) Chloride Level 110 mmol/L (98-107) Carbon Dioxide Level 20 mmol/L (21-32) Anion Gap 11 (6-14) Blood Urea Nitrogen 18 mg/dL (7-20) Creatinine 1.3 mg/dL (0.6-1.0) Estimated GFR (Cockcroft-Gault) 50.4 BUN/Creatinine Ratio 14 (6-20) Glucose Level 215 mg/dL (70-99) Calcium Level 8.1 mg/dL (8.5-10.1) Total Bilirubin 0.2 mg/dL (0.2-1.0) Aspartate Amino Transf (AST/SGOT) 17 U/L (15-37) Alanine Aminotransferase (ALT/SGPT) 23 U/L (14-59) Alkaline Phosphatase 118 U/L (46-116) Total Protein 5.7 g/dL (6.4-8.2) Albumin 1.7 g/dL (3.4-5.0) Albumin/Globulin Ratio 0.4 (1.0-1.7) Problem List Problems Medical Problems: (1) BONITA (acute kidney injury) Status: Acute (2) Rectal bleed Status: Acute (3) Septic shock Status: Acute Assessment/Plan rectal bleeding endoscopy suggestive of crohn's cont w/u per GI no current surgical plans. FRANCES ALVA MD Sep 10, 2019 13:50
--- NOTE | 2019-09-10 14:49 | NUR ---
Assumed care of patient. Will continue to monitor and care for according to poc.
[2019-09-10 15:00] VITALS: BP 135/78
[2019-09-10] MEDS ORDERED: ONDANSETRON ODT 4 MG TAB.RAPDIS. PO PRN (16:45)
[2019-09-10 19:39] VITALS: BP 135/84
[2019-09-10] MEDS: CALCIUM CARBONATE 500 MG TAB.CHEW PO PRN (20:12)
[2019-09-10 23:10] VITALS: BP 127/77
[2019-09-11] VITALS (12 sets, daily range): BP systolic 118–139; BP diastolic 70–86
[2019-09-11] MEDS: IV DEXTROSE 5% 1,000 ML IV SCH ×2 (05:56→22:10)
[2019-09-11 08:03] LABS: BASO % 0 % (0-3); EOS # 0.1 x10^3/uL (0.0-0.7); EOS % 1 % (0-3); LYMPH # 3.7 x10^3/uL (1.0-4.8); LYMPH % 14 % (24-48); MEAN CORPUSCULAR HEMOGLOBIN 28 pg (25-35); MEAN CORPUSCULAR HGB CONC 33 g/dL (31-37); MEAN CORPUSCULAR VOLUME 85 fL (79-100); MONO # 1.3 x10^3/uL (0.0-1.1); MONO % 5 % (0-9); NEUT # 20.8 x10^3/uL (1.8-7.7); NEUT % 80 % (31-73); PLATELET COUNT 328 x10^3/uL (140-400); RED BLOOD COUNT 2.38 x10^6/uL (3.50-5.40); WHITE BLOOD COUNT 25.9 x10^3/uL (4.0-11.0)
[2019-09-11 08:08] LABS: HEMATOCRIT 20.1 % (36.0-47.0); HEMOGLOBIN 6.5 g/dL (12.0-15.5)
[2019-09-11 08:09] LABS: ALBUMIN 1.6 g/dL (3.4-5.0); ALBUMIN/GLOBULIN RATIO 0.5 (1.0-1.7); CALCIUM 7.7 mg/dL (8.5-10.1); CREATININE 1.2 mg/dL (0.6-1.0); GFR 55.3; TOTAL BILIRUBIN 0.2 mg/dL (0.2-1.0); TOTAL PROTEIN 4.9 g/dL (6.4-8.2)
[2019-09-11 08:25] LABS: POTASSIUM 2.9 mmol/L (3.5-5.1)
[2019-09-11] MEDS ORDERED: POTASSIUM CHLORIDE 20 MEQ TABLET.ER. PO ONE (08:30)
[2019-09-11] MEDS: PANTOPRAZOLE 40 MG TABLET.DR. PO SCH (08:50)
[2019-09-11] MEDS: FERROUS SULFATE 325 MG TABLET. PO SCH (08:51)
[2019-09-11] MEDS: FLUoxetine HCL 20 MG CAPSULE PO SCH (08:51)
[2019-09-11] MEDS: amLODIPine BESYLATE 10 MG TABLET PO SCH (08:51)
--- NOTE | 2019-09-11 08:59 | PDOC ---
GERONIMO CURRAN [facility]ER 09/11/19 0859: SURGICAL PROGRESS NOTE Subjective feeling blessed tolerating diet Vital Signs Vital Signs Date Time Temp Pulse Resp B/P (MAP) Pulse Ox O2 Delivery O2 Flow Rate FiO2 09/11/19 08:51 89 124/73 09/11/19 07:32 98.7 20 100 Room Air 98.7 09/10/19 10:38 2 I&O Intake and Output 09/11/19 07:00 Intake Total 280 ml Balance 280 ml Intake Oral 280 ml # Voids 3 # Bowel Movements 2 General: Alert, Cooperative Abdomen: Soft, No tenderness Labs Laboratory Tests Test 09/09/19 19:45 09/10/19 04:00 09/11/19 07:35 White Blood Count 33.2 x10^3/uL (4.0-11.0) 32.5 x10^3/uL (4.0-11.0) 25.9 x10^3/uL (4.0-11.0) Red Blood Count 3.67 x10^6/uL (3.50-5.40) 2.93 x10^6/uL (3.50-5.40) 2.38 x10^6/uL (3.50-5.40) Hemoglobin 10.1 g/dL (12.0-15.5) 8.2 g/dL (12.0-15.5) 6.5 g/dL (12.0-15.5) Hematocrit 30.8 % (36.0-47.0) 24.6 % (36.0-47.0) 20.1 % (36.0-47.0) Mean Corpuscular Volume 84 fL (79-100) 84 fL (79-100) 85 fL (79-100) Mean Corpuscular Hemoglobin 28 pg (25-35) 28 pg (25-35) 28 pg (25-35) Mean Corpuscular Hemoglobin Concent 33 g/dL (31-37) 33 g/dL (31-37) 33 g/dL (31-37) Red Cell Distribution Width 14.5 % (11.5-14.5) 14.7 % (11.5-14.5) 15.0 % (11.5-14.5) Platelet Count 383 x10^3/uL (140-400) 393 x10^3/uL (140-400) 328 x10^3/uL (140-400) Neutrophils (%) (Auto) 85 % (31-73) 80 % (31-73) Lymphocytes (%) (Auto) 10 % (24-48) 14 % (24-48) Monocytes (%) (Auto) 5 % (0-9) 5 % (0-9) Eosinophils (%) (Auto) 0 % (0-3) 1 % (0-3) Basophils (%) (Auto) 0 % (0-3) 0 % (0-3) Neutrophils # (Auto) 27.7 x10^3/uL (1.8-7.7) 20.8 x10^3/uL (1.8-7.7) Lymphocytes # (Auto) 3.2 x10^3/uL (1.0-4.8) 3.7 x10^3/uL (1.0-4.8) Monocytes # (Auto) 1.6 x10^3/uL (0.0-1.1) 1.3 x10^3/uL (0.0-1.1) Eosinophils # (Auto) 0.0 x10^3/uL (0.0-0.7) 0.1 x10^3/uL (0.0-0.7) Basophils # (Auto) 0.0 x10^3/uL (0.0-0.2) 0.0 x10^3/uL (0.0-0.2) Sodium Level 141 mmol/L (136-145) 141 mmol/L (136-145) Potassium Level 3.1 mmol/L (3.5-5.1) 2.9 mmol/L (3.5-5.1) Chloride Level 110 mmol/L (98-107) 108 mmol/L (98-107) Carbon Dioxide Level 20 mmol/L (21-32) 26 mmol/L (21-32) Anion Gap 11 (6-14) 7 (6-14) Blood Urea Nitrogen 18 mg/dL (7-20) 15 mg/dL (7-20) Creatinine 1.3 mg/dL (0.6-1.0) 1.2 mg/dL (0.6-1.0) Estimated GFR (Cockcroft-Gault) 50.4 55.3 BUN/Creatinine Ratio 14 (6-20) 13 (6-20) Glucose Level 215 mg/dL (70-99) 124 mg/dL (70-99) Calcium Level 8.1 mg/dL (8.5-10.1) 7.7 mg/dL (8.5-10.1) Total Bilirubin 0.2 mg/dL (0.2-1.0) 0.2 mg/dL (0.2-1.0) Aspartate Amino Transf (AST/SGOT) 17 U/L (15-37) 12 U/L (15-37) Alanine Aminotransferase (ALT/SGPT) 23 U/L (14-59) 18 U/L (14-59) Alkaline Phosphatase 118 U/L (46-116) 86 U/L (46-116) C-Reactive Protein, Quantitative 8.9 mg/L (0-3.3) Total Protein 5.7 g/dL (6.4-8.2) 4.9 g/dL (6.4-8.2) Albumin 1.7 g/dL (3.4-5.0) 1.6 g/dL (3.4-5.0) Albumin/Globulin Ratio 0.4 (1.0-1.7) 0.5 (1.0-1.7) Laboratory Tests Test 09/11/19 07:35 White Blood Count 25.9 x10^3/uL (4.0-11.0) Red Blood Count 2.38 x10^6/uL (3.50-5.40) Hemoglobin 6.5 g/dL (12.0-15.5) Hematocrit 20.1 % (36.0-47.0) Mean Corpuscular Volume 85 fL (79-100) Mean Corpuscular Hemoglobin 28 pg (25-35) Mean Corpuscular Hemoglobin Concent 33 g/dL (31-37) Red Cell Distribution Width 15.0 % (11.5-14.5) Platelet Count 328 x10^3/uL (140-400) Neutrophils (%) (Auto) 80 % (31-73) Lymphocytes (%) (Auto) 14 % (24-48) Monocytes (%) (Auto) 5 % (0-9) Eosinophils (%) (Auto) 1 % (0-3) Basophils (%) (Auto) 0 % (0-3) Neutrophils # (Auto) 20.8 x10^3/uL (1.8-7.7) Lymphocytes # (Auto) 3.7 x10^3/uL (1.0-4.8) Monocytes # (Auto) 1.3 x10^3/uL (0.0-1.1) Eosinophils # (Auto) 0.1 x10^3/uL (0.0-0.7) Basophils # (Auto) 0.0 x10^3/uL (0.0-0.2) Sodium Level 141 mmol/L (136-145) Potassium Level 2.9 mmol/L (3.5-5.1) Chloride Level 108 mmol/L (98-107) Carbon Dioxide Level 26 mmol/L (21-32) Anion Gap 7 (6-14) Blood Urea Nitrogen 15 mg/dL (7-20) Creatinine 1.2 mg/dL (0.6-1.0) Estimated GFR (Cockcroft-Gault) 55.3 BUN/Creatinine Ratio 13 (6-20) Glucose Level 124 mg/dL (70-99) Calcium Level 7.7 mg/dL (8.5-10.1) Total Bilirubin 0.2 mg/dL (0.2-1.0) Aspartate Amino Transf (AST/SGOT) 12 U/L (15-37) Alanine Aminotransferase (ALT/SGPT) 18 U/L (14-59) Alkaline Phosphatase 86 U/L (46-116) Total Protein 4.9 g/dL (6.4-8.2) Albumin 1.6 g/dL (3.4-5.0) Albumin/Globulin Ratio 0.5 (1.0-1.7) Problem List Problems Medical Problems: (1) BONITA (acute kidney injury) Status: Acute (2) Rectal bleed Status: Acute (3) Septic shock Status: Acute Assessment/Plan concerns for crohns, bx pending as per FRANCES MAO MD 09/11/19 1412: SURGICAL PROGRESS NOTE Assessment/Plan Pt seen and examined. Agree with Ms. Curran's note Pt without c/o, radha diet, denies pain abd soft, ND, NTTP cont w/u and care per GERONIMO CARY APRN Sep 11, 2019 08:59 FRANCES ALVA MD Sep 11, 2019 14:12
--- NOTE | 2019-09-11 09:25 | PDOC ---
PROGRESS NOTES Subjective Subjective No new complaints. Objective Objective Vital Signs Date Time Temp Pulse Resp B/P (MAP) Pulse Ox O2 Delivery O2 Flow Rate FiO2 09/11/19 08:51 89 124/73 09/11/19 08:00 Room Air 09/11/19 07:32 98.7 20 100 98.7 09/10/19 10:38 2 Intake and Output 09/11/19 07:00 Intake Total 280 ml Balance 280 ml Intake Oral 280 ml # Voids 3 # Bowel Movements 2 Physical Exam Physical Exam She is alert,and she got up and walked at bedside with a roller walker,which made her heart rate elevated and she denies any chest pain or SOB but felt heaviness in her legs. No calf tenderness noted. 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 Assessment Assessment Problems Medical Problems: (1) BONITA (acute kidney injury) Status: Acute (2) Rectal bleed Status: Acute (3) Septic shock Status: Acute Plan Plan of Care Agree with plans. Comment Review of Relevant I have reviewed the following items diane (where applicable) has been applied. Labs Laboratory Tests Test 09/09/19 19:45 09/10/19 04:00 09/11/19 07:35 White Blood Count 33.2 x10^3/uL (4.0-11.0) 32.5 x10^3/uL (4.0-11.0) 25.9 x10^3/uL (4.0-11.0) Red Blood Count 3.67 x10^6/uL (3.50-5.40) 2.93 x10^6/uL (3.50-5.40) 2.38 x10^6/uL (3.50-5.40) Hemoglobin 10.1 g/dL (12.0-15.5) 8.2 g/dL (12.0-15.5) 6.5 g/dL (12.0-15.5) Hematocrit 30.8 % (36.0-47.0) 24.6 % (36.0-47.0) 20.1 % (36.0-47.0) Mean Corpuscular Volume 84 fL (79-100) 84 fL (79-100) 85 fL (79-100) Mean Corpuscular Hemoglobin 28 pg (25-35) 28 pg (25-35) 28 pg (25-35) Mean Corpuscular Hemoglobin Concent 33 g/dL (31-37) 33 g/dL (31-37) 33 g/dL (31-37) Red Cell Distribution Width 14.5 % (11.5-14.5) 14.7 % (11.5-14.5) 15.0 % (11.5-14.5) Platelet Count 383 x10^3/uL (140-400) 393 x10^3/uL (140-400) 328 x10^3/uL (140-400) Neutrophils (%) (Auto) 85 % (31-73) 80 % (31-73) Lymphocytes (%) (Auto) 10 % (24-48) 14 % (24-48) Monocytes (%) (Auto) 5 % (0-9) 5 % (0-9) Eosinophils (%) (Auto) 0 % (0-3) 1 % (0-3) Basophils (%) (Auto) 0 % (0-3) 0 % (0-3) Neutrophils # (Auto) 27.7 x10^3/uL (1.8-7.7) 20.8 x10^3/uL (1.8-7.7) Lymphocytes # (Auto) 3.2 x10^3/uL (1.0-4.8) 3.7 x10^3/uL (1.0-4.8) Monocytes # (Auto) 1.6 x10^3/uL (0.0-1.1) 1.3 x10^3/uL (0.0-1.1) Eosinophils # (Auto) 0.0 x10^3/uL (0.0-0.7) 0.1 x10^3/uL (0.0-0.7) Basophils # (Auto) 0.0 x10^3/uL (0.0-0.2) 0.0 x10^3/uL (0.0-0.2) Sodium Level 141 mmol/L (136-145) 141 mmol/L (136-145) Potassium Level 3.1 mmol/L (3.5-5.1) 2.9 mmol/L (3.5-5.1) Chloride Level 110 mmol/L (98-107) 108 mmol/L (98-107) Carbon Dioxide Level 20 mmol/L (21-32) 26 mmol/L (21-32) Anion Gap 11 (6-14) 7 (6-14) Blood Urea Nitrogen 18 mg/dL (7-20) 15 mg/dL (7-20) Creatinine 1.3 mg/dL (0.6-1.0) 1.2 mg/dL (0.6-1.0) Estimated GFR (Cockcroft-Gault) 50.4 55.3 BUN/Creatinine Ratio 14 (6-20) 13 (6-20) Glucose Level 215 mg/dL (70-99) 124 mg/dL (70-99) Calcium Level 8.1 mg/dL (8.5-10.1) 7.7 mg/dL (8.5-10.1) Total Bilirubin 0.2 mg/dL (0.2-1.0) 0.2 mg/dL (0.2-1.0) Aspartate Amino Transf (AST/SGOT) 17 U/L (15-37) 12 U/L (15-37) Alanine Aminotransferase (ALT/SGPT) 23 U/L (14-59) 18 U/L (14-59) Alkaline Phosphatase 118 U/L (46-116) 86 U/L (46-116) C-Reactive Protein, Quantitative 8.9 mg/L (0-3.3) Total Protein 5.7 g/dL (6.4-8.2) 4.9 g/dL (6.4-8.2) Albumin 1.7 g/dL (3.4-5.0) 1.6 g/dL (3.4-5.0) Albumin/Globulin Ratio 0.4 (1.0-1.7) 0.5 (1.0-1.7) Laboratory Tests Test 09/11/19 07:35 White Blood Count 25.9 x10^3/uL (4.0-11.0) Red Blood Count 2.38 x10^6/uL (3.50-5.40) Hemoglobin 6.5 g/dL (12.0-15.5) Hematocrit 20.1 % (36.0-47.0) Mean Corpuscular Volume 85 fL (79-100) Mean Corpuscular Hemoglobin 28 pg (25-35) Mean Corpuscular Hemoglobin Concent 33 g/dL (31-37) Red Cell Distribution Width 15.0 % (11.5-14.5) Platelet Count 328 x10^3/uL (140-400) Neutrophils (%) (Auto) 80 % (31-73) Lymphocytes (%) (Auto) 14 % (24-48) Monocytes (%) (Auto) 5 % (0-9) Eosinophils (%) (Auto) 1 % (0-3) Basophils (%) (Auto) 0 % (0-3) Neutrophils # (Auto) 20.8 x10^3/uL (1.8-7.7) Lymphocytes # (Auto) 3.7 x10^3/uL (1.0-4.8) Monocytes # (Auto) 1.3 x10^3/uL (0.0-1.1) Eosinophils # (Auto) 0.1 x10^3/uL (0.0-0.7) Basophils # (Auto) 0.0 x10^3/uL (0.0-0.2) Sodium Level 141 mmol/L (136-145) Potassium Level 2.9 mmol/L (3.5-5.1) Chloride Level 108 mmol/L (98-107) Carbon Dioxide Level 26 mmol/L (21-32) Anion Gap 7 (6-14) Blood Urea Nitrogen 15 mg/dL (7-20) Creatinine 1.2 mg/dL (0.6-1.0) Estimated GFR (Cockcroft-Gault) 55.3 BUN/Creatinine Ratio 13 (6-20) Glucose Level 124 mg/dL (70-99) Calcium Level 7.7 mg/dL (8.5-10.1) Total Bilirubin 0.2 mg/dL (0.2-1.0) Aspartate Amino Transf (AST/SGOT) 12 U/L (15-37) Alanine Aminotransferase (ALT/SGPT) 18 U/L (14-59) Alkaline Phosphatase 86 U/L (46-116) Total Protein 4.9 g/dL (6.4-8.2) Albumin 1.6 g/dL (3.4-5.0) Albumin/Globulin Ratio 0.5 (1.0-1.7) Microbiology 09/05/19 Blood Culture - Final, Complete NO GROWTH AFTER 5 DAYS Medications Current Medications Sodium Chloride 1,000 ml @ 1,000 mls/hr 1X ONCE IV Last administered on 09/05/19at 11:30; Start 09/05/19 at 11:30; Stop 09/05/19 at 12:29; Status DC Potassium Chloride/Water 100 ml @ 100 mls/hr Q1H IV Last administered on 09/05/19at 14:55; Start 09/05/19 at 12:00; Stop 09/05/19 at 13:59; Status DC Adenosine (Adenocard) 6 mg STK-MED ONCE IV ; Start 09/05/19 at 12:20; Stop 09/05/19 at 12:21; Status DC Adenosine (Adenocard) 6 mg STK-MED ONCE IV ; Start 09/05/19 at 12:33; Stop 09/05/19 at 12:33; Status DC Sodium Chloride (Normal Saline Flush) 10 ml QSHIFT PRN IV AFTER MEDS AND BLOOD DRAWS; Start 09/05/19 at 13:00 Sodium Chloride 1,000 ml @ 1,500 mls/hr Q40M IV Last administered on 09/05/19at 12:38; Start 09/05/19 at 12:50; Stop 09/05/19 at 13:49; Status DC Piperacillin Sod/ Tazobactam Sod 4.5 gm/Sodium Chloride 100 ml @ 200 mls/hr 1X ONCE IV ; Start 09/05/19 at 13:00; Stop 09/05/19 at 13:07; Status DC Vancomycin HCl (Vanco Per Pharmacy) 1 each 1X ONCE MC ; Start 09/05/19 at 13:00; Stop 09/05/19 at 13:08; Status DC Norepinephrine Bitartrate 250 ml @ 0 mls/hr CONT PRN IV PER PROTOCOL; Start 09/05/19 at 13:00; Stop 09/08/19 at 13:36; Status DC Adenosine (Adenocard) 6 mg 1X ONCE IV Last administered on 09/05/19at 12:37; Start 09/05/19 at 13:15; Stop 09/05/19 at 13:16; Status DC Piperacillin Sod/ Tazobactam Sod 2.25 gm/Sodium Chloride 50 ml @ 100 mls/hr 1X ONCE IV Last administered on 09/05/19at 13:29; Start 09/05/19 at 13:15; Stop 09/05/19 at 13:44; Status DC Vancomycin HCl 1.5 gm/Sodium Chloride 500 ml @ 250 mls/hr 1X ONCE IV Last administered on 09/05/19at 14:55; Start 09/05/19 at 13:15; Stop 09/05/19 at 15:14; Status DC Amiodarone HCl 900 mg/Dextrose 518 ml @ 0 mls/hr CONT PRN IV SEE I/O RECORD; Start 09/05/19 at 13:30; Stop 09/09/19 at 14:43; Status DC Sodium Chloride 1,000 ml @ 100 mls/hr Q10H IV Last administered on 09/07/19at 04:13; Start 09/05/19 at 13:30; Stop 09/07/19 at 11:22; Status DC Acetaminophen/ Codeine Phosphate (Tylenol #3) 1 tab PRN Q6HRS PRN PO PAIN MILD TO MOD; Start 09/05/19 at 13:30 Ondansetron HCl (Zofran) 4 mg PRN Q6HRS PRN IVP NAUSEA/VOMITING Last administered on 09/10/19at 16:17; Start 09/05/19 at 13:30 Ferrous Sulfate (Feosol) 325 mg DAILYWBKFT PO Last administered on 09/11/19at 08:51; Start 09/06/19 at 08:00 Diphenhydramine HCl (Benadryl) 25 mg PRN QHS PRN PO INSOMNIA; Start 09/05/19 at 13:45 Pantoprazole Sodium (Protonix) 40 mg DAILYAC PO ; Start 09/06/19 at 07:30; Stop 09/05/19 at 14:33; Status DC Morphine Sulfate (Morphine Sulfate) 1 mg PRN Q2HR PRN IV PAIN Last administered on 09/07/19at 14:11; Start 09/05/19 at 13:45 Adenosine (Adenocard) 6 mg 1X ONCE IV Last administered on 09/05/19at 13:19; Start 09/05/19 at 13:19; Stop 09/05/19 at 13:49; Status DC Adenosine (Adenocard) 12 mg 1X ONCE IV Last administered on 09/05/19at 13:29; Start 09/05/19 at 13:29; Stop 09/05/19 at 13:49; Status DC Acetaminophen/ Hydrocodone Bitart (Lortab 5/325) 1 tab PRN Q4HRS PRN PO PAIN SEVERE; Start 09/05/19 at 14:00 Pantoprazole Sodium (PROTONIX VIAL for IV PUSH) 40 mg DAILY ONCE IVP Last administered on 09/06/19at 08:52; Start 09/06/19 at 07:30; Stop 09/06/19 at 07:31; Status DC Potassium Chloride (Klor-Con) 20 meq 1X ONCE PO Last administered on 09/05/19at 17:01; Start 09/05/19 at 15:45; Stop 09/05/19 at 15:46; Status DC Potassium Chloride/Water 100 ml @ 100 mls/hr Q1H IV Last administered on 09/05/19at 17:00; Start 09/05/19 at 16:00; Stop 09/05/19 at 17:59; Status DC Metoprolol Tartrate (Lopressor Vial) 5 mg PRN Q5MIN PRN IVP TACHYCARDIA; Start 09/05/19 at 16:15 Pantoprazole Sodium (PROTONIX VIAL for IV PUSH) 40 mg DAILYAC IVP Last administered on 09/07/19at 07:58; Start 09/06/19 at 07:30; Stop 09/07/19 at 11:54; Status DC Pantoprazole Sodium (PROTONIX VIAL for IV PUSH) 40 mg 1X ONCE IVP Last administered on 09/05/19at 17:00; Start 09/05/19 at 16:45; Stop 09/05/19 at 16:51; Status DC Calcium Carbonate/ Glycine (Tums) 500 mg STK-MED ONCE .ROUTE ; Start 09/05/19 at 17:13; Stop 09/05/19 at 17:13; Status DC Piperacillin Sod/ Tazobactam Sod 2.25 gm/Sodium Chloride 50 ml @ 100 mls/hr Q6HRS IV Last administered on 09/08/19at 13:30; Start 09/05/19 at 19:00; Stop 09/08/19 at 13:44; Status DC Phytonadione (Mephyton Oral Soln) 5 mg 1X ONCE PO Last administered on 09/06/19at 12:02; Start 09/06/19 at 12:00; Stop 09/06/19 at 12:01; Status DC Dextrose 1,000 ml @ 75 mls/hr [id number] IV Last administered on 09/11/19at 05:56; Start 09/07/19 at 11:30 Pantoprazole Sodium (Protonix) 40 mg DAILYAC PO Last administered on 09/11/19at 08:50; Start 09/08/19 at 07:30 Methylprednisolone Acetate (DEPO-Medrol 40MG VIAL) 40 mg 1X ONCE IM ; Start 09/07/19 at 15:30; Stop 09/07/19 at 15:31; Status DC Methylprednisolone Acetate (DEPO-Medrol 40MG VIAL) 40 mg 1X ONCE IM ; Start 09/07/19 at 15:30; Stop 09/07/19 at 15:31; Status DC Bupivacaine HCl (Sensorcaine-Mpf 0.25%) 10 ml 1X ONCE IJ ; Start 09/07/19 at 15:30; Stop 09/07/19 at 15:31; Status DC Heparin Sodium (Porcine) (HEPARIN for NUC MED) 100 unit 1X ONCE IV ; Start 09/08/19 at 07:00; Stop 09/08/19 at 07:01; Status DC Diazepam (Valium) 5 mg PRN Q8HRS PRN PO ANXIETY; Start 09/08/19 at 10:15 Methylprednisolone Acetate (DEPO-Medrol 40MG VIAL) 40 mg 1X ONCE IM ; Start 09/08/19 at 13:15; Stop 09/08/19 at 13:16; Status DC Bupivacaine HCl (Sensorcaine-Mpf 0.25%) 10 ml 1X ONCE IJ ; Start 09/08/19 at 13:15; Stop 09/08/19 at 13:16; Status DC Fluoxetine HCl (PROzac) 20 mg DAILY PO Last administered on 09/11/19at 08:51; Start 09/09/19 at 12:00 Polyethylene Glycol (miraLAX Powder BULK BOTTLE) 238 gm 1X ONCE PO Last administered on 09/09/19at 16:11; Start 09/09/19 at 16:30; Stop 09/09/19 at 16:31; Status DC Bisacodyl (Dulcolax Tab) 10 mg 1X ONCE PO Last administered on 09/09/19at 13:55; Start 09/09/19 at 14:00; Stop 09/09/19 at 14:01; Status DC Amlodipine Besylate (Norvasc) 10 mg DAILY PO Last administered on 09/11/19at 08:51; Start 09/10/19 at 09:00 Amlodipine Besylate (Norvasc) 10 mg 1X ONCE PO Last administered on 09/09/19at 16:11; Start 09/09/19 at 16:30; Stop 09/09/19 at 16:31; Status DC Ringer's Solution 1,000 ml @ 50 mls/hr Q20H IV ; Start 09/10/19 at 08:46; Stop 09/10/19 at 14:55; Status DC Propofol 20 ml @ As Directed STK-MED ONCE IV ; Start 09/10/19 at 09:57; Stop 09/10/19 at 09:57; Status DC Propofol 20 ml @ As Directed STK-MED ONCE IV ; Start 09/10/19 at 10:25; Stop 09/10/19 at 10:25; Status DC Ondansetron HCl (Zofran Odt) 4 mg PRN Q6HRS PRN PO NAUSEA/VOMITING Last administered on 09/10/19at 16:51; Start 09/10/19 at 16:45 Calcium Carbonate/ Glycine (Tums) 500 mg PRN AFTMEALHC PRN PO INDIGESTION Last administered on 09/10/19at 20:12; Start 09/10/19 at 19:45 Potassium Chloride (Klor-Con) 40 meq 1X ONCE PO Last administered on 09/11/19at 08:50; Start 09/11/19 at 08:30; Stop 09/11/19 at 08:31; Status DC Active Scripts Active Reported Ferralet 90 Dual-Iron Tablet (Iron, Carb & Gluc/Fa/B12/C/Dss) 1 Each Tablet 1 Tab PO DAILY Losartan-Hctz 50-12.5 Mg Tab (Losartan/Hydrochlorothiazide) 1 Each Tablet 1 Tab PO DAILY Vitals/I & O Vital Sign - Last 24 Hours 09/10/19 09/10/19 09/10/19 09/10/19 09:45 10:38 10:48 10:54 Temp 97.8 97.6 97.6 97.6 97.8 97.6 97.6 97.6 Pulse 82 88 88 84 Resp 20 20 20 20 B/P (MAP) 121/68 134/77 126/76 Pulse Ox 100 99 98 99 O2 Delivery Nasal Cannula Room Air Room Air O2 Flow Rate 2 09/10/19 09/10/19 09/10/19 09/10/19 11:03 12:00 15:00 19:39 Temp 97.6 97.3 98.4 98.1 97.6 97.3 98.4 98.1 Pulse 80 82 91 100 Resp 20 22 16 18 B/P (MAP) 145/89 145/86 (105) 135/78 (97) 135/84 (101) Pulse Ox 99 99 99 97 O2 Delivery Room Air Room Air Room Air Room Air 09/10/19 09/10/19 09/11/19 09/11/19 20:00 23:10 03:50 07:32 Temp 98.6 98.8 98.7 98.6 98.8 98.7 Pulse 91 87 89 Resp 20 20 20 B/P (MAP) 127/77 (94) 129/76 (93) 124/73 (90) Pulse Ox 97 99 100 O2 Delivery Room Air Room Air Room Air Room Air 09/11/19 09/11/19 08:00 08:51 Pulse 89 B/P (MAP) 124/73 O2 Delivery Room Air Intake and Output 09/10/19 09/10/19 09/11/19 15:00 23:00 07:00 Intake Total 180 ml 100 ml Balance 180 ml 100 ml ALVAREZ NAVARRO MD Sep 11, 2019 09:25
--- NOTE | 2019-09-11 10:21 | PDOC ---
Subjective: Subjective: Feels fine, denies abd pain, not sure about bleeding - "I didn't look." Tolerating diet. Objective: Objective: Nurse says she had a stool this morning, unclear if any bleeding, plans for transfusion. Stool culture and O&P pending. Vital Signs: Vital Signs Date Time Temp Pulse Resp B/P (MAP) Pulse Ox O2 Delivery O2 Flow Rate FiO2 09/11/19 08:51 89 124/73 09/11/19 08:00 Room Air 09/11/19 07:32 98.7 20 100 98.7 09/10/19 10:38 2 Labs: Laboratory Tests Test 09/11/19 07:35 White Blood Count 25.9 x10^3/uL Red Blood Count 2.38 x10^6/uL Hemoglobin 6.5 g/dL Hematocrit 20.1 % Mean Corpuscular Volume 85 fL Mean Corpuscular Hemoglobin 28 pg Mean Corpuscular Hemoglobin Concent 33 g/dL Red Cell Distribution Width 15.0 % Platelet Count 328 x10^3/uL Neutrophils (%) (Auto) 80 % Lymphocytes (%) (Auto) 14 % Monocytes (%) (Auto) 5 % Eosinophils (%) (Auto) 1 % Basophils (%) (Auto) 0 % Neutrophils # (Auto) 20.8 x10^3/uL Lymphocytes # (Auto) 3.7 x10^3/uL Monocytes # (Auto) 1.3 x10^3/uL Eosinophils # (Auto) 0.1 x10^3/uL Basophils # (Auto) 0.0 x10^3/uL Platelet Estimate Pending Sodium Level 141 mmol/L Potassium Level 2.9 mmol/L Chloride Level 108 mmol/L Carbon Dioxide Level 26 mmol/L Anion Gap 7 Blood Urea Nitrogen 15 mg/dL Creatinine 1.2 mg/dL Estimated GFR (Cockcroft-Gault) 55.3 BUN/Creatinine Ratio 13 Glucose Level 124 mg/dL Calcium Level 7.7 mg/dL Total Bilirubin 0.2 mg/dL Aspartate Amino Transf (AST/SGOT) 12 U/L Alanine Aminotransferase (ALT/SGPT) 18 U/L Alkaline Phosphatase 86 U/L Total Protein 4.9 g/dL Albumin 1.6 g/dL Albumin/Globulin Ratio 0.5 BLOOD CULTURE Final NO GROWTH AFTER 5 DAYS Imaging: EGD 09/10 E - mild Schatki's ring no esophagitis 3 cm hiatal hernia G - erosive gastritis in antrum without bleeding or ulcer- Bx D - normal duodenum Colonoscopy 09/10 Rectum normal Sigmoid - scattered ulcers Descending, transverse - numerous small and large ulcers, cratered, with normal intervening tissue- several ulcers with small vessels with recent bleeding Cecum and ascending - severe ulcerative colitis with deep ulcers and infl ammation- IC valve inflammed - unable to intubate in spite of numerous attempts Very suggestive of Crohn's disease - but history and other symptoms make infection also possible PE: GEN: NAD LUNGS: CTAB HEART: RRR ABD: S/ND/NT NEURO/PSYCH: A & O 3 A/P: Hematochezia - 'scopes as above w/ erosive gastritis, ulcers/inflammation ICV to sigmoid - ?Crohn's Abd pain - resolved Anemia - Hgb down to 6.5, plans for transfusion Leukocytosis, BONITA (improved), hypokalemia, elevated CRP -- Drop in Hgb - no reports of bleeding. No longer on atbx. Biopsies and stool tests pending. Continue PPI. Need to review w/ Dr. Goddard. ERIKA CARDENAS Sep 11, 2019 10:20
[2019-09-11 10:27] LABS: % BANDS 2 % (0-9); % EOS 1 % (0-5); % LYMPHS 5 % (24-48); % MONOS 2 % (0-10); % SEGS 90 % (35-66); NUCLEATED RBC 2
[2019-09-11 10:28] LABS: ANISOCYTOSIS SLIGHT; PLT ESTIMATE ADEQUATE (ADEQUATE); POLYCHROMASIA SLIGHT
--- NOTE | 2019-09-11 10:35 | PDOC ---
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 Pt was sitting in bed, relaxed and conversant, in no acute distress. Pt had eaten soft food this a.m. without N/V or abdominal pain, though reports acid reflux. Will order Tums for reflux. Discussed with nurse and GI. St ill awaiting pathology from colonoscopy suggestive of Crohn's. Hemoglobin down to 6.5 this a.m. Will transfuse 2 units PRBC. 09/10/19 Pt seen and examined with present. Pt was alert and oriented after colonoscopy this a.m. Discussed with GI, who said colonoscopy was suggestive of Crohn's, or possibly infectious. Awaiting pathology. Hemoglobin up today (8.2 g/dL, 09/10/19 a.m.). Will continue to check. [id number] Patient seen and examined with her present Discussed with RN at length Tagged red blood cell scan was positive Hemoglobin is down into the sixes again We'll transfuse 2 units of packed red blood cells and await further surgical and GI input 09/08/2019 Pt was seen and examined. Reports 2 bloody BMs this morning. Reports she had her right knee injected, and will have the left one injected later today or tomorrow. Reports relief of R Knee pain after injection. Reports anxiety and was asking for some Valium on interview. 09/07/2018 VTE Prophylaxis Ordered VTE Prophylaxis Devices: Contraindicated VTE Pharmacological Prophylaxi: Contraindicated Assessment/Plan Assessment/Plan NEw SVT with hypotension hematochezia Mild distal esophageal wall thickening, could be of acute or chronic etiology. HYpokalemia, critical - replace BONITA -creat 4.0- ///acute tubular necrosis cr down to 1.[address] , No evidence of hydronephrosis. ?ischemic colitis renal consult AGAp acidosis, contraction alkalosis - AGAP 25 with high bicarb SIRS - no source - elev lactate 13.,1 Septic shock (hypotensive) LEukocytosis - WBC 23 - kovacs cx, ID Incidental kidney cysts - per CT Old Thoracic fx - she denies knowledge and back pain adrenal adenoma Leucocytosis and lactic acidosis source GI severe protein-caloric malnutrition PLAN: ICU bed, AMio gtt levophed prn bp control NS IVF for AGAP follow mag, tsh, calcium Replace k orally EMpiric abx - ID consult., cont zosyn avoid nephrotoxins COnsult ID, renal and cards HOld losartan (creat 4) resume ferrous sulfate gi following, TRY CLEAR LIQUIDS CONSIDER egd, colonoscopy nephrology FOLLOWING transfuse prn follow lytes FUll code cc 35 MIN Vitals/I&O Vitals/I&O: Vital Signs Date Time Temp Pulse Resp B/P (MAP) Pulse Ox O2 Delivery O2 Flow Rate FiO2 09/11/19 08:51 89 124/73 09/11/19 08:00 Room Air 09/11/19 07:32 98.7 20 100 98.7 09/10/19 10:38 2 I & O 09/10/19 09/10/19 09/11/19 15:00 23:00 07:00 Intake Total 180 ml 100 ml Balance 180 ml 100 ml Physical Exam Physical Exam: GENERAL: Alert, oriented x3 female, sitting in bed, in no acute distress HEENT: Normocephalic, atraumatic; EOMI LUNGS: Clear bilaterally. No wheezing. HEART: RRR No gallops or murmurs. ABDOMEN: no rebound, no guarding. EXTREMITIES: No edema, no cyanosis. DERMATOLOGIC: Warm, dry, no generalized rash. NEUROLOGIC: Alert and oriented x3 General: Alert, Cooperative Heart: Regular rate, Normal S1, Normal S2, No murmurs Lungs: Clear Abdomen: Soft, No tenderness Extremities: No clubbing, No cyanosis, No edema, Other (Right knee with clean and intact bandaging.) Skin: No rashes, No breakdown Labs Labs: Laboratory Tests Test 09/11/19 07:35 White Blood Count 25.9 x10^3/uL (4.0-11.0) Red Blood Count 2.38 x10^6/uL (3.50-5.40) Hemoglobin 6.5 g/dL (12.0-15.5) Hematocrit 20.1 % (36.0-47.0) Mean Corpuscular Volume 85 fL (79-100) Mean Corpuscular Hemoglobin 28 pg (25-35) Mean Corpuscular Hemoglobin Concent 33 g/dL (31-37) Red Cell Distribution Width 15.0 % (11.5-14.5) Platelet Count 328 x10^3/uL (140-400) Neutrophils (%) (Auto) 80 % (31-73) Lymphocytes (%) (Auto) 14 % (24-48) Monocytes (%) (Auto) 5 % (0-9) Eosinophils (%) (Auto) 1 % (0-3) Basophils (%) (Auto) 0 % (0-3) Neutrophils # (Auto) 20.8 x10^3/uL (1.8-7.7) Lymphocytes # (Auto) 3.7 x10^3/uL (1.0-4.8) Monocytes # (Auto) 1.3 x10^3/uL (0.0-1.1) Eosinophils # (Auto) 0.1 x10^3/uL (0.0-0.7) Basophils # (Auto) 0.0 x10^3/uL (0.0-0.2) Sodium Level 141 mmol/L (136-145) Potassium Level 2.9 mmol/L (3.5-5.1) Chloride Level 108 mmol/L (98-107) Carbon Dioxide Level 26 mmol/L (21-32) Anion Gap 7 (6-14) Blood Urea Nitrogen 15 mg/dL (7-20) Creatinine 1.2 mg/dL (0.6-1.0) Estimated GFR (Cockcroft-Gault) 55.3 BUN/Creatinine Ratio 13 (6-20) Glucose Level 124 mg/dL (70-99) Calcium Level 7.7 mg/dL (8.5-10.1) Total Bilirubin 0.2 mg/dL (0.2-1.0) Aspartate Amino Transf (AST/SGOT) 12 U/L (15-37) Alanine Aminotransferase (ALT/SGPT) 18 U/L (14-59) Alkaline Phosphatase 86 U/L (46-116) Total Protein 4.9 g/dL (6.4-8.2) Albumin 1.6 g/dL (3.4-5.0) Albumin/Globulin Ratio 0.5 (1.0-1.7) Review of Systems Review of Systems: No chest pain No SOB No N/V Assessment and Plan Assessmemt and Plan Problems Medical Problems: (1) BONITA (acute kidney injury) Status: Acute (2) Rectal bleed Status: Acute (3) Septic shock Status: Acute Anemia - (was 6.5 g/dL 09/11/19 a.m., ordered transfusion 2 more units PRBCs 09/11/19) Acid Reflux Septic shock (hypotensive) hematochezia New SVT with hypotension Hypokalemia BONITA -creat 4.0- ///acute tubular necrosis ischemic colitis AGAP acidosis, contraction alkalosis SIRS Leukocytosis Incidental kidney cysts 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 09/11/19 Will await cardiology input due to continuing tachycardic events Had colonoscopy/EGD 09/10/19 - per GI, suggestive of Crohn's though possibly infectious Still awaiting pathology from colonoscopy biopsy(s) Await further recommendations from GI, ID, and nephrology. Trend hemoglobin Continue to monitor for bloody BMs Continue soft foods diet Continue Zosyn per ID Continue Prozac 20 by mouth daily, Valium for breakthrough anxiety Full code Tums 1 tablet q8h PRN for acid reflux DVT prophylaxis PT/OT Comment Review of Relevant I have reviewed the following items diane (where applicable) has been applied. Medications: Current Medications Medications (Trade) Dose Ordered Sig/Florecita Route PRN Reason Start Time Stop Time Status Last Admin Dose Admin Ondansetron HCl (Zofran Odt) 4 mg PRN Q6HRS PRN PO NAUSEA/VOMITING 09/10/19 16:45 09/10/19 16:51 Calcium Carbonate/ Glycine (Tums) 500 mg PRN AFTMEALHC PRN PO INDIGESTION 09/10/19 19:45 09/10/19 20:12 Potassium Chloride (Klor-Con) 40 meq 1X ONCE PO 09/11/19 08:30 09/11/19 08:31 DC 09/11/19 08:50 LÁZARO CALLE K III DO Sep 11, 2019 10:35
[2019-09-11] MEDS ORDERED: CALCIUM CARBONATE 500 MG TAB.CHEW PO PRN (10:45)
[2019-09-11] MEDS: CALCIUM CARBONATE 500 MG TAB.CHEW PO PRN ×2 (12:45→20:30)
[2019-09-11] MEDS ORDERED: predniSONE 10 MG TABLET PO ONE (13:00)
--- NOTE | 2019-09-11 13:00 | NUR ---
SS following up with discharge planning. Pt is from home and is currently on room air. PT recommended home with assistance on 09/09/2019, but has been on hold since that time. SS will continue to follow for discharge planning.
--- NOTE | 2019-09-11 14:48 | PDOC ---
SUBJECTIVE ROS No complaints voiced by Pt OBJECTIVE Vital Signs Vital Signs Date Time Temp Pulse Resp B/P (MAP) Pulse Ox O2 Delivery O2 Flow Rate FiO2 09/11/19 13:52 98.5 90 18 118/70 98.5 09/11/19 11:04 99 Room Air 09/10/19 10:38 2 I & 0 Intake and Output 09/11/19 07:00 Intake Total 280 ml Balance 280 ml Intake Oral 280 ml # Voids 3 # Bowel Movements 2 PHYSICAL EXAM Physical Exam General: No acute distress HEENT: Mucous membr. moist/pink Neck supple Lungs: Clear to auscultation, non labored Heart: Normal S1, Normal S2, No murmurs Abdomen: Soft, No tenderness Extremities: No cyanosis, No edema Skin: No breakdown , no rash Neuro: AXOx 3, Grossly normal Psych/Mental Status: Mental status NL, Mood NL - Dominguez +, No CVA or SP tenderness DIAGNOSIS/ASSESSMENT Assessment & Plan BONITA- Non Oliguric- ATN/Hyptonsive/Arrythmia / GI bleed UA granular casts , No micr hematuria, no UTI Improving renal function Supportive care, avoid nephrotoxins, Monitor HyperNatremia- resolved Rectal bleeding, abd pain, EGD 09/10-- erosive gastritis in antrum without bleeding or ulcer- Bx Colonoscopy 09/10- Descending, transverse - numerous small and large ulcers , several ulcers with small vessels with recent bleeding Cecum and ascending - severe ulcerative colitis with deep ulcers and inflammation, suggestive of Crohn's Hypokalemia - replace Renal cysts - Ct report Multiple renal lesions,these have increased in size and number since the prior study, and further outpatient examination with multiphase contrast-enhanced CT or MRI of the kidneys could be of benefit. HTN- Only on Loasartan 50 mg PO QD at home - held Hypotension at presentation Anemia , acute - 2/2 above Drop in Hgb this am- receiving 1 Unit of PRBC SVT- cardiology consulted s/p Adenosine in ER Adrenal Nodule on CT- stable per report Discussed with pt and at bedside COMMENT/RELEVANT DATA Meds Current Medications Medications (Trade) Dose Ordered Sig/Florecita Start Time Stop Time Status Last Admin Dose Admin Acetaminophen/ Codeine Phosphate (Tylenol #3) 1 tab PRN Q6HRS PRN 09/05/19 13:30 Acetaminophen/ Hydrocodone Bitart (Lortab 5/325) 1 tab PRN Q4HRS PRN 09/05/19 14:00 Adenosine (Adenocard) 12 mg 1X ONCE 09/05/19 13:29 09/05/19 13:49 DC 09/05/19 13:29 12 MG Amiodarone HCl 900 mg/Dextrose 518 ml @ 0 mls/hr CONT PRN 09/05/19 13:30 09/09/19 14:43 DC Amlodipine Besylate (Norvasc) 10 mg 1X ONCE 09/09/19 16:30 09/09/19 16:31 DC 09/09/19 16:11 10 MG Bisacodyl (Dulcolax Tab) 10 mg 1X ONCE 09/09/19 14:00 09/09/19 14:01 DC 09/09/19 13:55 10 MG Bupivacaine HCl (Sensorcaine-Mpf 0.25%) 10 ml 1X ONCE 09/08/19 13:15 09/08/19 13:16 DC Calcium Carbonate/ Glycine (Tums) 500 mg PRN AFTMEALHC PRN 09/11/19 10:45 UNV Dextrose 1,000 ml @ 75 mls/hr [id number] 09/07/19 11:30 09/11/19 05:56 75 MLS/HR Diazepam (Valium) 5 mg PRN Q8HRS PRN 09/08/19 10:15 Diphenhydramine HCl (Benadryl) 25 mg PRN QHS PRN 09/05/19 13:45 Ferrous Sulfate (Feosol) 325 mg [id number] 09/06/19 08:00 09/11/19 08:51 325 MG Fluoxetine HCl (PROzac) 20 mg DAILY 09/09/19 12:00 09/11/19 08:51 20 MG Heparin Sodium (Porcine) (HEPARIN for NUC MED) 100 unit 1X ONCE 09/08/19 07:00 09/08/19 07:01 DC Methylprednisolone Acetate (DEPO-Medrol 40MG VIAL) 40 mg 1X ONCE 09/08/19 13:15 09/08/19 13:16 DC Metoprolol Tartrate (Lopressor Vial) 5 mg PRN Q5MIN PRN 09/05/19 16:15 Morphine Sulfate (Morphine Sulfate) 1 mg PRN Q2HR PRN 09/05/19 13:45 09/07/19 14:11 1 MG Norepinephrine Bitartrate 250 ml @ 0 mls/hr CONT PRN 09/05/19 13:00 09/08/19 13:36 DC Ondansetron HCl (Zofran Odt) 4 mg PRN Q6HRS PRN 09/10/19 16:45 09/10/19 16:51 4 MG Ondansetron HCl (Zofran) 4 mg PRN Q6HRS PRN 09/05/19 13:30 09/10/19 16:17 4 MG Pantoprazole Sodium (PROTONIX VIAL for IV PUSH) 40 mg 1X ONCE 09/05/19 16:45 09/05/19 16:51 DC 09/05/19 17:00 40 MG Pantoprazole Sodium (Protonix) 40 mg DAILYAC 09/08/19 07:30 09/11/19 08:50 40 MG Phytonadione (Mephyton Oral Soln) 5 mg 1X ONCE 09/06/19 12:00 09/06/19 12:01 DC 09/06/19 12:02 5 MG Piperacillin Sod/ Tazobactam Sod 2.25 gm/Sodium Chloride 50 ml @ 100 mls/hr Q6HRS 09/05/19 19:00 09/08/19 13:44 DC 09/08/19 13:30 100 MLS/HR Piperacillin Sod/ Tazobactam Sod 4.5 gm/Sodium Chloride 100 ml @ 200 mls/hr 1X ONCE 09/05/19 13:00 09/05/19 13:07 DC Polyethylene Glycol (miraLAX Powder BULK BOTTLE) 238 gm 1X ONCE 09/09/19 16:30 09/09/19 16:31 DC 09/09/19 16:11 238 GM Potassium Chloride/Water 100 ml @ 100 mls/hr Q1H 09/05/19 16:00 09/05/19 17:59 DC 09/05/19 17:00 100 MLS/HR Potassium Chloride (Klor-Con) 40 meq 1X ONCE 09/11/19 08:30 09/11/19 08:31 DC 09/11/19 08:50 40 MEQ Prednisone (Prednisone) 30 mg 1X ONCE 09/11/19 13:00 09/11/19 13:01 DC Propofol 20 ml @ As Directed STK-MED ONCE 09/10/19 10:25 09/10/19 10:25 DC Ringer's Solution 1,000 ml @ 50 mls/hr Q20H 09/10/19 08:46 09/10/19 14:55 DC Sodium Chloride 1,000 ml @ 100 mls/hr Q10H 09/05/19 13:30 09/07/19 11:22 DC 09/07/19 04:13 100 MLS/HR Sodium Chloride (Normal Saline Flush) 10 ml QSHIFT PRN 09/05/19 13:00 Vancomycin HCl (Vanco Per Pharmacy) 1 each 1X ONCE 09/05/19 13:00 09/05/19 13:08 DC Vancomycin HCl 1.5 gm/Sodium Chloride 500 ml @ 250 mls/hr 1X ONCE 09/05/19 13:15 09/05/19 15:14 DC 09/05/19 14:55 250 MLS/HR Lab Laboratory Tests Test 09/11/19 07:35 White Blood Count 25.9 x10^3/uL (4.0-11.0) Red Blood Count 2.38 x10^6/uL (3.50-5.40) Hemoglobin 6.5 g/dL (12.0-15.5) Hematocrit 20.1 % (36.0-47.0) Mean Corpuscular Volume 85 fL (79-100) Mean Corpuscular Hemoglobin 28 pg (25-35) Mean Corpuscular Hemoglobin Concent 33 g/dL (31-37) Red Cell Distribution Width 15.0 % (11.5-14.5) Platelet Count 328 x10^3/uL (140-400) Neutrophils (%) (Auto) 80 % (31-73) Lymphocytes (%) (Auto) 14 % (24-48) Monocytes (%) (Auto) 5 % (0-9) Eosinophils (%) (Auto) 1 % (0-3) Basophils (%) (Auto) 0 % (0-3) Neutrophils # (Auto) 20.8 x10^3/uL (1.8-7.7) Lymphocytes # (Auto) 3.7 x10^3/uL (1.0-4.8) Monocytes # (Auto) 1.3 x10^3/uL (0.0-1.1) Eosinophils # (Auto) 0.1 x10^3/uL (0.0-0.7) Basophils # (Auto) 0.0 x10^3/uL (0.0-0.2) Segmented Neutrophils % 90 % (35-66) Band Neutrophils % 2 % (0-9) Lymphocytes % 5 % (24-48) Monocytes % 2 % (0-10) Eosinophils % 1 % (0-5) Nucleated Red Blood Cells 2 Platelet Estimate Adequate (ADEQUATE) Polychromasia Slight Anisocytosis Slight Sodium Level 141 mmol/L (136-145) Potassium Level 2.9 mmol/L (3.5-5.1) Chloride Level 108 mmol/L (98-107) Carbon Dioxide Level 26 mmol/L (21-32) Anion Gap 7 (6-14) Blood Urea Nitrogen 15 mg/dL (7-20) Creatinine 1.2 mg/dL (0.6-1.0) Estimated GFR (Cockcroft-Gault) 55.3 BUN/Creatinine Ratio 13 (6-20) Glucose Level 124 mg/dL (70-99) Calcium Level 7.7 mg/dL (8.5-10.1) Total Bilirubin 0.2 mg/dL (0.2-1.0) Aspartate Amino Transf (AST/SGOT) 12 U/L (15-37) Alanine Aminotransferase (ALT/SGPT) 18 U/L (14-59) Alkaline Phosphatase 86 U/L (46-116) Total Protein 4.9 g/dL (6.4-8.2) Albumin 1.6 g/dL (3.4-5.0) Albumin/Globulin Ratio 0.5 (1.0-1.7) Results All relevant outside records, renal labs, imaging studies, telemetry/EKG's were reviewed. ALISON CARDENAS MD Sep 11, 2019 14:48
[2019-09-11 15:12] LABS: IMMUNOGLOBULIN A 253 mg/dL (87-352); IMMUNOGLOBULIN G 1158 mg/dL (700-1600); IMMUNOGLOBULIN M 107 mg/dL (26-217)
[2019-09-12] VITALS (7 sets, daily range): BP systolic 119–143; BP diastolic 70–87
[2019-09-12 06:30] LABS: BASO % 0 % (0-3); EOS % 0 % (0-3); HEMATOCRIT 31.6 % (36.0-47.0); HEMOGLOBIN 10.4 g/dL (12.0-15.5); LYMPH # 2.2 x10^3/uL (1.0-4.8); LYMPH % 8 % (24-48); MEAN CORPUSCULAR HEMOGLOBIN 28 pg (25-35); MEAN CORPUSCULAR HGB CONC 33 g/dL (31-37); MEAN CORPUSCULAR VOLUME 85 fL (79-100); MONO # 0.5 x10^3/uL (0.0-1.1); MONO % 2 % (0-9); NEUT # 26.2 x10^3/uL (1.8-7.7); NEUT % 91 % (31-73); PLATELET COUNT 347 x10^3/uL (140-400); RED BLOOD COUNT 3.72 x10^6/uL (3.50-5.40); RED CELL DISTRIBUTION WIDTH 15.1 % (11.5-14.5); WHITE BLOOD COUNT 28.9 x10^3/uL (4.0-11.0)
[2019-09-12 06:53] LABS: ALBUMIN 2.2 g/dL (3.4-5.0); ALBUMIN/GLOBULIN RATIO 0.6 (1.0-1.7); CALCIUM 8.1 mg/dL (8.5-10.1); CREATININE 1.2 mg/dL (0.6-1.0); GFR 55.3; TOTAL BILIRUBIN 0.4 mg/dL (0.2-1.0); TOTAL PROTEIN 5.6 g/dL (6.4-8.2)
[2019-09-12] MEDS: PANTOPRAZOLE 40 MG TABLET.DR. PO SCH (07:30)
[2019-09-12] MEDS: FLUoxetine HCL 20 MG CAPSULE PO SCH (08:48)
[2019-09-12] MEDS: FERROUS SULFATE 325 MG TABLET. PO SCH (08:48)
[2019-09-12] MEDS: amLODIPine BESYLATE 10 MG TABLET PO SCH (08:50)
--- NOTE | 2019-09-12 09:03 | PDOC ---
GERONIMO [facility] [employer] 09/12/19 0903: SURGICAL PROGRESS NOTE Subjective tolerating diet still with some blood in stool yesterday no pain transfusion yesterday Vital Signs Vital Signs Date Time Temp Pulse Resp B/P (MAP) Pulse Ox O2 Delivery O2 Flow Rate FiO2 09/12/19 08:50 98 143/86 09/12/19 07:00 98.4 18 98 Room Air 98.4 I&O Intake and Output 09/12/19 07:00 Intake Total 1465 ml Output Total 350 ml Balance 1115 ml Intake Oral 780 ml Blood Product IV Normal Saline Flush 685 ml Output Urine Total 150 ml Stool Total 200 ml # Voids 4 # Bowel Movements 4 General: Alert, Oriented X3, Cooperative Abdomen: Soft, No tenderness Labs Laboratory Tests Test 09/11/19 07:35 09/12/19 06:00 White Blood Count 25.9 x10^3/uL (4.0-11.0) 28.9 x10^3/uL (4.0-11.0) Red Blood Count 2.38 x10^6/uL (3.50-5.40) 3.72 x10^6/uL (3.50-5.40) Hemoglobin 6.5 g/dL (12.0-15.5) 10.4 g/dL (12.0-15.5) Hematocrit 20.1 % (36.0-47.0) 31.6 % (36.0-47.0) Mean Corpuscular Volume 85 fL (79-100) 85 fL (79-100) Mean Corpuscular Hemoglobin 28 pg (25-35) 28 pg (25-35) Mean Corpuscular Hemoglobin Concent 33 g/dL (31-37) 33 g/dL (31-37) Red Cell Distribution Width 15.0 % (11.5-14.5) 15.1 % (11.5-14.5) Platelet Count 328 x10^3/uL (140-400) 347 x10^3/uL (140-400) Neutrophils (%) (Auto) 80 % (31-73) 91 % (31-73) Lymphocytes (%) (Auto) 14 % (24-48) 8 % (24-48) Monocytes (%) (Auto) 5 % (0-9) 2 % (0-9) Eosinophils (%) (Auto) 1 % (0-3) 0 % (0-3) Basophils (%) (Auto) 0 % (0-3) 0 % (0-3) Neutrophils # (Auto) 20.8 x10^3/uL (1.8-7.7) 26.2 x10^3/uL (1.8-7.7) Lymphocytes # (Auto) 3.7 x10^3/uL (1.0-4.8) 2.2 x10^3/uL (1.0-4.8) Monocytes # (Auto) 1.3 x10^3/uL (0.0-1.1) 0.5 x10^3/uL (0.0-1.1) Eosinophils # (Auto) 0.1 x10^3/uL (0.0-0.7) 0.0 x10^3/uL (0.0-0.7) Basophils # (Auto) 0.0 x10^3/uL (0.0-0.2) 0.0 x10^3/uL (0.0-0.2) Segmented Neutrophils % 90 % (35-66) Band Neutrophils % 2 % (0-9) Lymphocytes % 5 % (24-48) Monocytes % 2 % (0-10) Eosinophils % 1 % (0-5) Nucleated Red Blood Cells 2 Platelet Estimate Adequate (ADEQUATE) Polychromasia Slight Anisocytosis Slight Sodium Level 141 mmol/L (136-145) 141 mmol/L (136-145) Potassium Level 2.9 mmol/L (3.5-5.1) 4.0 mmol/L (3.5-5.1) Chloride Level 108 mmol/L (98-107) 108 mmol/L (98-107) Carbon Dioxide Level 26 mmol/L (21-32) 24 mmol/L (21-32) Anion Gap 7 (6-14) 9 (6-14) Blood Urea Nitrogen 15 mg/dL (7-20) 10 mg/dL (7-20) Creatinine 1.2 mg/dL (0.6-1.0) 1.2 mg/dL (0.6-1.0) Estimated GFR (Cockcroft-Gault) 55.3 55.3 BUN/Creatinine Ratio 13 (6-20) 8 (6-20) Glucose Level 124 mg/dL (70-99) 165 mg/dL (70-99) Calcium Level 7.7 mg/dL (8.5-10.1) 8.1 mg/dL (8.5-10.1) Total Bilirubin 0.2 mg/dL (0.2-1.0) 0.4 mg/dL (0.2-1.0) Aspartate Amino Transf (AST/SGOT) 12 U/L (15-37) 13 U/L (15-37) Alanine Aminotransferase (ALT/SGPT) 18 U/L (14-59) 24 U/L (14-59) Alkaline Phosphatase 86 U/L (46-116) 103 U/L (46-116) Total Protein 4.9 g/dL (6.4-8.2) 5.6 g/dL (6.4-8.2) Albumin 1.6 g/dL (3.4-5.0) 2.2 g/dL (3.4-5.0) Albumin/Globulin Ratio 0.5 (1.0-1.7) 0.6 (1.0-1.7) Laboratory Tests Test 09/12/19 06:00 White Blood Count 28.9 x10^3/uL (4.0-11.0) Red Blood Count 3.72 x10^6/uL (3.50-5.40) Hemoglobin 10.4 g/dL (12.0-15.5) Hematocrit 31.6 % (36.0-47.0) Mean Corpuscular Volume 85 fL (79-100) Mean Corpuscular Hemoglobin 28 pg (25-35) Mean Corpuscular Hemoglobin Concent 33 g/dL (31-37) Red Cell Distribution Width 15.1 % (11.5-14.5) Platelet Count 347 x10^3/uL (140-400) Neutrophils (%) (Auto) 91 % (31-73) Lymphocytes (%) (Auto) 8 % (24-48) Monocytes (%) (Auto) 2 % (0-9) Eosinophils (%) (Auto) 0 % (0-3) Basophils (%) (Auto) 0 % (0-3) Neutrophils # (Auto) 26.2 x10^3/uL (1.8-7.7) Lymphocytes # (Auto) 2.2 x10^3/uL (1.0-4.8) Monocytes # (Auto) 0.5 x10^3/uL (0.0-1.1) Eosinophils # (Auto) 0.0 x10^3/uL (0.0-0.7) Basophils # (Auto) 0.0 x10^3/uL (0.0-0.2) Sodium Level 141 mmol/L (136-145) Potassium Level 4.0 mmol/L (3.5-5.1) Chloride Level 108 mmol/L (98-107) Carbon Dioxide Level 24 mmol/L (21-32) Anion Gap 9 (6-14) Blood Urea Nitrogen 10 mg/dL (7-20) Creatinine 1.2 mg/dL (0.6-1.0) Estimated GFR (Cockcroft-Gault) 55.3 BUN/Creatinine Ratio 8 (6-20) Glucose Level 165 mg/dL (70-99) Calcium Level 8.1 mg/dL (8.5-10.1) Total Bilirubin 0.4 mg/dL (0.2-1.0) Aspartate Amino Transf (AST/SGOT) 13 U/L (15-37) Alanine Aminotransferase (ALT/SGPT) 24 U/L (14-59) Alkaline Phosphatase 103 U/L (46-116) Total Protein 5.6 g/dL (6.4-8.2) Albumin 2.2 g/dL (3.4-5.0) Albumin/Globulin Ratio 0.6 (1.0-1.7) Problem List Problems Medical Problems: (1) BONITA (acute kidney injury) Status: Acute (2) Rectal bleed Status: Acute (3) Septic shock Status: Acute Assessment/Plan path pending hgb improved today after transfusion GI management FARNCES ALVA MD 09/12/19 1539: SURGICAL PROGRESS NOTE Assessment/Plan Pt seen and examined. Agree with MsCourtney Champion's note Pt denies complaints. Min blood in stool abd soft, ND, NTTP no surgical plans. GERONIMO CHAMPION APRN Sep 12, 2019 09:03 FRANCES ALVA MD Sep 12, 2019 15:39
--- NOTE | 2019-09-12 10:10 | PDOC ---
PROGRESS NOTES Subjective Subjective No new complaints. Objective Objective Vital Signs Date Time Temp Pulse Resp B/P (MAP) Pulse Ox O2 Delivery O2 Flow Rate FiO2 09/12/19 08:50 98 143/86 09/12/19 08:00 Room Air 09/12/19 07:00 98.4 18 98 98.4 09/10/19 10:38 2 Intake and Output 09/12/19 07:00 Intake Total 1465 ml Output Total 350 ml Balance 1115 ml Intake Oral 780 ml Blood Product IV Normal Saline Flush 685 ml Output Urine Total 150 ml Stool Total 200 ml # Voids 4 # Bowel Movements 4 Physical Exam Physical Exam She is alert, supine in bed and moving all 4 extremities actively. Assessment Assessment Problems Medical Problems: (1) BONITA (acute kidney injury) Status: Acute (2) Rectal bleed Status: Acute (3) Septic shock Status: Acute Plan Plan of Care To get her up as tolerated. Comment Review of Relevant I have reviewed the following items diane (where applicable) has been applied. Labs Laboratory Tests Test 09/11/19 07:35 09/12/19 06:00 White Blood Count 25.9 x10^3/uL (4.0-11.0) 28.9 x10^3/uL (4.0-11.0) Red Blood Count 2.38 x10^6/uL (3.50-5.40) 3.72 x10^6/uL (3.50-5.40) Hemoglobin 6.5 g/dL (12.0-15.5) 10.4 g/dL (12.0-15.5) Hematocrit 20.1 % (36.0-47.0) 31.6 % (36.0-47.0) Mean Corpuscular Volume 85 fL (79-100) 85 fL (79-100) Mean Corpuscular Hemoglobin 28 pg (25-35) 28 pg (25-35) Mean Corpuscular Hemoglobin Concent 33 g/dL (31-37) 33 g/dL (31-37) Red Cell Distribution Width 15.0 % (11.5-14.5) 15.1 % (11.5-14.5) Platelet Count 328 x10^3/uL (140-400) 347 x10^3/uL (140-400) Neutrophils (%) (Auto) 80 % (31-73) 91 % (31-73) Lymphocytes (%) (Auto) 14 % (24-48) 8 % (24-48) Monocytes (%) (Auto) 5 % (0-9) 2 % (0-9) Eosinophils (%) (Auto) 1 % (0-3) 0 % (0-3) Basophils (%) (Auto) 0 % (0-3) 0 % (0-3) Neutrophils # (Auto) 20.8 x10^3/uL (1.8-7.7) 26.2 x10^3/uL (1.8-7.7) Lymphocytes # (Auto) 3.7 x10^3/uL (1.0-4.8) 2.2 x10^3/uL (1.0-4.8) Monocytes # (Auto) 1.3 x10^3/uL (0.0-1.1) 0.5 x10^3/uL (0.0-1.1) Eosinophils # (Auto) 0.1 x10^3/uL (0.0-0.7) 0.0 x10^3/uL (0.0-0.7) Basophils # (Auto) 0.0 x10^3/uL (0.0-0.2) 0.0 x10^3/uL (0.0-0.2) Segmented Neutrophils % 90 % (35-66) Band Neutrophils % 2 % (0-9) Lymphocytes % 5 % (24-48) Monocytes % 2 % (0-10) Eosinophils % 1 % (0-5) Nucleated Red Blood Cells 2 Platelet Estimate Adequate (ADEQUATE) Polychromasia Slight Anisocytosis Slight Sodium Level 141 mmol/L (136-145) 141 mmol/L (136-145) Potassium Level 2.9 mmol/L (3.5-5.1) 4.0 mmol/L (3.5-5.1) Chloride Level 108 mmol/L (98-107) 108 mmol/L (98-107) Carbon Dioxide Level 26 mmol/L (21-32) 24 mmol/L (21-32) Anion Gap 7 (6-14) 9 (6-14) Blood Urea Nitrogen 15 mg/dL (7-20) 10 mg/dL (7-20) Creatinine 1.2 mg/dL (0.6-1.0) 1.2 mg/dL (0.6-1.0) Estimated GFR (Cockcroft-Gault) 55.3 55.3 BUN/Creatinine Ratio 13 (6-20) 8 (6-20) Glucose Level 124 mg/dL (70-99) 165 mg/dL (70-99) Calcium Level 7.7 mg/dL (8.5-10.1) 8.1 mg/dL (8.5-10.1) Total Bilirubin 0.2 mg/dL (0.2-1.0) 0.4 mg/dL (0.2-1.0) Aspartate Amino Transf (AST/SGOT) 12 U/L (15-37) 13 U/L (15-37) Alanine Aminotransferase (ALT/SGPT) 18 U/L (14-59) 24 U/L (14-59) Alkaline Phosphatase 86 U/L (46-116) 103 U/L (46-116) Total Protein 4.9 g/dL (6.4-8.2) 5.6 g/dL (6.4-8.2) Albumin 1.6 g/dL (3.4-5.0) 2.2 g/dL (3.4-5.0) Albumin/Globulin Ratio 0.5 (1.0-1.7) 0.6 (1.0-1.7) Laboratory Tests Test 09/12/19 06:00 White Blood Count 28.9 x10^3/uL (4.0-11.0) Red Blood Count 3.72 x10^6/uL (3.50-5.40) Hemoglobin 10.4 g/dL (12.0-15.5) Hematocrit 31.6 % (36.0-47.0) Mean Corpuscular Volume 85 fL (79-100) Mean Corpuscular Hemoglobin 28 pg (25-35) Mean Corpuscular Hemoglobin Concent 33 g/dL (31-37) Red Cell Distribution Width 15.1 % (11.5-14.5) Platelet Count 347 x10^3/uL (140-400) Neutrophils (%) (Auto) 91 % (31-73) Lymphocytes (%) (Auto) 8 % (24-48) Monocytes (%) (Auto) 2 % (0-9) Eosinophils (%) (Auto) 0 % (0-3) Basophils (%) (Auto) 0 % (0-3) Neutrophils # (Auto) 26.2 x10^3/uL (1.8-7.7) Lymphocytes # (Auto) 2.2 x10^3/uL (1.0-4.8) Monocytes # (Auto) 0.5 x10^3/uL (0.0-1.1) Eosinophils # (Auto) 0.0 x10^3/uL (0.0-0.7) Basophils # (Auto) 0.0 x10^3/uL (0.0-0.2) Sodium Level 141 mmol/L (136-145) Potassium Level 4.0 mmol/L (3.5-5.1) Chloride Level 108 mmol/L (98-107) Carbon Dioxide Level 24 mmol/L (21-32) Anion Gap 9 (6-14) Blood Urea Nitrogen 10 mg/dL (7-20) Creatinine 1.2 mg/dL (0.6-1.0) Estimated GFR (Cockcroft-Gault) 55.3 BUN/Creatinine Ratio 8 (6-20) Glucose Level 165 mg/dL (70-99) Calcium Level 8.1 mg/dL (8.5-10.1) Total Bilirubin 0.4 mg/dL (0.2-1.0) Aspartate Amino Transf (AST/SGOT) 13 U/L (15-37) Alanine Aminotransferase (ALT/SGPT) 24 U/L (14-59) Alkaline Phosphatase 103 U/L (46-116) Total Protein 5.6 g/dL (6.4-8.2) Albumin 2.2 g/dL (3.4-5.0) Albumin/Globulin Ratio 0.6 (1.0-1.7) Microbiology 09/05/19 Blood Culture - Final, Complete NO GROWTH AFTER 5 DAYS Medications Current Medications Sodium Chloride 1,000 ml @ 1,000 mls/hr 1X ONCE IV Last administered on 09/05/19at 11:30; Start 09/05/19 at 11:30; Stop 09/05/19 at 12:29; Status DC Potassium Chloride/Water 100 ml @ 100 mls/hr Q1H IV Last administered on 09/05/19at 14:55; Start 09/05/19 at 12:00; Stop 09/05/19 at 13:59; Status DC Adenosine (Adenocard) 6 mg STK-MED ONCE IV ; Start 09/05/19 at 12:20; Stop 09/05/19 at 12:21; Status DC Adenosine (Adenocard) 6 mg STK-MED ONCE IV ; Start 09/05/19 at 12:33; Stop 09/05/19 at 12:33; Status DC Sodium Chloride (Normal Saline Flush) 10 ml QSHIFT PRN IV AFTER MEDS AND BLOOD DRAWS; Start 09/05/19 at 13:00 Sodium Chloride 1,000 ml @ 1,500 mls/hr Q40M IV Last administered on 09/05/19at 12:38; Start 09/05/19 at 12:50; Stop 09/05/19 at 13:49; Status DC Piperacillin Sod/ Tazobactam Sod 4.5 gm/Sodium Chloride 100 ml @ 200 mls/hr 1X ONCE IV ; Start 09/05/19 at 13:00; Stop 09/05/19 at 13:07; Status DC Vancomycin HCl (Vanco Per Pharmacy) 1 each 1X ONCE MC ; Start 09/05/19 at 13:00; Stop 09/05/19 at 13:08; Status DC Norepinephrine Bitartrate 250 ml @ 0 mls/hr CONT PRN IV PER PROTOCOL; Start 09/05/19 at 13:00; Stop 09/08/19 at 13:36; Status DC Adenosine (Adenocard) 6 mg 1X ONCE IV Last administered on 09/05/19at 12:37; Start 09/05/19 at 13:15; Stop 09/05/19 at 13:16; Status DC Piperacillin Sod/ Tazobactam Sod 2.25 gm/Sodium Chloride 50 ml @ 100 mls/hr 1X ONCE IV Last administered on 09/05/19at 13:29; Start 09/05/19 at 13:15; Stop 09/05/19 at 13:44; Status DC Vancomycin HCl 1.5 gm/Sodium Chloride 500 ml @ 250 mls/hr 1X ONCE IV Last administered on 09/05/19at 14:55; Start 09/05/19 at 13:15; Stop 09/05/19 at 1 5:14; Status DC Amiodarone HCl 900 mg/Dextrose 518 ml @ 0 mls/hr CONT PRN IV SEE I/O RECORD; Start 09/05/19 at 13:30; Stop 09/09/19 at 14:43; Status DC Sodium Chloride 1,000 ml @ 100 mls/hr Q10H IV Last administered on 09/07/19at 04:13; Start 09/05/19 at 13:30; Stop 09/07/19 at 11:22; Status DC Acetaminophen/ Codeine Phosphate (Tylenol #3) 1 tab PRN Q6HRS PRN PO PAIN MILD TO MOD; Start 09/05/19 at 13:30 Ondansetron HCl (Zofran) 4 mg PRN Q6HRS PRN IVP NAUSEA/VOMITING Last administered on 09/10/19at 16:17; Start 09/05/19 at 13:30 Ferrous Sulfate (Feosol) 325 mg DAILYWBKFT PO Last administered on 09/12/19at 08:48; Start 09/06/19 at 08:00 Diphenhydramine HCl (Benadryl) 25 mg PRN QHS PRN PO INSOMNIA; Start 09/05/19 at 13:45 Pantoprazole Sodium (Protonix) 40 mg DAILYAC PO ; Start 09/06/19 at 07:30; Stop 09/05/19 at 14:33; Status DC Morphine Sulfate (Morphine Sulfate) 1 mg PRN Q2HR PRN IV PAIN Last administered on 09/07/19at 14:11; Start 09/05/19 at 13:45 Adenosine (Adenocard) 6 mg 1X ONCE IV Last administered on 09/05/19at 13:19; Start 09/05/19 at 13:19; Stop 09/05/19 at 13:49; Status DC Adenosine (Adenocard) 12 mg 1X ONCE IV Last administered on 09/05/19at 13:29; Start 09/05/19 at 13:29; Stop 09/05/19 at 13:49; Status DC Acetaminophen/ Hydrocodone Bitart (Lortab 5/325) 1 tab PRN Q4HRS PRN PO PAIN SEVERE; Start 09/05/19 at 14:00 Pantoprazole Sodium (PROTONIX VIAL for IV PUSH) 40 mg DAILY ONCE IVP Last administered on 09/06/19at 08:52; Start 09/06/19 at 07:30; Stop 09/06/19 at 07 :31; Status DC Potassium Chloride (Klor-Con) 20 meq 1X ONCE PO Last administered on 09/05/19at 17:01; Start 09/05/19 at 15:45; Stop 09/05/19 at 15:46; Status DC Potassium Chloride/Water 100 ml @ 100 mls/hr Q1H IV Last administered on 09/05/19at 17:00; Start 09/05/19 at 16:00; Stop 09/05/19 at 17:59; Status DC Metoprolol Tartrate (Lopressor Vial) 5 mg PRN Q5MIN PRN IVP TACHYCARDIA; Start 09/05/19 at 16:15 Pantoprazole Sodium (PROTONIX VIAL for IV PUSH) 40 mg DAILYAC IVP Last administered on 09/07/19at 07:58; Start 09/06/19 at 07:30; Stop 09/07/19 at 11:54; Status DC Pantoprazole Sodium (PROTONIX VIAL for IV PUSH) 40 mg 1X ONCE IVP Last administered on 09/05/19at 17:00; Start 09/05/19 at 16:45; Stop 09/05/19 at 16:51; Status DC Calcium Carbonate/ Glycine (Tums) 500 mg STK-MED ONCE .ROUTE ; Start 09/05/19 at 17:13; Stop 09/05/19 at 17:13; Status DC Piperacillin Sod/ Tazobactam Sod 2.25 gm/Sodium Chloride 50 ml @ 100 mls/hr Q6HRS IV Last administered on 09/08/19at 13:30; Start 09/05/19 at 19:00; Stop 09/08/19 at 13:44; Status DC Phytonadione (Mephyton Oral Soln) 5 mg 1X ONCE PO Last administered on 09/06/19at 12:02; Start 09/06/19 at 12:00; Stop 09/06/19 at 12:01; Status DC Dextrose 1,000 ml @ 75 mls/hr [id number] IV Last administered on 09/11/19at 22:10; Start 09/07/19 at 11:30 Pantoprazole Sodium (Protonix) 40 mg DAILYAC PO Last administered on 09/12/19at 07:30; Start 09/08/19 at 07:30 Methylprednisolone Acetate (DEPO-Medrol 40MG VIAL) 40 mg 1X ONCE IM ; Start 09/07/19 at 15:30; Stop 09/07/19 at 15:31; Status DC Methylprednisolone Acetate (DEPO-Medrol 40MG VIAL) 40 mg 1X ONCE IM ; Start 09/07/19 at 15:30; Stop 09/07/19 at 15:31; Status DC Bupivacaine HCl (Sensorcaine-Mpf 0.25%) 10 ml 1X ONCE IJ ; Start 09/07/19 at 15:30; Stop 09/07/19 at 15:31; Status DC Heparin Sodium (Porcine) (HEPARIN for NUC MED) 100 unit 1X ONCE IV ; Start 09/08/19 at 07:00; Stop 09/08/19 at 07:01; Status DC Diazepam (Valium) 5 mg PRN Q8HRS PRN PO ANXIETY; Start 09/08/19 at 10:15 Methylprednisolone Acetate (DEPO-Medrol 40MG VIAL) 40 mg 1X ONCE IM ; Start 09/08/19 at 13:15; Stop 09/08/19 at 13:16; Status DC Bupivacaine HCl (Sensorcaine-Mpf 0.25%) 10 ml 1X ONCE IJ ; Start 09/08/19 at 13:15; Stop 09/08/19 at 13:16; Status DC Fluoxetine HCl (PROzac) 20 mg DAILY PO Last administered on 09/12/19at 08:48; Start 09/09/19 at 12:00 Polyethylene Glycol (miraLAX Powder BULK BOTTLE) 238 gm 1X ONCE PO Last administered on 09/09/19at 16:11; Start 09/09/19 at 16:30; Stop 09/09/19 at 16:31; Status DC Bisacodyl (Dulcolax Tab) 10 mg 1X ONCE PO Last administered on 09/09/19at 13:55; Start 09/09/19 at 14:00; Stop 09/09/19 at 14:01; Status DC Amlodipine Besylate (Norvasc) 10 mg DAILY PO Last administered on 09/12/19at 08:50; Start 09/10/19 at 09:00 Amlodipine Besylate (Norvasc) 10 mg 1X ONCE PO Last administered on 09/09/19at 16:11; Start 09/09/19 at 16:30; Stop 09/09/19 at 16:31; Status DC Ringer's Solution 1,000 ml @ 50 mls/hr Q20H IV ; Start 09/10/19 at 08:46; Stop 09/10/19 at 14:55; Status DC Propofol 20 ml @ As Directed STK-MED ONCE IV ; Start 09/10/19 at 09:57; Stop 09/10/19 at 09:57; Status DC Propofol 20 ml @ As Directed STK-MED ONCE IV ; Start 09/10/19 at 10:25; Stop 09/10/19 at 10:25; Status DC Ondansetron HCl (Zofran Odt) 4 mg PRN Q6HRS PRN PO NAUSEA/VOMITING Last administered on 09/10/19at 16:51; Start 09/10/19 at 16:45 Calcium Carbonate/ Glycine (Tums) 500 mg PRN AFTMEALHC PRN PO INDIGESTION Last administered on 09/11/19at 20:30; Start 09/10/19 at 19:45 Potassium Chloride (Klor-Con) 40 meq 1X ONCE PO Last administered on 09/11/19at 08:50; Start 09/11/19 at 08:30; Stop 09/11/19 at 08:31; Status DC Calcium Carbonate/ Glycine (Tums) 500 mg PRN AFTMEALHC PRN PO INDIGESTION; Start 09/11/19 at 10:45; Status UNV Prednisone (Prednisone) 30 mg 1X ONCE PO Last administered on 09/11/19at 15:47; Start 09/11/19 at 13:00; Stop 09/11/19 at 13:01; Status DC Active Scripts Active Reported Ferralet 90 Dual-Iron Tablet (Iron, Carb & Gluc/Fa/B12/C/Dss) 1 Each Tablet 1 Tab PO DAILY Losartan-Hctz 50-12.5 Mg Tab (Losartan/Hydrochlorothiazide) 1 Each Tablet 1 Tab PO DAILY Vitals/I & O Vital Sign - Last 24 Hours 09/11/19 09/11/19 09/11/19 09/11/19 11:04 11:28 11:42 11:42 Temp 98.2 98.4 98.4 98.4 98.2 98.4 98.4 98.4 Pulse 92 88 87 89 Resp 20 18 19 B/P (MAP) 136/79 (98) 134/71 123/77 123/77 Pulse Ox 99 O2 Delivery Room Air 09/11/19 09/11/19 09/11/19 09/11/19 12:28 13:52 14:58 19:02 Temp 98.5 98.5 98.2 98.5 98.5 98.5 98.2 98.5 Pulse 86 90 91 90 Resp 18 18 20 18 B/P (MAP) 132/71 118/70 139/84 (102) 118/70 (86) Pulse Ox 98 98 O2 Delivery Room Air Room Air 09/11/19 09/11/19 09/11/19 09/11/19 20:00 23:36 23:44 23:59 Temp 98.8 98.6 98.6 98.8 98.6 98.6 Pulse 86 84 81 Resp 18 18 18 B/P (MAP) 136/86 (103) 128/83 124/76 Pulse Ox 99 O2 Delivery Room Air Room Air 09/12/19 09/12/19 09/12/19 09/12/19 01:00 02:00 03:57 07:00 Temp 98.6 98.5 98.4 98.4 98.6 98.5 98.4 98.4 Pulse 81 78 85 88 Resp 16 18 18 18 B/P (MAP) 133/82 132/86 127/87 (100) 143/86 (105) Pulse Ox 97 98 O2 Delivery Room Air Room Air 09/12/19 09/12/19 08:00 08:50 Pulse 98 B/P (MAP) 143/86 O2 Delivery Room Air Intake and Output 09/11/19 09/11/19 09/12/19 15:00 23:00 07:00 Intake Total 600 ml 240 ml 625 ml Output Total 150 ml 200 ml Balance 450 ml 40 ml 625 ml ALVAREZ NAVARRO MD Sep 12, 2019 10:10
--- NOTE | 2019-09-12 10:11 | PDOC ---
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 Transfused yesterday 2 units PRBC. Pt reports feeling better, eating soft foods and tolerating well, but continues to have blood in stool. Per nurse, she had a large clot in bowel movement after speaking with me this morning. Will order stat H/H. DW case mgmt and RN and Pt got first dose of 30mg prednisone 09/11/19 Pt seen and examined. Pt was sitting in bed, relaxed and conversant, in no acute distress. Pt had eaten soft food this a.m. without N/V or abdominal pain, though reports acid reflux. Will order Tums for reflux. Discussed with nurse and GI. Still awaiting pathology from colonoscopy suggestive of Crohn's. Hemoglobin down to 6.5 this a.m. Will transfuse 2 units PRBC. 09/10/19 Pt seen and examined with present. Pt was alert and oriented after colonoscopy this a.m. Discussed with GI, who said colonoscopy was suggestive of Crohn's, or possibly infectious. Awaiting pathology. Hemoglobin up today (8.2 g/dL, 09/10/19 a.m.). Will continue to check. 1020 [id number] Patient seen and examined with her present Discussed with RN at length Tagged red blood cell scan was positive Hemoglobin is down into the sixes again We'll transfuse 2 units of packed red blood cells and await further surgical and GI input 09/08/2019 Pt was seen and examined. Reports 2 bloody BMs this morning. Reports she had her right knee injected, and will have the left one injected later today or tomorrow. Reports relief of R Knee pain after injection. Reports anxiety and was asking for some Valium on interview. 09/07/2018 VTE Prophylaxis Ordered VTE Prophylaxis Devices: Contraindicated VTE Pharmacological Prophylaxi: Contraindicated Assessment/Plan Assessment/Plan NEw SVT with hypotension hematochezia Mild distal esophageal wall thickening, could be of acute or chronic etiology. HYpokalemia, critical - replace BONITA -creat 4.0- ///acute tubular necrosis cr down to 1.[address] , No evidence of hydronephrosis. ?ischemic colitis renal consult AGAp acidosis, contraction alkalosis - AGAP 25 with high bicarb SIRS - no source - elev lactate 13.,1 Septic shock (hypotensive) LEukocytosis - WBC 23 - kovacs cx, ID Incidental kidney cysts - per CT Old Thoracic fx - she denies knowledge and back pain adrenal adenoma Leucocytosis and lactic acidosis source GI severe protein-caloric malnutrition PLAN: ICU bed, AMio gtt levophed prn bp control NS IVF for AGAP follow mag, tsh, calcium Replace k orally EMpiric abx - ID consult., cont zosyn avoid nephrotoxins COnsult ID, renal and cards HOld losartan (creat 4) resume ferrous sulfate gi following, TRY CLEAR LIQUIDS CONSIDER egd, colonoscopy nephrology FOLLOWING transfuse prn follow lytes FUll code cc 35 MIN Vitals/I&O Vitals/I&O: Vital Signs Date Time Temp Pulse Resp B/P (MAP) Pulse Ox O2 Delivery O2 Flow Rate FiO2 09/12/19 08:50 98 143/86 09/12/19 08:00 Room Air 09/12/19 07:00 98.4 18 98 98.4 I & O 09/11/19 09/11/19 09/12/19 15:00 23:00 07:00 Intake Total 600 ml 240 ml 625 ml Output Total 150 ml 200 ml Balance 450 ml 40 ml 625 ml Physical Exam Physical Exam: GENERAL: Alert, oriented x3 female, sitting in bed, in no acute distress HEENT: Normocephalic, atraumatic; EOMI LUNGS: Clear bilaterally. No wheezing. HEART: RRR No gallops or murmurs. ABDOMEN: no rebound, no guarding. EXTREMITIES: No edema, no cyanosis. DERMATOLOGIC: Warm, dry, no generalized rash. NEUROLOGIC: Alert and oriented x3 General: Alert, Oriented X3, Cooperative Heart: Regular rate, Normal S1, Normal S2, No murmurs Lungs: Clear Abdomen: Soft, No tenderness Extremities: No clubbing, No cyanosis, No edema, Other (Right knee with clean and intact bandaging.) Skin: No rashes, No breakdown Labs Labs: Laboratory Tests Test 09/12/19 06:00 White Blood Count 28.9 x10^3/uL (4.0-11.0) Red Blood Count 3.72 x10^6/uL (3.50-5.40) Hemoglobin 10.4 g/dL (12.0-15.5) Hematocrit 31.6 % (36.0-47.0) Mean Corpuscular Volume 85 fL (79-100) Mean Corpuscular Hemoglobin 28 pg (25-35) Mean Corpuscular Hemoglobin Concent 33 g/dL (31-37) Red Cell Distribution Width 15.1 % (11.5-14.5) Platelet Count 347 x10^3/uL (140-400) Neutrophils (%) (Auto) 91 % (31-73) Lymphocytes (%) (Auto) 8 % (24-48) Monocytes (%) (Auto) 2 % (0-9) Eosinophils (%) (Auto) 0 % (0-3) Basophils (%) (Auto) 0 % (0-3) Neutrophils # (Auto) 26.2 x10^3/uL (1.8-7.7) Lymphocytes # (Auto) 2.2 x10^3/uL (1.0-4.8) Monocytes # (Auto) 0.5 x10^3/uL (0.0-1.1) Eosinophils # (Auto) 0.0 x10^3/uL (0.0-0.7) Basophils # (Auto) 0.0 x10^3/uL (0.0-0.2) Sodium Level 141 mmol/L (136-145) Potassium Level 4.0 mmol/L (3.5-5.1) Chloride Level 108 mmol/L (98-107) Carbon Dioxide Level 24 mmol/L (21-32) Anion Gap 9 (6-14) Blood Urea Nitrogen 10 mg/dL (7-20) Creatinine 1.2 mg/dL (0.6-1.0) Estimated GFR (Cockcroft-Gault) 55.3 BUN/Creatinine Ratio 8 (6-20) Glucose Level 165 mg/dL (70-99) Calcium Level 8.1 mg/dL (8.5-10.1) Total Bilirubin 0.4 mg/dL (0.2-1.0) Aspartate Amino Transf (AST/SGOT) 13 U/L (15-37) Alanine Aminotransferase (ALT/SGPT) 24 U/L (14-59) Alkaline Phosphatase 103 U/L (46-116) Total Protein 5.6 g/dL (6.4-8.2) Albumin 2.2 g/dL (3.4-5.0) Albumin/Globulin Ratio 0.6 (1.0-1.7) Review of Systems Review of Systems: No N/V Yes bloody stool Assessment and Plan Assessmemt and Plan Problems Medical Problems: (1) BONITA (acute kidney injury) Status: Acute (2) Rectal bleed Status: Acute (3) Septic shock Status: Acute Anemia - (improved to 10.4 g/dL this a.m. 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 Anemia improved to 10.4 g/dL early this a.m. 09/12/19 after transfusion yesterday Trend hemoglobin Had colonoscopy/EGD 09/10/19 - per GI, suggestive of Crohn's though possibly infectious Still awaiting pathology from colonoscopy biopsy(s) Discussed Crohn's maintenance medication options Await further recommendations from GI, ID, and nephrology, and cardiology. Continue to monitor for bloody BMs Continue soft foods diet Continue Zosyn per ID Continue Prozac 20 by mouth daily, Valium for breakthrough anxiety Tums 1 tablet q8h PRN for acid reflux DVT prophylaxis PT/OT Full code Prog guarded skilled nursing Total time 32 min Comment Review of Relevant I have reviewed the following items diane (where applicable) has been applied. Medications: Current Medications Medications (Trade) Dose Ordered Sig/Florecita Route PRN Reason Start Time Stop Time Status Last Admin Dose Admin Prednisone (Prednisone) 30 mg 1X ONCE PO 09/11/19 13:00 09/11/19 13:01 DC 09/11/19 15:47 LÁZARO CALLE III DO Sep 12, 2019 10:11
--- NOTE | 2019-09-12 10:17 | PDOC ---
Subjective: Subjective: Feeling well - liked breakfast, not sure about bleeding. Objective: Objective: D/w nurse - reportedly had a stool with "blood tinge." Vital Signs: Vital Signs Date Time Temp Pulse Resp B/P (MAP) Pulse Ox O2 Delivery O2 Flow Rate FiO2 09/12/19 08:50 98 143/86 09/12/19 08:00 Room Air 09/12/19 07:00 98.4 18 98 98.4 Labs: Laboratory Tests Test 09/12/19 06:00 White Blood Count 28.9 x10^3/uL Red Blood Count 3.72 x10^6/uL Hemoglobin 10.4 g/dL Hematocrit 31.6 % Mean Corpuscular Volume 85 fL Mean Corpuscular Hemoglobin 28 pg Mean Corpuscular Hemoglobin Concent 33 g/dL Red Cell Distribution Width 15.1 % Platelet Count 347 x10^3/uL Neutrophils (%) (Auto) 91 % Lymphocytes (%) (Auto) 8 % Monocytes (%) (Auto) 2 % Eosinophils (%) (Auto) 0 % Basophils (%) (Auto) 0 % Neutrophils # (Auto) 26.2 x10^3/uL Lymphocytes # (Auto) 2.2 x10^3/uL Monocytes # (Auto) 0.5 x10^3/uL Eosinophils # (Auto) 0.0 x10^3/uL Basophils # (Auto) 0.0 x10^3/uL Sodium Level 141 mmol/L Potassium Level 4.0 mmol/L Chloride Level 108 mmol/L Carbon Dioxide Level 24 mmol/L Anion Gap 9 Blood Urea Nitrogen 10 mg/dL Creatinine 1.2 mg/dL Estimated GFR (Cockcroft-Gault) 55.3 BUN/Creatinine Ratio 8 Glucose Level 165 mg/dL Calcium Level 8.1 mg/dL Total Bilirubin 0.4 mg/dL Aspartate Amino Transf (AST/SGOT) 13 U/L Alanine Aminotransferase (ALT/SGPT) 24 U/L Alkaline Phosphatase 103 U/L Total Protein 5.6 g/dL Albumin 2.2 g/dL Albumin/Globulin Ratio 0.6 PE: GEN: NAD LUNGS: CTAB HEART: RRR ABD: S/ND/NT NEURO/PSYCH: A & O 3 A/P: Hematochezia - slowing - 'scopes w/ erosive gastritis, ulcers/inflammation ICV to sigmoid - ?Crohn's vs ischemia - prednisone started 09/11 Anemia - improved w/ transfusion Leukocytosis -- Await path, monitor Hgb and for recurrent bleeding - surgery following. ERIKA CARDENAS Sep 12, 2019 10:17
[2019-09-12 10:46] LABS: HEMATOCRIT 29.9 % (36.0-47.0); HEMOGLOBIN 9.9 g/dL (12.0-15.5)
--- NOTE | 2019-09-12 11:15 | PDOC ---
SUBJECTIVE ROS No complaints voiced by Pt OBJECTIVE Vital Signs Vital Signs Date Time Temp Pulse Resp B/P (MAP) Pulse Ox O2 Delivery O2 Flow Rate FiO2 09/12/19 08:50 98 143/86 09/12/19 08:00 Room Air 09/12/19 07:00 98.4 18 98 98.4 I & 0 Intake and Output 09/12/19 07:00 Intake Total 1465 ml Output Total 350 ml Balance 1115 ml Intake Oral 780 ml Blood Product IV Normal Saline Flush 685 ml Output Urine Total 150 ml Stool Total 200 ml # Voids 4 # Bowel Movements 4 PHYSICAL EXAM Physical Exam General: No acute distress HEENT: Mucous membr. moist/pink Neck supple Lungs: Clear to auscultation, non labored Heart: Normal S1, Normal S2, No murmurs Abdomen: Soft, No tenderness Extremities: No cyanosis, No edema Skin: No breakdown , no rash Neuro: AXOx 3, Grossly normal Psych/Mental Status: Mental status NL, Mood NL - Dominguez +, No CVA or SP tenderness DIAGNOSIS/ASSESSMENT Assessment & Plan BONITA- Non Oliguric- ATN/Hyptonsive/Arrythmia / GI bleed UA granular casts , No micr hematuria, no UTI Improving renal function Supportive care, avoid nephrotoxins, Monitor Rectal bleeding, abd pain, EGD 09/10-- erosive gastritis in antrum without bleeding or ulcer- Bx Colonoscopy 09/10- Descending, transverse - numerous small and large ulcers , several ulcers with small vessels with recent bleeding Cecum and ascending - severe ulcerative colitis with deep ulcers and inflammation, suggestive of Crohn's Hypokalemia - replace Renal cysts - Ct report Multiple renal lesions,these have increased in size and number since the prior study, and further outpatient examination with multiphase contrast-enhanced CT or MRI of the kidneys could be of benefit. HTN- Only on Loasartan 50 mg PO QD at home - held Hypotension at presentation Anemia , acute - 2/2 above Drop in Hgb this am- receiving 1 Unit of PRBC SVT- cardiology consulted s/p Adenosine in ER Adrenal Nodule on CT- stable per report COMMENT/RELEVANT DATA Meds Current Medications Medications (Trade) Dose Ordered Sig/Florecita Start Time Stop Time Status Last Admin Dose Admin Acetaminophen/ Codeine Phosphate (Tylenol #3) 1 tab PRN Q6HRS PRN 09/05/19 13:30 Acetaminophen/ Hydrocodone Bitart (Lortab 5/325) 1 tab PRN Q4HRS PRN 09/05/19 14:00 Adenosine (Adenocard) 12 mg 1X ONCE 09/05/19 13:29 09/05/19 13:49 DC 09/05/19 13:29 12 MG Amiodarone HCl 900 mg/Dextrose 518 ml @ 0 mls/hr CONT PRN 09/05/19 13:30 09/09/19 14:43 DC Amlodipine Besylate (Norvasc) 10 mg 1X ONCE 09/09/19 16:30 09/09/19 16:31 DC 09/09/19 16:11 10 MG Bisacodyl (Dulcolax Tab) 10 mg 1X ONCE 09/09/19 14:00 09/09/19 14:01 DC 09/09/19 13:55 10 MG Bupivacaine HCl (Sensorcaine-Mpf 0.25%) 10 ml 1X ONCE 09/08/19 13:15 09/08/19 13:16 DC Calcium Carbonate/ Glycine (Tums) 500 mg PRN AFTMEALHC PRN 09/11/19 10:45 UNV Dextrose 1,000 ml @ 75 mls/hr [id number] 09/07/19 11:30 09/11/19 22:10 75 MLS/HR Diazepam (Valium) 5 mg PRN Q8HRS PRN 09/08/19 10:15 Diphenhydramine HCl (Benadryl) 25 mg PRN QHS PRN 09/05/19 13:45 Ferrous Sulfate (Feosol) 325 mg [id number] 09/06/19 08:00 09/12/19 08:48 325 MG Fluoxetine HCl (PROzac) 20 mg DAILY 09/09/19 12:00 09/12/19 08:48 20 MG Heparin Sodium (Porcine) (HEPARIN for NUC MED) 100 unit 1X ONCE 09/08/19 07:00 09/08/19 07:01 DC Methylprednisolone Acetate (DEPO-Medrol 40MG VIAL) 40 mg 1X ONCE 09/08/19 13:15 09/08/19 13:16 DC Metoprolol Tartrate (Lopressor Vial) 5 mg PRN Q5MIN PRN 09/05/19 16:15 Morphine Sulfate (Morphine Sulfate) 1 mg PRN Q2HR PRN 09/05/19 13:45 09/07/19 14:11 1 MG Norepinephrine Bitartrate 250 ml @ 0 mls/hr CONT PRN 09/05/19 13:00 09/08/19 13:36 DC Ondansetron HCl (Zofran Odt) 4 mg PRN Q6HRS PRN 09/10/19 16:45 09/10/19 16:51 4 MG Ondansetron HCl (Zofran) 4 mg PRN Q6HRS PRN 09/05/19 13:30 09/10/19 16:17 4 MG Pantoprazole Sodium (PROTONIX VIAL for IV PUSH) 40 mg 1X ONCE 09/05/19 16:45 09/05/19 16:51 DC 09/05/19 17:00 40 MG Pantoprazole Sodium (Protonix) 40 mg DAILYAC 09/08/19 07:30 09/12/19 07:30 40 MG Phytonadione (Mephyton Oral Soln) 5 mg 1X ONCE 09/06/19 12:00 09/06/19 12:01 DC 09/06/19 12:02 5 MG Piperacillin Sod/ Tazobactam Sod 2.25 gm/Sodium Chloride 50 ml @ 100 mls/hr Q6HRS 09/05/19 19:00 09/08/19 13:44 DC 09/08/19 13:30 100 MLS/HR Piperacillin Sod/ Tazobactam Sod 4.5 gm/Sodium Chloride 100 ml @ 200 mls/hr 1X ONCE 09/05/19 13:00 09/05/19 13:07 DC Polyethylene Glycol (miraLAX Powder BULK BOTTLE) 238 gm 1X ONCE 09/09/19 16:30 09/09/19 16:31 DC 09/09/19 16:11 238 GM Potassium Chloride/Water 100 ml @ 100 mls/hr Q1H 09/05/19 16:00 09/05/19 17:59 DC 09/05/19 17:00 100 MLS/HR Potassium Chloride (Klor-Con) 40 meq 1X ONCE 09/11/19 08:30 09/11/19 08:31 DC 09/11/19 08:50 40 MEQ Prednisone (Prednisone) 30 mg 1X ONCE 09/11/19 13:00 09/11/19 13:01 DC 09/11/19 15:47 30 MG Propofol 20 ml @ As Directed STK-MED ONCE 09/10/19 10:25 09/10/19 10:25 DC Ringer's Solution 1,000 ml @ 50 mls/hr Q20H 09/10/19 08:46 09/10/19 14:55 DC Sodium Chloride 1,000 ml @ 100 mls/hr Q10H 09/05/19 13:30 09/07/19 11:22 DC 09/07/19 04:13 100 MLS/HR Sodium Chloride (Normal Saline Flush) 10 ml QSHIFT PRN 09/05/19 13:00 Vancomycin HCl (Vanco Per Pharmacy) 1 each 1X ONCE 09/05/19 13:00 09/05/19 13:08 DC Vancomycin HCl 1.5 gm/Sodium Chloride 500 ml @ 250 mls/hr 1X ONCE 09/05/19 13:15 09/05/19 15:14 DC 09/05/19 14:55 250 MLS/HR Lab Laboratory Tests Test 09/12/19 06:00 09/12/19 10:30 White Blood Count 28.9 x10^3/uL (4.0-11.0) Red Blood Count 3.72 x10^6/uL (3.50-5.40) Hemoglobin 10.4 g/dL (12.0-15.5) 9.9 g/dL (12.0-15.5) Hematocrit 31.6 % (36.0-47.0) 29.9 % (36.0-47.0) Mean Corpuscular Volume 85 fL (79-100) Mean Corpuscular Hemoglobin 28 pg (25-35) Mean Corpuscular Hemoglobin Concent 33 g/dL (31-37) 33 g/dL (31-37) Red Cell Distribution Width 15.1 % (11.5-14.5) Platelet Count 347 x10^3/uL (140-400) Neutrophils (%) (Auto) 91 % (31-73) Lymphocytes (%) (Auto) 8 % (24-48) Monocytes (%) (Auto) 2 % (0-9) Eosinophils (%) (Auto) 0 % (0-3) Basophils (%) (Auto) 0 % (0-3) Neutrophils # (Auto) 26.2 x10^3/uL (1.8-7.7) Lymphocytes # (Auto) 2.2 x10^3/uL (1.0-4.8) Monocytes # (Auto) 0.5 x10^3/uL (0.0-1.1) Eosinophils # (Auto) 0.0 x10^3/uL (0.0-0.7) Basophils # (Auto) 0.0 x10^3/uL (0.0-0.2) Sodium Level 141 mmol/L (136-145) Potassium Level 4.0 mmol/L (3.5-5.1) Chloride Level 108 mmol/L (98-107) Carbon Dioxide Level 24 mmol/L (21-32) Anion Gap 9 (6-14) Blood Urea Nitrogen 10 mg/dL (7-20) Creatinine 1.2 mg/dL (0.6-1.0) Estimated GFR (Cockcroft-Gault) 55.3 BUN/Creatinine Ratio 8 (6-20) Glucose Level 165 mg/dL (70-99) Calcium Level 8.1 mg/dL (8.5-10.1) Total Bilirubin 0.4 mg/dL (0.2-1.0) Aspartate Amino Transf (AST/SGOT) 13 U/L (15-37) Alanine Aminotransferase (ALT/SGPT) 24 U/L (14-59) Alkaline Phosphatase 103 U/L (46-116) Total Protein 5.6 g/dL (6.4-8.2) Albumin 2.2 g/dL (3.4-5.0) Albumin/Globulin Ratio 0.6 (1.0-1.7) Results All relevant outside records, renal labs, imaging studies, telemetry/EKG's were reviewed. ALISON CARDENAS MD Sep 12, 2019 11:15
[2019-09-12] MEDS: IV DEXTROSE 5% 1,000 ML IV SCH (11:30)
--- NOTE | 2019-09-12 13:48 | NUR ---
SW following pt. PT recommends home health. SW will continue to follow pt.
--- NOTE | 2019-09-12 16:06 | PATHOLOGY ---
[facility] Accession Number: [id number] . 01 Material submitted: . PART A: stomach - ANTRUM BIOPSY PART B: cecum - CECUM AND ASCENDING BIOPSY. Modifiers: ascending PART C: colon - TRANSVERSE AND DESCENDING BIOPSY. Modifiers: transverse, descending PART D: colon - SIGMOID COLON BIOPSY. Modifiers: sigmoid . 01 Clinical history: . Pre-OP DX: Anemia Post-OP DX: Gastritis, rule out H. pylori, colon BX-rule out Crohn's . 02 Diagnosis: A. Gastric biopsies, antrum: - Chronic gastritis, moderate. . B. Colonic mucosa, cecum and ascending colon biopsies: - Active chronic colitis, moderate to marked, without granuloma or specific features. . C. Colonic mucosa, transverse and descending colon biopsies: - Active chronic colitis, moderate, without granulomas or specific features. . D. Colonic mucosa, sigmoid colon biopsies: - Mild to moderate active chronic colitis without granulomas or specific features. . (JPM:chanelle; 09/12/2019) MBR 09/12/2019 1110 Local . 02 Comment: Sections of the gastric antral biopsy show congestion and moderate chronic inflammation. A properly controlled immunoperoxidase stain for Helicobacter is negative for Helicobacter organisms. . Sections of the cecum and ascending colon biopsy show a moderate to marked active chronic colitis without granulomas or specific features showing focal ulceration. . Sections of the transverse and descending colon biopsy show a moderate active chronic colitis without granulomas or specific features also showing focal ulceration. . Sections of the sigmoid colon biopsy show a mild to moderate active chronic colitis without granulomas or specific features. . The findings are supportive of the diagnosis of idiopathic chronic inflammatory bowel disease. The variation in the degree of inflammation within the biopsies from the various sites is consistent with Crohn's disease. Correlate clinically. . (JPM:chanelle; 09/12/2019) . Special stain performed: Immunoperoxidase stain for Helicobacter on A1. . 02 Electronically signed: . Mele Quijano MD, Pathologist NPI- [id number] . 01 Gross description: . A. Received in formalin labeled "[place], Laura, antrum BX," are 2 segments of collins soft tissue measuring 0.9 x 0.2 x 0.2 cm in aggregate dimensions and ranging from 0.2 to 0.7 cm in maximum dimension. The specimen is submitted entirely in cassette A1. . B. Received in formalin labeled "[place], Laura, cecum and ascending BX," are 4 segments of collins soft tissue measuring 1.3 x 0.7 x 0.2 cm in aggregate dimensions and ranging from 0.3 to 0.4 cm in maximum dimension. The specimen is submitted entirely in cassette B1. . C. Received in formalin labeled "[place], Laura, transverse and descending BX," are 3 segments of collins soft tissue measuring 1.1 x 0.8 x 0.3 cm in aggregate dimensions and ranging from 0.4 to 0.5 cm in maximum dimension. The specimen is submitted entirely in cassette C1. . D. Received in formalin labeled "[place], Laura, sigmoid BX," are 2 segments of collins soft tissue measuring 1.1 x 0.2 x 0.2 cm in aggregate dimensions and ranging from 0.5 to 0.6 cm in maximum dimension. The specimen is submitted entirely in cassette D1. (TSD; 09/11/2019) TOB/TOB 09/11/2019 1742 Local . 02 Pathologist provided ICD-10: K29.50, K52.9 . 02 CPT . 936818, 545972, 504743, [id number], [id number] Specimen Comment: A courtesy copy of this report has been sent to [phone] Specimen Comment: [id number], , Specimen Comment: Report sent to , , Specimen Comment: and Performed at: [address], [place], [place] [id number] MD Chin Og MD Phone: [phone] Performed at: [facility] [address] [place], [place] [id number] MD Mele Quijano MD Phone: [phone]
[2019-09-12] MEDS: predniSONE 10 MG TABLET PO SCH ×2 (16:38→18:00)
--- NOTE | 2019-09-12 18:22 | NUR ---
approximately 20 min after prednisone administration, pt noted to be in SVT 180s, then sinus tach in 150s- sustained for a few minutes. Instructed to vagal- with success before HR jumping to [address] Goddard called- notified of adverse reaction- orders to DC prednisone. Pt aware of call to doctor as well as discontinuation of med.
[2019-09-12] MEDS: CALCIUM CARBONATE 500 MG TAB.CHEW PO PRN (19:34)
--- NOTE | 2019-09-13 00:05 | NUR ---
Patient requested bedpan, loose BM with dark red blood with small clots noted.
[2019-09-13] MEDS: IV DEXTROSE 5% 1,000 ML IV SCH (00:50)
[2019-09-13 03:05] VITALS: BP 121/86
[2019-09-13] MEDS: PANTOPRAZOLE 40 MG TABLET.DR. PO SCH ×2 (06:18→08:17)
[2019-09-13 07:00] VITALS: BP 126/79
[2019-09-13] MEDS: FLUoxetine HCL 20 MG CAPSULE PO SCH (08:17)
[2019-09-13] MEDS: FERROUS SULFATE 325 MG TABLET. PO SCH (08:17)
[2019-09-13 08:28] LABS: ALBUMIN 1.9 g/dL (3.4-5.0); ALBUMIN/GLOBULIN RATIO 0.6 (1.0-1.7); CALCIUM 7.5 mg/dL (8.5-10.1); CREATININE 1.3 mg/dL (0.6-1.0); GFR 50.4; POTASSIUM 3.2 mmol/L (3.5-5.1); TOTAL BILIRUBIN 0.3 mg/dL (0.2-1.0)
[2019-09-13 08:35] LABS: BASO % 0 % (0-3); EOS # 0.1 x10^3/uL (0.0-0.7); EOS % 0 % (0-3); HEMATOCRIT 22.5 % (36.0-47.0); LYMPH # 3.4 x10^3/uL (1.0-4.8); LYMPH % 12 % (24-48); MEAN CORPUSCULAR HEMOGLOBIN 29 pg (25-35); MEAN CORPUSCULAR HGB CONC 33 g/dL (31-37); MEAN CORPUSCULAR VOLUME 87 fL (79-100); MONO % 3 % (0-9); NEUT % 85 % (31-73); PLATELET COUNT 321 x10^3/uL (140-400); RED BLOOD COUNT 2.57 x10^6/uL (3.50-5.40); RED CELL DISTRIBUTION WIDTH 14.9 % (11.5-14.5); WHITE BLOOD COUNT 29.5 x10^3/uL (4.0-11.0)
[2019-09-13 08:38] LABS: HEMOGLOBIN 7.4 g/dL (12.0-15.5)
--- NOTE | 2019-09-13 08:51 | PDOC ---
GERONIMO CHAMPION ARTIFICIAL LEATHER CALENDER OPERATOR 09/13/19 0851: SURGICAL PROGRESS NOTE Subjective feels blessed reaction to prednisone Vital Signs Vital Signs Date Time Temp Pulse Resp B/P (MAP) Pulse Ox O2 Delivery O2 Flow Rate FiO2 09/13/19 07:00 98.5 100 16 126/79 (95) 99 Room Air 98.5 I&O Intake and Output 09/13/19 07:00 Intake Total 300 ml Output Total 150 ml Balance 150 ml Intake Oral 300 ml Stool Total 150 ml # Voids 6 # Bowel Movements 7 General: Alert, Cooperative Abdomen: Soft, Other (NTTP) Labs Laboratory Tests Test 09/12/19 06:00 09/12/19 10:30 09/13/19 08:00 White Blood Count 28.9 x10^3/uL (4.0-11.0) 29.5 x10^3/uL (4.0-11.0) Red Blood Count 3.72 x10^6/uL (3.50-5.40) 2.57 x10^6/uL (3.50-5.40) Hemoglobin 10.4 g/dL (12.0-15.5) 9.9 g/dL (12.0-15.5) 7.4 g/dL (12.0-15.5) Hematocrit 31.6 % (36.0-47.0) 29.9 % (36.0-47.0) 22.5 % (36.0-47.0) Mean Corpuscular Volume 85 fL (79-100) 87 fL (79-100) Mean Corpuscular Hemoglobin 28 pg (25-35) 29 pg (25-35) Mean Corpuscular Hemoglobin Concent 33 g/dL (31-37) 33 g/dL (31-37) 33 g/dL (31-37) Red Cell Distribution Width 15.1 % (11.5-14.5) 14.9 % (11.5-14.5) Platelet Count 347 x10^3/uL (140-400) 321 x10^3/uL (140-400) Neutrophils (%) (Auto) 91 % (31-73) 85 % (31-73) Lymphocytes (%) (Auto) 8 % (24-48) 12 % (24-48) Monocytes (%) (Auto) 2 % (0-9) 3 % (0-9) Eosinophils (%) (Auto) 0 % (0-3) 0 % (0-3) Basophils (%) (Auto) 0 % (0-3) 0 % (0-3) Neutrophils # (Auto) 26.2 x10^3/uL (1.8-7.7) 25.0 x10^3/uL (1.8-7.7) Lymphocytes # (Auto) 2.2 x10^3/uL (1.0-4.8) 3.4 x10^3/uL (1.0-4.8) Monocytes # (Auto) 0.5 x10^3/uL (0.0-1.1) 1.0 x10^3/uL (0.0-1.1) Eosinophils # (Auto) 0.0 x10^3/uL (0.0-0.7) 0.1 x10^3/uL (0.0-0.7) Basophils # (Auto) 0.0 x10^3/uL (0.0-0.2) 0.0 x10^3/uL (0.0-0.2) Sodium Level 141 mmol/L (136-145) 141 mmol/L (136-145) Potassium Level 4.0 mmol/L (3.5-5.1) 3.2 mmol/L (3.5-5.1) Chloride Level 108 mmol/L (98-107) 108 mmol/L (98-107) Carbon Dioxide Level 24 mmol/L (21-32) 25 mmol/L (21-32) Anion Gap 9 (6-14) 8 (6-14) Blood Urea Nitrogen 10 mg/dL (7-20) 11 mg/dL (7-20) Creatinine 1.2 mg/dL (0.6-1.0) 1.3 mg/dL (0.6-1.0) Estimated GFR (Cockcroft-Gault) 55.3 50.4 BUN/Creatinine Ratio 8 (6-20) 8 (6-20) Glucose Level 165 mg/dL (70-99) 102 mg/dL (70-99) Calcium Level 8.1 mg/dL (8.5-10.1) 7.5 mg/dL (8.5-10.1) Total Bilirubin 0.4 mg/dL (0.2-1.0) 0.3 mg/dL (0.2-1.0) Aspartate Amino Transf (AST/SGOT) 13 U/L (15-37) 9 U/L (15-37) Alanine Aminotransferase (ALT/SGPT) 24 U/L (14-59) 19 U/L (14-59) Alkaline Phosphatase 103 U/L (46-116) 68 U/L (46-116) Total Protein 5.6 g/dL (6.4-8.2) 5.0 g/dL (6.4-8.2) Albumin 2.2 g/dL (3.4-5.0) 1.9 g/dL (3.4-5.0) Albumin/Globulin Ratio 0.6 (1.0-1.7) 0.6 (1.0-1.7) Laboratory Tests Test 09/12/19 10:30 09/13/19 08:00 Hemoglobin 9.9 g/dL (12.0-15.5) 7.4 g/dL (12.0-15.5) Hematocrit 29.9 % (36.0-47.0) 22.5 % (36.0-47.0) Mean Corpuscular Hemoglobin Concent 33 g/dL (31-37) 33 g/dL (31-37) White Blood Count 29.5 x10^3/uL (4.0-11.0) Red Blood Count 2.57 x10^6/uL (3.50-5.40) Mean Corpuscular Volume 87 fL (79-100) Mean Corpuscular Hemoglobin 29 pg (25-35) Red Cell Distribution Width 14.9 % (11.5-14.5) Platelet Count 321 x10^3/uL (140-400) Neutrophils (%) (Auto) 85 % (31-73) Lymphocytes (%) (Auto) 12 % (24-48) Monocytes (%) (Auto) 3 % (0-9) Eosinophils (%) (Auto) 0 % (0-3) Basophils (%) (Auto) 0 % (0-3) Neutrophils # (Auto) 25.0 x10^3/uL (1.8-7.7) Lymphocytes # (Auto) 3.4 x10^3/uL (1.0-4.8) Monocytes # (Auto) 1.0 x10^3/uL (0.0-1.1) Eosinophils # (Auto) 0.1 x10^3/uL (0.0-0.7) Basophils # (Auto) 0.0 x10^3/uL (0.0-0.2) Sodium Level 141 mmol/L (136-145) Potassium Level 3.2 mmol/L (3.5-5.1) Chloride Level 108 mmol/L (98-107) Carbon Dioxide Level 25 mmol/L (21-32) Anion Gap 8 (6-14) Blood Urea Nitrogen 11 mg/dL (7-20) Creatinine 1.3 mg/dL (0.6-1.0) Estimated GFR (Cockcroft-Gault) 50.4 BUN/Creatinine Ratio 8 (6-20) Glucose Level 102 mg/dL (70-99) Calcium Level 7.5 mg/dL (8.5-10.1) Total Bilirubin 0.3 mg/dL (0.2-1.0) Aspartate Amino Transf (AST/SGOT) 9 U/L (15-37) Alanine Aminotransferase (ALT/SGPT) 19 U/L (14-59) Alkaline Phosphatase 68 U/L (46-116) Total Protein 5.0 g/dL (6.4-8.2) Albumin 1.9 g/dL (3.4-5.0) Albumin/Globulin Ratio 0.6 (1.0-1.7) Problem List Problems Medical Problems: (1) BONITA (acute kidney injury) Status: Acute (2) Rectal bleed Status: Acute (3) Septic shock Status: Acute Assessment/Plan noted hgb 7.4 today path c/w crohns gi management will review FRANCES Aragon MD 09/13/19 1637: SURGICAL PROGRESS NOTE Assessment/Plan Pt seen and examined. Agree with Ms. Champion's note Pt denies c/o but does note bleeding denies abd pain d/w pt and pt's possibility of need for surgery. They would like to avoid this. Will follow GERONIMO CHAMPION APRN Sep 13, 2019 08:51 FRANCES ALVA MD Sep 13, 2019 16:37
[2019-09-13] MEDS: amLODIPine BESYLATE 10 MG TABLET PO SCH (09:00)
--- NOTE | 2019-09-13 09:40 | PDOC ---
Subjective: Subjective: Feeling blessed. Reports brown stool. "I never had abd pain." Tolerating diet, asking to go home. Did not tolerate steroids - had tachycardia and said she won't take them again. Objective: Objective: Dr. Beavers called to ask about possible DC. Vital Signs: Vital Signs Date Time Temp Pulse Resp B/P (MAP) Pulse Ox O2 Delivery O2 Flow Rate FiO2 09/13/19 07:00 98.5 100 16 126/79 (95) 99 Room Air 98.5 Labs: Laboratory Tests Test 09/12/19 10:30 09/13/19 08:00 Hemoglobin 9.9 g/dL 7.4 g/dL Hematocrit 29.9 % 22.5 % Mean Corpuscular Hemoglobin Concent 33 g/dL 33 g/dL White Blood Count 29.5 x10^3/uL Red Blood Count 2.57 x10^6/uL Mean Corpuscular Volume 87 fL Mean Corpuscular Hemoglobin 29 pg Red Cell Distribution Width 14.9 % Platelet Count 321 x10^3/uL Neutrophils (%) (Auto) 85 % Lymphocytes (%) (Auto) 12 % Monocytes (%) (Auto) 3 % Eosinophils (%) (Auto) 0 % Basophils (%) (Auto) 0 % Neutrophils # (Auto) 25.0 x10^3/uL Lymphocytes # (Auto) 3.4 x10^3/uL Monocytes # (Auto) 1.0 x10^3/uL Eosinophils # (Auto) 0.1 x10^3/uL Basophils # (Auto) 0.0 x10^3/uL Sodium Level 141 mmol/L Potassium Level 3.2 mmol/L Chloride Level 108 mmol/L Carbon Dioxide Level 25 mmol/L Anion Gap 8 Blood Urea Nitrogen 11 mg/dL Creatinine 1.3 mg/dL Estimated GFR (Cockcroft-Gault) 50.4 BUN/Creatinine Ratio 8 Glucose Level 102 mg/dL Calcium Level 7.5 mg/dL Total Bilirubin 0.3 mg/dL Aspartate Amino Transf (AST/SGOT) 9 U/L Alanine Aminotransferase (ALT/SGPT) 19 U/L Alkaline Phosphatase 68 U/L Total Protein 5.0 g/dL Albumin 1.9 g/dL Albumin/Globulin Ratio 0.6 STOOL CULTURE Final Final report STOOL CULT RES 1 Final Comment No Salmonella or Shigella recovered. Performed at: [address], [place], [place] [id number] Ore Crusher: BISMARK Jones MD, Phone: [phone] CAMPY PENDING CAMPY RES 1 PENDING SHIGA TOXIN PENDING Imaging: Material submitted: . PART A: stomach - ANTRUM BIOPSY PART B: cecum - CECUM AND ASCENDING BIOPSY. Modifiers: ascending PART C: colon - TRANSVERSE AND DESCENDING BIOPSY. Modifiers: transverse, descending PART D: colon - SIGMOID COLON BIOPSY. Modifiers: sigmoid Clinical history: Pre-OP DX: Anemia Post-OP DX: Gastritis, rule out H. pylori, colon BX-rule out Crohn's Diagnosis: A. Gastric biopsies, antrum: - Chronic gastritis, moderate. B. Colonic mucosa, cecum and ascending colon biopsies: - Active chronic colitis, moderate to marked, without granuloma or specific features. C. Colonic mucosa, transverse and descending colon biopsies: - Active chronic colitis, moderate, without granulomas or specific features. D. Colonic mucosa, sigmoid colon biopsies: - Mild to moderate active chronic colitis without granulomas or specific features. Comment: Sections of the gastric antral biopsy show congestion and moderate chronic inflammation. A properly controlled immunoperoxidase stain for Helicobacter is negative for Helicobacter organisms. Sections of the cecum and ascending colon biopsy show a moderate to marked active chronic colitis without granulomas or specific features showing focal ulceration. Sections of the transverse and descending colon biopsy show a moderate active chronic colitis without granulomas or specific features also showing focal ulceration. Sections of the sigmoid colon biopsy show a mild to moderate active chronic colitis without granulomas or specific features. The findings are supportive of the diagnosis of idiopathic chronic inflammatory bowel disease. The variation in the degree of inflammation within the biopsies from the various sites is consistent with Crohn's disease. Correlate clinically. PE: GEN: NAD LUNGS: CTAB HEART: RRR ABD: NABS, S/ND/NT NEURO/PSYCH: A & O 3 A/P: Hematochezia, anemia Crohn's - path report as above (though no granulomas) Leukocytosis -- D/w Dr. Goddard - resection advised w/ continued anemia/bleeding and intolerance to steroids - surgery following. ERIKA CARDENAS Sep 13, 2019 09:40
--- NOTE | 2019-09-13 09:47 | PDOC ---
PROGRESS NOTES Subjective Subjective No new complaints. Objective Objective Vital Signs Date Time Temp Pulse Resp B/P (MAP) Pulse Ox O2 Delivery O2 Flow Rate FiO2 09/13/19 07:00 98.5 100 16 126/79 (95) 99 Room Air 98.5 09/10/19 10:38 2 Intake and Output 09/13/19 07:00 Intake Total 300 ml Output Total 150 ml Balance 150 ml Intake Oral 300 ml Stool Total 150 ml # Voids 6 # Bowel Movements 7 Physical Exam Physical Exam She is supine in bed and seems to be comfortable and she denies any knee joint pain. She is anemic. GI notes noted. Assessment Assessment Problems Medical Problems: (1) BONITA (acute kidney injury) Status: Acute (2) Rectal bleed Status: Acute (3) Septic shock Status: Acute Plan Plan of Care Await surgical advise. Comment Review of Relevant I have reviewed the following items diane (where applicable) has been applied. Labs Laboratory Tests Test 09/12/19 06:00 09/12/19 10:30 09/13/19 08:00 White Blood Count 28.9 x10^3/uL (4.0-11.0) 29.5 x10^3/uL (4.0-11.0) Red Blood Count 3.72 x10^6/uL (3.50-5.40) 2.57 x10^6/uL (3.50-5.40) Hemoglobin 10.4 g/dL (12.0-15.5) 9.9 g/dL (12.0-15.5) 7.4 g/dL (12.0-15.5) Hematocrit 31.6 % (36.0-47.0) 29.9 % (36.0-47.0) 22.5 % (36.0-47.0) Mean Corpuscular Volume 85 fL (79-100) 87 fL (79-100) Mean Corpuscular Hemoglobin 28 pg (25-35) 29 pg (25-35) Mean Corpuscular Hemoglobin Concent 33 g/dL (31-37) 33 g/dL (31-37) 33 g/dL (31-37) Red Cell Distribution Width 15.1 % (11.5-14.5) 14.9 % (11.5-14.5) Platelet Count 347 x10^3/uL (140-400) 321 x10^3/uL (140-400) Neutrophils (%) (Auto) 91 % (31-73) 85 % (31-73) Lymphocytes (%) (Auto) 8 % (24-48) 12 % (24-48) Monocytes (%) (Auto) 2 % (0-9) 3 % (0-9) Eosinophils (%) (Auto) 0 % (0-3) 0 % (0-3) Basophils (%) (Auto) 0 % (0-3) 0 % (0-3) Neutrophils # (Auto) 26.2 x10^3/uL (1.8-7.7) 25.0 x10^3/uL (1.8-7.7) Lymphocytes # (Auto) 2.2 x10^3/uL (1.0-4.8) 3.4 x10^3/uL (1.0-4.8) Monocytes # (Auto) 0.5 x10^3/uL (0.0-1.1) 1.0 x10^3/uL (0.0-1.1) Eosinophils # (Auto) 0.0 x10^3/uL (0.0-0.7) 0.1 x10^3/uL (0.0-0.7) Basophils # (Auto) 0.0 x10^3/uL (0.0-0.2) 0.0 x10^3/uL (0.0-0.2) Sodium Level 141 mmol/L (136-145) 141 mmol/L (136-145) Potassium Level 4.0 mmol/L (3.5-5.1) 3.2 mmol/L (3.5-5.1) Chloride Level 108 mmol/L (98-107) 108 mmol/L (98-107) Carbon Dioxide Level 24 mmol/L (21-32) 25 mmol/L (21-32) Anion Gap 9 (6-14) 8 (6-14) Blood Urea Nitrogen 10 mg/dL (7-20) 11 mg/dL (7-20) Creatinine 1.2 mg/dL (0.6-1.0) 1.3 mg/dL (0.6-1.0) Estimated GFR (Cockcroft-Gault) 55.3 50.4 BUN/Creatinine Ratio 8 (6-20) 8 (6-20) Glucose Level 165 mg/dL (70-99) 102 mg/dL (70-99) Calcium Level 8.1 mg/dL (8.5-10.1) 7.5 mg/dL (8.5-10.1) Total Bilirubin 0.4 mg/dL (0.2-1.0) 0.3 mg/dL (0.2-1.0) Aspartate Amino Transf (AST/SGOT) 13 U/L (15-37) 9 U/L (15-37) Alanine Aminotransferase (ALT/SGPT) 24 U/L (14-59) 19 U/L (14-59) Alkaline Phosphatase 103 U/L (46-116) 68 U/L (46-116) Total Protein 5.6 g/dL (6.4-8.2) 5.0 g/dL (6.4-8.2) Albumin 2.2 g/dL (3.4-5.0) 1.9 g/dL (3.4-5.0) Albumin/Globulin Ratio 0.6 (1.0-1.7) 0.6 (1.0-1.7) Laboratory Tests Test 09/12/19 10:30 09/13/19 08:00 Hemoglobin 9.9 g/dL (12.0-15.5) 7.4 g/dL (12.0-15.5) Hematocrit 29.9 % (36.0-47.0) 22.5 % (36.0-47.0) Mean Corpuscular Hemoglobin Concent 33 g/dL (31-37) 33 g/dL (31-37) White Blood Count 29.5 x10^3/uL (4.0-11.0) Red Blood Count 2.57 x10^6/uL (3.50-5.40) Mean Corpuscular Volume 87 fL (79-100) Mean Corpuscular Hemoglobin 29 pg (25-35) Red Cell Distribution Width 14.9 % (11.5-14.5) Platelet Count 321 x10^3/uL (140-400) Neutrophils (%) (Auto) 85 % (31-73) Lymphocytes (%) (Auto) 12 % (24-48) Monocytes (%) (Auto) 3 % (0-9) Eosinophils (%) (Auto) 0 % (0-3) Basophils (%) (Auto) 0 % (0-3) Neutrophils # (Auto) 25.0 x10^3/uL (1.8-7.7) Lymphocytes # (Auto) 3.4 x10^3/uL (1.0-4.8) Monocytes # (Auto) 1.0 x10^3/uL (0.0-1.1) Eosinophils # (Auto) 0.1 x10^3/uL (0.0-0.7) Basophils # (Auto) 0.0 x10^3/uL (0.0-0.2) Sodium Level 141 mmol/L (136-145) Potassium Level 3.2 mmol/L (3.5-5.1) Chloride Level 108 mmol/L (98-107) Carbon Dioxide Level 25 mmol/L (21-32) Anion Gap 8 (6-14) Blood Urea Nitrogen 11 mg/dL (7-20) Creatinine 1.3 mg/dL (0.6-1.0) Estimated GFR (Cockcroft-Gault) 50.4 BUN/Creatinine Ratio 8 (6-20) Glucose Level 102 mg/dL (70-99) Calcium Level 7.5 mg/dL (8.5-10.1) Total Bilirubin 0.3 mg/dL (0.2-1.0) Aspartate Amino Transf (AST/SGOT) 9 U/L (15-37) Alanine Aminotransferase (ALT/SGPT) 19 U/L (14-59) Alkaline Phosphatase 68 U/L (46-116) Total Protein 5.0 g/dL (6.4-8.2) Albumin 1.9 g/dL (3.4-5.0) Albumin/Globulin Ratio 0.6 (1.0-1.7) Microbiology 09/11/19 Stool Culture - Final, Resulted 09/11/19 Stool Culture Result 1 (ARSLAN) - Final, Resulted 09/11/19 Campylobacter Antigen Assay, Resulted Pending 09/11/19 Campylobactor Result 1, Resulted Pending 09/11/19 Shiga Toxin Test, Resulted Pending 09/05/19 Blood Culture - Final, Complete NO GROWTH AFTER 5 DAYS Medications Current Medications Sodium Chloride 1,000 ml @ 1,000 mls/hr 1X ONCE IV Last administered on 09/05/19at 11:30; Start 09/05/19 at 11:30; Stop 09/05/19 at 12:29; Status DC Potassium Chloride/Water 100 ml @ 100 mls/hr Q1H IV Last administered on 09/05/19at 14:55; Start 09/05/19 at 12:00; Stop 09/05/19 at 13:59; Status DC Adenosine (Adenocard) 6 mg STK-MED ONCE IV ; Start 09/05/19 at 12:20; Stop 09/05/19 at 12:21; Status DC Adenosine (Adenocard) 6 mg STK-MED ONCE IV ; Start 09/05/19 at 12:33; Stop 09/05/19 at 12:33; Status DC Sodium Chloride (Normal Saline Flush) 10 ml QSHIFT PRN IV AFTER MEDS AND BLOOD DRAWS; Start 09/05/19 at 13:00 Sodium Chloride 1,000 ml @ 1,500 mls/hr Q40M IV Last administered on 9at 12:38; Start 09/05/19 at 12:50; Stop 09/05/19 at 13:49; Status DC Piperacillin Sod/ Tazobactam Sod 4.5 gm/Sodium Chloride 100 ml @ 200 mls/hr 1X ONCE IV ; Start 09/05/19 at 13:00; Stop 09/05/19 at 13:07; Status DC Vancomycin HCl (Vanco Per Pharmacy) 1 each 1X ONCE MC ; Start 09/05/19 at 13:00; Stop 09/05/19 at 13:08; Status DC Norepinephrine Bitartrate 250 ml @ 0 mls/hr CONT PRN IV PER PROTOCOL; Start 09/05/19 at 13:00; Stop 09/08/19 at 13:36; Status DC Adenosine (Adenocard) 6 mg 1X ONCE IV Last administered on 09/05/19at 12:37; Start 09/05/19 at 13:15; Stop 09/05/19 at 13:16; Status DC Piperacillin Sod/ Tazobactam Sod 2.25 gm/Sodium Chloride 50 ml @ 100 mls/hr 1X ONCE IV Last administered on 09/05/19at 13:29; Start 09/05/19 at 13:15; Stop 09/05/19 at 13:44; Status DC Vancomycin HCl 1.5 gm/Sodium Chloride 500 ml @ 250 mls/hr 1X ONCE IV Last administered on 09/05/19at 14:55; Start 09/05/19 at 13:15; Stop 09/05/19 at 15:14; Status DC Amiodarone HCl 900 mg/Dextrose 518 ml @ 0 mls/hr CONT PRN IV SEE I/O RECORD; Start 09/05/19 at 13:30; Stop 09/09/19 at 14:43; Status DC Sodium Chloride 1,000 ml @ 100 mls/hr Q10H IV Last administered on 09/07/19at 04:13; Start 09/05/19 at 13:30; Stop 09/07/19 at 11:22; Status DC Acetaminophen/ Codeine Phosphate (Tylenol #3) 1 tab PRN Q6HRS PRN PO PAIN MILD TO MOD; Start 09/05/19 at 13:30 Ondansetron HCl (Zofran) 4 mg PRN Q6HRS PRN IVP NAUSEA/VOMITING Last administered on 09/10/19at 16:17; Start 09/05/19 at 13:30 Ferrous Sulfate (Feosol) 325 mg DAILYWBKFT PO Last administered on 09/13/19at 08:17; Start 09/06/19 at 08:00 Diphenhydramine HCl (Benadryl) 25 mg PRN QHS PRN PO INSOMNIA; Start 09/05/19 at 13:45 Pantoprazole Sodium (Protonix) 40 mg DAILYAC PO ; Start 09/06/19 at 07:30; St op 09/05/19 at 14:33; Status DC Morphine Sulfate (Morphine Sulfate) 1 mg PRN Q2HR PRN IV PAIN Last administered on 09/07/19at 14:11; Start 09/05/19 at 13:45 Adenosine (Adenocard) 6 mg 1X ONCE IV Last administered on 09/05/19at 13:19; Start 09/05/19 at 13:19; Stop 09/05/19 at 13:49; Status DC Adenosine (Adenocard) 12 mg 1X ONCE IV Last administered on 09/05/19at 13:29; Start 09/05/19 at 13:29; Stop 09/05/19 at 13:49; Status DC Acetaminophen/ Hydrocodone Bitart (Lortab 5/325) 1 tab PRN Q4HRS PRN PO PAIN SEVERE; Start 09/05/19 at 14:00 Pantoprazole Sodium (PROTONIX VIAL for IV PUSH) 40 mg DAILY ONCE IVP Last administered on 09/06/19at 08:52; Start 09/06/19 at 07:30; Stop 09/06/19 at 07:31; Status DC Potassium Chloride (Klor-Con) 20 meq 1X ONCE PO Last administered on 09/05/19at 17:01; Start 09/05/19 at 15:45; Stop 09/05/19 at 15:46; Status DC Potassium Chloride/Water 100 ml @ 100 mls/hr Q1H IV Last administered on 09/05/19at 17:00; Start 09/05/19 at 16:00; Stop 09/05/19 at 17:59; Status DC Metoprolol Tartrate (Lopressor Vial) 5 mg PRN Q5MIN PRN IVP TACHYCARDIA; Start 09/05/19 at 16:15 Pantoprazole Sodium (PROTONIX VIAL for IV PUSH) 40 mg DAILYAC IVP Last administered on 09/07/19at 07:58; Start 09/06/19 at 07:30; Stop 09/07/19 at 11:54; Status DC Pantoprazole Sodium (PROTONIX VIAL for IV PUSH) 40 mg 1X ONCE IVP Last administered on 09/05/19at 17:00; Start 09/05/19 at 16:45; Stop 09/05/19 at 16:51; Status DC Calcium Carbonate/ Glycine (Tums) 500 mg STK-MED ONCE .ROUTE ; Start 09/05/19 at 17:13; Stop 09/05/19 at 17:13; Status DC Piperacillin Sod/ Tazobactam Sod 2.25 gm/Sodium Chloride 50 ml @ 100 mls/hr Q6HRS IV Last administered on 09/08/19at 13:30; Start 09/05/19 at 19:00; Stop 09/08/19 at 13:44; Status DC Phytonadione (Mephyton Oral Soln) 5 mg 1X ONCE PO Last administered on 09/06/19at 12:02; Start 09/06/19 at 12:00; Stop 09/06/19 at 12:01; Status DC Dextrose 1,000 ml @ 75 mls/hr [id number] IV Last administered on 09/12/19at 11:30; Start 09/07/19 at 11:30 Pantoprazole Sodium (Protonix) 40 mg DAILYAC PO Last administered on 09/13/19at 08:17; Start 09/08/19 at 07:30 Methylprednisolone Acetate (DEPO-Medrol 40MG VIAL) 40 mg 1X ONCE IM ; Start 09/07/19 at 15:30; Stop 09/07/19 at 15:31; Status DC Methylprednisolone Acetate (DEPO-Medrol 40MG VIAL) 40 mg 1X ONCE IM ; Start 09/07/19 at 15:30; Stop 09/07/19 at 15:31; Status DC Bupivacaine HCl (Sensorcaine-Mpf 0.25%) 10 ml 1X ONCE IJ ; Start 09/07/19 at 15:30; Stop 09/07/19 at 15:31; Status DC Heparin Sodium (Porcine) (HEPARIN for NUC MED) 100 unit 1X ONCE IV ; Start 09/08/19 at 07:00; Stop 09/08/19 at 07:01; Status DC Diazepam (Valium) 5 mg PRN Q8HRS PRN PO ANXIETY; Start 09/08/19 at 10:15 Methylprednisolone Acetate (DEPO-Medrol 40MG VIAL) 40 mg 1X ONCE IM ; Start 09/08/19 at 13:15; Stop 09/08/19 at 13:16; Status DC Bupivacaine HCl (Sensorcaine-Mpf 0.25%) 10 ml 1X ONCE IJ ; Start 09/08/19 at 13:15; Stop 09/08/19 at 13:16; Status DC Fluoxetine HCl (PROzac) 20 mg DAILY PO Last administered on 09/13/19at 08:17; Start 09/09/19 at 12:00 Polyethylene Glycol (miraLAX Powder BULK BOTTLE) 238 gm 1X ONCE PO Last administered on 09/09/19at 16:11; Start 09/09/19 at 16:30; Stop 09/09/19 at 16:31; Status DC Bisacodyl (Dulcolax Tab) 10 mg 1X ONCE PO Last administered on 09/09/19at 13:55; Start 09/09/19 at 14:00; Stop 09/09/19 at 14:01; Status DC Amlodipine Besylate (Norvasc) 10 mg DAILY PO Last administered on 09/12/19at 08:50; Start 09/10/19 at 09:00 Amlodipine Besylate (Norvasc) 10 mg 1X ONCE PO Last administered on 09/09/19at 16:11; Start 09/09/19 at 16:30; Stop 09/09/19 at 16:31; Status DC Ringer's Solution 1,000 ml @ 50 mls/hr Q20H IV ; Start 09/10/19 at 08:46; Stop 09/10/19 at 14:55; Status DC Propofol 20 ml @ As Directed STK-MED ONCE IV ; Start 09/10/19 at 09:57; Stop 09/10/19 at 09:57; Status DC Propofol 20 ml @ As Directed STK-MED ONCE IV ; Start 09/10/19 at 10:25; Stop 09/10/19 at 10:25; Status DC Ondansetron HCl (Zofran Odt) 4 mg PRN Q6HRS PRN PO NAUSEA/VOMITING Last administered on 09/10/19at 16:51; Start 09/10/19 at 16:45 Calcium Carbonate/ Glycine (Tums) 500 mg PRN AFTMEALHC PRN PO INDIGESTION Last administered on 09/12/19at 19:34; Start 09/10/19 at 19:45 Potassium Chloride (Klor-Con) 40 meq 1X ONCE PO Last administered on 09/11/19at 08:50; Start 09/11/19 at 08:30; Stop 09/11/19 at 08:31; Status DC Calcium Carbonate/ Glycine (Tums) 500 mg PRN AFTMEALHC PRN PO INDIGESTION; Start 09/11/19 at 10:45; Status UNV Prednisone (Prednisone) 30 mg 1X ONCE PO Last administered on 09/11/19at 15:47; Start 09/11/19 at 13:00; Stop 09/11/19 at 13:01; Status DC Prednisone (Prednisone) 10 mg TIDWMEALS PO Last administered on 09/12/19at 16:38; Start 09/12/19 at 16:00; Stop 09/12/19 at 18:23; Status DC Active Scripts Active Reported Ferralet 90 Dual-Iron Tablet (Iron, Carb & Gluc/Fa/B12/C/Dss) 1 Each Tablet 1 Tab PO DAILY Losartan-Hctz 50-12.5 Mg Tab (Losartan/Hydrochlorothiazide) 1 Each Tablet 1 Tab PO DAILY Vitals/I & O Vital Sign - Last 24 Hours 09/12/19 09/12/19 09/12/19 09/12/19 11:32 15:15 19:05 19:35 Temp 98.5 98.7 98.2 98.5 98.7 98.2 Pulse 97 98 101 Resp 20 20 17 B/P (MAP) 131/82 (98) 119/70 (86) 132/71 (91) Pulse Ox 99 100 99 O2 Delivery Room Air Room Air Room Air Room Air 09/13/19 09/13/19 03:05 07:00 Temp 98.1 98.5 98.1 98.5 Pulse 89 100 Resp 16 16 B/P (MAP) 121/86 (98) 126/79 (95) Pulse Ox 100 99 O2 Delivery Room Air Room Air Intake and Output 09/12/19 09/12/19 09/13/19 15:00 23:00 07:00 Intake Total 300 ml Output Total 150 ml Balance 150 ml ALVAREZ NAVARRO MD Sep 13, 2019 09:47
--- NOTE | 2019-09-13 10:26 | PDOC ---
SUBJECTIVE ROS No complaints voiced by Pt , she states she might be going home today OBJECTIVE Vital Signs Vital Signs Date Time Temp Pulse Resp B/P (MAP) Pulse Ox O2 Delivery O2 Flow Rate FiO2 09/13/19 07:00 98.5 100 16 126/79 (95) 99 Room Air 98.5 I & 0 Intake and Output 09/13/19 07:00 Intake Total 300 ml Output Total 150 ml Balance 150 ml Intake Oral 300 ml Stool Total 150 ml # Voids 6 # Bowel Movements 7 PHYSICAL EXAM Physical Exam General: No acute distress HEENT: Mucous membr. moist/pink Neck supple Lungs: Clear to auscultation, non labored Heart: Normal S1, Normal S2, No murmurs Abdomen: Soft, No tenderness Extremities: No cyanosis, No edema Skin: No breakdown , no rash Neuro: AXOx 3, Grossly normal Psych/Mental Status: Mental status NL, Mood NL - Dominguez +, No CVA or SP tenderness DIAGNOSIS/ASSESSMENT Assessment & Plan BONITA- Non Oliguric- ATN/Hyptonsive/Arrythmia / GI bleed UA granular casts , No micr hematuria, no UTI renal function improved, stable Cr 1.2-1.3 (baseline unknown) Supportive care, avoid nephrotoxins, Rectal bleeding, abd pain, EGD 09/10-- erosive gastritis in antrum without bleeding or ulcer- Bx Colonoscopy 09/10- Descending, transverse - numerous small and large ulcers , several ulcers with small vessels with recent bleeding Cecum and ascending - severe ulcerative colitis with deep ulcers and inflammation, suggestive of Crohn's Dx with Crohn's, GI following Hypokalemia - replace Renal cysts - Ct report Multiple renal lesions,these have increased in size and number since the prior study, and further outpatient examination with multiphase contrast-enhanced CT or MRI of the kidneys could be of benefit. HTN- Only on Loasartan 50 mg PO QD at home - held Hypotension at presentation Anemia , acute - 2/2 above Noted Drop in Hgb again this am (not due to Kidney failure(- defer to Primary and GI ) SVT- cardiology consulted s/p Adenosine in ER Adrenal Nodule on CT- stable per report Follow up labs with PCP in few weeks post dc, FU with our office as OP (Non urgent in 2-3 months ) COMMENT/RELEVANT DATA Meds Current Medications Medications (Trade) Dose Ordered Sig/Florecita Start Time Stop Time Status Last Admin Dose Admin Acetaminophen/ Codeine Phosphate (Tylenol #3) 1 tab PRN Q6HRS PRN 09/05/19 13:30 Acetaminophen/ Hydrocodone Bitart (Lortab 5/325) 1 tab PRN Q4HRS PRN 09/05/19 14:00 Adenosine (Adenocard) 12 mg 1X ONCE 09/05/19 13:29 09/05/19 13:49 DC 09/05/19 13:29 12 MG Amiodarone HCl 900 mg/Dextrose 518 ml @ 0 mls/hr CONT PRN 09/05/19 13:30 09/09/19 14:43 DC Amlodipine Besylate (Norvasc) 10 mg 1X ONCE 09/09/19 16:30 09/09/19 16:31 DC 09/09/19 16:11 10 MG Bisacodyl (Dulcolax Tab) 10 mg 1X ONCE 09/09/19 14:00 09/09/19 14:01 DC 09/09/19 13:55 10 MG Bupivacaine HCl (Sensorcaine-Mpf 0.25%) 10 ml 1X ONCE 09/08/19 13:15 09/08/19 13:16 DC Calcium Carbonate/ Glycine (Tums) 500 mg PRN AFTMEALHC PRN 09/11/19 10:45 UNV Dextrose 1,000 ml @ 75 mls/hr [id number] 09/07/19 11:30 09/12/19 11:30 75 MLS/HR Diazepam (Valium) 5 mg PRN Q8HRS PRN 09/08/19 10:15 Diphenhydramine HCl (Benadryl) 25 mg PRN QHS PRN 09/05/19 13:45 Ferrous Sulfate (Feosol) 325 mg DAILYWBKFT 09/06/19 08:00 09/13/19 08:17 325 MG Fluoxetine HCl (PROzac) 20 mg DAILY 09/09/19 12:00 09/13/19 08:17 20 MG Heparin Sodium (Porcine) (HEPARIN for NUC MED) 100 unit 1X ONCE 09/08/19 07:00 09/08/19 07:01 DC Methylprednisolone Acetate (DEPO-Medrol 40MG VIAL) 40 mg 1X ONCE 09/08/19 13:15 09/08/19 13:16 DC Metoprolol Tartrate (Lopressor Vial) 5 mg PRN Q5MIN PRN 09/05/19 16:15 Morphine Sulfate (Morphine Sulfate) 1 mg PRN Q2HR PRN 09/05/19 13:45 09/07/19 14:11 1 MG Norepinephrine Bitartrate 250 ml @ 0 mls/hr CONT PRN 09/05/19 13:00 09/08/19 13:36 DC Ondansetron HCl (Zofran Odt) 4 mg PRN Q6HRS PRN 09/10/19 16:45 09/10/19 16:51 4 MG Ondansetron HCl (Zofran) 4 mg PRN Q6HRS PRN 09/05/19 13:30 09/10/19 16:17 4 MG Pantoprazole Sodium (PROTONIX VIAL for IV PUSH) 40 mg 1X ONCE 09/05/19 16:45 09/05/19 16:51 DC 09/05/19 17:00 40 MG Pantoprazole Sodium (Protonix) 40 mg DAILYAC 09/08/19 07:30 09/13/19 08:17 40 MG Phytonadione (Mephyton Oral Soln) 5 mg 1X ONCE 09/06/19 12:00 09/06/19 12:01 DC 09/06/19 12:02 5 MG Piperacillin Sod/ Tazobactam Sod 2.25 gm/Sodium Chloride 50 ml @ 100 mls/hr Q6HRS 09/05/19 19:00 09/08/19 13:44 DC 09/08/19 13:30 100 MLS/HR Piperacillin Sod/ Tazobactam Sod 4.5 gm/Sodium Chloride 100 ml @ 200 mls/hr 1X ONCE 09/05/19 13:00 09/05/19 13:07 DC Polyethylene Glycol (miraLAX Powder BULK BOTTLE) 238 gm 1X ONCE 09/09/19 16:30 09/09/19 16:31 DC 09/09/19 16:11 238 GM Potassium Chloride/Water 100 ml @ 100 mls/hr Q1H 09/05/19 16:00 09/05/19 17:59 DC 09/05/19 17:00 100 MLS/HR Potassium Chloride (Klor-Con) 40 meq 1X ONCE 09/11/19 08:30 09/11/19 08:31 DC 09/11/19 08:50 40 MEQ Prednisone (Prednisone) 10 mg TIDWMEALS 09/12/19 16:00 09/12/19 18:23 DC 09/12/19 16:38 10 MG Propofol 20 ml @ As Directed STK-MED ONCE 09/10/19 10:25 09/10/19 10:25 DC Ringer's Solution 1,000 ml @ 50 mls/hr Q20H 09/10/19 08:46 09/10/19 14:55 DC Sodium Chloride 1,000 ml @ 100 mls/hr Q10H 09/05/19 13:30 09/07/19 11:22 DC 09/07/19 04:13 100 MLS/HR Sodium Chloride (Normal Saline Flush) 10 ml QSHIFT PRN 09/05/19 13:00 Vancomycin HCl (Vanco Per Pharmacy) 1 each 1X ONCE 09/05/19 13:00 09/05/19 13:08 DC Vancomycin HCl 1.5 gm/Sodium Chloride 500 ml @ 250 mls/hr 1X ONCE 09/05/19 13:15 09/05/19 15:14 DC 09/05/19 14:55 250 MLS/HR Lab Laboratory Tests Test 09/12/19 10:30 09/13/19 08:00 Hemoglobin 9.9 g/dL (12.0-15.5) 7.4 g/dL (12.0-15.5) Hematocrit 29.9 % (36.0-47.0) 22.5 % (36.0-47.0) Mean Corpuscular Hemoglobin Concent 33 g/dL (31-37) 33 g/dL (31-37) White Blood Count 29.5 x10^3/uL (4.0-11.0) Red Blood Count 2.57 x10^6/uL (3.50-5.40) Mean Corpuscular Volume 87 fL (79-100) Mean Corpuscular Hemoglobin 29 pg (25-35) Red Cell Distribution Width 14.9 % (11.5-14.5) Platelet Count 321 x10^3/uL (140-400) Neutrophils (%) (Auto) 85 % (31-73) Lymphocytes (%) (Auto) 12 % (24-48) Monocytes (%) (Auto) 3 % (0-9) Eosinophils (%) (Auto) 0 % (0-3) Basophils (%) (Auto) 0 % (0-3) Neutrophils # (Auto) 25.0 x10^3/uL (1.8-7.7) Lymphocytes # (Auto) 3.4 x10^3/uL (1.0-4.8) Monocytes # (Auto) 1.0 x10^3/uL (0.0-1.1) Eosinophils # (Auto) 0.1 x10^3/uL (0.0-0.7) Basophils # (Auto) 0.0 x10^3/uL (0.0-0.2) Sodium Level 141 mmol/L (136-145) Potassium Level 3.2 mmol/L (3.5-5.1) Chloride Level 108 mmol/L (98-107) Carbon Dioxide Level 25 mmol/L (21-32) Anion Gap 8 (6-14) Blood Urea Nitrogen 11 mg/dL (7-20) Creatinine 1.3 mg/dL (0.6-1.0) Estimated GFR (Cockcroft-Gault) 50.4 BUN/Creatinine Ratio 8 (6-20) Glucose Level 102 mg/dL (70-99) Calcium Level 7.5 mg/dL (8.5-10.1) Total Bilirubin 0.3 mg/dL (0.2-1.0) Aspartate Amino Transf (AST/SGOT) 9 U/L (15-37) Alanine Aminotransferase (ALT/SGPT) 19 U/L (14-59) Alkaline Phosphatase 68 U/L (46-116) Total Protein 5.0 g/dL (6.4-8.2) Albumin 1.9 g/dL (3.4-5.0) Albumin/Globulin Ratio 0.6 (1.0-1.7) Results All relevant outside records, renal labs, imaging studies, telemetry/EKG's were reviewed. ALISON CARDENAS MD Sep 13, 2019 10:26
[2019-09-13 11:00] VITALS: BP 119/76
--- NOTE | 2019-09-13 11:13 | PDOC ---
[employer] PROGRESS NOTE Chief Complaint Chief Complaint New SVT with hypotension hematochezia Hypokalemia BONITA -creat 4.0- ///acute tubular necrosis ischemic colitis AGAP acidosis, contraction alkalosis SIRS Septic shock (hypotensive) Leukocytosis Incidental kidney cysts Old Thoracic fx adrenal adenoma Leucocytosis and lactic acidosis source GI severe protein-caloric malnutrition History of Present Illness History of Present Illness 09/13/19 Pt seen and examined. Pt reports feeling well. Had another bowel movement that she says was not as bloody. Pt refused steroids due to increased heart rate that she believes was a reaction to the medication. Pathology from colonoscopy bx is consistent with Crohn's. Hg this a.m. was down again: 7.4 g/dL. Discussed with and nurse. 09/12/19 Pt seen and examined. Transfused yesterday 2 units PRBC. Pt reports feeling better, eating soft foods and tolerating well, but continues to have blood in stool. Per nurse, she had a large clot in bowel movement after speaking with me this morning. Will order stat H/H. DW case mgmt and RN and Pt got first dose of 30mg prednisone 09/11/19 Pt seen and examined. Pt was sitting in bed, relaxed and conversant, in no acute distress. Pt had eaten soft food this a.m. without N/V or abdominal pain, though reports acid reflux. Will order Tums for reflux. Discussed with nurse and GI. Still awaiting pathology from colonoscopy suggestive of Crohn's. Hemoglobin down to 6.5 this a.m. Will transfuse 2 units PRBC. 09/10/19 Pt seen and examined with present. Pt was alert and oriented after colonoscopy this a.m. Discussed with GI, who said colonoscopy was suggestive of Crohn's, or possibly infectious. Awaiting pathology. Hemoglobin up today (8.2 g/dL, 09/10/19 a.m.). Will continue to check. [id number] Patient seen and examined with her present Discussed with RN at length Tagged red blood cell scan was positive Hemoglobin is down into the sixes again We'll transfuse 2 units of packed red blood cells and await further surgical and GI input 09/08/2019 Pt was seen and examined. Reports 2 bloody BMs this morning. Reports she had her right knee injected, and will have the left one injected later today or tomorrow. Reports relief of R Knee pain after injection. Reports anxiety and was asking for some Valium on interview. 09/07/2018 VTE Prophylaxis Ordered VTE Prophylaxis Devices: Contraindicated VTE Pharmacological Prophylaxi: Contraindicated Assessment/Plan Assessment/Plan NEw SVT with hypotension hematochezia Mild distal esophageal wall thickening, could be of acute or chronic etiology. HYpokalemia, critical - replace BONITA -creat 4.0- ///acute tubular necrosis cr down to 1.[address] , No evidence of hydronephrosis. ?ischemic colitis renal consult AGAp acidosis, contraction alkalosis - AGAP 25 with high bicarb SIRS - no source - elev lactate 13.,1 Septic shock (hypotensive) LEukocytosis - WBC 23 - kovacs cx, ID Incidental kidney cysts - per CT Old Thoracic fx - she denies knowledge and back pain adrenal adenoma Leucocytosis and lactic acidosis source GI severe protein-caloric malnutrition PLAN: ICU bed, AMio gtt levophed prn bp control NS IVF for AGAP follow mag, tsh, calcium Replace k orally EMpiric abx - ID consult., cont zosyn avoid nephrotoxins COnsult ID, renal and cards HOld losartan (creat 4) resume ferrous sulfate gi following, TRY CLEAR LIQUIDS CONSIDER egd, colonoscopy nephrology FOLLOWING transfuse prn follow lytes FUll code cc 35 MIN Vitals/I&O Vitals/I&O: Vital Signs Date Time Temp Pulse Resp B/P (MAP) Pulse Ox O2 Delivery O2 Flow Rate FiO2 09/13/19 07:00 98.5 100 16 126/79 (95) 99 Room Air 98.5 I & O 09/12/19 09/12/19 09/13/19 15:00 23:00 07:00 Intake Total 300 ml Output Total 150 ml Balance 150 ml Physical Exam Physical Exam: GENERAL: Alert, oriented x3 female, sitting in bed, in no acute distress HEENT: Normocephalic, atraumatic; EOMI LUNGS: Clear bilaterally. No wheezing. HEART: RRR No gallops or murmurs. ABDOMEN: no rebound, no guarding. EXTREMITIES: No edema, no cyanosis. DERMATOLOGIC: Warm, dry, no generalized rash. NEUROLOGIC: Alert and oriented x3 General: Alert, Cooperative Heart: Regular rate, Normal S1, Normal S2, No murmurs Lungs: Clear Abdomen: Soft, Other (NTTP) Extremities: No clubbing, No cyanosis, No edema, Other (Right knee with clean and intact bandaging.) Skin: No rashes, No breakdown Labs Labs: Laboratory Tests Test 09/13/19 08:00 White Blood Count 29.5 x10^3/uL (4.0-11.0) Red Blood Count 2.57 x10^6/uL (3.50-5.40) Hemoglobin 7.4 g/dL (12.0-15.5) Hematocrit 22.5 % (36.0-47.0) Mean Corpuscular Volume 87 fL (79-100) Mean Corpuscular Hemoglobin 29 pg (25-35) Mean Corpuscular Hemoglobin Concent 33 g/dL (31-37) Red Cell Distribution Width 14.9 % (11.5-14.5) Platelet Count 321 x10^3/uL (140-400) Neutrophils (%) (Auto) 85 % (31-73) Lymphocytes (%) (Auto) 12 % (24-48) Monocytes (%) (Auto) 3 % (0-9) Eosinophils (%) (Auto) 0 % (0-3) Basophils (%) (Auto) 0 % (0-3) Neutrophils # (Auto) 25.0 x10^3/uL (1.8-7.7) Lymphocytes # (Auto) 3.4 x10^3/uL (1.0-4.8) Monocytes # (Auto) 1.0 x10^3/uL (0.0-1.1) Eosinophils # (Auto) 0.1 x10^3/uL (0.0-0.7) Basophils # (Auto) 0.0 x10^3/uL (0.0-0.2) Sodium Level 141 mmol/L (136-145) Potassium Level 3.2 mmol/L (3.5-5.1) Chloride Level 108 mmol/L (98-107) Carbon Dioxide Level 25 mmol/L (21-32) Anion Gap 8 (6-14) Blood Urea Nitrogen 11 mg/dL (7-20) Creatinine 1.3 mg/dL (0.6-1.0) Estimated GFR (Cockcroft-Gault) 50.4 BUN/Creatinine Ratio 8 (6-20) Glucose Level 102 mg/dL (70-99) Calcium Level 7.5 mg/dL (8.5-10.1) Total Bilirubin 0.3 mg/dL (0.2-1.0) Aspartate Amino Transf (AST/SGOT) 9 U/L (15-37) Alanine Aminotransferase (ALT/SGPT) 19 U/L (14-59) Alkaline Phosphatase 68 U/L (46-116) Total Protein 5.0 g/dL (6.4-8.2) Albumin 1.9 g/dL (3.4-5.0) Albumin/Globulin Ratio 0.6 (1.0-1.7) Review of Systems Review of Systems: No N/V Yes hematochezia No abdominal pain Assessment and Plan Assessmemt and Plan Problems Medical Problems: (1) BONITA (acute kidney injury) Status: Acute (2) Rectal bleed Status: Acute (3) Septic shock Status: Acute Anemia Acid Reflux Septic shock (hypotensive) hematochezia New SVT with hypotension Hypokalemia BONITA -creat 4.0- ///acute tubular necrosis ischemic colitis AGAP acidosis, contraction alkalosis SIRS Leukocytosis Incidental kidney cysts 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 Surgery has been consulted. 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 Medications: Current Medications Medications (Trade) Dose Ordered Sig/Florecita Route PRN Reason Start Time Stop Time Status Last Admin Dose Admin Prednisone (Prednisone) 10 mg TIDWMEALS PO 09/12/19 16:00 09/12/19 18:23 DC 09/12/19 16:38 LÁZARO CALLE III DO Sep 13, 2019 11:13
--- NOTE | 2019-09-13 11:17 | SNU/HH DC ---
DISCHARGE WITH HOME HEALTH DISCHARGE INFORMATION: Final Diagnosis: Problems Medical Problems: (1) BONITA (acute kidney injury) Status: Acute (2) Rectal bleed Status: Acute (3) Septic shock Status: Acute Condition on Discharge: Stable CODE STATUS: Code Status: Full HOME HEALTH: Face to Face: I certify this patient is under my care and that I, or a nurse practitioner or physician's payroll assistant working with me, had a face to face encounter that meets the physician face to face encounter requirements with this patient on []. Medical Complications: Other (new crohns) RN For Eval/Treatment: Yes Physical Therapy For: Evalulation/Treatment Occupational Therapy For: Evaluation/Treatment Home Health Aide For: Self-care CUSTOMER SUCCESS MANAGER For: Community Resources Pt Meets Homebound Status: Unsteady balance w/ amb, CERTIFICATION STATEMENT: Certification Statement: Certification Statement: Based on the above finding, I certify that this patient is confined to the home and needs intermittent mcfp care, physical therapy and/or speech therapy, or continues to need occupational therapy.~ This patient is under my care, and I have initiated the establishment of the plan of care.~ This patient will be followed by myself or a community physician who will periodically review the plan of care. Home Meds Reported Medications Iron, Carb & Gluc/Fa/B12/C/Dss (FERRALET 90 DUAL-IRON TABLET) 1 Each Tablet, 1 TAB PO DAILY for anemia, #90 TAB 3 Refills 09/05/19 Losartan/Hydrochlorothiazide (LOSARTAN-HCTZ 50-12.5 MG TAB) 1 Each Tablet, 1 TAB PO DAILY for htn, #30 TAB 5 Refills 09/05/19 LÁZARO CALLE III DO Sep 13, 2019 11:16
[2019-09-13 14:12] LABS: BASO % 0 % (0-3); EOS # 0.1 x10^3/uL (0.0-0.7); EOS % 0 % (0-3); HEMATOCRIT 22.1 % (36.0-47.0); HEMOGLOBIN 7.3 g/dL (12.0-15.5); LYMPH # 3.2 x10^3/uL (1.0-4.8); LYMPH % 11 % (24-48); MEAN CORPUSCULAR HEMOGLOBIN 29 pg (25-35); MEAN CORPUSCULAR HGB CONC 33 g/dL (31-37); MEAN CORPUSCULAR VOLUME 88 fL (79-100); MONO # 1.1 x10^3/uL (0.0-1.1); MONO % 4 % (0-9); NEUT # 24.6 x10^3/uL (1.8-7.7); NEUT % 85 % (31-73); PLATELET COUNT 317 x10^3/uL (140-400); RED BLOOD COUNT 2.51 x10^6/uL (3.50-5.40); RED CELL DISTRIBUTION WIDTH 15.2 % (11.5-14.5)
--- NOTE | 2019-09-13 14:47 | NUR ---
[facility] following pt. SW spoke with pt regarding home health and explained services. Pt declined home health and stating she might do OP PT at [facility] and will speak with her primary care Physician about this. Pt denies any other needs at this time. Discussed with RN.
[2019-09-13 15:00] VITALS: BP_SYST 124; BP_SYST 137; BP_DIAS 66; BP_DIAS 71
--- NOTE | 2019-09-13 15:56 | NUR ---
Discharge Note: PATRICIA BEE [address] [place] [address] Discharge instructions and discharge home medications reviewed with Patient and a copy given. All questions have been answered and understanding verbalized. The following instructions and handouts were given: Two paper scripts given to patient including GI bleed/diet education. Discontinued lines and drains: 1 x PIV intact. Patient discharged to home with ; home health refused. Will follow-up with PCP.
--- NOTE | 2019-09-14 09:38 | DS ---
DATE OF DISCHARGE: 09/13/2019 ADMISSION DIAGNOSES: Sepsis and gastrointestinal bleed. DISCHARGE DIAGNOSES: Resolving gastrointestinal bleed, resolving sepsis. New diagnosis is a probable Crohn's noted on endoscopy, anemia with multiple transfusions. HOSPITAL COURSE: The patient is a pleasant 59-year-old female who basically presented with weakness and was noted to be somewhat septic. She was also quite anemic. We admitted her. We gave her IV antibiotics and fluids. We consulted GI and Infectious Disease. She was taken for endoscopy. We went down and saw her during the endoscopy. Dr. Rutherford feels like she probably has Crohn's, which is unusual to diagnose at this age, but he did take biopsies and was convinced that she had Crohn's. We are still waiting for the biopsy report. Post-procedure, she did well, but we had to give her a little bit more blood. Yesterday, we saw her, examined her. She wanted to go home. She looked great. I did have to give her a little more blood yesterday, but we did discharge with close outpatient followup. She is going to follow up with Dr. Rutherford for her pathology report. DISPOSITION: Home. ACTIVITY: As tolerated. MEDICATIONS: Please see MRAD. TOTAL TIME: 32 minutes. LÁZARO CALLE DO DR: PILI/rita JOB#: [id number] / [id number]
== END 2019-09-13 15:55 | disposition home or self-care (01) | DRG 871 ==
LOC: ER 10:31 → 1 WEST ICU 12:55 → 6 SOUTH 09-07 17:00
PROVIDERS: ADMIT Internal Medicine; ATTEND Internal Medicine
PROC: 30233N1 Transfusion of Nonautologous Red Blood Cells into Peripheral Vein, Percutaneous Approach (ICD-10-PCS; 2019-09-05)
PROC: 3E0U33Z Introduction of Anti-inflammatory into Joints, Percutaneous Approach (ICD-10-PCS; principal; 2019-09-07)
PROC: 3E0U3BZ Introduction of Anesthetic Agent into Joints, Percutaneous Approach (ICD-10-PCS; 2019-09-07)
PROC: 0DB68ZX Excision of Stomach, Via Natural or Artificial Opening Endoscopic, Diagnostic (ICD-10-PCS; 2019-09-07)
PROC: 0DJD8ZZ Inspection of Lower Intestinal Tract, Via Natural or Artificial Opening Endoscopic (ICD-10-PCS; 2019-09-07)
PROC: 0DBK8ZX Excision of Ascending Colon, Via Natural or Artificial Opening Endoscopic, Diagnostic (ICD-10-PCS; 2019-09-07)
PROC: 0DBL8ZX Excision of Transverse Colon, Via Natural or Artificial Opening Endoscopic, Diagnostic (ICD-10-PCS; 2019-09-07)
PROC: 0DBN8ZX Excision of Sigmoid Colon, Via Natural or Artificial Opening Endoscopic, Diagnostic (ICD-10-PCS; 2019-09-07)
DX: A41.9 Sepsis, unspecified organism (principal); E43 Unspecified severe protein-calorie malnutrition; N17.0 Acute kidney failure with tubular necrosis; R65.21 Severe sepsis with septic shock; I47.1 Supraventricular tachycardia; D68.9 Coagulation defect, unspecified; E87.4 Mixed disorder of acid-base balance; K55.9 Vascular disorder of intestine, unspecified; M48.56XA Collapsed vertebra, not elsewhere classified, lumbar region, initial encounter for fracture; K50.90 Crohn's disease, unspecified, without complications; E87.6 Hypokalemia; D25.9 Leiomyoma of uterus, unspecified; D35.00 Benign neoplasm of unspecified adrenal gland; D50.9 Iron deficiency anemia, unspecified; E27.8 Other specified disorders of adrenal gland; E87.5 Hyperkalemia; F41.9 Anxiety disorder, unspecified; G89.29 Other chronic pain; I12.9 Hypertensive chronic kidney disease with stage 1 through stage 4 chronic kidney disease, or unspecified chronic kidney disease; I70.0 Atherosclerosis of aorta; K21.0 Gastro-esophageal reflux disease with esophagitis; K29.60 Other gastritis without bleeding; K44.9 Diaphragmatic hernia without obstruction or gangrene; K80.20 Calculus of gallbladder without cholecystitis without obstruction; M17.0 Bilateral primary osteoarthritis of knee; M47.9 Spondylosis, unspecified; N18.9 Chronic kidney disease, unspecified; N28.1 Cyst of kidney, acquired; Z53.20 Procedure and treatment not carried out because of patient's decision for unspecified reasons; Z82.49 Family history of ischemic heart disease and other diseases of the circulatory system
CPT/HCPCS: 36415; 43239; 45380; 71045; 74176; 78278; 80048; 80053; 80069; 81001; 82274; 82310; 82550; 82607; 83540; 83550; 83605; 83735; 84132; 84145; 84166; 84443; 85007; 85014; 85018; 85025; 85027; 85610; 86140; 86334; 86850; 86900; 86901; 86920; 87040; 87045; 87177; 88305; 88342; 93005; 93306; 96365; 96367; 96374; 96375; 96376; A9560; C9113; J0153; J1030; J2270; J2405; J2543; J2704; J3370; J3480; J3490; J7030; J7040; J7512; P9016; Q0162; 97110; 97116; 97535; 99285-25; G0378

== ENCOUNTER → 2019-11-10 | Outpatient (CLI) | payer BC ==
[2019-09-13 15:00] VITALS: BP 124/71
[~2019-11-10] MED LIST: IOHEXOL 300 MG/ML 100ML VIAL. IV ONE; IRON1TAB2 PO; LOSA1TAB19 PO
--- NOTE | 2019-11-11 17:12 | KCIC ---
EXAM: CT ABDOMEN/PELVIS WITH CONTRAST. HISTORY: Crohn disease, hematochezia. TECHNIQUE: Computed tomography of the abdomen and pelvis was performed after the intravenous administration of iodinated contrast. COMPARISON: 09/05/2019. FINDINGS: Lung windows through the visualized portions of the bases reveal a small hiatal hernia. Bone windows reveal ankylosis of both sacroiliac joints. "Shiny corners" within the lumbar spine are consistent with component of spondylitis without ankylosis. There is severe degenerative disc disease at L4-5. The liver appears mildly enlarged. There are no focal hepatic lesions. The gallbladder, pancreas, adrenal glands and spleen are unremarkable. Multiple bilateral renal cysts measure up to 3.4 cm in the right interpolar region. There are no pathologically enlarged lymph nodes. Loss of colonic haustration suggest chronic colitis. Fluid throughout the colon is consistent with diarrhea. There is no clear small bowel wall thickening. There is no obstruction. The uterus is enlarged and irregular secondary to multiple confluent small fibroids. Largest individual fibroid measures approximately 4.3 cm. A left ovarian cyst or follicle measures 2.9 cm. IMPRESSION: 1. Decreased colonic haustration is consistent with chronic colitis. No clear small bowel wall thickening is seen. Fluid throughout the colon is consistent with diarrhea. 2. 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 Correlate for enteropathic arthropathy. 3. The uterus is enlarged by multiple fibroids measuring up to 4 cm. #4 2.9 cm left ovarian small cyst or follicle, not clearly physiologic in this demographic. This could be followed sonographically if there is persistent concern. 4. Small hiatal hernia. *One or more of the following individualized dose reduction techniques were utilized for this examination: 1. Automated exposure control. 2. Adjustment of the mA and/or kV according to patient size. 3. Use of iterative reconstruction technique. Electronically signed by: Dionisio Wyatt MD (11/11/2019 5:09 PM) [facility]
== END | disposition home or self-care (01) ==
LOC: KCIC CT 10:27
PROVIDERS: ATTEND Internal Medicine Gastroenterology
DX: K44.9 Diaphragmatic hernia without obstruction or gangrene (principal); N28.1 Cyst of kidney, acquired; K52.89 Other specified noninfective gastroenteritis and colitis; M51.36 Other intervertebral disc degeneration, lumbar region; R16.0 Hepatomegaly, not elsewhere classified; M43.28 Fusion of spine, sacral and sacrococcygeal region; M47.816 Spondylosis without myelopathy or radiculopathy, lumbar region; M12.88 Other specific arthropathies, not elsewhere classified, other specified site; K50.90 Crohn's disease, unspecified, without complications
CPT/HCPCS: 74177; Q9967